=== PATIENT | female | born 1940 | race Caucasian/White ===

== ENCOUNTER 2019-09-27 22:55 | IRF | payer MEDICARE, SELFPAY ==
[2019-09-27 22:10] VITALS: BP 145/65; PULSE 89; RESP 18; TEMP 37.1; O2SAT 94; BMI 31.8
--- NOTE | 2019-09-27 22:14 | ADMGEN ---
This patient, Sammi Calzada, was admitted to [facility] Room [id number]. Patient/family oriented to hospital policies and general routines including ID bracelet, bed and alarms, visiting hours, pain management, procedures, bathroom and other care routines, personal items, smoking policy, room service/diet, and visiting hours. Valuables list has been completed. Information on how to activate the Rapid Response Team has been discussed. Patient/Family are encouraged to report perceived risks to care and to ask questions if they do not understand what they are told or what they should do.
[2019-09-28 04:29] LABS: Basophils Percent Auto 0.5 % (0.2-1.2); Eosinophils Absolute Auto 0.2 K/mm3 (0-0.3); Eosinophils Percent Auto 3.4 % (0-4.4); Hematocrit 23.5 % (37.0-47.0); Hemoglobin 7.6 g/dL (12.0-15.0); Immature Granulocyte Absolute 0.02 K/mm3 (0.00-0.031); Immature Granulocyte Percent A 0.5 % (0-0.5); Lymphocytes Absolute Auto 1.11 K/mm3 (0.9-3.2); Lymphocytes Percent Auto 25.4 % (18.3-44.2); Mean Corpuscular HGB Conc 32.3 g/dl (32-36); Mean Corpuscular Hemoglobin 31.7 pg (26-34); Mean Corpuscular Volume 97.9 fl (80-100); Mean Platelet Volume 8.7 fl (7.4-10.4); Monocytes Absolute Auto 0.3 K/mm3 (0.1-0.6); Monocytes Percent Auto 7.6 % (2.6-8.5); Neutrophils Absolute Auto 2.7 K/mm3 (1.3-6.7); Neutrophils Percent Auto 62.6 % (45.5-73.1); Platelet Count Result 216 k/mm3 (150-375); Red Cell Distribution Width 13.8 % (11.5-14.5); White Blood Count 4.4 K/mm3 (4.5-10.0)
[2019-09-28 04:45] LABS: Blood Urea Nitrogen 11 mg/dL (7-17); Carbon Dioxide 32 mmol/L (22-30); Chloride 102 mmol/L (98-107); Estimated CRCL calculation 71 ml/min; Estimated Glomerular Filt Rate > 60; Glucose 104 mg/dL (65-105); Potassium 3.4 mmol/L (3.4-5.0); Sodium 133 mmol/L (137-145)
[2019-09-28 05:40] VITALS: BP 127/61; PULSE 93; RESP 18; TEMP 37.4; O2SAT 96
[2019-09-28] MEDS: ACETAMINOPHEN 325 MG TABLET 650 MG BY MOUTH ×4 (05:42→20:42)
[2019-09-28] MEDS: CHOLECALCIFEROL 1,000 UNIT TABLET 1000 UNITS BY MOUTH (11:48)
[2019-09-28] MEDS: PAROXETINE 20 MG TABLET PO (11:49)
[2019-09-28] MEDS: PANTOPRAZOLE 40 MG TABLET PO (11:49)
[2019-09-28] MEDS: ENOXAPARIN 40 MG/0.4 ML SYRINGE SUB-Q (11:50)
[2019-09-28 14:00] VITALS: BP 123/66; PULSE 112; RESP 20; TEMP 36.9; O2SAT 98
--- NOTE | 2019-09-28 16:00 | WPDREHABHP ---
H&P: HPI History of Present Illness Chief complaint: L. Femur Fracture Narrative: Sammi Calzada is a 79 year old female HISTORY OF PRESENT ILLNESS: The patient's primary rehab impairment category is 0 5-cehxtanmtv-xbmnv extremity fracture The etiologic diagnosis is left distal femur fracture I saw this patient [id number] on September 28, 2019 at 4:00 p.m. The patient is a 79 years old right-handed white woman with a past medical history of diverticulitis, depression, gastroesophageal reflux disease, T11 compression fracture, and osteopenia presented to [facility] on September 23, 2019 after suffering a mechanical fall down 4 steps at her home. Imaging revealed a left comminuted intra-articular, impacted distal femur fracture and and acute L3 burst type compression fracture with 50% height loss and 5 millimeter retropulsion into the spinal plan causing mild spinal canal stenosis. Orthopedic surgery was consulted and the patient underwent an open reduction internal fixation of the left distal femur on September [address] Vidal seymour. She is nonweightbearing to left lower extremity with knee immobilizer. Orthopedic trauma was consulted for the L3 burst fracture and recommended conservative management with an LSO brace for comfort in activity as tolerated. Postoperatively the patient has experienced acute blood-loss anemia requiring transfusion, acute postoperative pain which is stable, and hypocalcemia. She was discharged to us with Lovenox for DVT prophylaxis The patient has not traveled outside the [place] or had contact with someone who is ill that has traveled outside the [place] in the past 21 days. The patient has not traveled to an area of the [place] that is experiencing known transmission of the Coronavirus and has not had close personal contact with anyone that has. The patient does not have a fever. The patient does not have lower respiratory illness symptoms. Therapy was initiated at the acute care facility and the patient transferred to us from [facility] on September 27, 2019 at 10:30 p.m. last night on FALLS OR SURGERIES: The patient has had major surgeries in the 100 days prior to admission. They had falls in the past year. They had falls with injury in the past year. PAST MEDICAL HISTORY: gastroesophageal reflux disease, diverticulosis, osteopenia and also history of T11 compression fracture PAST SURGICAL HISTORY: cholecystectomy total abdominal hysterectomy, T11 kyphoplasty and the core biopsy. SOCIAL HISTORY: The patient lives independently in a 1 level home with the basement. [employer] is in the basement and the family is able to do that. The patient was completely independent with ADLs transfers and used can for functional mobility. She was able to perform all ADLs LEs. She works 4 hours a day at [employer]. Her is in the skilled nursing. She has had 2 falls in the past 6 months. She had major surgery this admission. Never smoker no alcohol or drug use works part-time FAMILY HISTORY: sister with breast cancer, hypertension and a sister with Parkinson's disease who had happened to be my patient PRIOR LEVEL OF FUNCTION: Eating was INDEPENDENT Oral Care was INDEPENDENT Toileting Hygiene was INDEPENDENT Shower/Bathing was INDEPENDENT Upper Body Dressing was INDEPENDENT Lower Body Dressing was INDEPENDENT Donning/[place] Footwear was INDEPENDENT Rolling Left and Right was INDEPENDENT Sit to Lying was INDEPENDENT Lying to Sitting was INDEPENDENT Sit to Stand was INDEPENDENT Bed to Chair Transfers was INDEPENDENT Toilet Transfers was INDEPENDENT Walking was INDEPENDENT >500 feet with NO DEVICE Wheelchair Mobility was NOT APPLICABLE PRIOR TO ADMISSION Stairs were 14 stairs independent CURRENT LEVEL OF FUNCTION: Eating was SET UP ONLY Oral Care was SET UP ONLY Toileting Hygiene was Shower/Bathing was Upper Body Dressing was Lower Body Dressing was
[2019-09-28] MEDS: FOLIC ACID 1 MG TABLET PO (17:26)
[2019-09-28] MEDS: SENNA/DOCUSATE SODIUM TABLET 1 TAB PO (20:43)
[2019-09-28 21:52] VITALS: BP 104/58; PULSE 100; RESP 18; TEMP 36.1; O2SAT 93
[2019-09-29] MEDS: ACETAMINOPHEN 325 MG TABLET 650 MG BY MOUTH ×4 (00:21→17:35)
[2019-09-29 06:00] VITALS: BP 115/62; PULSE 80; RESP 18; TEMP 36.4; O2SAT 97
--- NOTE | 2019-09-29 09:15 | RPD ---
INDIVIDUALIZED PLAN OF CARE FOR Sammi Calzada Brief Synthesis of Pre-Admission Screen, Post-Admission Evaluation and Therapy Evaluations: The patient presents to rehab with a left distal femur fracture. Comorbidities include status post open reduction internal fixation, L3 burst-type compression fracture, acute blood loss anemia requiring transfusion, acute postoperative pain, gastroesophageal reflux disease, hypotension, and hypocalcemia. The patient?s needs will be best met in an intensive program vs. at a lower level of care. The patient requires physician services for medical oversight, management of postoperative complications in setting of present comorbidities, and pain management. The patient requires nursing services for DVT prophylactics, infection protection, medication management and education, pressure relief, and wound care. Deficits include:ADLs, Balance, Endurance, Family Training/Education, Mobility, Pain Management, ROM, Safety, Strength, and Transfers Computer Art Instructor/Case Management for: Discharge Planning and Patient/Family Counseling Physical Therapy: 5 days per week for 90 minutes. Treatments may include: Therapeutic Exercise, Gait Training, Neuromuscular Re-education, Transfer Training, Community Reintegration, Bed Mobility, Patient/Family Education, Wheelchair Mobility Group Therapy/Concurrent Therapy Rationales: -Improve attention span during functional activities in a distracted environment. -Enhance problem solving and/or adequate judgment skills during functional activities in a distracted environment. -Promote increased safety awareness in a distracted environment to reduce fall risk with functional tasks, transfers, and ambulation to allow a more safe, self-sufficient return to the home environment. -Improve dynamic balance skills to promote safety and independence with functional activities in a distracted environment for maximum gain. Occupational Therapy: 5 days per week for 90 minutes. Treatments may include: Therapeutic Exercise, Therapeutic Activity, Cognitive Training, Self-Care Transfer Training, Community Reintegration, Home Management, Patient/Family Education, Wheelchair Mobility Training, Energy Conservation Training Group Therapy/Concurrent Therapy Rationales: -Allow therapist to observe and teach generalization and carry-over of skills learned in individual therapy. -Enhance problem solving and sequencing skills during therapeutic activities in a distracted environment. -Promote increased safety awareness in a realistic setting to reduce fall risk with functional tasks due to visual and verbal distractions. -Increase functional level with ADLs, ADL transfers and use of adaptive equipment through therapeutic activities with others while promoting safety to allow a more safe, self-sufficient return home. Medical Prognosis: Good Anticipated Length of Stay: 10 days Rehab Goals: Eating Goal: 06-Independent Oral Hygiene Goal: 06-Independent Toileting Hygiene Goal: 06-Independent Shower/Bathe Self Goal: 06-Independent Upper Body Dressing Goal: 06-Independent Lower Body Dressing Goal: 06-Independent Putting On/Taking Off Footwear Goal: 06-Independent Rolling Left and Right Goal: 06-Independent Sit to Lying Goal: 06-Independent Lying to Sitting on Side of Bed Goal: Sit to Stand Goal: 06-Independent Chair/Wie-wl-[id number] Transfer Goal: 06-Independent Toilet Transfer Goal: 06-Independent Car Transfer Goal: 06-Independent Walk 10' Goal: 06-Independent Walk 50' with Two Turns Goal: 06-Independent Walk 150' Goal: 06-Independent Walk 10' on Uneven Surface Goal: 06-Independent 1 Step (Curb) Goal: 06-Independent 4 Steps Goal: 03-Partial/Moderate Assistance 12 Steps Goal Score: 03-Partial/Moderate Assistance Picking Up Object Goal: 06-Independent Wheel 50' with Two Turns Score: 06-Independent Wheel 150' Goal: 06-Independent Anticipated discharge destination: Home
[2019-09-29] MEDS: ENOXAPARIN 40 MG/0.4 ML SYRINGE SUB-Q (09:37)
[2019-09-29] MEDS: CHOLECALCIFEROL 1,000 UNIT TABLET 1000 UNITS BY MOUTH (09:37)
[2019-09-29] MEDS: PANTOPRAZOLE 40 MG TABLET PO (09:38)
[2019-09-29] MEDS: PAROXETINE 20 MG TABLET PO (09:38)
[2019-09-29] MEDS: polyethylene glycoL 3350 17 GM POWD.PACK PO (09:38)
[2019-09-29] MEDS: FOLIC ACID 1 MG TABLET PO (11:09)
[2019-09-29 12:53] VITALS: BMI 31.8
[2019-09-29 14:00] VITALS: BP 111/63; PULSE 104; RESP 20; TEMP 36.9; O2SAT 99
--- NOTE | 2019-09-29 15:28 | PCPTNOTE ---
Sammi Calzada was evaluated for a wheeled walker on 09/29/2019 by this physical therapist. The wheeled walker will resolve patient's mobility limitations and will be used for ADL's within the home. The patient can safely use the wheeled walker. ?The wheeled walker will resolve the patient?s mobility deficits, including safe transfers/ADL's and gait. Shara Irizarry PT
--- NOTE | 2019-09-29 15:30 | PCPTNOTE ---
Shara Irizarry, PT completed an inpatient rehab wheelchair evaluation on Sammi Calzada on 09/29/2019. The patient is unable to safely and independently ambulate household distances due to their current impairments. Their diagnosis is L. Femur Fracture and their impairments include decreased strength, decreased endurance, decreased range of motion, decreased balance, lower extremity weakness, and ataxia. Sammi's weight bearing status is non weight-bearing on the left lower leg. The patient demonstrates significant functional mobility limitations that impair their ability to participate in mobility-related activities of daily living (MRADLs), including toileting, feeding, dressing, grooming, and bathing in the customary locations in the home. These limitations cannot be sufficiently resolved by the use of an appropriately fitted cane or walker. It is recommended that the patient utilize a wheelchair for functional mobility within the home in order to facilitate optimal safety, independence and participation in all MRADL's and adequately access their home environment on a regular basis. The patient's home provides adequate access between rooms, maneuvering space, and surfaces to accommodate the recommended wheelchair. The use of a wheelchair for functional mobility is strongly recommended and the patient is receptive to using the wheelchair. The use of this wheelchair will significantly improve the patient's ability to participate in MRADLS and the patient will use it on a regular basis in the home. This will facilitate optimal safety, independence, and participation. The patient has demonstrated sufficient physical and mental capabilities needed to safely propel a manual wheelchair that is provided in the home during a typical day. Recommended Wheelchair Frame: standard Recommended Wheelchair Size: 18 x 18 Recommended Wheelchair Cushion:standard Wheelchair Leg Recommendations: detachable elevating Elevating legrests are recommended because the patient has a musculoskeletal condition or the presence of a cast or brace which prevents 90 degree flexion at the knee. Elevating legrests are recommended because the patient has significant edema of the lower extremities that requires an elevating legrest. Anti-tippers are recommended due to patient demonstrating increased risk for falls. They would benefit from anti-tippers with added safety and stabilization. __Shara Irizarry PT __6/27/20 Evaluating Therapist Date I agree with and certify that the above recommendation is medically necessary. Referring Physician Date I agree with and certify that the above recommendation is medically necessary. Referring Physician Date
[2019-09-29] MEDS: CYANOCOBALAMIN 250 MCG TABLET PO (17:34)
[2019-09-29] MEDS: SENNA/DOCUSATE SODIUM TABLET 1 TAB PO (20:18)
[2019-09-29 22:00] VITALS: BP 117/53; PULSE 101; RESP 18; TEMP 37; O2SAT 92
[2019-09-30] MEDS: ACETAMINOPHEN 325 MG TABLET 650 MG BY MOUTH ×4 (03:23→17:28)
[2019-09-30 05:59] VITALS: BP 109/71; PULSE 80; RESP 18; TEMP 36.3; O2SAT 98
[2019-09-30 08:00] VITALS: PULSE 80; RESP 18; O2SAT 98
[2019-09-30] MEDS: FOLIC ACID 1 MG TABLET PO (09:28)
[2019-09-30] MEDS: ENOXAPARIN 40 MG/0.4 ML SYRINGE SUB-Q (09:28)
[2019-09-30] MEDS: CYANOCOBALAMIN 250 MCG TABLET PO (09:28)
[2019-09-30] MEDS: PANTOPRAZOLE 40 MG TABLET PO (09:28)
[2019-09-30] MEDS: CHOLECALCIFEROL 1,000 UNIT TABLET 1000 UNITS BY MOUTH (09:28)
[2019-09-30] MEDS: PAROXETINE 20 MG TABLET PO (09:28)
[2019-09-30] MEDS: polyethylene glycoL 3350 17 GM POWD.PACK PO (09:28)
[2019-09-30 14:00] VITALS: BP 129/67; PULSE 96; RESP 18; TEMP 37; O2SAT 96
--- NOTE | 2019-09-30 16:03 | WPDNEURORHBP ---
Subjective Date/time seen: 09/30/19 16:03 Interval history: this 79-year-old is here after suffering from on left femur fracture for which she had the surgery performed and she is nonweightbearing and that extremity. She does have an appointment in 2 weeks after discharge for her fracture she denies any headache nausea vomiting chest pain shortness of breath fever chills or sore throat Review of Systems Review of Systems: All systems reviewed & are unremarkable except as noted in HPI and below Functional Status Ambulation Ability Ability to Ambulate 10 Feet: Contact Guard Ability to Ambulate 50 Feet With 2 Turns: Standby Assistance Ambulation Assistive Devices: Walker, Wheeled Transfers Ability Ability to Transfer In/Out of Chair: Standby Assistance Exam Const: General: comfortable and no acute distress HENMT: General nose exam: Normal nares present Mouth: Yes moist mucous membranes Eyes: General: appearance normal, both eyes and all related structures Neck: Neck: supple and no JVD Resp: Effort & Inspection: normal respiratory effort Auscultation: clear to auscultation bilaterally Cardio: Rate: regular rate Rhythm: regular rhythm GI: GI Palp: Yes Soft to palpation Auscultation: normal bowel sounds Skin: General skin exam: normal color and no rashes or lesions noted Neuro: Other: the patient is awake and alert oriented x3 with mild short-term memory deficit weakness in a generalized fashion and of course nonweightbearing status of the left lower extremity overall stable and making certainly progress in the rehab Extrem: Other: left lower extremity is in the immobilizer no sign of infectious process noted Psych: Mental Status: mental status grossly normal Objective Data Vital Signs Vital Signs: Vital Signs - 24 hr 09/29/19 22:00 09/30/19 05:59 09/30/19 08:00 Temperature 37.0 C 36.3 C L Pulse Rate 101 H 80 80 Respiratory Rate 18 18 18 Blood Pressure 117/53 L 109/71 Pulse Oximetry 92 98 98 09/30/19 14:00 Temperature 37.0 C Pulse Rate 96 Respiratory Rate 18 Blood Pressure 129/67 Pulse Oximetry 96 Intake/Output Intake/Output: Intake & Output 09/27/19 09/28/19 09/29/19 09/30/19 23:59 23:59 23:59 23:59 Intake Total 720 720 720 Balance 720 720 720 Meds/Results Medications: Active Medications Generic Name Dose Route Start Last Admin Trade Name Freq PRN Reason Stop Dose Admin Acetaminophen 650 mg 09/27/19 00:00 09/30/19 12:54 Tylenol Tablet BY MOUTH 650 mg Q6HR CAROL Administration Calcium Carbonate 500 mg 09/28/19 09:00 09/30/19 09:28 Os-Andrei 500 +D Tablet PO 10/28/19 09:01 500 mg BID CAROL Administration Cyanocobalamin 250 mcg 09/29/19 09:00 09/30/19 09:28 Vitamin B-12 Tab PO 10/30/19 09:01 250 mcg DAILY CAROL Administration Enoxaparin Sodium 40 mg 09/28/19 09:00 09/30/19 09:28 Lovenox SUB-Q 40 mg DAILY CAROL Administration Folic Acid 1 mg 09/28/19 09:00 09/30/19 09:28 Folic Acid PO 1 mg DAILY CAROL Administration Oxycodone HCl 5 mg 09/27/19 23:55 09/28/19 17:26 Roxicodone Ir Tablet PO 5 mg Q4H PRN Administration Pain (Scale Score 7-10) Pantoprazole Sodium 40 mg 09/28/19 09:00 09/30/19 09:28 Protonix PO 40 mg QAM CAROL Administration Paroxetine HCl 20 mg 09/28/19 09:00 09/30/19 09:28 Paxil PO 20 mg QAM CAROL Administration Polyethylene Glycol 17 gm 09/28/19 09:00 09/30/19 09:28 Miralax PO 17 gm DAILY CAROL Administration Senna/Docusate Sodium 1 tab 09/28/19 21:00 09/29/19 20:18 Senokot S Tablet PO 1 tab HS CAROL Administration Vitamin D 1,000 unit 09/28/19 09:00 09/30/19 09:28 Vitamin D BY MOUTH 10/28/19 09:01 1,000 unit DAILY CAROL Administration Progress Note: A&P Assessment and Plan (1) S/P ORIF (open reduction internal fixation) fracture: Code(s): Z98.890 - Other specified postprocedural states; Z87.81 - Personal history of (healed) trauma
[2019-09-30] MEDS: SENNA/DOCUSATE SODIUM TABLET 1 TAB PO (20:53)
[2019-09-30 22:00] VITALS: BP 130/54; PULSE 94; RESP 19; TEMP 36.9; O2SAT 98
[2019-10-01] MEDS: ACETAMINOPHEN 325 MG TABLET 650 MG BY MOUTH ×4 (00:19→16:56)
[2019-10-01 06:00] VITALS: BP 149/75; PULSE 82; RESP 18; TEMP 36.1; O2SAT 99
[2019-10-01 08:00] VITALS: PULSE 82; RESP 18; O2SAT 99
[2019-10-01] MEDS: ENOXAPARIN 40 MG/0.4 ML SYRINGE SUB-Q (08:33)
[2019-10-01] MEDS: PAROXETINE 20 MG TABLET PO (08:33)
[2019-10-01] MEDS: polyethylene glycoL 3350 17 GM POWD.PACK PO (08:34)
[2019-10-01] MEDS: FOLIC ACID 1 MG TABLET PO (08:34)
[2019-10-01] MEDS: CYANOCOBALAMIN 250 MCG TABLET PO (08:34)
[2019-10-01] MEDS: PANTOPRAZOLE 40 MG TABLET PO (08:34)
[2019-10-01] MEDS: CHOLECALCIFEROL 1,000 UNIT TABLET 1000 UNITS BY MOUTH (08:35)
[2019-10-01 14:00] VITALS: BP 113/56; PULSE 87; RESP 18; TEMP 36.9; O2SAT 96
--- NOTE | 2019-10-01 14:00 | WPDNEURORHBP ---
Subjective Date/time seen: 10/01/19 14:00 Interval history: this 79-year-old woman is here after having had surgery for left femur fracture and the left lower extremity is in immobilizer she is doing fairly well and tells me that she has had at least several is history of tremors and she had seen me in the past which I am unable to recall however I suggested that she should have follow-up with me post discharge after the rehab so I can reassess her functionality as she does have a family history of the Parkinson's disease and also the family history of the tremors The patient denies any headache nausea vomiting chest pain shortness of breath fever chills sore throat Review of Systems Review of Systems: All systems reviewed & are unremarkable except as noted in HPI and below Functional Status Ambulation Ability Ability to Ambulate 10 Feet: Contact Guard Ability to Ambulate 50 Feet With 2 Turns: Standby Assistance Ambulation Assistive Devices: Walker, Standard Transfers Ability Ability to Transfer In/Out of Chair: Standby Assistance Exam Const: General: comfortable and no acute distress HENMT: General nose exam: Normal nares present Mouth: Yes moist mucous membranes Eyes: General: appearance normal, both eyes and all related structures Neck: Neck: supple and no JVD Resp: Effort & Inspection: normal respiratory effort Auscultation: clear to auscultation bilaterally Cardio: Rate: regular rate Rhythm: regular rhythm GI: GI Palp: Yes Soft to palpation Auscultation: normal bowel sounds Skin: General skin exam: normal color and no rashes or lesions noted Neuro: Other: patient is awake alert well oriented normal speech and language function no dysarthria or dysphonia she does have rather coarse arrhythmic tremor without any evidence of rigidity or bradykinesia this tremor does not look like a parkinsonian tremor but she needs follow-up as some patients will have long-standing have tremors may have Parkinson's disease or parkinsonism later in the course of the tremor in any event I am not going to address her tremor this point and have discussed with he Extrem: General: normal to inspection Other: the left lower extremity is in the immobilizer Psych: Mental Status: mental status grossly normal Objective Data Vital Signs Vital Signs: Vital Signs - 24 hr 09/30/19 22:00 10/01/19 06:00 10/01/19 08:00 Temperature 36.9 C 36.1 C L Pulse Rate 94 82 82 Respiratory Rate 19 18 18 Blood Pressure 130/54 L 149/75 H Pulse Oximetry 98 99 99 Intake/Output Intake/Output: Intake & Output 09/28/19 09/29/19 09/30/19 10/01/19 23:59 23:59 23:59 23:59 Intake Total 389 070 8530 440 Balance 667 533 2589 440 Meds/Results Medications: Active Medications Generic Name Dose Route Start Last Admin Trade Name Freq PRN Reason Stop Dose Admin Acetaminophen 650 mg 09/27/19 00:00 10/01/19 13:15 Tylenol Tablet BY MOUTH 650 mg Q6HR CAROL Administration Calcium Carbonate 500 mg 09/28/19 09:00 10/01/19 08:34 Os-Andrei 500 +D Tablet PO 10/28/19 09:01 500 mg BID CAROL Administration Cyanocobalamin 250 mcg 09/29/19 09:00 10/01/19 08:34 Vitamin B-12 Tab PO 10/30/19 09:01 250 mcg DAILY CAROL Administration Enoxaparin Sodium 40 mg 09/28/19 09:00 10/01/19 08:33 Lovenox SUB-Q 40 mg DAILY CAROL Administration Folic Acid 1 mg 09/28/19 09:00 10/01/19 08:34 Folic Acid PO 1 mg DAILY CAROL Administration Oxycodone HCl 5 mg 09/27/19 23:55 09/28/19 17:26 Roxicodone Ir Tablet PO 5 mg Q4H PRN Administration Pain (Scale Score 7-10) Pantoprazole Sodium 40 mg 09/28/19 09:00 10/01/19 08:34 Protonix PO 40 mg QAM CAROL Administration Paroxetine HCl 20 mg 09/28/19 09:00 10/01/19 08:33 Paxil PO 20 mg QAM CAROL Administration Polyethylene Glycol 17 gm 09/28/19 09:00 10/01/19 08:34 Miralax PO 17 gm DAILY CAROL Administration Senna/Docusate Sodium 1 tab 09/28/19
[2019-10-01] MEDS: PRIMIDONE 12.5 MG TABLET PO (21:20)
[2019-10-01 22:00] VITALS: BP 103/57; PULSE 87; RESP 18; TEMP 36.9; O2SAT 95
[2019-10-02] MEDS: ACETAMINOPHEN 325 MG TABLET 650 MG BY MOUTH ×4 (01:37→17:01)
[2019-10-02 06:00] VITALS: BP 114/61; PULSE 78; RESP 17; TEMP 36.9; O2SAT 98
[2019-10-02] MEDS: CYANOCOBALAMIN 250 MCG TABLET PO (08:25)
[2019-10-02] MEDS: ENOXAPARIN 40 MG/0.4 ML SYRINGE SUB-Q (08:26)
[2019-10-02] MEDS: FOLIC ACID 1 MG TABLET PO (08:26)
[2019-10-02] MEDS: PAROXETINE 20 MG TABLET PO (08:26)
[2019-10-02] MEDS: PANTOPRAZOLE 40 MG TABLET PO (08:26)
[2019-10-02] MEDS: polyethylene glycoL 3350 17 GM POWD.PACK PO (08:26)
[2019-10-02] MEDS: CHOLECALCIFEROL 1,000 UNIT TABLET 1000 UNITS BY MOUTH (12:41)
[2019-10-02 14:00] VITALS: BP 112/49; PULSE 97; RESP 20; TEMP 36.8; O2SAT 96
--- NOTE | 2019-10-02 16:23 | PCCCNOTE ---
On 10/02/19, the student, [Anthony De La Fuente ], provided care and completed [facility] documentation on this patient. I have reviewed the student's documentation and agree with the findings.
[2019-10-02] MEDS: PRIMIDONE 12.5 MG TABLET PO (20:07)
[2019-10-02] MEDS: SENNA/DOCUSATE SODIUM TABLET 1 TAB PO (20:07)
[2019-10-02 22:00] VITALS: BP 114/55; PULSE 85; RESP 16; TEMP 37.1; O2SAT 94
[2019-10-03] MEDS: ACETAMINOPHEN 325 MG TABLET 650 MG BY MOUTH ×4 (02:00→18:00)
[2019-10-03 06:00] VITALS: BP 120/65; PULSE 75; RESP 18; TEMP 36.5; O2SAT 97
[2019-10-03 08:00] VITALS: PULSE 75; RESP 18; O2SAT 97
[2019-10-03] MEDS: CHOLECALCIFEROL 1,000 UNIT TABLET 1000 UNITS BY MOUTH (09:15)
[2019-10-03] MEDS: PAROXETINE 20 MG TABLET PO (09:15)
[2019-10-03] MEDS: PANTOPRAZOLE 40 MG TABLET PO (09:15)
[2019-10-03] MEDS: FOLIC ACID 1 MG TABLET PO (09:16)
[2019-10-03] MEDS: CYANOCOBALAMIN 250 MCG TABLET PO (09:16)
[2019-10-03] MEDS: ENOXAPARIN 40 MG/0.4 ML SYRINGE SUB-Q (09:16)
--- NOTE | 2019-10-03 11:00 | WPDNEURORHBP ---
Subjective Date/time seen: 10/02/19 11:00 Interval history: this 79-year-old is here after having had left femur fracture and the which is in immobilizer she is doing fairly well and making progress in the rehab she denies any headache nausea vomiting chest pain shortness of breath fever chills sore throat engage in therapy and doing fairly well Review of Systems Review of Systems: All systems reviewed & are unremarkable except as noted in HPI and below Functional Status Ambulation Ability Ability to Ambulate 10 Feet: Contact Guard Ability to Ambulate 50 Feet With 2 Turns: Standby Assistance Ambulation Assistive Devices: Walker, Wheeled Transfers Ability Ability to Transfer In/Out of Chair: Standby Assistance Exam Const: General: comfortable and no acute distress HENMT: General nose exam: Normal nares present Mouth: Yes moist mucous membranes Eyes: General: appearance normal, both eyes and all related structures Neck: Neck: supple and no JVD Resp: Effort & Inspection: normal respiratory effort Auscultation: clear to auscultation bilaterally Cardio: Rate: regular rate Rhythm: regular rhythm GI: GI Palp: Yes Soft to palpation Auscultation: normal bowel sounds Skin: General skin exam: normal color and no rashes or lesions noted Neuro: Other: patient is awake and alert well oriented time place and person speech language functions are normal cranial examination is normal her strength is slowly improving but still needing assistance in the activities of daily living Extrem: Other: the left lower extremity is in immobilizer Psych: Mental Status: mental status grossly normal Objective Data Vital Signs Vital Signs: Vital Signs - 24 hr 10/02/19 14:00 10/02/19 22:00 10/03/19 06:00 Temperature 36.8 C 37.1 C 36.5 C Pulse Rate 97 85 75 Respiratory Rate 20 16 18 Blood Pressure 112/49 L 114/55 L 120/65 Pulse Oximetry 96 94 97 10/03/19 08:00 Temperature Pulse Rate 75 Respiratory Rate 18 Blood Pressure Pulse Oximetry 97 Intake/Output Intake/Output: Intake & Output 09/30/19 10/01/19 10/02/19 10/03/19 23:59 23:59 23:59 23:59 Intake Total 2543 316 4224 240 Balance 3589 310 9387 240 Meds/Results Medications: Active Medications Generic Name Dose Route Start Last Admin Trade Name Freq PRN Reason Stop Dose Admin Acetaminophen 650 mg 09/27/19 00:00 10/03/19 06:37 Tylenol Tablet BY MOUTH 650 mg Q6HR CAROL Administration Calcium Carbonate 500 mg 09/28/19 09:00 10/03/19 09:16 Os-Andrei 500 +D Tablet PO 10/28/19 09:01 500 mg BID CAROL Administration Cyanocobalamin 250 mcg 09/29/19 09:00 10/03/19 09:16 Vitamin B-12 Tab PO 10/30/19 09:01 250 mcg DAILY CAROL Administration Enoxaparin Sodium 40 mg 09/28/19 09:00 10/03/19 09:16 Lovenox SUB-Q 40 mg DAILY CAROL Administration Folic Acid 1 mg 09/28/19 09:00 10/03/19 09:16 Folic Acid PO 1 mg DAILY CAROL Administration Oxycodone HCl 5 mg 09/27/19 23:55 10/02/19 03:17 Roxicodone Ir Tablet PO 5 mg Q4H PRN Administration Pain (Scale Score 7-10) Pantoprazole Sodium 40 mg 09/28/19 09:00 10/03/19 09:15 Protonix PO 40 mg QAM CAROL Administration Paroxetine HCl 20 mg 09/28/19 09:00 10/03/19 09:15 Paxil PO 20 mg QAM CAROL Administration Polyethylene Glycol 17 gm 09/28/19 09:00 10/03/19 09:17 Miralax PO Not Given DAILY CAROL Primidone 12.5 mg 10/01/19 21:00 10/02/19 20:07 Mysoline PO 12.5 mg HS CAROL Administration Senna/Docusate Sodium 1 tab 09/28/19 21:00 10/02/19 20:07 Senokot S Tablet PO 1 tab HS CAROL Administration Vitamin D 1,000 unit 09/28/19 09:00 10/03/19 09:15 Vitamin D BY MOUTH 10/28/19 09:01 1,000 unit DAILY CAROL Administration Progress Note: A&P Assessment and Plan (1) Coarse tremors: Code(s): G25.2 - Other specified forms of tremor Status: Acute (2) S/P ORIF (open reduction internal fixation) fracture:
--- NOTE | 2019-10-03 12:54 | PCDIET ---
Nutrition Follow-Up Complete: No nutrition diagnosis at this time. Nutrition Goal: Patient to consume 75% of meals or greater. Goal met. Patient consuming 75-100% of most meals on regular diet which is appropriate. Patient reports good appetite and denies c/o or concerns. Last recorded weight is 74 kg. Recommend obtaining new weight. Bowel Motility: +BM today. Labs Reviewed: No new labs available. Meds Noted: Oscal 500 + D, Vitamin B12, Folic Acid, Protonix, Miralax, Senna, Vitamin D Additional Notes: Left leg incision. No documented pressure ulcers. Will continue to monitor with same goal. Nutrition Monitoring and Evaluation: Follow up in 7 days.
[2019-10-03 14:00] VITALS: BP 111/63; PULSE 97; RESP 18; TEMP 36.8; O2SAT 95
--- NOTE | 2019-10-03 15:56 | WPDNEURORHBP ---
Subjective Date/time seen: 10/03/19 15:56 Interval history: this pleasant 79-year-old is recuperating on the acute rehab floor after having had surgery for the left femur fracture she is nonweightbearing on that extremity doing fairly well in the therapy denies any headache nausea vomiting chest pain shortness of breath fever chills sore throat Review of Systems Review of Systems: All systems reviewed & are unremarkable except as noted in HPI and below Functional Status Ambulation Ability Ability to Ambulate 10 Feet: Contact Guard Ability to Ambulate 50 Feet With 2 Turns: Contact Guard Ambulation Assistive Devices: Walker, Wheeled Transfers Ability Ability to Transfer In/Out of Chair: Standby Assistance Exam Const: General: comfortable and no acute distress HENMT: General nose exam: Normal nares present Mouth: Yes moist mucous membranes Eyes: General: appearance normal, both eyes and all related structures Neck: Neck: supple and no JVD Resp: Effort & Inspection: normal respiratory effort Auscultation: clear to auscultation bilaterally Cardio: Rate: regular rate Rhythm: regular rhythm GI: GI Palp: Yes Soft to palpation Auscultation: normal bowel sounds Skin: General skin exam: normal color and no rashes or lesions noted Neuro: Other: patient is awake and alert well oriented follows all commands quite well she is not any distress engage in therapy needing still assistance in the activities of daily living her weakness which is directly related to the fracture and post operative fatigue and tiredness but no actual neurological weakness in that sense Extrem: General: normal to inspection Other: the left lower extremity is in immobilizer Psych: Mental Status: mental status grossly normal Objective Data Vital Signs Vital Signs: Vital Signs - 24 hr 10/02/19 22:00 10/03/19 06:00 10/03/19 08:00 Temperature 37.1 C 36.5 C Pulse Rate 85 75 75 Respiratory Rate 16 18 18 Blood Pressure 114/55 L 120/65 Pulse Oximetry 94 97 97 10/03/19 14:00 Temperature 36.8 C Pulse Rate 97 Respiratory Rate 18 Blood Pressure 111/63 Pulse Oximetry 95 Intake/Output Intake/Output: Intake & Output 09/30/19 10/01/19 10/02/19 10/03/19 23:59 23:59 23:59 23:59 Intake Total 7618 501 4947 480 Balance 3605 241 0781 480 Meds/Results Medications: Active Medications Generic Name Dose Route Start Last Admin Trade Name Norrisq PRN Reason Stop Dose Admin Acetaminophen 650 mg 09/27/19 00:00 10/03/19 12:20 Tylenol Tablet BY MOUTH 650 mg Q6HR CAROL Administration Calcium Carbonate 500 mg 09/28/19 09:00 10/03/19 09:16 Os-Andrei 500 +D Tablet PO 10/28/19 09:01 500 mg BID CAROL Administration Cyanocobalamin 250 mcg 09/29/19 09:00 10/03/19 09:16 Vitamin B-12 Tab PO 10/30/19 09:01 250 mcg DAILY CAROL Administration Enoxaparin Sodium 40 mg 09/28/19 09:00 10/03/19 09:16 Lovenox SUB-Q 40 mg DAILY CAROL Administration Folic Acid 1 mg 09/28/19 09:00 10/03/19 09:16 Folic Acid PO 1 mg DAILY CAROL Administration Oxycodone HCl 5 mg 09/27/19 23:55 10/02/19 03:17 Roxicodone Ir Tablet PO 5 mg Q4H PRN Administration Pain (Scale Score 7-10) Pantoprazole Sodium 40 mg 09/28/19 09:00 10/03/19 09:15 Protonix PO 40 mg QAM CAROL Administration Paroxetine HCl 20 mg 09/28/19 09:00 10/03/19 09:15 Paxil PO 20 mg QAM CAROL Administration Polyethylene Glycol 17 gm 09/28/19 09:00 10/03/19 09:17 Miralax PO Not Given DAILY CAROL Primidone 12.5 mg 10/01/19 21:00 10/02/19 20:07 Mysoline PO 12.5 mg HS CAROL Administration Senna/Docusate Sodium 1 tab 09/28/19 21:00 10/02/19 20:07 Senokot S Tablet PO 1 tab HS CAROL Administration Vitamin D 1,000 unit 09/28/19 09:00 10/03/19 09:15 Vitamin D BY MOUTH 10/28/19 09:01 1,000 unit DAILY CAROL Administration Progress Note: A&P Assessment and Plan (1) Coarse tremors: Code(s): G2
[2019-10-03] MEDS: SENNA/DOCUSATE SODIUM TABLET 1 TAB PO (20:52)
[2019-10-03] MEDS: PRIMIDONE 12.5 MG TABLET PO (20:52)
[2019-10-03 22:00] VITALS: BP 1136/58; PULSE 81; RESP 18; TEMP 36.3; O2SAT 93
[2019-10-04 05:48] VITALS: BP 133/74; PULSE 84; RESP 18; TEMP 36.2; O2SAT 95
[2019-10-04] MEDS: ACETAMINOPHEN 325 MG TABLET 650 MG BY MOUTH ×4 (06:44→21:09)
[2019-10-04 08:00] VITALS: PULSE 84; RESP 18; O2SAT 95
[2019-10-04] MEDS: CHOLECALCIFEROL 1,000 UNIT TABLET 1000 UNITS BY MOUTH (08:40)
[2019-10-04] MEDS: FOLIC ACID 1 MG TABLET PO (08:40)
[2019-10-04] MEDS: CYANOCOBALAMIN 250 MCG TABLET PO (08:41)
[2019-10-04] MEDS: PANTOPRAZOLE 40 MG TABLET PO (08:41)
[2019-10-04] MEDS: PAROXETINE 20 MG TABLET PO (08:41)
[2019-10-04] MEDS: polyethylene glycoL 3350 17 GM POWD.PACK PO (08:41)
[2019-10-04] MEDS: ENOXAPARIN 40 MG/0.4 ML SYRINGE SUB-Q (08:41)
[2019-10-04 14:00] VITALS: BP 114/54; PULSE 80; RESP 18; TEMP 37.1; O2SAT 97
[2019-10-04] MEDS: PRIMIDONE 12.5 MG TABLET PO (21:09)
[2019-10-04] MEDS: SENNA/DOCUSATE SODIUM TABLET 1 TAB PO (21:09)
[2019-10-04 22:00] VITALS: BP 129/69; PULSE 82; RESP 18; TEMP 35.9; O2SAT 98
[2019-10-05 04:20] LABS: Basophils Percent Auto 0.3 % (0.2-1.2); Eosinophils Absolute Auto 0.1 K/mm3 (0-0.3); Eosinophils Percent Auto 2.2 % (0-4.4); Hematocrit 26.1 % (37.0-47.0); Hemoglobin 8.2 g/dL (12.0-15.0); Immature Granulocyte Absolute 0.01 K/mm3 (0.00-0.031); Immature Granulocyte Percent A 0.3 % (0-0.5); Lymphocytes Absolute Auto 0.94 K/mm3 (0.9-3.2); Lymphocytes Percent Auto 25.8 % (18.3-44.2); Mean Corpuscular HGB Conc 31.4 g/dl (32-36); Mean Corpuscular Hemoglobin 32.3 pg (26-34); Mean Corpuscular Volume 102.8 fl (80-100); Mean Platelet Volume 8.3 fl (7.4-10.4); Monocytes Absolute Auto 0.3 K/mm3 (0.1-0.6); Monocytes Percent Auto 7.1 % (2.6-8.5); Neutrophils Absolute Auto 2.4 K/mm3 (1.3-6.7); Neutrophils Percent Auto 64.3 % (45.5-73.1); Platelet Count Result 277 k/mm3 (150-375); Red Blood Count 2.54 M/mm3 (4.2-5.4); Red Cell Distribution Width 15.9 % (11.5-14.5); White Blood Count 3.7 K/mm3 (4.5-10.0)
[2019-10-05 04:35] LABS: Blood Urea Nitrogen 7 mg/dL (7-17); Calcium 8.1 mg/dL (8.4-10.2); Carbon Dioxide 34 mmol/L (22-30); Chloride 102 mmol/L (98-107); Estimated CRCL calculation 60 ml/min; Estimated Glomerular Filt Rate > 60; Glucose 96 mg/dL (65-105); Potassium 3.3 mmol/L (3.4-5.0); Sodium 138 mmol/L (137-145)
[2019-10-05 06:00] VITALS: BP 118/67; PULSE 76; RESP 18; TEMP 35.8; O2SAT 96
[2019-10-05] MEDS: ACETAMINOPHEN 325 MG TABLET 650 MG BY MOUTH ×3 (06:11→17:05)
--- NOTE | 2019-10-05 09:01 | PC.NURSE ---
pt refused aspirin at this time. updated.
[2019-10-05] MEDS: CHOLECALCIFEROL 1,000 UNIT TABLET 1000 UNITS BY MOUTH (09:26)
[2019-10-05] MEDS: PAROXETINE 20 MG TABLET PO (09:26)
[2019-10-05] MEDS: CYANOCOBALAMIN 250 MCG TABLET PO (09:26)
[2019-10-05] MEDS: PANTOPRAZOLE 40 MG TABLET PO (09:26)
[2019-10-05] MEDS: FOLIC ACID 1 MG TABLET PO (09:26)
[2019-10-05] MEDS: ENOXAPARIN 40 MG/0.4 ML SYRINGE SUB-Q (09:26)
--- NOTE | 2019-10-05 12:43 | WPDNEURORHBP ---
Subjective Date/time seen: S/Pleft femur fracture repair with multiple comorbid [id number]/05/20 12:43 Review of Systems Review of Systems: All systems reviewed & are unremarkable except as noted in HPI and below Functional Status Ambulation Ability Ability to Ambulate 10 Feet: Contact Guard Ability to Ambulate 50 Feet With 2 Turns: Contact Guard Ambulation Assistive Devices: Walker, Wheeled Transfers Ability Ability to Transfer In/Out of Chair: Standby Assistance Exam Const: General: cooperative and no acute distress HENMT: Head: normal to inspection Eyes: General: appearance normal, both eyes and all related structures Neck: Neck: normal visual inspection, full ROM and no lymphadenopathy Resp: Effort & Inspection: normal respiratory effort Auscultation: clear to auscultation bilaterally Cardio: Rate: regular rate GI: Auscultation: normal bowel sounds Skin: General skin exam: normal color and no rashes or lesions noted Neuro: General: patient oriented x3 and moves all extremities Cranial nerves: Yes CN's II-XII intact bilaterally Cognition (Neuro): normal cognition Speech: normal speech Motor exam (neuro): Abnormal motor strength present (generalized weekness) Extrem: General: normal to inspection Psych: Appearance: grossly normal Objective Data Vital Signs Vital Signs: Vital Signs - 24 hr 10/04/19 14:00 10/04/19 22:00 10/05/19 06:00 Temperature 37.1 C 35.9 C L 35.8 C L Pulse Rate 80 82 76 Respiratory Rate 18 18 18 Blood Pressure 114/54 L 129/69 118/67 Pulse Oximetry 97 98 96 Intake/Output Intake/Output: Intake & Output 10/02/19 10/03/19 10/04/19 10/05/19 23:59 23:59 23:59 23:59 Intake Total 1080 720 360 240 Balance 1080 720 360 240 Meds/Results Medications: Active Medications Generic Name Dose Route Start Last Admin Trade Name Freq PRN Reason Stop Dose Admin Acetaminophen 650 mg 09/27/19 00:00 10/05/19 12:11 Tylenol Tablet BY MOUTH 650 mg Q6HR CAROL Administration Calcium Carbonate 500 mg 09/28/19 09:00 10/05/19 09:26 Os-Andrei 500 +D Tablet PO 10/28/19 09:01 500 mg BID CAROL Administration Cyanocobalamin 250 mcg 09/29/19 09:00 10/05/19 09:26 Vitamin B-12 Tab PO 10/30/19 09:01 250 mcg DAILY CAROL Administration Enoxaparin Sodium 40 mg 09/28/19 09:00 10/05/19 09:26 Lovenox SUB-Q 40 mg DAILY CAROL Administration Folic Acid 1 mg 09/28/19 09:00 10/05/19 09:26 Folic Acid PO 1 mg DAILY CAROL Administration Oxycodone HCl 5 mg 09/27/19 23:55 10/02/19 03:17 Roxicodone Ir Tablet PO 5 mg Q4H PRN Administration Pain (Scale Score 7-10) Pantoprazole Sodium 40 mg 09/28/19 09:00 10/05/19 09:26 Protonix PO 40 mg QAM CAROL Administration Paroxetine HCl 20 mg 09/28/19 09:00 10/05/19 09:26 Paxil PO 20 mg QAM CAROL Administration Polyethylene Glycol 17 gm 09/28/19 09:00 10/05/19 09:29 Miralax PO Not Given DAILY CAROL Primidone 12.5 mg 10/01/19 21:00 10/04/19 21:09 Mysoline PO 12.5 mg HS CAROL Administration Senna/Docusate Sodium 1 tab 09/28/19 21:00 10/04/19 21:09 Senokot S Tablet PO 1 tab HS CAROL Administration Vitamin D 1,000 unit 09/28/19 09:00 10/05/19 09:26 Vitamin D BY MOUTH 10/28/19 09:01 1,000 unit DAILY CAROL Administration Labs Labs: Laboratory Results - last 24 hr 10/05/19 10/05/19 04:11 04:11 WBC 3.7 L RBC 2.54 L Hgb 8.2 L Hct 26.1 L MCV 102.8 H D MCH 32.3 MCHC 31.4 L RDW 15.9 H Plt Count 277 MPV 8.3 Immature Gran % (Auto) 0.3 Neut % (Auto) 64.3 Lymph % (Auto) 25.8 Winn % (Auto) 7.1 Eos % (Auto) 2.2 Baso % (Auto) 0.3 Lymph # (Auto) 0.94 Winn # (Auto) 0.3 Eos # (Auto) 0.1 Baso # (Auto) 0.0 Abs Immat Gran (auto) 0.01 Absolute Neuts (auto) 2.4 Absolute Nucleated RBC 0.0 Nucleated RBC % 0.0 Sodium 138 Potassium 3.3 L Chloride 102 Carbon Dioxide 34 H BUN 7 Creatinine
[2019-10-05 14:00] VITALS: BP 112/56; PULSE 88; RESP 18; TEMP 37.1; O2SAT 98
[2019-10-05] MEDS: PRIMIDONE 12.5 MG TABLET PO (21:30)
[2019-10-05] MEDS: SENNA/DOCUSATE SODIUM TABLET 1 TAB PO (21:30)
[2019-10-05 22:00] VITALS: BP 115/68; PULSE 92; RESP 18; TEMP 36.8; O2SAT 97
[2019-10-06] MEDS: ACETAMINOPHEN 325 MG TABLET 650 MG BY MOUTH ×5 (00:11→23:46)
[2019-10-06 06:00] VITALS: BP 139/69; PULSE 73; RESP 18; TEMP 36.6; O2SAT 97
[2019-10-06] MEDS: ENOXAPARIN 40 MG/0.4 ML SYRINGE SUB-Q (08:22)
[2019-10-06] MEDS: FOLIC ACID 1 MG TABLET PO (08:23)
[2019-10-06] MEDS: CHOLECALCIFEROL 1,000 UNIT TABLET 1000 UNITS BY MOUTH (08:23)
[2019-10-06] MEDS: PAROXETINE 20 MG TABLET PO (08:23)
[2019-10-06] MEDS: CYANOCOBALAMIN 250 MCG TABLET PO (08:23)
[2019-10-06] MEDS: PANTOPRAZOLE 40 MG TABLET PO (08:23)
--- NOTE | 2019-10-06 08:25 | PC.NURSE ---
pt refused miralax this morning. updated.
[2019-10-06 14:00] VITALS: BP 115/58; PULSE 90; RESP 18; TEMP 37; O2SAT 95
[2019-10-06] MEDS: PRIMIDONE 12.5 MG TABLET PO (20:15)
[2019-10-06] MEDS: SENNA/DOCUSATE SODIUM TABLET 1 TAB PO (20:15)
[2019-10-06 22:00] VITALS: BP 124/75; PULSE 78; RESP 16; TEMP 36.8; O2SAT 95
[2019-10-07] MEDS: ACETAMINOPHEN 325 MG TABLET 650 MG BY MOUTH ×2 (05:43→17:27)
[2019-10-07 06:00] VITALS: BP 128/62; PULSE 75; RESP 16; TEMP 36.8; O2SAT 97
[2019-10-07] MEDS: FOLIC ACID 1 MG TABLET PO (08:29)
[2019-10-07] MEDS: PANTOPRAZOLE 40 MG TABLET PO (08:29)
[2019-10-07] MEDS: CHOLECALCIFEROL 1,000 UNIT TABLET 1000 UNITS BY MOUTH (08:29)
[2019-10-07] MEDS: PAROXETINE 20 MG TABLET PO (08:30)
[2019-10-07] MEDS: CYANOCOBALAMIN 250 MCG TABLET PO (08:30)
[2019-10-07] MEDS: ENOXAPARIN 40 MG/0.4 ML SYRINGE SUB-Q (08:30)
--- NOTE | 2019-10-07 12:39 | WPDNEURORHBP ---
Subjective Date/time seen: 10/07/19 12:39 Interval history: this 79-year-old woman is here on the acute rehab recuperating from the distal left femur fracture which is in immobilizer the patient has an appointment with the surgeon tomorrow she is on nonweightbearing however able to walk up to 60 feet she will need the wheel walker and rather yes will walker and wheelchair at discharge discharge planning is tomorrow prior to her visit to her surgeon patient denies any headache nausea vomiting chest pain shortness of breath fever chills sore throat Review of Systems Review of Systems: All systems reviewed & are unremarkable except as noted in HPI and below Functional Status Ambulation Ability Ability to Ambulate 10 Feet: Standby Assistance Ability to Ambulate 50 Feet With 2 Turns: Contact Guard Ambulation Assistive Devices: Walker, Wheeled Transfers Ability Ability to Transfer In/Out of Chair: Standby Assistance Exam Const: General: comfortable and no acute distress HENMT: General nose exam: Normal nares present Mouth: Yes moist mucous membranes Eyes: General: appearance normal, both eyes and all related structures Neck: Neck: supple and no JVD Resp: Effort & Inspection: normal respiratory effort Auscultation: clear to auscultation bilaterally Cardio: Rate: regular rate Rhythm: regular rhythm GI: GI Palp: Yes Soft to palpation Auscultation: normal bowel sounds Skin: General skin exam: normal color and no rashes or lesions noted Neuro: Other: patient is awake alert oriented follows all commands added strength has improved she still remains nonweightbearing at the left lower extremity Extrem: General: normal to inspection Psych: Mental Status: mental status grossly normal Other: mild short-term memory deficit is stable Objective Data Vital Signs Vital Signs: Vital Signs - 24 hr 10/06/19 14:00 10/06/19 22:00 10/07/19 06:00 Temperature 37.0 C 36.8 C 36.8 C Pulse Rate 90 78 75 Respiratory Rate 18 16 16 Blood Pressure 115/58 L 124/75 128/62 Pulse Oximetry 95 95 97 Intake/Output Intake/Output: Intake & Output 10/04/19 10/05/19 10/06/19 10/07/19 23:59 23:59 23:59 23:59 Intake Total 360 720 720 240 Balance 360 720 720 240 Meds/Results Medications: Active Medications Generic Name Dose Route Start Last Admin Trade Name Freq PRN Reason Stop Dose Admin Acetaminophen 650 mg 09/27/19 00:00 10/07/19 12:11 Tylenol Tablet BY MOUTH Not Given Q6HR CAROL Calcium Carbonate 500 mg 09/28/19 09:00 10/07/19 08:29 Os-Andrie 500 +D Tablet PO 10/28/19 09:01 500 mg BID CAROL Administration Cyanocobalamin 250 mcg 09/29/19 09:00 10/07/19 08:30 Vitamin B-12 Tab PO 10/30/19 09:01 250 mcg DAILY CAROL Administration Enoxaparin Sodium 40 mg 09/28/19 09:00 10/07/19 08:30 Lovenox SUB-Q 40 mg DAILY CAROL Administration Folic Acid 1 mg 09/28/19 09:00 10/07/19 08:29 Folic Acid PO 1 mg DAILY CAROL Administration Oxycodone HCl 5 mg 09/27/19 23:55 10/06/19 20:14 Roxicodone Ir Tablet PO 5 mg Q4H PRN Administration Pain (Scale Score 7-10) Pantoprazole Sodium 40 mg 09/28/19 09:00 10/07/19 08:29 Protonix PO 40 mg QAM CAROL Administration Paroxetine HCl 20 mg 09/28/19 09:00 10/07/19 08:30 Paxil PO 20 mg QAM CAROL Administration Polyethylene Glycol 17 gm 09/28/19 09:00 10/07/19 08:30 Miralax PO Not Given DAILY CAROL Primidone 12.5 mg 10/01/19 21:00 10/06/19 20:15 Mysoline PO 12.5 mg HS CAROL Administration Senna/Docusate Sodium 1 tab 09/28/19 21:00 10/06/19 20:15 Senokot S Tablet PO 1 tab HS [facility] Administration Vitamin D 1,000 unit 09/28/19 09:00 10/07/19 08:29 Vitamin D BY MOUTH 10/28/19 09:01 1,000 unit DAILY [facility] Administration Progress Note: A&P Assessment and Plan (1) Coarse tremors: Code(s): G25.2 - Other specified forms of tremor Status: Acute (2) S/P ORIF (open reduction i
[2019-10-07 14:00] VITALS: BP 108/57; PULSE 87; RESP 18; TEMP 36.9; O2SAT 96
[2019-10-07] MEDS: SENNA/DOCUSATE SODIUM TABLET 1 TAB PO (20:03)
[2019-10-07] MEDS: PRIMIDONE 12.5 MG TABLET PO (20:03)
[2019-10-07 22:00] VITALS: BP 120/62; PULSE 74; RESP 18; TEMP 36.9; O2SAT 98
[2019-10-08 06:00] VITALS: BP 149/81; PULSE 83; RESP 18; TEMP 37.1; O2SAT 94
[2019-10-08] MEDS: ACETAMINOPHEN 325 MG TABLET 650 MG BY MOUTH (06:15)
[2019-10-08] MEDS: CYANOCOBALAMIN 250 MCG TABLET PO (07:57)
[2019-10-08] MEDS: PANTOPRAZOLE 40 MG TABLET PO (07:57)
[2019-10-08] MEDS: ENOXAPARIN 40 MG/0.4 ML SYRINGE SUB-Q (07:57)
[2019-10-08] MEDS: CHOLECALCIFEROL 1,000 UNIT TABLET 1000 UNITS BY MOUTH (07:58)
[2019-10-08] MEDS: PAROXETINE 20 MG TABLET PO (07:58)
[2019-10-08] MEDS: FOLIC ACID 1 MG TABLET PO (07:58)
--- NOTE | 2019-10-08 12:20 | WPDNEURORHBP ---
Subjective Date/time seen: 10/08/19 12:20 Interval history: this 79-year-old woman is here because of left femur fracture the more I see her she strikes me a the Parkinson's disease patient with the pill rolling tremor of the left more than the right thumb with a long history of having had the tremors for several years her sister also has tremors she is going for the appointment with surgeon I have asked her to have follow-up with me to see if I am able to put her on carbidopa levodopa right now she is on primidone and she will go for the follow-up with the surgeon and going to be discharged earlier this morning Review of Systems Review of Systems: All systems reviewed & are unremarkable except as noted in HPI and below Functional Status Ambulation Ability Ability to Ambulate 10 Feet: Standby Assistance Ability to Ambulate 50 Feet With 2 Turns: Contact Guard Ambulation Assistive Devices: Walker, Wheeled Transfers Ability Ability to Transfer In/Out of Chair: Standby Assistance Exam Const: General: comfortable and no acute distress HENMT: General nose exam: Normal nares present Mouth: Yes moist mucous membranes Eyes: General: appearance normal, both eyes and all related structures Neck: Neck: supple and no JVD Resp: Effort & Inspection: normal respiratory effort Auscultation: clear to auscultation bilaterally Cardio: Rate: regular rate Rhythm: regular rhythm GI: GI Palp: Yes Soft to palpation Auscultation: normal bowel sounds Skin: General skin exam: normal color and no rashes or lesions noted Neuro: Other: patient is awake and alert well oriented with the tremors which are more and more looking like Parkinson's disease with a pill-rolling tremor bradykinesia and rigidity she is nonweightbearing at the on left lower extremity and is going to have a follow-up with the surgeon Extrem: Other: the left lower extremity is in immobilizer Psych: Mental Status: mental status grossly normal Objective Data Vital Signs Vital Signs: Vital Signs - 24 hr 10/07/19 14:00 10/07/19 22:00 10/08/19 06:00 Temperature 36.9 C 36.9 C 37.1 C Pulse Rate 87 74 83 Respiratory Rate 18 18 18 Blood Pressure 108/57 L 120/62 149/81 H Pulse Oximetry 96 98 94 Intake/Output Intake/Output: Intake & Output 10/05/19 10/06/19 10/07/1920 23:59 23:59 23:59 23:59 Intake Total 720 720 760 240 Balance 720 720 760 240 Meds/Results Medications: Active Medications Generic Name Dose Route Start Last Admin Trade Name Candace PRN Reason Stop Dose Admin Acetaminophen 650 mg 09/27/19 00:00 10/08/19 06:15 Tylenol Tablet BY MOUTH 650 mg Q6HR CAROL Administration Calcium Carbonate 500 mg 09/28/19 09:00 10/08/19 07:57 Os-Andrei 500 +D Tablet PO 10/28/19 09:01 500 mg BID CAROL Administration Cyanocobalamin 250 mcg 09/29/19 09:00 10/08/19 07:57 Vitamin B-12 Tab PO 10/30/19 09:01 250 mcg DAILY CAROL Administration Enoxaparin Sodium 40 mg 09/28/19 09:00 10/08/19 07:57 Lovenox SUB-Q 40 mg DAILY CAROL Administration Folic Acid 1 mg 09/28/19 09:00 10/08/19 07:58 Folic Acid PO 1 mg DAILY CAROL Administration Oxycodone HCl 5 mg 09/27/19 23:55 10/07/19 20:03 Roxicodone Ir Tablet PO 5 mg Q4H PRN Administration Pain (Scale Score 7-10) Pantoprazole Sodium 40 mg 09/28/19 09:00 10/08/19 07:57 Protonix PO 40 mg QAM CAROL Administration Paroxetine HCl 20 mg 09/28/19 09:00 10/08/19 07:58 Paxil PO 20 mg QAM CAROL Administration Polyethylene Glycol 17 gm 09/28/19 09:00 10/08/19 07:57 Miralax PO Not Given DAILY CAROL Primidone 12.5 mg 10/01/19 21:00 10/07/19 20:03 Mysoline PO 12.5 mg HS [facility] Administration Senna/Docusate Sodium 1 tab 09/28/19 21:00 10/07/19 20:03 Senokot S Tablet PO 1 tab HS [facility] Administration Vitamin D 1,000 unit 09/28/19 09:00 10/08/19 07:58 Vitamin D BY MOUTH 10/28/19 09:01 1,000 unit DAILY [facility] Administra
--- NOTE | 2019-10-12 16:34 | PM.DS ---
DS: Admitting Diagnosis Admitting Diagnosis Admitting Diagnosis: Unspecified fracture of lower end of left femur, initial encounter for closed fracture DS: Discharge Diagnosis Discharge Diagnosis (1) Parkinsons disease: Code(s): G20 - Parkinson's disease Status: Acute (2) Coarse tremors: Code(s): G25.2 - Other specified forms of tremor Status: Acute (3) S/P ORIF (open reduction internal fixation) fracture: Code(s): Z98.890 - Other specified postprocedural states; Z87.81 - Personal history of (healed) traumatic fracture Status: Acute (4) Osteopenia: Code(s): M85.80 - Other specified disorders of bone density and structure, unspecified site Status: Acute (5) L3 vertebral fracture: Code(s): S32.039A - Unspecified fracture of third lumbar vertebra, initial encounter for closed fracture Status: Acute (6) Compression fracture of T11 vertebra: Code(s): S22.080A - Wedge compression fracture of T11-T12 vertebra, initial encounter for closed fracture Status: Acute (7) Closed fracture of left distal femur: Code(s): S72.402A - Unspecified fracture of lower end of left femur, initial encounter for closed fracture Status: Acute DS: Summary Hospital Course Reason for hospitalization: this 79-year-old was admitted post surgery the femur fracture along with L3 vertebral fracture and compression fracture of the T11 vertebra the patient has longstanding tremors with a family history of Parkinson's disease and during the course of hospitalization this examiner noted she clearly has parkinsonian tremor rigidity and bradykinesia and for right now I had started her on primidone to see how she responds to it as for the tremor is concerned however would like to follow her up as an outpatient to start her on carbidopa levodopa which her sister is on To the course of hospitalization the patient received the physical therapy of compression therapy and gait training along with the other medical management she did remarkably well and was able to achieve the following independent measures Hospital Course: eating was independent oral hygiene was independent toileting was supervision bathing was supervision upper body dressing was independent lower body dressing was supervision footwear is independent a rolling in bed independent sitting to lying independent lying to sitting independent [id number] supervision chair transfers supervision toilet transfers supervision car transfer supervision walking 10 feet supervision patient 50 feet walking with 2 turns supervision 150 feet was patient was unable to walking 10 feet uneven surfaces supervision carb are step supervision 4 steps patient was unable to 12 steps patient was unable to picking of object independent wheelchair 50 feet independent wheelchair 150 feet independent patient was sent home with home health There was no fall recorded Time Spent with Patient Time attestation: Total time spent providing and/or coordinating discharge services: Exam Const: General: comfortable and no acute distress HENMT: General nose exam: Normal nares present Mouth: Yes dry mucous membranes Eyes: General: appearance normal, both eyes and all related structures Neck: Neck: supple and no JVD Resp: Effort & Inspection: normal respiratory effort Auscultation: clear to auscultation bilaterally Cardio: Rate: regular rate Rhythm: regular rhythm GI: GI Palp: Yes Soft to palpation Auscultation: normal bowel sounds Skin: General skin exam: normal color and no rashes or lesions noted Neuro: Other: patient was awake alert well oriented with a parkinsonian tremor mild rigidity and bradykinesia overall stable and improved from the most recent surgery for her fractures Extrem: Other: the incision from the surgery was clean and healthy Psych: Mental Status: mental status grossly normal Discharge Plan Discharge Attending physician on discharge: Rai
== END 2019-10-08 11:30 | disposition home health service (06) | DRG 561 ==
PROVIDERS: Admitting Provider Psychiatry & Neurology Neurology; PCP Internal Medicine; Visit Provider Psychiatry & Neurology Neurology
DX: S72.402D Unspecified fracture of lower end of left femur, subsequent encounter for closed fracture with routine healing (principal); S32.030D Wedge compression fracture of third lumbar vertebra, subsequent encounter for fracture with routine healing; S22.080D Wedge compression fracture of T11-T12 vertebra, subsequent encounter for fracture with routine healing; G20 Parkinson's disease; G25.2 Other specified forms of tremor; E83.51 Hypocalcemia; M85.80 Other specified disorders of bone density and structure, unspecified site; M48.061 Spinal stenosis, lumbar region without neurogenic claudication; W10.9XXD Fall (on) (from) unspecified stairs and steps, subsequent encounter
CPT/HCPCS: 36415; 80048; 85025; 97110; 97116; 97161; 97165; 97530; 97535; 97542; A9270; J1650

== ENCOUNTER 2019-10-28 09:20 | Emergency (ER) | payer MEDICARE, SELFPAY ==
--- NOTE | ~2019-10-28 | CT_ITS ---
EXAMINATION: CT brain wo con DATE: 10/28/2019 10:53 INDICATION: Dizziness. TECHNIQUE: Computed tomography (CT) of the head was performed without intravenous contrast. The mA wa s adjusted according to patient size. Iterative reconstruction technique was employed. The dose-lengt h product was 605.33 mGy-cm. COMPARISON: None FINDINGS: There is no intracranial hemorrhage, acute infarction, or abnormal intracranial mass lesion . The ventricles are normal in size. There is mild mucosal thickening in the paranasal sinuses. The m astoid air cells are normal. There are likely changes of ocular lens replacement surgeries. IMPRESSION: 1. Normal brain. Reviewed, dictated and finalized at location A. IMPRESSION: 1. Normal brain.
--- NOTE | ~2019-10-28 | CT_ITS ---
EXAMINATION: CT abdomen pelvis w con DATE: 10/28/2019 10:53 INDICATION: Nausea and vomiting. TECHNIQUE: Computed tomography (CT) of the abdomen and pelvis was performed with 100 mL Omnipaque 350 intravenous contrast. Automated exposure control and iterative reconstruction technique were employe d. The dose-length product was 560.69 mGy-cm. COMPARISON: CT abdomen and pelvis 04/14/2015 FINDINGS: The visualized portions of the lung bases demonstrate mild atelectasis. A calcified left irma ng nodule is consistent with old granulomatous disease. There is mild bronchiectasis in the lower lob es and lingula. No pleural effusion. The heart size is normal. No pericardial effusion. There is a sm all sliding hiatal hernia. The liver is normal. Calcifications in the spleen are consistent with old granulomatous disease. There are changes of cholecystectomy. The pancreas, adrenal glands, and kidney s are normal. There is diverticulosis of the colon without evidence of diverticulitis. There are no d ilated loops of bowel. The appendix is normal. There are no pathologically enlarged lymph nodes. Ther e is no free intraperitoneal fluid. There are suture anchors in right parasymphyseal pubis. There is a chronic burst fracture of T11 with changes of vertebroplasty. There is a burst fracture of L3 with 2/5 loss of height and retropulsion of bone 4 mm into central spinal canal. There is moderate lumbar spondylosis. IMPRESSION: 1. Small sliding hiatal hernia. 2. Age-indeterminate L3 burst fracture, new from 04/14/2015. Reviewed, dictated and finalized at location A.
[2019-10-28 09:19] VITALS: BP 130/86; PULSE 80; RESP 12; TEMP 36.8; O2SAT 99
--- NOTE | 2019-10-28 10:15 | ED.NAVMDI ---
HPI - Nausea/Vomiting/Diarrhea General Chief complaint: Nausea/Vomiting/Diarrhea Stated complaint: NAUSEA,VOMITING Time Seen by Provider: 10/28/19 09:58 History of Present Illness HPI Narrative: Patient presents with her sister for episodes of vomiting this morning. She slept well, and vomited spontaneously after a small bit of water this morning. Then she vomited several more times at her sister's house. The emesis was only immediately preceded by nausea. She did not have nausea the whole time. She has no chest pain or abdominal pain. She had malaise yesterday. Today when she turned her head to the right she saw sparkly lights and felt like she might pass out. She is on Lovenox once a day since her surgery on her left leg recently. She is only on Tylenol for pain. She has a slight headache, 2 out of 10 over or above the left eye. Her in September. She does not smoke drink or do drugs. She has not had an episode like this previously. MD elicited complaint: nausea and vomiting Pertinent past history: other (none) Onset (ago): hour(s) Description of vomiting: food contents Associated nausea: Yes Associated abdominal pain: No Related Data Home Medications Medication Instructions Recorded Confirmed Vitamin D3 25 mcg BYMOUTH DAILY 09/27/19 09/27/19 enoxaparin 40 mg SUBCUT DAILY 09/27/19 09/27/19 folic acid 1 mg PO DAILY PRN 09/27/19 09/27/19 pantoprazole 40 mg PO QAM 09/27/19 09/27/19 polyethylene glycol 3350 17 g PO DAILY 09/27/19 09/27/19 Allergies Allergy/AdvReac Type Severity Reaction Status Date / Time codeine AdvReac Mild NAUSEA AND Verified 09/27/19 23:56 VOMITING Review of Systems Review of Systems: Narrative: CONSTITUTIONAL: Denies fever, chills, or sweats. EYES: She had visual changes, but not redness, or discharge. ENT: Denies rhinorrhea, congestion, sore throat, or otalgia. CARDIOVASCULAR: Denies chest pain, palpitations, or edema. RESPIRATORY: Denies cough or dyspnea. GASTROINTESTINAL: Denies abdominal pain, but she does have nausea, vomiting. GENITOURINARY: Denies dysuria or hematuria. SKIN: Denies rash or itching. MUSCULOSKELETAL: Denies back pain, joint pain, or myalgia. NEUROLOGIC: She has slight headache, but no numbness, or weakness. PSYCHIATic: Grief All systems reviewed & are unremarkable except as noted in HPI and below PMFSH Social History Social History Smoking status: Never smoker Second hand tobacco smoke exposure: No Alcohol intake: never Substance use: never Gender identity (if verbalized by the patient): Female Spiritual care concerns: No Exam Narrative: Exam Narrative: GENERAL: Well-appearing, well-nourished, and in no acute distress. Justine lady HEAD: Normocephalic, atraumatic. EYES: PERRLA and EOMI. ENT: Nares clear, no rhinorrhea or epistaxis. Mucous membranes dry. NECK: Supple. CHEST: Clear to auscultation. No respiratory distress. HEART: Regular rate and rhythm. No murmur heard. Normal peripheral pulses. ABDOMEN: Soft, nontender, nondistended, normal active bowel sounds. EXTREMITIES: Normal range of motion. No edema. SKIN: Warm, dry, no rash. NEURO: No focal deficits. Alert and oriented x3. PSYCH: Normal mood and affect. Course Reevaluation(s) Reevaluation #1: Went back to check on the patient several times during her visit here. She is finally held down some some juice and some crackers she is ready to go home. Date: 10/28/19 Time: 13:40 Vital Signs Vital signs: Vital Signs Temperature 98.3 F 10/28/19 09:19 Pulse Rate 80 10/28/19 09:19 Respiratory Rate 12 10/28/19 09:19 Blood Pressure 130/86 10/28/19 09:19 Pulse Oximetry 99 10/28/19 09:19 Temperature 98.3 F 10/28/19 09:19 Pulse Rate 82 10/28/19 12:59 Respiratory Rate 12 10/28/19 12:59 Blood Pressure 139/77 10/28/19 12:59 Pulse Oximetry 99 10/28/19 12:59 MDM - Nausea/Vomiting/Diarrhea Different
[2019-10-28] MEDS: ONDANSETRON INJ 4 MG/2 ML VIAL IV PUSH (10:19)
[2019-10-28] MEDS: SODIUM CHLORIDE 0.9% IV 1,000 ML 999 ML IV CONT (10:19)
[2019-10-28 10:26] LABS: Basophils Percent Auto 0.7 % (0.2-1.2); Eosinophils Percent Auto 0.4 % (0-4.4); Hematocrit 35.8 % (37.0-47.0); Hemoglobin 11.8 g/dL (12.0-15.0); Immature Granulocyte Absolute 0.01 K/mm3 (0.00-0.031); Immature Granulocyte Percent A 0.4 % (0-0.5); Lymphocytes Absolute Auto 0.45 K/mm3 (0.9-3.2); Mean Corpuscular Hemoglobin 32.3 pg (26-34); Mean Corpuscular Volume 98.1 fl (80-100); Mean Platelet Volume 8.7 fl (7.4-10.4); Monocytes Absolute Auto 0.2 K/mm3 (0.1-0.6); Monocytes Percent Auto 5.7 % (2.6-8.5); Neutrophils Absolute Auto 2.2 K/mm3 (1.3-6.7); Neutrophils Percent Auto 76.8 % (45.5-73.1); Platelet Count Result 182 k/mm3 (150-375); Red Blood Count 3.65 M/mm3 (4.2-5.4); Red Cell Distribution Width 13.6 % (11.5-14.5); White Blood Count 2.8 K/mm3 (4.5-10.0)
[2019-10-28 10:45] LABS: Estimated CRCL calculation 58 ml/min; Estimated Glomerular Filt Rate > 60
[2019-10-28 10:46] LABS: Alanine Aminotransferase 8 U/L (4-35); Albumin Level 3.6 g/dL (3.5-5.1); Alkaline Phosphatase 123 U/L (38-126); Anion Gap 9.1 mmol/L (7-16); Aspartate Amino Transferase 21 U/L (14-36); Bilirubin,Total 0.7 mg/dL (0.2-1.3); Blood Urea Nitrogen 11 mg/dL (7-17); Calcium 8.6 mg/dL (8.4-10.2); Carbon Dioxide 29 mmol/L (22-30); Chloride 101 mmol/L (98-107); Estimated CRCL calculation 58 ml/min; Estimated Glomerular Filt Rate > 60; Glucose 110 mg/dL (65-105); Lipase 44 U/L (23-300); Potassium 3.1 mmol/L (3.4-5.0); Sodium 136 mmol/L (137-145)
[2019-10-28 10:55] LABS: Add Urine Microscopic? YES; Appearance Urine Clear (Clear); Bacteria Urine Trace /hpf; Bilirubin Urine Negative (Negative); Blood Urine 2+ (Negative); Color Urine Straw (Yellow); Glucose Urine UA Negative (Negative); Ketones Urine Trace mg/dL (Negative); Leukocyte Esterase Ur Negative LEU/UL (Negative); Mucus Urine Rare /lpf; Nitrate Urine Negative (Negative); Protein Urine Negative (Negative); Specific Grav Ur 1.009 (1.001-1.035); Urobilinogen Urine Negative mg/dL (<2.0); WBC Urine 0-3 /hpf
[2019-10-28 11:06] VITALS: BP 141/89; BP 141/99; PULSE 66; PULSE 75
[2019-10-28 11:50] VITALS: BP 138/73; PULSE 73; RESP 15; O2SAT 94
[2019-10-28 12:59] VITALS: BP 139/77; PULSE 82; RESP 12; O2SAT 99
[2019-10-28 13:50] VITALS: BP 146/94; PULSE 69; RESP 14; O2SAT 99
== END 2019-10-28 14:00 | disposition home or self-care (01) ==
PROVIDERS: Emergency Provider Emergency Medicine; PCP Internal Medicine
DX: K29.00 Acute gastritis without bleeding (principal); Z79.02 Long term (current) use of antithrombotics/antiplatelets
CPT/HCPCS: 36415; 51701; 70450; 74177; 80053; 81001; 83690; 85025; 96361; 96374; 99284; J2405; J7030; Q9967

== ENCOUNTER 2020-07-02 04:22 | Day surgery (SDC) | payer MEDICARE, SELFPAY ==
[2020-06-28 15:55] VITALS: BMI 24.5
[2020-07-02] MEDS: LACTATED RINGERS 1,000 ML 150 ML IV CONT (10:58)
[2020-07-02 11:01] VITALS: BP 131/66; PULSE 73; RESP 18; TEMP 36.6; O2SAT 95; BMI 25.0
--- NOTE | 2020-07-02 11:11 | P.PNAN_ITS ---
Anes - Initial Pre Proc Eval Procedure: Operation Date: 07/02/20 11:30 Proposed Procedures p Esophagogastroduodenoscopy - Anurag Sharma MD Date/Time: 07/02/20 11:11 Surgeon: Anurag Sharma MD Pre Op Diagnosis: GERD Patient Data Age: 79 Gender: F Height: 5 ft 2 in Weight: 62 kg Last Vital Signs Temp 97.8 F 07/02/20 11:01 Pulse 73 07/02/20 11:01 Resp 18 07/02/20 11:01 BP 131/66 07/02/20 11:01 Pulse Ox 95 07/02/20 11:01 Allergies Allergy/AdvReac Type Severity Reaction Status Date / Time codeine AdvReac Intermediate Loss of Verified 07/02/20 11:01 Consciousness Home Medications Medication Instructions Recorded Confirmed Type folic acid 1 mg PO DAILY 09/27/19 06/28/20 History paroxetine HCl 20 mg PO QAM #30 tablet 10/07/19 06/28/20 Rx alendronate 35 mg PO WEEKLY 06/28/20 06/28/20 History aspirin [Adult Low Dose Aspirin] 81 mg PO DAILY 06/28/20 06/28/20 History carbidopa-levodopa 1 tablet PO TID 06/28/20 06/28/20 History ibuprofen 200 mg PO Q6H PRN 06/28/20 06/28/20 History meloxicam 15 mg PO DAILY 06/28/20 06/28/20 History mirtazapine 15 mg PO DAILY 06/28/20 06/28/20 History Patient hx anesthesia problems: none Family hx anesthesia problems: none [facility] Past Medical History Medical History (Updated 10/29/19 @ 00:00 by Vesna Fritz) Coarse tremors Compression fracture of T11 vertebra Osteopenia Parkinsons disease S/P ORIF (open reduction internal fixation) fracture Family History Family History Father Acute myocardial infarction Mother Uterine cancer Social History Social History Smoking status: Never smoker Second hand tobacco smoke exposure: No Alcohol intake: former Substance use: never Substance use type: does not use [facility] Additional living arrangements comments: [facility] Gender identity (if verbalized by the patient): Female Spiritual care concerns: No Anes - Eval Final PreProcedure Day of Procedure 07/02/20 11:11 Patient weight: normal Heart: regular rate and rhythm Lungs: clear to auscultation Airway: Mallampati scale class II Neurological: alert and oriented Last oral intake: >/= 8 hours ASA classification: III Emergent: no Anesthetic plan: proceed Anesthesia type and monitoring: general GIVS and standard monitoring Informed Consent: The patient's anesthetic plan and its attendant risks and benefits were discussed with the patient/family/POA. Questions were solicited and answers provided to the satisfaction of the patient/family/POA.
--- NOTE | 2020-07-02 11:40 | PM.HPGS ---
History of Present Illness History of Present Illness Consent: Risks, benefits, and alternatives have been discussed and questions answered. Patient agrees to proceed with procedure. Chief complaint: GERD Narrative: Sammi Calzada is a 79 year old female who had difficulty swallowing solid food for the past 8 weeks. She has lost a couple of lb. She has a history of having had acid reflux but has not needed medication for this for the past few years Review of Systems Review of Systems: All systems reviewed & are unremarkable except as noted in HPI and below PMFSH Past Medical History Medical History (Updated 07/02/20 @ 11:40 by Anurag Sharma MD) Coarse tremors Compression fracture of T11 vertebra Osteopenia Parkinsons disease S/P ORIF (open reduction internal fixation) fracture Family History Family History Father Acute myocardial infarction Mother Uterine cancer Social History Social History Smoking status: Never smoker Second hand tobacco smoke exposure: No Alcohol intake: former Substance use: never Substance use type: does not use Living arrangements: [facility] Additional living arrangements comments: [facility] Gender identity (if verbalized by the patient): Female Spiritual care concerns: No Meds Home Medications and Allergies Home Medications Medication Instructions Recorded Confirmed Type folic acid 1 mg PO DAILY 09/27/19 06/28/20 History paroxetine HCl 20 mg PO QAM #30 tablet 10/07/19 06/28/20 Rx alendronate 35 mg PO WEEKLY 06/28/20 06/28/20 History aspirin [Adult Low Dose Aspirin] 81 mg PO DAILY 06/28/20 06/28/20 History carbidopa-levodopa 1 tablet PO TID 06/28/20 06/28/20 History ibuprofen 200 mg PO Q6H PRN 06/28/20 06/28/20 History meloxicam 15 mg PO DAILY 06/28/20 06/28/20 History mirtazapine 15 mg PO DAILY 06/28/20 06/28/20 History Allergies Allergy/AdvReac Type Severity Reaction Status Date / Time codeine AdvReac Intermediate Loss of Verified 07/02/20 11:01 Consciousness Vital Signs Vital Signs - 24 hr 07/02/20 11:01 Temperature 36.6 C Pulse Rate 73 Respiratory Rate 18 Blood Pressure 131/66 Pulse Oximetry 95 Exam Const: General: alert Orientation/consciousness: patient oriented x3 Resp: Auscultation: clear to auscultation bilaterally Cardio: Rhythm: regular rhythm GI: GI Palp: Yes Soft to palpation and No Tenderness to palpation present (GI) Neuro: General: patient oriented x3 Assessment and Plan Assessment and plan (1) Dysphagia: Code(s): R13.10 - Dysphagia, unspecified Status: Acute Assessment and Plan: EGD with possible biopsy or dilatation or cautery.
[2020-07-02 11:52] VITALS: BP 120/68; PULSE 65; RESP 21; O2SAT 100
[2020-07-02 12:02] VITALS: BP 134/88; PULSE 81; RESP 14; O2SAT 96
[2020-07-02 12:12] VITALS: BP 158/84; PULSE 55; RESP 14; O2SAT 100
== END 2020-07-02 12:33 | disposition home or self-care (01) ==
PROVIDERS: PCP Internal Medicine; Visit Provider Internal Medicine Gastroenterology
PROC: 0DJ08ZZ Inspection of Upper Intestinal Tract, Via Natural or Artificial Opening Endoscopic (ICD-10-PCS; CPT 43235; principal; 2020-07-02 11:30)
DX: R13.19 Other dysphagia (principal); K22.2 Esophageal obstruction; K44.9 Diaphragmatic hernia without obstruction or gangrene; K29.70 Gastritis, unspecified, without bleeding; G20 Parkinson's disease; M19.90 Unspecified osteoarthritis, unspecified site; Z79.82 Long term (current) use of aspirin
CPT/HCPCS: 43249; 43239; 87081; 88305; C1726; J2001; J2704; J7120

== ENCOUNTER → 2020-08-17 03:55 | Outpatient (CLI) | payer MEDICARE, SELFPAY ==
[2020-08-17 20:06] LABS: SARS-CoV-2 RNA PCR Negative
== END ==
PROVIDERS: PCP Internal Medicine; Visit Provider Internal Medicine Gastroenterology
DX: Z01.812 Encounter for preprocedural laboratory examination (principal); Z20.822 Contact with and (suspected) exposure to COVID-19
CPT/HCPCS: C9803; U0003; U0005

== ENCOUNTER 2020-08-20 03:15 | Day surgery (SDC) | payer MEDICARE, SELFPAY ==
[2020-08-10 16:22] VITALS: BMI 25.9
--- NOTE | 2020-08-11 08:38 | PC.NURSE ---
Pt. was COVID + April 2020. Pt states symptoms included fatigue and cough. Pt. did not require hospital admission. Lenin Garcia RN 08/11/20 0813
[2020-08-20 06:15] VITALS: BP 127/60; PULSE 70; RESP 16; TEMP 36.6; O2SAT 96
[2020-08-20] MEDS: LACTATED RINGERS 1,000 ML 150 ML IV CONT (06:19)
--- NOTE | 2020-08-20 06:57 | PM.HPGS ---
History of Present Illness History of Present Illness Consent: Risks, benefits, and alternatives have been discussed and questions answered. Patient agrees to proceed with procedure. Chief complaint: esophageal stricture, gastritis Narrative: Sammi Calzada is a 80 year old female with dysphagia. She was found to have a high-grade esophageal stricture 2 months ago and returns now for treatment of that Review of Systems Review of Systems: All systems reviewed & are unremarkable except as noted in HPI and below PMFSH Past Medical History Medical History Coarse tremors Compression fracture of T11 vertebra Osteopenia Parkinsons disease S/P ORIF (open reduction internal fixation) fracture Family History Family History Father Acute myocardial infarction Mother Uterine cancer Social History Social History Smoking status: Never smoker Second hand tobacco smoke exposure: No Alcohol intake: former Substance use: never Substance use type: does not use Living arrangements: alone Additional living arrangements comments: [facility] Gender identity (if verbalized by the patient): Female Spiritual care concerns: No Meds Home Medications and Allergies Home Medications Medication Instructions Recorded Confirmed Type folic acid 1 mg PO DAILY 09/27/19 08/20/20 History paroxetine HCl 20 mg PO QAM #30 tablet 10/07/19 08/20/20 Rx alendronate 35 mg PO WEEKLY 06/28/20 08/20/20 History aspirin 81 mg PO DAILY 06/28/20 08/20/20 History carbidopa-levodopa 1 tablet PO TID 06/28/20 08/20/20 History ibuprofen 200 mg PO Q6H PRN 06/28/20 08/20/20 History meloxicam 15 mg PO DAILY 06/28/20 08/20/20 History mirtazapine 15 mg PO DAILY 06/28/20 08/20/20 History omeprazole 40 mg PO DAILY #90 cap 07/02/20 08/20/20 Rx [id number]-[id number]-FA-lutein 1 tablet PO DAILY 08/10/20 08/20/20 History [Centrum Silver Women] Allergies Allergy/AdvReac Type Severity Reaction Status Date / Time codeine AdvReac Intermediate Nausea and Verified 08/20/20 06:14 Vomiting Vital Signs Vital Signs - 24 hr 08/20/20 06:15 Temperature 36.6 C Pulse Rate 70 Respiratory Rate 16 Blood Pressure 127/60 Pulse Oximetry 96 Exam Const: General: alert Orientation/consciousness: patient oriented x3 Resp: Auscultation: clear to auscultation bilaterally Cardio: Rhythm: regular rhythm GI: GI Palp: Yes Soft to palpation and No Tenderness to palpation present (GI) Neuro: General: patient oriented x3 Assessment and Plan Assessment and plan (1) Dysphagia: Code(s): R13.10 - Dysphagia, unspecified Status: Acute Assessment and Plan: EGD with possible biopsy or dilatation or cautery.
--- NOTE | 2020-08-20 07:11 | WPDANESEPPF ---
Anes - Initial Pre Proc Eval Procedure: Operation Date: 08/20/20 07:30 Proposed Procedures p Esophagogastroduodenoscopy - Anurag Sharma MD Date/Time: 08/20/20 07:11 Surgeon: Anurag Sharma MD Pre Op Diagnosis: esophageal stricture, gastritis Patient Data Age: 80 Gender: F Height: 5 ft 3 in Weight: 67.1 kg Last Vital Signs Temp 98 F 08/20/20 06:15 Pulse 70 08/20/20 06:15 Resp 16 08/20/20 06:15 BP 127/60 08/20/20 06:15 Pulse Ox 96 08/20/20 06:15 Allergies Allergy/AdvReac Type Severity Reaction Status Date / Time codeine AdvReac Intermediate Nausea and Verified 08/20/20 06:14 Vomiting Home Medications Medication Instructions Recorded Confirmed Type folic acid 1 mg PO DAILY 09/27/19 08/20/20 History paroxetine HCl 20 mg PO QAM #30 tablet 10/07/19 08/20/20 Rx alendronate 35 mg PO WEEKLY 06/28/20 08/20/20 History aspirin 81 mg PO DAILY 06/28/20 08/20/20 History carbidopa-levodopa 1 tablet PO TID 06/28/20 08/20/20 History ibuprofen 200 mg PO Q6H PRN 06/28/20 08/20/20 History meloxicam 15 mg PO DAILY 06/28/20 08/20/20 History mirtazapine 15 mg PO DAILY 06/28/20 08/20/20 History omeprazole 40 mg PO DAILY #90 cap 07/02/20 08/20/20 Rx lpwoejip-qnl-caeh-FA-lutein 1 tablet PO DAILY 08/10/20 08/20/20 History [Centrum Silver Women] Patient hx anesthesia problems: none Family hx anesthesia problems: none PMFSH Past Medical History Medical History Coarse tremors Compression fracture of T11 vertebra Osteopenia Parkinsons disease S/P ORIF (open reduction internal fixation) fracture Family History Family History Father Acute myocardial infarction Mother Uterine cancer Social History Social History Smoking status: Never smoker Second hand tobacco smoke exposure: No Alcohol intake: former Substance use: never Substance use type: does not use Living arrangements: alone Additional living arrangements comments: [facility] Gender identity (if verbalized by the patient): Female Spiritual care concerns: No Anes - Eval Final PreProcedure Day of Procedure 08/20/20 07:11 Patient weight: normal Heart: regular rate and rhythm Lungs: clear to auscultation Airway: Mallampati scale class II Neurological: alert and oriented Last oral intake: >/= 8 hours ASA classification: III Emergent: no Anesthetic plan: proceed Anesthesia type and monitoring: general GIVS and standard monitoring Informed Consent: The patient's anesthetic plan and its attendant risks and benefits were discussed with the patient/family/POA. Questions were solicited and answers provided to the satisfaction of the patient/family/POA.
[2020-08-20 07:47] VITALS: BP 131/72; PULSE 68; RESP 18; O2SAT 97
[2020-08-20 07:57] VITALS: BP 124/65; PULSE 65; RESP 20; O2SAT 98
[2020-08-20 08:07] VITALS: BP 125/64; PULSE 67; RESP 22; O2SAT 99
== END 2020-08-20 08:28 | disposition home or self-care (01) ==
PROVIDERS: PCP Internal Medicine; Visit Provider Internal Medicine Gastroenterology
PROC: 0DJ08ZZ Inspection of Upper Intestinal Tract, Via Natural or Artificial Opening Endoscopic (ICD-10-PCS; CPT 43235; principal; 2020-08-20 07:30)
DX: K22.2 Esophageal obstruction (principal); K31.84 Gastroparesis; T18.2XXA Foreign body in stomach, initial encounter; G20 Parkinson's disease; Z79.82 Long term (current) use of aspirin
CPT/HCPCS: 43249; C1726; J2001; J2704; J7120

== ENCOUNTER 2020-12-22 13:42 | Outpatient (CLI) | payer MEDICARE, SELFPAY ==
[2020-12-22 14:24] LABS: CRP 1.6 mg/dL (<1.0)
[2020-12-22 14:28] LABS: Erythrocyte Sedimentation Rate 25 mm/hr (0-20)
== END 2020-12-22 13:43 | disposition home or self-care (01) ==
PROVIDERS: PCP Internal Medicine; Visit Provider Orthopaedic Surgery
DX: M25.562 Pain in left knee (principal)
CPT/HCPCS: 36415; 85652; 86140

== ENCOUNTER 2021-02-22 12:09 | Outpatient (CLI) | payer MEDICARE, SELFPAY ==
[2021-02-22 13:04] LABS: D Dimer 1.42 ug/mL (<0.48)
[2021-02-22 13:11] LABS: CRP < 0.5 mg/dL (<1.0)
[2021-02-22 13:32] LABS: Erythrocyte Sedimentation Rate 19 mm/hr (0-20)
== END 2021-02-22 12:10 | disposition home or self-care (01) ==
PROVIDERS: PCP Internal Medicine
DX: S72.412A Displaced unspecified condyle fracture of lower end of left femur, initial encounter for closed fracture (principal); X58.XXXA Exposure to other specified factors, initial encounter
CPT/HCPCS: 36415; 85380; 85652; 86140

== ENCOUNTER 2021-03-04 13:06 | Outpatient (CLI) | payer MEDICARE, SELFPAY ==
--- NOTE | ~2021-03-04 | US_ITS ---
EXAMINATION: US venous doppler [facility] DATE: 03/04/2021 13:50 INDICATION: Localized swelling, mass and lump at the left lower limb. TECHNIQUE: Grayscale ultrasound images without and with compression and Doppler ultrasound images of the left lower extremity veins were obtained. COMPARISON: None. FINDINGS: The visualized portions of left common femoral vein, profunda (deep) femoral vein, femoral vein, popl iteal vein, peroneal veins, posterior tibial veins, gastrocnemius vein and greater saphenous vein out flow are patent. 5.1 x 0.8 x 1.4 cm hypoechoic Fajardo's cyst at the left popliteal fossa. IMPRESSION: 1. No deep venous thrombosis in the left lower limb. 2. Small left Fajardo's cyst. Reviewed, dictated and finalized at location A. [employer]
== END 2021-03-04 13:07 | disposition home or self-care (01) ==
LOC: ANHIMG 13:10
PROVIDERS: PCP Internal Medicine; Visit Provider Internal Medicine
DX: R22.42 Localized swelling, mass and lump, left lower limb (principal); M71.22 Synovial cyst of popliteal space [Baker], left knee
CPT/HCPCS: 93971

== ENCOUNTER 2021-06-24 02:00 | Day surgery (SDC) | payer MEDICARE, SELFPAY ==
[2021-06-15 09:33] VITALS: BMI 29.2
--- NOTE | 2021-06-23 12:37 | WPDGICN ---
Assessment and Plan Assessment and plan (1) Dysphagia: Code(s): R13.10 - Dysphagia, unspecified Status: Acute Assessment and Plan: EGD with possible biopsy or dilatation or cautery. (2) Parkinsons disease: Code(s): G20 - Parkinson's disease Status: Acute Assessment and Plan: if she continues to have swallowing problems, we may need to consider modified barium swallow GI Consult Note Consult date/time: 06/23/21 12:37 HPI: Sammi Calzada is a 80 year old female who was a difficulty with swallowing. She was found to have an esophageal stricture last year which was dilated up to about 15 mm. At that time she also had some retained food in the stomach, a small bezoar. Her weight has been steady. She does also have Parkinson's disease which could be a factor with swallowing in the oropharyngeal phase. Review of Systems Review of Systems: All systems reviewed & are unremarkable except as noted in HPI and below PMFSH Past Medical History Medical History Coarse tremors Compression fracture of T11 vertebra Osteopenia Parkinsons disease Surgical History Surgical History S/P ORIF (open reduction internal fixation) fracture Family History Family History Father Acute myocardial infarction Mother Uterine cancer Social History Social History Smoking status: Never smoker Second hand tobacco smoke exposure: No Alcohol intake: former Substance use: never Substance use type: does not use Living arrangements: assisted living Additional living arrangements comments: [place] Gender identity (if verbalized by the patient): Female Spiritual care concerns: No Meds Home Medications and Allergies Home Medications Medication Instructions Recorded Confirmed Type folic acid 1 mg PO DAILY 09/27/19 06/24/21 History paroxetine HCl 20 mg PO QAM #30 tablet 10/07/19 06/24/21 Rx carbidopa-levodopa 1 tablet PO QID 06/28/20 06/15/21 History omeprazole 40 mg capsule,delayed 40 mg PO DAILY #90 cap 10/07/20 06/24/21 Rx release acetaminophen 325 mg PO DAILY PRN 06/15/21 06/24/21 History ergocalciferol (vitamin D2) 1,250 mcg PO WEEKLY 06/15/21 06/24/21 History Allergies Allergy/AdvReac Type Severity Reaction Status Date / Time codeine AdvReac Intermediate Nausea and Verified 06/24/21 09:38 Vomiting Exam Const: General: alert Orientation/consciousness: patient oriented x3 Resp: Auscultation: clear to auscultation bilaterally Cardio: Rhythm: regular rhythm GI: GI Palp: Yes Soft to palpation and No Tenderness to palpation present (GI) Neuro: General: patient oriented x3
[2021-06-24 09:40] VITALS: BP 139/86; RESP 20; TEMP 36.4; O2SAT 97; BMI 32.3
[2021-06-24] MEDS: LACTATED RINGERS 1,000 ML 150 ML IV CONT (09:42)
--- NOTE | 2021-06-24 09:53 | WPDANESEPPF ---
Anes - Initial Pre Proc Eval Procedure: Operation Date: 06/24/21 10:30 Proposed Procedures p Esophagogastroduodenoscopy - Anurag Sharma MD Date/Time: 06/24/21 09:53 Surgeon: Anurag Sharma MD Pre Op Diagnosis: dysphagia Patient Data Age: 80 Gender: F Height: 1.52 m Weight: 75 kg Last Vital Signs Temp 36.4 C L 06/24/21 09:40 Resp 20 06/24/21 09:40 BP 139/86 06/24/21 09:40 Pulse Ox 97 06/24/21 09:40 Allergies Allergy/AdvReac Type Severity Reaction Status Date / Time codeine AdvReac Intermediate Nausea and Verified 06/24/21 09:38 Vomiting Home Medications Medication Instructions Recorded Confirmed Type folic acid 1 mg PO DAILY 09/27/19 06/24/21 History paroxetine HCl 20 mg PO QAM #30 tablet 10/07/19 06/24/21 Rx carbidopa-levodopa 1 tablet PO QID 06/28/20 06/15/21 History omeprazole 40 mg capsule,delayed 40 mg PO DAILY #90 cap 10/07/20 06/24/21 Rx release acetaminophen 325 mg PO DAILY PRN 06/15/21 06/24/21 History ergocalciferol (vitamin D2) 1,250 mcg PO WEEKLY 06/15/21 06/24/21 History Patient hx anesthesia problems: none Family hx anesthesia problems: none Results Review: All pre-operative results and documents have been reviewed as part of the pre-operative evaluation. [facility] Past Medical History Medical History Coarse tremors Compression fracture of T11 vertebra Osteopenia Parkinsons disease Surgical History Surgical History S/P ORIF (open reduction internal fixation) fracture Family History Family History Father Acute myocardial infarction Mother Uterine cancer Social History Social History Smoking status: Never smoker Second hand tobacco smoke exposure: No Alcohol intake: former Substance use: never Substance use type: does not use Living arrangements: assisted living Additional living arrangements comments: [place] Gender identity (if verbalized by the patient): Female Spiritual care concerns: No Anes - Eval Final PreProcedure Day of Procedure 06/24/21 09:53 Patient weight: obese Heart: regular rate and rhythm Lungs: clear to auscultation and normal air movement Airway: Mallampati scale class II Neurological: alert and oriented Last oral intake: >/= 8 hours ASA classification: III Emergent: no Anesthetic plan: proceed Anesthesia type and monitoring: general GIVS and standard monitoring Results Review: All pre-operative results and documents have been reviewed as part of the pre-operative evaluation. Informed Consent: The patient's anesthetic plan and its attendant risks and benefits were discussed with the patient/family/POA. Questions were solicited and answers provided to the satisfaction of the patient/family/POA.
[2021-06-24 10:38] VITALS: BP 132/76; PULSE 76; RESP 20; O2SAT 96
[2021-06-24 10:48] VITALS: BP 137/75; PULSE 74; RESP 20; O2SAT 96
[2021-06-24 10:58] VITALS: BP 141/75; PULSE 78; RESP 18; O2SAT 96
[2021-06-24] MEDS: AMPICILLIN 2 GM/NS 100 ML 2 GM/100 ML BAG IVPB (13:29)
== END 2021-06-24 11:15 | disposition home or self-care (01) ==
PROVIDERS: PCP Internal Medicine; Visit Provider Internal Medicine Gastroenterology
PROC: 0DJ08ZZ Inspection of Upper Intestinal Tract, Via Natural or Artificial Opening Endoscopic (ICD-10-PCS; CPT 43235; principal; 2021-06-24 10:30)
DX: R13.19 Other dysphagia (principal); K22.10 Ulcer of esophagus without bleeding; K22.2 Esophageal obstruction; K44.9 Diaphragmatic hernia without obstruction or gangrene; M19.90 Unspecified osteoarthritis, unspecified site; G20 Parkinson's disease; E66.9 Obesity, unspecified; Z68.32 Body mass index [BMI] 32.0-32.9, adult
CPT/HCPCS: 43239; 43249; 88305; C1726; J0290; J2704; J7120

== ENCOUNTER 2022-04-28 03:20 | Day surgery (SDC) | payer MEDICARE, SELFPAY ==
[2022-03-30 11:28] VITALS: BMI 27.3
--- NOTE | 2022-04-14 13:53 | PC.NURSE ---
Spoke with patient's sister Gisella, who will be bringing her in for her procedure, confirmed new date and time. Per Gisella patient is currently out of town but will have her call us if she has any questions.
--- NOTE | 2022-04-27 14:37 | P.HP_ITS ---
History of Present Illness History of Present Illness Consent: Risks, benefits, and alternatives have been discussed and questions answered. Patient agrees to proceed with procedure. Chief complaint: history of colon polyps Narrative: Sammi Calzada is a 81 year old female referred for colon cancer screening. She has a history of polyps. Review of Systems Review of Systems: All systems reviewed & are unremarkable except as noted in HPI and below PMFSH Past Medical History Medical History Coarse tremors Compression fracture of T11 vertebra Dysphagia Osteopenia Parkinsons disease Surgical History Surgical History S/P ORIF (open reduction internal fixation) fracture Family History Family History Father Acute myocardial infarction Mother Uterine cancer Social History Social History Smoking status: Never smoker Second hand tobacco smoke exposure: No Alcohol intake: never Substance use: never Substance use type: does not use Living arrangements: [facility] Additional living arrangements comments: [facility] IN [facility] Gender identity (if verbalized by the patient): Female Spiritual care concerns: No Meds Home Medications and Allergies Home Medications Medication Instructions Recorded Confirmed Type paroxetine HCl 20 mg tablet 20 mg PO QAM #30 tabs 10/07/19 04/28/22 Rx carbidopa 10 mg-levodopa 100 mg 1 tablet PO QID 06/28/20 04/28/22 History tablet acetaminophen 325 mg tablet 325 mg PO DAILY PRN Pain 06/15/21 04/28/22 History ergocalciferol (vitamin D2) 1,250 1,250 mcg PO WEEKLY 06/15/21 04/28/22 History mcg (50,000 unit) capsule aspirin 81 mg tablet 81 mg PO DAILY 03/30/22 04/28/22 History docusate sodium 100 mg capsule 100 mg PO HS 03/30/22 04/28/22 History (Stool Softener) entacapone 200 mg tablet 200 mg PO QID 03/30/22 04/28/22 History mirtazapine 15 mg tablet 15 mg PO HS 03/30/22 04/28/22 History omeprazole 40 mg capsule,delayed 40 mg PO DAILY PRN reflux 03/30/22 04/28/22 History release Allergies Allergy/AdvReac Type Severity Reaction Status Date / Time hydrocodone Allergy Severe Hallucinati Verified 04/28/22 10:09 ng codeine AdvReac Intermediate Nausea and Verified 04/28/22 10:09 Vomiting Exam Resp: Auscultation: clear to auscultation bilaterally Cardio: Rate: regular rate Rhythm: regular rhythm GI: GI Palp: Yes Soft to palpation and No Tenderness to palpation present (GI) Assessment and Plan Assessment and plan (1) Colon cancer screening: Code(s): Z12.11 - Encounter for screening for malignant neoplasm of colon Status: Acute Assessment and Plan: Colonoscopy with possible biopsy or polypectomy or cautery or injection of substances.
--- NOTE | 2022-04-28 10:04 | P.PNAN_ITS ---
Anes - Initial Pre Proc Eval Procedure: Operation Date: 04/28/22 11:00 Proposed Procedures p Screening Colonoscopy - Anurag Sharma MD Date/Time: 04/28/22 10:04 Surgeon: Anurag Sharma MD Pre Op Diagnosis: history of colon polyps Patient Data Age: 81 Gender: F Height: 1.57 m Weight: 68 kg Allergies Allergy/AdvReac Type Severity Reaction Status Date / Time hydrocodone Allergy Severe Hallucinati Verified 04/28/22 10:09 ng codeine AdvReac Intermediate Nausea and Verified 04/28/22 10:09 Vomiting Home Medications Medication Instructions Recorded Confirmed Type paroxetine HCl 20 mg tablet 20 mg PO QAM #30 tabs 10/07/19 04/28/22 Rx carbidopa 10 mg-levodopa 100 mg 1 tablet PO QID 06/28/20 04/28/22 History tablet acetaminophen 325 mg tablet 325 mg PO DAILY PRN Pain 06/15/21 04/28/22 History ergocalciferol (vitamin D2) 1,250 1,250 mcg PO WEEKLY 06/15/21 04/28/22 History mcg (50,000 unit) capsule aspirin 81 mg tablet 81 mg PO DAILY 03/30/22 04/28/22 History docusate sodium 100 mg capsule 100 mg PO HS 03/30/22 04/28/22 History (Stool Softener) entacapone 200 mg tablet 200 mg PO QID 03/30/22 04/28/22 History mirtazapine 15 mg tablet 15 mg PO HS 03/30/22 04/28/22 History omeprazole 40 mg capsule,delayed 40 mg PO DAILY PRN reflux 03/30/22 04/28/22 History release Patient hx anesthesia problems: none Family hx anesthesia problems: none Results Review: All pre-operative results and documents have been reviewed as part of the pre- operative evaluation. [facility] Past Medical History Medical History Coarse tremors Compression fracture of T11 vertebra Dysphagia Osteopenia Parkinsons disease Surgical History Surgical History S/P ORIF (open reduction internal fixation) fracture Family History Family History Father Acute myocardial infarction Mother Uterine cancer Social History Social History Smoking status: Never smoker Second hand tobacco smoke exposure: No Alcohol intake: never Substance use: never Substance use type: does not use Living arrangements: [facility] Additional living arrangements comments: LIVES IN [facility] Gender identity (if verbalized by the patient): Female Spiritual care concerns: No Anes - Eval Final PreProcedure Day of Procedure 04/28/22 10:04 Patient weight: overweight Heart: regular rate and rhythm Lungs: clear to auscultation and normal air movement Airway: Mallampati scale class II Neurological: alert and oriented Last oral intake: >/= 8 hours ASA classification: III Emergent: no Anesthetic plan: proceed Anesthesia type and monitoring: general GIVS and standard monitoring Results Review: All pre-operative results and documents have been reviewed as part of the pre- operative evaluation. Informed Consent: The patient's anesthetic plan and its attendant risks and benefits were discussed with the patient/family/POA. Questions were solicited and answers provided to the satisfaction of the patient/family/POA.
[2022-04-28 10:15] VITALS: BP 125/74; PULSE 86; RESP 20; TEMP 36.2; O2SAT 95
[2022-04-28] MEDS: LACTATED RINGERS 1,000 ML 150 ML IV CONT (10:24)
[2022-04-28 11:13] VITALS: BP 120/72; PULSE 70; RESP 16; TEMP 36.2; O2SAT 100
[2022-04-28 11:23] VITALS: BP 114/72; PULSE 68; RESP 16; TEMP 36.2; O2SAT 100
[2022-04-28 11:33] VITALS: BP 137/75; PULSE 69; RESP 16; TEMP 36.2; O2SAT 100
== END 2022-04-28 11:48 | disposition home or self-care (01) ==
PROVIDERS: PCP Internal Medicine; Visit Provider Internal Medicine Gastroenterology
PROC: 0DJD8ZZ Inspection of Lower Intestinal Tract, Via Natural or Artificial Opening Endoscopic (ICD-10-PCS; CPT 45378; principal; 2022-04-28 11:00)
DX: Z12.11 Encounter for screening for malignant neoplasm of colon (principal); K57.30 Diverticulosis of large intestine without perforation or abscess without bleeding; Z86.010 Personal history of colon polyps; G20 Parkinson's disease; M85.80 Other specified disorders of bone density and structure, unspecified site
CPT/HCPCS: G0105; J2704; J7120

== ENCOUNTER 2022-06-26 18:22 | Outpatient (NON) | payer MEDICARE, SELFPAY ==
[2022-06-26 20:24] LABS: Nucleated Cell Synovial Fluid 229 /uL (0-200); RBC Synovial Fluid < 2000 /uL (0-0)
[2022-06-26 20:49] LABS: Appearance Synovial Fluid Hazy (Clear); Color Synovial Fluid Yellow (Colorless); Crystals Synovial Fluid None Seen (None Seen); Lymphocytes Synovial Fluid 40 %; Macrophages Synovial Fluid 20 %; Neutrophils Synovial Fluid 40 % (0-25); Source Synovial Fluid Synovial fluid
== END 2022-06-26 18:23 | disposition home or self-care (01) ==
LOC: ANHLAB 18:23
PROVIDERS: PCP Internal Medicine; Visit Provider Orthopaedic Surgery
DX: M25.462 Effusion, left knee (principal); Z96.652 Presence of left artificial knee joint
CPT/HCPCS: 87070; 87075; 87077; 87186; 87205; 89051; 89060

== ENCOUNTER 2022-06-28 12:41 | Outpatient (CLI) | payer MEDICARE, SELFPAY ==
[2022-06-28 13:07] LABS: Basophils Percent Auto 0.4 % (0.2-1.2); Eosinophils Absolute Auto 0.1 K/mm3 (0-0.3); Eosinophils Percent Auto 1.6 % (0-4.4); Hematocrit 41.8 % (37.0-47.0); Hemoglobin 13.5 g/dL (12.0-15.0); Immature Granulocyte Absolute 0.01 K/mm3 (0.00-0.031); Immature Granulocyte Percent A 0.2 % (0-0.5); Lymphocytes Absolute Auto 1.28 K/mm3 (0.9-3.2); Lymphocytes Percent Auto 28.4 % (18.3-44.2); Mean Corpuscular HGB Conc 32.3 g/dl (32-36); Mean Corpuscular Volume 99.1 fl (80-100); Mean Platelet Volume 9.1 fl (7.4-10.4); Monocytes Absolute Auto 0.3 K/mm3 (0.1-0.6); Neutrophils Absolute Auto 2.9 K/mm3 (1.3-6.7); Neutrophils Percent Auto 63.4 % (45.5-73.1); Platelet Count Result 194 k/mm3 (150-375); Red Blood Count 4.22 M/mm3 (4.2-5.4); Red Cell Distribution Width 13.4 % (11.5-14.5); White Blood Count 4.5 K/mm3 (4.5-10.0)
[2022-06-28 13:34] LABS: CRP < 0.5 mg/dL (<1.0)
[2022-06-28 14:09] LABS: Erythrocyte Sedimentation Rate 19 mm/hr (0-20)
== END 2022-06-28 12:42 | disposition home or self-care (01) ==
PROVIDERS: PCP Internal Medicine; Visit Provider Orthopaedic Surgery
DX: M25.462 Effusion, left knee (principal); Z96.652 Presence of left artificial knee joint
CPT/HCPCS: 36415; 85025; 85652; 86140

== ENCOUNTER 2022-06-29 09:12 | Outpatient (NON) | payer MEDICARE, SELFPAY ==
[2022-06-29 11:24] LABS: Crystals Synovial Fluid None Seen (None Seen)
[2022-06-29 12:11] LABS: Color Synovial Fluid Yellow (Colorless); Source Synovial Fluid Synovial fluid
[2022-06-29 12:12] LABS: Appearance Synovial Fluid Hazy (Clear); Neutrophils Synovial Fluid 55 % (0-25); Nucleated Cell Synovial Fluid 426 /uL (0-200); RBC Synovial Fluid 2000 /uL (0-0)
[2022-06-29 12:13] LABS: Lymphocytes Synovial Fluid 15 %; Monocytes Synovial Fluid 30 %
== END 2022-06-29 09:13 | disposition home or self-care (01) ==
LOC: ANHLAB 09:18
PROVIDERS: PCP Internal Medicine; Visit Provider Orthopaedic Surgery
DX: M25.562 Pain in left knee (principal); Z96.652 Presence of left artificial knee joint; M25.462 Effusion, left knee
CPT/HCPCS: 87070; 87075; 87205; 89051; 89060

== ENCOUNTER 2022-06-30 08:27 | Outpatient (CLI) | payer MEDICARE, SELFPAY ==
--- NOTE | ~2022-06-30 | NM_ITS ---
EXAMINATION: NM bone scan whole body DATE: 06/30/2022 14:15 INDICATION: Painful left knee replacement. TECHNIQUE: 25 mCi Tc-99m HDP was administered intravenously. Delayed whole-body scintigrams were obt ained. COMPARISON: CT abdomen and pelvis 10/20/2019 FINDINGS: There is a total left knee arthroplasty. There is increased activity in distal left femur a nd proximal left tibia adjacent to the arthroplasty. There is increased activity in left patella. The re is increased activity in the right knee joint without radiographic comparison, likely osteoarthrit is. There is increased activity in right first metatarsophalangeal joint without radiographic compari son, likely osteoarthritis. IMPRESSION: 1. Total left knee arthroplasty. Increased activity adjacent to the arthroplasty has poor specificity and may be a normal finding or may be seen with loosening or infection. Correlate with radiographs. Reviewed, dictated and finalized at location A. IMPRESSION: 1. Total left knee arthroplasty. Increased activity adjacent to the arthroplast y has poor specificity and may be a normal finding or may be seen with loosenin g or infection. Correlate with radiographs.
== END 2022-06-30 08:28 | disposition home or self-care (01) ==
PROVIDERS: PCP Internal Medicine; Visit Provider Orthopaedic Surgery
DX: M25.562 Pain in left knee (principal)
CPT/HCPCS: 78306; A9503

== ENCOUNTER 2022-09-12 09:35 | Outpatient (CLI) | payer MEDICARE, SELFPAY ==
--- NOTE | ~2022-09-12 | MM_ITS ---
EXAMINATION: MM screening katia BI w arnaldo HISTORY: Screening mammogram TECHNIQUE: Craniocaudal and mediolateral oblique 3-D tomosynthesis images were obtained and synthetic 2-D images were generated. CAD analysis was submitted and interpreted. COMPARISON: No prior mammogram is available for comparison at this institution. BREAST PARENCHYMAL COMPOSITION: The breasts are heterogeneously dense, which may obscure small masses . FINDINGS: There is no evidence of suspicious mass, calcification, or architectural distortion to sugg est malignancy in either breast. There has been no suspicious interval change. IMPRESSION: 1. No mammographic evidence of malignancy. 2. Recommend routine screening mammography in one year. BI-RADS Category 1: Negative Reviewed, dictated and finalized at location A.
== END 2022-09-12 09:36 | disposition home or self-care (01) ==
PROVIDERS: PCP Internal Medicine; Visit Provider Internal Medicine
DX: Z12.31 Encounter for screening mammogram for malignant neoplasm of breast (principal)
CPT/HCPCS: 77063; 77067

== ENCOUNTER 2022-09-29 04:48 | Day surgery (SDC) | payer MEDICARE, SELFPAY ==
[2022-09-21 14:15] VITALS: BMI 26.5
--- NOTE | 2022-09-29 11:04 | PM.HPGS ---
History of Present Illness History of Present Illness Consent: Risks, benefits, and alternatives have been discussed and questions answered. Patient agrees to proceed with procedure. Chief complaint: Esophageal Stricture Narrative: Sammi Calzada is a 82 year old female With a long history of esophageal stricture. Her stricture was able to be dilated up to 18 mm a few months ago. She does still have issues with swallowing. Bread and meat gets jeremy ck. She is not sure which medication she takes. Her sister or denies is them for her. The chart indicates she takes meloxicam once a day. Review of Systems Review of Systems: All systems reviewed & are unremarkable except as noted in HPI and below PMFSH Past Medical History Medical History Coarse tremors Compression fracture of T11 vertebra Dysphagia Osteopenia Parkinsons disease Surgical History Surgical History S/P ORIF (open reduction internal fixation) fracture Family History Family History Father Acute myocardial infarction Mother Uterine cancer Social History Social History Smoking status: Never smoker Second hand tobacco smoke exposure: No Alcohol intake: never Substance use: never Substance use type: does not use Living arrangements: alone Additional living arrangements comments: LIVES IN [facility]DEP[facility]IV[facility] Gender identity (if verbalized by the patient): Female Spiritual care concerns: No Meds Home Medications and Allergies Home Medications Medication Instructions Recorded Confirmed Type paroxetine HCl 20 mg tablet 20 mg PO QAM #30 tabs 10/07/19 09/29/22 Rx carbidopa 10 mg-levodopa 100 mg 1 tablet PO QID 06/28/20 09/29/22 History tablet acetaminophen 325 mg tablet 325 mg PO DAILY PRN Pain 06/15/21 09/29/22 History ergocalciferol (vitamin D2) 1,250 50 mcg PO DAILY 06/15/21 09/29/22 History mcg (50,000 unit) capsule aspirin 81 mg tablet 81 mg PO DAILY 03/30/22 09/29/22 History docusate sodium 100 mg capsule 100 mg PO HS 03/30/22 09/29/22 History (Stool Softener) entacapone 200 mg tablet 200 mg PO QID 03/30/22 09/29/22 History mirtazapine 15 mg tablet 15 mg PO HS 03/30/22 09/29/22 History diclofenac potassium 50 mg tablet 50 mg PO DAILY 09/21/22 09/29/22 History memantine 10 mg tablet 10 mg PO BID 09/21/22 09/29/22 History pantoprazole 40 mg tablet,delayed 40 mg PO BID #60 tabs 09/29/22 Rx release Allergies Allergy/AdvReac Type Severity Reaction Status Date / Time hydrocodone Allergy Severe Hallucinati Verified 09/29/22 11:13 ng codeine AdvReac Intermediate Nausea and Verified 09/29/22 11:13 Vomiting Exam Const: General: alert Orientation/consciousness: patient oriented x3 Resp: Auscultation: clear to auscultation bilaterally Cardio: Rhythm: regular rhythm GI: GI Palp: Yes Soft to palpation and No Tenderness to palpation present (GI) Neuro: General: patient oriented x3 Assessment and Plan Assessment and plan (1) Dysphagia: Code(s): R13.10 - Dysphagia, unspecified Status: Acute Assessment and Plan: EGD with possible biopsy or dilatation or cautery.
[2022-09-29 11:15] VITALS: BP 113/66; PULSE 87; RESP 18; TEMP 36.2; O2SAT 97; BMI 26.5
[2022-09-29] MEDS: LACTATED RINGERS 1,000 ML 150 ML IV CONT (11:18)
--- NOTE | 2022-09-29 11:48 | WPDANESEPPF ---
Anes - Initial Pre Proc Eval Procedure: Operation Date: 09/29/22 12:30 Proposed Procedures p Esophagogastroduodenoscopy - Anurag Sharma MD Date/Time: 09/29/22 11:48 Surgeon: Anurag Sharma MD Pre Op Diagnosis: Esophageal Stricture Patient Data Age: 82 Gender: F Height: 1.6 m Weight: 67.9 kg Last Vital Signs Temp 97.2 F L 09/29/22 11:15 Pulse 87 09/29/22 11:15 Resp 18 09/29/22 11:15 BP 113/66 09/29/22 11:15 Pulse Ox 97 09/29/22 11:15 O2 Del Method Room Air 09/29/22 11:15 Allergies Allergy/AdvReac Type Severity Reaction Status Date / Time hydrocodone Allergy Severe Hallucinati Verified 09/29/22 11:13 ng codeine AdvReac Intermediate Nausea and Verified 09/29/22 11:13 Vomiting Home Medications Medication Instructions Recorded Confirmed Type paroxetine HCl 20 mg tablet 20 mg PO QAM #30 tabs 10/07/19 09/29/22 Rx carbidopa 10 mg-levodopa 100 mg 1 tablet PO QID 06/28/20 09/29/22 History tablet acetaminophen 325 mg tablet 325 mg PO DAILY PRN Pain 06/15/21 09/29/22 History ergocalciferol (vitamin D2) 1,250 50 mcg PO DAILY 06/15/21 09/29/22 History mcg (50,000 unit) capsule aspirin 81 mg tablet 81 mg PO DAILY 03/30/22 09/29/22 History docusate sodium 100 mg capsule 100 mg PO HS 03/30/22 09/29/22 History (Stool Softener) entacapone 200 mg tablet 200 mg PO QID 03/30/22 09/29/22 History mirtazapine 15 mg tablet 15 mg PO HS 03/30/22 09/29/22 History omeprazole 40 mg capsule,delayed 40 mg PO DAILY PRN reflux 03/30/22 09/29/22 History release diclofenac potassium 50 mg tablet 50 mg PO DAILY 09/21/22 09/29/22 History memantine 10 mg tablet 10 mg PO BID 09/21/22 09/29/22 History Patient hx anesthesia problems: none Family hx anesthesia problems: none Results Review: All pre-operative results and documents have been reviewed as part of the pre-operative evaluation. [facility] Past Medical History Medical History Coarse tremors Compression fracture of T11 vertebra Dysphagia Osteopenia Parkinsons disease Surgical History Surgical History S/P ORIF (open reduction internal fixation) fracture Family History Family History Father Acute myocardial infarction Mother Uterine cancer Social History Social History Smoking status: Never smoker Second hand tobacco smoke exposure: No Alcohol intake: never Substance use: never Substance use type: does not use Living arrangements: alone Additional living arrangements comments: LIVES IN [facility]DEP[facility]IV[facility] Gender identity (if verbalized by the patient): Female Spiritual care concerns: No Anes - Eval Final PreProcedure Day of Procedure 09/29/22 11:48 Patient weight: normal Heart: regular rate and rhythm Lungs: clear to auscultation Airway: Mallampati scale class II Neurological: alert and oriented Last oral intake: >/= 8 hours ASA classification: III Emergent: no Anesthetic plan: proceed Anesthesia type and monitoring: general GIVS and standard monitoring Results Review: All pre-operative results and documents have been reviewed as part of the pre-operative evaluation. Informed Consent: The patient's anesthetic plan and its attendant risks and benefits were discussed with the patient/family/POA. Questions were solicited and answers provided to the satisfaction of the patient/family/POA.
[2022-09-29] MEDS: BENZOCAINE (*SP) 60 ML SPRAY CAN (HURRICAINE) 1 SPRAY MUCOUS MEM (12:39)
[2022-09-29 12:51] VITALS: BP 129/68; PULSE 85; RESP 17; O2SAT 95
[2022-09-29 13:01] VITALS: BP 118/67; PULSE 74; RESP 18; O2SAT 96
[2022-09-29 13:11] VITALS: BP 117/88; PULSE 76; RESP 24; O2SAT 96
== END 2022-09-29 13:30 | disposition home or self-care (01) ==
PROVIDERS: PCP Internal Medicine; Visit Provider Internal Medicine Gastroenterology
PROC: 0DJ08ZZ Inspection of Upper Intestinal Tract, Via Natural or Artificial Opening Endoscopic (ICD-10-PCS; CPT 43235; principal; 2022-09-29 12:30)
DX: R13.10 Dysphagia, unspecified (principal); K22.10 Ulcer of esophagus without bleeding; K22.2 Esophageal obstruction; K44.9 Diaphragmatic hernia without obstruction or gangrene; K29.80 Duodenitis without bleeding; G20 Parkinson's disease
CPT/HCPCS: 43239; 88305; J2704; J7120

== ENCOUNTER 2022-11-29 01:54 | Day surgery (SDC) | payer MEDICARE, SELFPAY ==
[2022-11-17 12:54] VITALS: BMI 26.6
--- NOTE | 2022-11-28 16:19 | PM.HPGS ---
History of Present Illness History of Present Illness Consent: Risks, benefits, and alternatives have been discussed and questions answered. Patient agrees to proceed with procedure. Chief complaint: Esophageal Stricture Narrative: Sammi Calzada is a 82 year old female who is known to have severe ulcerative esophagitis and a stricture. Over a year ago she was found have ulcerative esophagitis and a stricture that could be dilated up to about 18 mm. She returned a few months ago for endoscopy and now has multiple ulcerations. There was a severe stricture but because of the severe ulceration that was not felt safe to perform dilatation at that time. Review of Systems Review of Systems: All systems reviewed & are unremarkable except as noted in HPI and below PMFSH Past Medical History Medical History Coarse tremors Compression fracture of T11 vertebra Dysphagia Osteopenia Parkinsons disease Surgical History Surgical History S/P ORIF (open reduction internal fixation) fracture Family History Family History Father Acute myocardial infarction Mother Uterine cancer Social History Social History Smoking status: Never smoker Second hand tobacco smoke exposure: No Alcohol intake: never Substance use: never Substance use type: does not use Living arrangements: assisted living Additional living arrangements comments: assisted living Gender identity (if verbalized by the patient): Female Spiritual care concerns: No Meds Home Medications and Allergies Home Medications Medication Instructions Recorded Confirmed Type paroxetine HCl 20 mg tablet 20 mg PO QAM #30 tabs 10/07/19 11/17/22 Rx carbidopa 10 mg-levodopa 100 mg 1 tablet PO QID 06/28/20 11/17/22 History tablet acetaminophen 325 mg tablet 325 mg PO DAILY PRN Pain 06/15/21 11/17/22 History ergocalciferol (vitamin D2) 1,250 50 mcg PO DAILY 06/15/21 11/17/22 History mcg (50,000 unit) capsule aspirin 81 mg tablet 81 mg PO DAILY 03/30/22 11/17/22 History docusate sodium 100 mg capsule 100 mg PO HS 03/30/22 11/17/22 History (Stool Softener) entacapone 200 mg tablet 200 mg PO QID 03/30/22 11/17/22 History mirtazapine 15 mg tablet 15 mg PO HS 03/30/22 11/17/22 History diclofenac potassium 50 mg tablet 50 mg PO DAILY 09/21/22 11/17/22 History memantine 10 mg tablet 10 mg PO BID 09/21/22 11/17/22 History pantoprazole 40 mg tablet,delayed 40 mg PO BID #60 tabs 10/02/22 11/17/22 Rx release donepezil 10 mg tablet 10 mg PO DAILY 11/17/22 11/17/22 History Allergies Allergy/AdvReac Type Severity Reaction Status Date / Time hydrocodone Allergy Severe Hallucinati Verified 11/29/22 10:16 ng codeine AdvReac Intermediate Nausea and Verified 11/29/22 10:16 Vomiting Exam Const: General: alert Orientation/consciousness: patient oriented x3 Resp: Auscultation: clear to auscultation bilaterally Cardio: Rhythm: regular rhythm GI: GI Palp: Yes Soft to palpation and No Tenderness to palpation present (GI) Neuro: General: patient oriented x3 Assessment and Plan Assessment and plan (1) Dysphagia: Code(s): R13.10 - Dysphagia, unspecified Status: Acute Assessment and Plan: EGD with possible biopsy or dilatation or cautery.
[2022-11-29 10:21] VITALS: BP 121/68; PULSE 72; RESP 18; TEMP 36.1; O2SAT 98
[2022-11-29] MEDS: LACTATED RINGERS 1,000 ML 150 ML IV CONT (10:29)
--- NOTE | 2022-11-29 10:41 | WPDANESEPPF ---
Anes - Initial Pre Proc Eval Procedure: Operation Date: 11/29/22 11:30 Proposed Procedures p Esophagogastroduodenoscopy - Anurag Sharma MD Date/Time: 11/29/22 10:41 Surgeon: Anurag Sharma MD Pre Op Diagnosis: Esophageal Stricture Patient Data Age: 82 Gender: F Height: 1.6 m Weight: 70 kg Last Vital Signs Temp 97 F L 11/29/22 10:21 Pulse 72 11/29/22 10:21 Resp 18 11/29/22 10:21 BP 121/68 11/29/22 10:21 Pulse Ox 98 11/29/22 10:21 O2 Del Method Room Air 11/29/22 10:21 Allergies Allergy/AdvReac Type Severity Reaction Status Date / Time hydrocodone Allergy Severe Hallucinati Verified 11/29/22 10:16 ng codeine AdvReac Intermediate Nausea and Verified 11/29/22 10:16 Vomiting Home Medications Medication Instructions Recorded Confirmed Type paroxetine HCl 20 mg tablet 20 mg PO QAM #30 tabs 10/07/19 11/17/22 Rx carbidopa 10 mg-levodopa 100 mg 1 tablet PO QID 06/28/20 11/17/22 History tablet acetaminophen 325 mg tablet 325 mg PO DAILY PRN Pain 06/15/21 11/17/22 History ergocalciferol (vitamin D2) 1,250 50 mcg PO DAILY 06/15/21 11/17/22 History mcg (50,000 unit) capsule aspirin 81 mg tablet 81 mg PO DAILY 03/30/22 11/17/22 History docusate sodium 100 mg capsule 100 mg PO HS 03/30/22 11/17/22 History (Stool Softener) entacapone 200 mg tablet 200 mg PO QID 03/30/22 11/17/22 History mirtazapine 15 mg tablet 15 mg PO HS 03/30/22 11/17/22 History diclofenac potassium 50 mg tablet 50 mg PO DAILY 09/21/22 11/17/22 History memantine 10 mg tablet 10 mg PO BID 09/21/22 11/17/22 History pantoprazole 40 mg tablet,delayed 40 mg PO BID #60 tabs 10/02/22 11/17/22 Rx release donepezil 10 mg tablet 10 mg PO DAILY 11/17/22 11/17/22 History Patient hx anesthesia problems: none Family hx anesthesia problems: none Results Review: All pre-operative results and documents have been reviewed as part of the pre-operative evaluation. [facility] Past Medical History Medical History Coarse tremors Compression fracture of T11 vertebra Dysphagia Osteopenia Parkinsons disease Surgical History Surgical History S/P ORIF (open reduction internal fixation) fracture Family History Family History Father Acute myocardial infarction Mother Uterine cancer Social History Social History Smoking status: Never smoker Second hand tobacco smoke exposure: No Alcohol intake: never Substance use: never Substance use type: does not use Living arrangements: assisted living Additional living arrangements comments: assisted living Gender identity (if verbalized by the patient): Female Spiritual care concerns: No Anes - Eval Final PreProcedure Day of Procedure 11/29/22 10:41 Patient weight: normal Heart: regular rate and rhythm Lungs: clear to auscultation Airway: Mallampati scale class II Neurological: alert and oriented Last oral intake: >/= 8 hours ASA classification: III Emergent: no Anesthetic plan: proceed Anesthesia type and monitoring: general GIVS and standard monitoring Results Review: All pre-operative results and documents have been reviewed as part of the pre-operative evaluation. Informed Consent: The patient's anesthetic plan and its attendant risks and benefits were discussed with the patient/family/POA. Questions were solicited and answers provided to the satisfaction of the patient/family/POA.
[2022-11-29 11:11] VITALS: BP 110/63; PULSE 60; RESP 14; O2SAT 100
[2022-11-29 11:21] VITALS: BP 139/102; PULSE 69; RESP 22; O2SAT 96
[2022-11-29 11:31] VITALS: BP 110/83; PULSE 62; RESP 20; O2SAT 97
== END 2022-11-29 11:40 | disposition home or self-care (01) ==
PROVIDERS: PCP Internal Medicine; Visit Provider Internal Medicine Gastroenterology
PROC: 0DJ08ZZ Inspection of Upper Intestinal Tract, Via Natural or Artificial Opening Endoscopic (ICD-10-PCS; CPT 43235; principal; 2022-11-29 11:30)
DX: K22.2 Esophageal obstruction (principal); K21.9 Gastro-esophageal reflux disease without esophagitis; K44.9 Diaphragmatic hernia without obstruction or gangrene; Z87.19 Personal history of other diseases of the digestive system; G20 Parkinson's disease; Z79.82 Long term (current) use of aspirin
CPT/HCPCS: 43249; C1726; J2704; J7120

== ENCOUNTER 2023-03-11 01:52 | Inpatient (IN) | payer MEDICARE, SELFPAY ==
[2023-03-11] VITALS (7 sets, daily range): BP systolic 106–135; BP diastolic 45–90; PULSE 59–85; RESP 14–18; TEMP 36.2–36.8; O2SAT 90–100; BMI 28.3
--- NOTE | ~2023-03-11 | XR_ITS ---
EXAMINATION: XR ankle LT min 3V DATE: 03/11/2023 04:53 INDICATION: Left ankle pain, initial encounter TECHNIQUE: Three views of the ankle were obtained. COMPARISON: None. FINDINGS: There is an oblique fracture of the distal fibula extending to the level of the tibial plaf ond. The distal fracture fragment demonstrates 2 mm of lateral displacement. There is an oblique frac ture of the medial malleolus at the level of the tibial plafond. No additional fracture is identified . Ankle soft tissue swelling is present. IMPRESSION: 1. Bimalleolar fracture of the ankle. Reviewed, dictated and finalized at location F. NSED SOCIAL WORKER
--- NOTE | ~2023-03-11 | XR_ITS ---
EXAMINATION: XR femur LT min 2V INDICATION: Left leg pain TECHNIQUE: Two views of the left femur are obtained on four radiographs. COMPARISON: None available FINDINGS: Changes knee arthroplasty are noted. Bone alignment is normal. There is no fracture. 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 IMPRESSION: 1. No acute osseous abnormality. Reviewed, dictated and finalized at location F. O TECHNICIAN
--- NOTE | ~2023-03-11 | XR_ITS ---
EXAMINATION: [id number] INDICATION: Left knee pain TECHNIQUE: Two views of the left knee are obtained. COMPARISON: None available FINDINGS: There are changes of knee arthroplasty. Alignment is normal. There is no fracture. There is anterior soft tissue swelling overlying the knee. IMPRESSION: 1. Soft tissue swelling without acute osseous abnormality. Reviewed, dictated and finalized at location F. TAL ASSET COORDINATOR
--- NOTE | ~2023-03-11 | XR_ITS ---
EXAMINATION: XR pelvis 1-2V INDICATION: Pain after fall TECHNIQUE: AP view of the pelvis is obtained. COMPARISON: None available FINDINGS: Bone alignment is normal. There is no fracture. There is mild osteoarthritis of the hips. IMPRESSION: 1. No acute osseous abnormality. Reviewed, dictated and finalized at location F. NT BUSINESS MANAGER
--- NOTE | ~2023-03-11 | XR_ITS ---
Single AP view of the left hip CLINICAL HISTORY: Pain COMPARISON: 03/11/2023 FINDINGS: No acute fracture or dislocation seen. Osseous alignment is unchanged from prior exam. Soft tissues are unremarkable. IMPRESSION: No definite acute abnormality seen on this single view. Reviewed, dictated and finalized at [facility]. ING MACHINE OPERATOR
--- NOTE | ~2023-03-11 | XR_ITS ---
EXAMINATION: XR surgery orthopedic DATE: 03/14/2023 11:20 INDICATION: Bimalleolar left ankle fracture. TECHNIQUE: 4 intraoperative fluoroscopic views of the left ankle were obtained. I was not present. Fl uoroscopy exposure time was 57 seconds. COMPARISON: Left ankle radiographs 03/11/2023 FINDINGS: There is an oblique fracture of medial malleolus in near-anatomic alignment with internal f ixation with 2 lag screws. There is an oblique fracture of distal fibula in near-anatomic alignment s tatus post open reduction internal fixation with intramedullary blas and multiple screws. Two of the s crews extend through both fibula and tibia. There is normal alignment at the ankle mortise. IMPRESSION: 1. Bimalleolar ankle fracture status post open reduction internal fixation. Reviewed, dictated and finalized at location A. FACTURED BUILDINGS REPAIRER
[2023-03-11] MEDS: ONDANSETRON INJ 4 MG/2 ML VIAL IV PUSH (06:46)
[2023-03-11] MEDS: HYDROmorphone HCL INJ (*CRX) 1 MG/ML SYR 0.5 MG IV PUSH ×3 (06:47→21:10)
--- NOTE | 2023-03-11 06:48 | ECG_ITS ---
Measurements Intervals Hospers Rate: 71 P: 55 MN: 161 QRS: -38 QRSD: 113 T: 34 QT: 409 QTc: 445 Interpretive Statements SINUS RHYTHM LEFT AXIS DEVIATION LOW QRS VOLTAGE IN PRECORDIAL LEADS INCOMPLETE RIGHT BUNDLE BRANCH BLOCK Electronically Signed On 03-11-2023 10:33:22 [employer] by Vamsi Granados M.D.
[2023-03-11 07:11] LABS: Basophils Percent Auto 0.3 % (0.2-1.2); Eosinophils Percent Auto 0.5 % (0-4.4); Hematocrit 37.7 % (37.0-47.0); Hemoglobin 12.3 g/dL (12.0-15.0); Immature Granulocyte Absolute 0.02 K/mm3 (0.00-0.031); Immature Granulocyte Percent A 0.3 % (0-0.5); Lymphocytes Absolute Auto 0.95 K/mm3 (0.9-3.2); Lymphocytes Percent Auto 16.3 % (18.3-44.2); Mean Corpuscular HGB Conc 32.6 g/dl (32-36); Mean Corpuscular Volume 98.2 fl (80-100); Mean Platelet Volume 8.4 fl (7.4-10.4); Monocytes Absolute Auto 0.4 K/mm3 (0.1-0.6); Monocytes Percent Auto 7.2 % (2.6-8.5); Neutrophils Absolute Auto 4.4 K/mm3 (1.3-6.7); Neutrophils Percent Auto 75.4 % (45.5-73.1); Platelet Count Result 179 k/mm3 (150-375); Red Blood Count 3.84 M/mm3 (4.2-5.4); Red Cell Distribution Width 13.5 % (11.5-14.5); White Blood Count 5.8 K/mm3 (4.5-10.0)
[2023-03-11 07:19] LABS: Potassium 3.6 mmol/L (3.4-5.0)
--- NOTE | 2023-03-11 07:22 | ED.LOWEXIN ---
HPI - Extremity Injury (Lower) General Chief Complaint: Extremity Injury, Lower Stated Complaint: fall out of bed, L ankle pain Time Seen by Provider: 03/11/23 07:13 Source: patient Mode of arrival: EMS Limitations: no limitations History of Present Illness HPI Narrative: 82 years old white female got up to go to the bathroom last night, lost her balance and fell, history of parkinsonism. complaining of left ankle pain, she denies other injuries. Patient on aspirin, no anticoagulant medication. Related Data Home Medications Medication Instructions Recorded Confirmed carbidopa 10 mg-levodopa 100 mg 1 tablet PO QID 06/28/20 03/11/23 tablet acetaminophen 325 mg tablet 325 mg PO DAILY PRN Pain 06/15/21 03/11/23 ergocalciferol (vitamin D2) 1,250 50 mcg PO DAILY 06/15/21 03/11/23 mcg (50,000 unit) capsule aspirin 81 mg tablet 81 mg PO DAILY 03/30/22 03/11/23 docusate sodium 100 mg capsule 100 mg PO HS 03/30/22 03/11/23 (Stool Softener) entacapone 200 mg tablet 200 mg PO QID 03/30/22 03/11/23 mirtazapine 15 mg tablet 15 mg PO HS 03/30/22 03/11/23 diclofenac potassium 50 mg tablet 50 mg PO DAILY 09/21/22 03/11/23 memantine 10 mg tablet 10 mg PO BID 09/21/22 03/11/23 donepezil 10 mg tablet 10 mg PO HS 11/17/22 03/11/23 Allergies Allergy/AdvReac Type Severity Reaction Status Date / Time hydrocodone Allergy Severe Hallucinati Verified 03/11/23 11:07 ng codeine AdvReac Intermediate Nausea and Verified 03/11/23 11:07 Vomiting Review of Systems Review of Systems: All systems reviewed & are unremarkable except as noted in HPI and below PMFSH Past Medical History Medical History Coarse tremors Compression fracture of T11 vertebra Dysphagia Fracture of ankle, bimalleolar, left, closed Osteopenia Parkinsons disease Surgical History Surgical History S/P ORIF (open reduction internal fixation) fracture Family History Family History Father Acute myocardial infarction Mother Uterine cancer Social History Social History Smoking status: Never smoker Second hand tobacco smoke exposure: No Alcohol intake: never Substance use: never Substance use type: does not use Lack of Transportation: No Lack of Food: Never True Current Housing: I Have Housing Concerned About Future Housing: No Difficulty Paying Gas/Electric Bills: No Difficulty Paying for Meds: No Currently Unemployed: No Education: Don't Know Difficulty w/ Childcare or Family Care: No Living arrangements: assisted living Additional living arrangements comments: assisted living Gender identity (if verbalized by the patient): Female Spiritual care concerns: No Exam Narrative: GENERAL APPEARANCE: WELL-DEVELOPED, WELL-NOURISHED SKIN: NORMAL COLOR HEAD: NORMOCEPHALIC, NONTRAUMATIC EYES: CLEAR CONJUNCTIVA ENT: OROPHARYNX NORMAL, EARS NORMAL, NOSE NORMAL NECK: SUPPLE, NONTENDER CHEST AND RESPIRATORY: AIRWAY PATENT, NO RESPIRATORY DISTRESS, NO ACCESSORY MUSCLE USE HEART: REGULAR RATE/RHYTHM ABDOMEN: SOFT, NONTENDER, NO ORGANOMEGALY, QUIET BOWEL SOUNDS VASCULAR: NORMAL PERIPHERAL PULSES, NORMAL CAPILLARY REFILL. MUSCULOSKELETAL: LEFT ANKLE EXAM SHOWED DIFFUSE SWELLING, BRUISES, DEFORMITY, DIFFUSE TENDERNESS AND LIMITED RANGE OF MOTION NEUROLOGIC: ALERT AND ORIENTED ?3, FIRST OFFICER AND FLIGHT INSTRUCTOR IS NORMAL TESTED, NO GROSS MOTOR DEFICIT Course Consultations Consultation #1: [facility] TO [facility]OS[facility]ITAL Date: 03/11/23 Time: 12:05 Vital Sig
[2023-03-11 07:58] LABS: Alanine Aminotransferase 12 U/L (6-35); Albumin Level 3.8 g/dL (3.5-5.1); Alkaline Phosphatase 106 U/L (38-126); Anion Gap 2 mmol/L (8-16); Aspartate Amino Transferase 24 U/L (14-36); Bilirubin,Total 0.6 mg/dL (0.2-1.3); Blood Urea Nitrogen 12 mg/dL (7-17); Calcium 8.9 mg/dL (8.4-10.2); Carbon Dioxide 30 mmol/L (22-30); Chloride 106 mmol/L (98-107); Estimated CRCL calculation 41 ml/min; Estimated Glomerular Filt Rate 60; Glucose 100 mg/dL (65-110); Sodium 138 mmol/L (137-145)
--- NOTE | 2023-03-11 08:21 | PM.CNOR ---
Assessment and Plan Assessment and plan (1) Fracture of ankle, bimalleolar, left, closed: Qualifiers: Encounter type: initial encounter Qualified Code(s): S82.842A - Displaced bimalleolar fracture of left lower leg, initial encounter for closed fracture Code(s): S82.842A - Displaced bimalleolar fracture of left lower leg, initial encounter for closed fracture Status: Acute Assessment and Plan: New patient evaluation for chief complaint left ankle injury. History, physical exam and radiographs reviewed with the patient. Left ankle bimalleolar fracture. Discussed the condition, nature, etiology and course of natural history with the patient and her sister. Treatment options including surgical and nonoperative treatment were reviewed. Risks and benefits of each as well as alternatives reviewed. The patient's questions were answered. Conservative treatment ice, compression and elevation. Splinted in the emergency room. Patient to consider operative treatment. Plan Discussed nonoperative and operative treatment options with the patient. Risks and benefits of each as well as alternatives were reviewed. All of the patient's questions were answered. The risks of surgery reviewed including but not limited to: Neurovascular damage, wound complication, infection, blood clot, pulmonary embolus, stroke, myocardial infarction, and anesthetic risks up to and including . Continued pain and possible dysfunction were explained. Specific risks of the procedure including later recurrence of deformity. No guarantees were offered. If hardware used, discussed risk of failure/ breakage and possible need for removal. If complications occur, the patient understands the need for further treatment, possible further surgery. Patient verbalizes understanding and wishes to proceed. PLAN: Open reduction internal fixation left ankle fracture. History of Present Illness HPI Consult date: 03/12/23 Requesting physician: Aiyana eLmon MD Chief complaint: Left Bimalleolar Fracture Narrative: 82-year-old woman tried to get up early this morning out of bed, lost her balance and fell injuring her left ankle. Has left ankle pain and inability to bear weight. Was brought to the emergency room. She has a history of previous left knee revision reconstruction. Complains of left ankle pain. Denies loss of consciousness. Review of Systems Constitutional: Constitutional: Denies fever(s) Eyes: Eyes: Denies blurry vision ENT: Reports Normal hearing present Cardiovascular: Cardiovascular: Denies chest pain and Denies dyspnea Respiratory: Respiratory: Denies dyspnea and Denies wheezing Gastrointestinal: Gastrointestinal: Denies abdominal pain Genitourinary: Genitourinary: Denies urinary urgency Musculoskeletal: Musculoskeletal: Reports as per HPI and Denies numbness Integumentary/Breasts: Skin/Breast: Denies changing lesions and Denies sores Neurologic: Reports Normal hearing present, Denies behavioral changes, Denies confusion, Denies numbness and Denies convulsions Psychiatric: Psychiatric: Denies behavioral changes, Denies confusion and Denies hallucinations Endocrine: Endocrine: Denies heat intolerance Hematologic/Lymphatic: Hematologic/Lymphatic: Denies easy bleeding Allergic/Immunologic: Allergic/Immunologic: Denies wheezing [facility] Past Medical History Medical History Coarse tremors Compression fracture of T11 vertebra Dysphagia Esophageal stricture Fracture of ankle, bimalleolar, left, closed Osteopenia Parkinsons disease Surgical History Surgical History S/P ORIF (open reduction internal fixation) fracture Family History Family History Father Acute myocardial infarction Mother Uterine cancer Social History Social History (Revi
[2023-03-11] MEDS: SODIUM CHLORIDE 0.9% IV 1,000 ML 100 ML IV CONT ×2 (09:06→19:13)
--- NOTE | 2023-03-11 10:28 | ADMGEN ---
This patient, Sammi Calzada, was admitted to [facility] Surg Room 323-01 @ 1028. Patient/family oriented to hospital policies and general routines including ID bracelet, bed and alarms, visiting hours, pain management, procedures, bathroom and other care routines, personal items, smoking policy, room service/diet, and visiting hours. Information on how to activate the Rapid Response Team has been discussed. Patient/Family are encouraged to report perceived risks to care and to ask questions if they do not understand what they are told or what they should do.
--- NOTE | 2023-03-11 16:30 | PM.IMHP ---
H&P: HPI History of Present Illness Date/Time: 03/11/23 16:30 Chief Complaint: fall at home Narrative: 82F w/ PMH Parkinson's, esophageal ulcer and stricture, presents after fall at home. Admitted on 03/11 Review of Systems Review of Systems: All systems reviewed & are unremarkable except as noted in HPI and below PMFSH Past Medical History Medical History (Updated 03/11/23 @ 16:33 by Vivienne Ojeda MD) Coarse tremors Compression fracture of T11 vertebra Dysphagia Esophageal stricture Fracture of ankle, bimalleolar, left, closed Osteopenia Parkinsons disease Surgical History Surgical History S/P ORIF (open reduction internal fixation) fracture Family History Family History Father Acute myocardial infarction Mother Uterine cancer Social History Social History Smoking status: Never smoker Second hand tobacco smoke exposure: No Alcohol intake: never Substance use: never Substance use type: does not use Lack of Transportation: No Lack of Food: Never True Current Housing: I Have Housing Concerned About Future Housing: No Difficulty Paying Gas/Electric Bills: No Difficulty Paying for Meds: No Currently Unemployed: No Education: Don't Know Difficulty w/ Childcare or Family Care: No Living arrangements: assisted living Additional living arrangements comments: assisted living Gender identity (if verbalized by the patient): Female Spiritual care concerns: No Meds Home Medications and Allergies Home Medications Medication Instructions Recorded Confirmed Type paroxetine HCl 20 mg tablet 20 mg PO QAM #30 tabs 10/07/19 03/11/23 Rx carbidopa 10 mg-levodopa 100 mg 1 tablet PO QID 06/28/20 03/11/23 History tablet acetaminophen 325 mg tablet 325 mg PO DAILY PRN Pain 06/15/21 03/11/23 History ergocalciferol (vitamin D2) 1,250 50 mcg PO DAILY 06/15/21 03/11/23 History mcg (50,000 unit) capsule aspirin 81 mg tablet 81 mg PO DAILY 03/30/22 03/11/23 History docusate sodium 100 mg capsule 100 mg PO HS 03/30/22 03/11/23 History (Stool Softener) entacapone 200 mg tablet 200 mg PO QID 03/30/22 03/11/23 History mirtazapine 15 mg tablet 15 mg PO HS 03/30/22 03/11/23 History diclofenac potassium 50 mg tablet 50 mg PO DAILY 09/21/22 03/11/23 History memantine 10 mg tablet 10 mg PO BID 09/21/22 03/11/23 History pantoprazole 40 mg tablet,delayed 40 mg PO BID #60 tabs 10/02/22 03/11/23 Rx release donepezil 10 mg tablet 10 mg PO HS 11/17/22 03/11/23 History Allergies Allergy/AdvReac Type Severity Reaction Status Date / Time hydrocodone Allergy Severe Hallucinati Verified 03/11/23 11:07 ng codeine AdvReac Intermediate Nausea and Verified 03/11/23 11:07 Vomiting Vital Signs Vital Signs - 24 hr 03/11/23 01:58 03/11/23 04:00 03/11/23 05:00 Temperature 98.2 F Pulse Rate 79 59 L 62 Respiratory Rate 16 14 14 Blood Pressure 111/90 116/69 108/88 Pulse Oximetry 100 98 99 Oxygen Delivery Room Air 03/11/23 07:14 03/11/23 09:06 03/11/23 10:45 Temperature Pulse Rate 69 84 Respiratory Rate 14 18 Blood Pressure 135/78 109/73 Pulse Oximetry 98 95 Oxygen Delivery Room Air Exam Const: General: comfortable and no acute distress Eyes: Pupils: Equal, round and reactive pupils present Resp: Effort & Inspection: normal respiratory effort Auscultation: clear to auscultation bilaterally, no crackles, no rales and no rhonchi Cardio: Rate: regular rate Rhythm: regular rhythm Heart sounds: no gallops, no murmurs and no rubs GI: GI Palp: Yes Soft to palpation and No Tenderness to palpation present (GI) Extrem: General: no edema Other: L ankle in soft cast H&P: Results Labs Labs: Short CBC 03/11/23 Range/Units 07:00 WBC 5.8 (4.5-10.0) K/mm3 Hgb 12.3 (12.0-15.0)
[2023-03-11] MEDS: ENTACAPONE 200 MG TABLET PO ×2 (17:20→21:10)
[2023-03-11] MEDS: CARBIDOPA/LEVODOPA 10/100 MG TABLET 1 TABLET PO ×2 (17:20→21:10)
[2023-03-11] MEDS: IBUPROFEN 600 MG TABLET PO (17:22)
[2023-03-11] MEDS: MIRTAZAPINE 15 MG TABLET PO (21:10)
[2023-03-11] MEDS: PANTOPRAZOLE 40 MG TABLET PO (21:10)
[2023-03-11] MEDS: MEMANTINE 10 MG TABLET PO (21:11)
[2023-03-12 05:24] VITALS: BP 106/69; PULSE 69; RESP 18; TEMP 36.2; O2SAT 90
[2023-03-12] MEDS: SODIUM CHLORIDE 0.9% IV 1,000 ML 100 ML IV CONT (05:45)
[2023-03-12] MEDS: IBUPROFEN 600 MG TABLET PO ×2 (05:51→20:49)
[2023-03-12 06:52] LABS: White Blood Count 3.7 K/mm3 (4.5-10.0)
[2023-03-12 06:53] LABS: Hematocrit 31.4 % (37.0-47.0); Hemoglobin 10.1 g/dL (12.0-15.0); Mean Corpuscular HGB Conc 32.2 g/dl (32-36); Mean Corpuscular Hemoglobin 32.2 pg (26-34); Mean Platelet Volume 8.9 fl (7.4-10.4); Platelet Count Result 145 k/mm3 (150-375); Red Blood Count 3.14 M/mm3 (4.2-5.4); Red Cell Distribution Width 13.7 % (11.5-14.5)
[2023-03-12 07:05] LABS: Prothrombin Time 13.6 Seconds (11.1-14.7)
[2023-03-12 07:11] LABS: Anion Gap -3 mmol/L (8-16); Blood Urea Nitrogen 14 mg/dL (7-17); Calcium 7.8 mg/dL (8.4-10.2); Carbon Dioxide 29 mmol/L (22-30); Chloride 109 mmol/L (98-107); Estimated CRCL calculation 53 ml/min; Estimated Glomerular Filt Rate > 60; Glucose 100 mg/dL (65-110); Potassium 3.8 mmol/L (3.4-5.0); Sodium 135 mmol/L (137-145)
[2023-03-12 08:00] VITALS: PULSE 69; RESP 18; O2SAT 90
[2023-03-12] MEDS: CARBIDOPA/LEVODOPA 10/100 MG TABLET 1 TABLET PO ×4 (08:52→20:50)
[2023-03-12] MEDS: MEMANTINE 10 MG TABLET PO ×2 (08:52→20:50)
[2023-03-12] MEDS: PANTOPRAZOLE 40 MG TABLET PO ×2 (08:52→20:50)
[2023-03-12] MEDS: PARoxetine 20 MG TABLET PO (08:52)
[2023-03-12] MEDS: ENTACAPONE 200 MG TABLET PO ×4 (08:52→20:50)
--- NOTE | 2023-03-12 12:02 | PC.NURSE ---
Pt is very upset stating no doctors have come to see her since she has been on the floor. RN reviewed charts and read pt word for word the note from orthopedic Dr Mckeon. Pt states that did not happen, she hasn't seen anyone . Pt is loudly voicing her concerns that she has not ate since yesterday. RN explained the reasoning for being NPO in case they were to add her to surgery schedule today. Pt is not verbalizing understanding. RN attempted to call [facility] office, no answer. Will try again. Will continue to monitor and educate pt
[2023-03-12 14:00] VITALS: BP 114/83; PULSE 87; RESP 18; TEMP 36.7; O2SAT 94
--- NOTE | 2023-03-12 15:28 | PM.IMPN ---
Progress Note: A&P Assessment and Plan (1) Fracture of ankle, bimalleolar, left, closed: Qualifiers: Encounter type: initial encounter Qualified Code(s): S82.842A - Displaced bimalleolar fracture of left lower leg, initial encounter for closed fracture Code(s): S82.842A - Displaced bimalleolar fracture of left lower leg, initial encounter for closed fracture Status: Acute Plan 82F w/ PMH Parkinson's, esophageal stricture, hiatal hernia, esophageal stricture, presents after fall at home. Admitted on 03/11 # fall at home - PT/OT after surgery - no dizziness, LOC, head trauma, pt got out of bed and fell - lives at [facility] with 2 other sisters on the same floor. care coordination consult - pelvis, knee and femur xr w/o fracture - left ankle bimalleolar fracture. ortho consulted, ORIF scheduled for sunday. RCRI score 0 # Parkinson's - resume home meds FEN: IVF, cardiac diet GI prophylaxis: cont home protonix DVT prophylaxis: per ortho after surgery, lovenox until 12/13 am. Lines: PIV Code Status: Full Code Dispo: stable Subjective Date/time seen: 03/12/23 15:28 Interval history: naoe. pt has no complaints. report she is pain free. she is agreeable to surgery sunday Review of Systems Review of Systems: All systems reviewed & are unremarkable except as noted in HPI and below Exam Const: General: comfortable and no acute distress Eyes: Pupils: Equal, round and reactive pupils present Neck: Neck: supple Resp: Effort & Inspection: normal respiratory effort Auscultation: clear to auscultation bilaterally Cardio: Rate: regular rate Rhythm: regular rhythm Extrem: General: no edema Objective Data Vital Signs Vital Signs: Vital Signs - 24 hr 03/11/23 20:58 03/12/23 05:24 03/12/23 08:00 Temperature 97.1 F L 97.2 F L Pulse Rate 85 69 69 Respiratory Rate 18 18 18 Blood Pressure 110/45 L 106/69 Pulse Oximetry 90 90 90 Oxygen Delivery Room Air 03/12/23 14:00 Temperature 98.0 F Pulse Rate 87 Respiratory Rate 18 Blood Pressure 114/83 Pulse Oximetry 94 Oxygen Delivery Intake/Output Intake/Output: Intake & Output 12/08/23 03/10/23 03/11/23 03/12/23 23:59 23:59 23:59 23:59 Intake Total 1640 1000 Output Total 0 Balance 1640 1000 Meds/Results Medications: Active Medications Generic Name Dose Route Start Last Admin Trade Name Freq PRN Reason Stop Dose Admin Acetaminophen 650 mg 03/11/23 15:47 Acetaminophen 325 Mg Tablet PO Q4H PRN Mild Pain (1-3) or Fever Carbidopa/Levodopa 1 tablet 03/11/23 17:00 03/12/23 12:50 Carbidopa/Levodopa 10/100 Mg Tablet PO 1 tablet QID CARLO Administration Entacapone 200 mg 03/11/23 17:00 03/12/23 12:50 Entacapone 200 Mg Tablet PO 200 mg QID CAROL Administration Hydromorphone HCl 0.5 mg 03/11/23 15:47 03/11/23 21:10 Hydromorphone Hcl Inj (*Crx) 1 Mg/Ml Syr IV PUSH 0.5 mg Q3H PRN Administration Pain Rated 7-10 Sodium Chloride 1,000 mls @ 100 mls/hr 03/11/23 08:30 03/12/23 05:45 Normal Saline Iv IV CONT 100 mls/hr .Q10H CAROL Administration Ibuprofen 600 mg 03/11/23 15:47 03/12/23 05:51 Ibuprofen 600 Mg Tablet PO 600 mg Q6H PRN Administration Pain Rated 4-6 Memantine 10 mg 03/11/23 21:00 03/12/23 08:52 Memantine 10 Mg Tablet PO 10 mg Q12HR CAROL Administration Mirtazapine 15 mg 03/11/23 21:00 03/11/23 21:10 Mirtazapine 15 Mg Tablet PO 15 mg HS CAROL Administration Ondansetron HCl 4 mg 03/11/23 08:27 Ondansetron Inj 4 Mg/2 Ml Vial IV PUSH Q4H PRN Nausea Pantoprazole Sodium 40 mg 03/11/23 21:00 03/12/23 08:52 Pantoprazole 40 Mg Tablet PO 40 mg Q12HR CAROL Administration Paroxetine HCl 20 mg 03/12/23 09:00 03/12/23 08:52 Paroxetine 20 Mg Tablet PO 20 mg QAM CAROL Administration Radiology Results: ITS Impressions Ankle X-Ray 03/11/23 07:53 IMPRESSION: 1. Bi
[2023-03-12] MEDS: ENOXAPARIN 40 MG/0.4 ML SYRINGE SUB-Q (17:15)
[2023-03-12] MEDS: MIRTAZAPINE 15 MG TABLET PO (20:50)
[2023-03-12 21:55] VITALS: BP 118/63; PULSE 80; RESP 16; TEMP 36.1; O2SAT 91
[2023-03-13 06:00] VITALS: BP 144/80; PULSE 77; RESP 14; TEMP 35.9; O2SAT 97
[2023-03-13 07:37] LABS: Basophils Percent Auto 0.3 % (0.2-1.2); Eosinophils Percent Auto 0.9 % (0-4.4); Hematocrit 33.5 % (37.0-47.0); Hemoglobin 10.7 g/dL (12.0-15.0); Immature Granulocyte Absolute 0.01 K/mm3 (0.00-0.031); Immature Granulocyte Percent A 0.3 % (0-0.5); Lymphocytes Absolute Auto 0.91 K/mm3 (0.9-3.2); Lymphocytes Percent Auto 28.8 % (18.3-44.2); Mean Corpuscular HGB Conc 31.9 g/dl (32-36); Mean Corpuscular Hemoglobin 31.8 pg (26-34); Mean Corpuscular Volume 99.4 fl (80-100); Mean Platelet Volume 8.9 fl (7.4-10.4); Monocytes Absolute Auto 0.3 K/mm3 (0.1-0.6); Monocytes Percent Auto 8.5 % (2.6-8.5); Neutrophils Absolute Auto 1.9 K/mm3 (1.3-6.7); Neutrophils Percent Auto 61.2 % (45.5-73.1); Platelet Count Result 157 k/mm3 (150-375); Red Blood Count 3.37 M/mm3 (4.2-5.4); Red Cell Distribution Width 13.2 % (11.5-14.5); White Blood Count 3.2 K/mm3 (4.5-10.0)
[2023-03-13 07:49] LABS: Anion Gap 3 mmol/L (8-16); Blood Urea Nitrogen 11 mg/dL (7-17); Calcium 8.5 mg/dL (8.4-10.2); Carbon Dioxide 27 mmol/L (22-30); Chloride 108 mmol/L (98-107); Estimated CRCL calculation 61 ml/min; Estimated Glomerular Filt Rate > 60; Glucose 93 mg/dL (65-110); Magnesium 2.1 mg/dL (1.6-2.3); Potassium 3.3 mmol/L (3.4-5.0); Sodium 138 mmol/L (137-145)
--- NOTE | 2023-03-13 08:08 | PCPTNOTE ---
Pt to have Open reduction internal fixation left ankle fracture on 03/14/23. Will see pt for therapy after surgery.
--- NOTE | 2023-03-13 08:55 | PM.PNORT ---
Progress Note: A&P Assessment and Plan (1) Fracture of ankle, bimalleolar, left, closed: Qualifiers: Encounter type: initial encounter Qualified Code(s): S82.842A - Displaced bimalleolar fracture of left lower leg, initial encounter for closed fracture Code(s): S82.842A - Displaced bimalleolar fracture of left lower leg, initial encounter for closed fracture Status: Acute Assessment and Plan: Plan for open reduction internal fixation left ankle fracture. Operating room without available time until tomorrow. Hold Lovenox until after surgery for operative bleeding. Pain control. Ice, elevate ankle. Subjective Subjective Date/Time Seen: 03/13/23 08:55 Principal diagnosis: left ankle bimalleolar fracture Interval history: patient awake and alert. Pain controlled. Splint left ankle. Exam Const: General: No confusion Orientation/consciousness: No confusion Chest: Chest palpation & inspection: normal inspection of the chest Resp: Effort & Inspection: normal respiratory effort and no audible wheezes Cardio: Rate: regular rate Extrem: General: capillary refill normal Right upper extremity: normal to inspection Left upper extremity: normal to inspection Right lower extremity: normal to inspection and hip/thigh Details: normal to inspection Left lower extremity: hip/thigh Details: normal to inspection, knee ( Anterior knee incision, healed) Details: no tenderness and no swelling, ankle (no calf tenderness) Details: abnormal to inspection ( Obvious swelling at the ankle joint), tenderness ( lateral malleolus), swelling (moderate lateral ankle), abnormal ROM Details: pain with active ROM Details: with plantar flexion and with dorsiflexion and with range as follows ( limited secondary to injury), crepitus Details: at the lateral malleolus and other ( good capillary refill in toes, 2+ DP pulse) and foot Details: normal capillary refill, toes with normal ROM, vascular exam Details: dorsalis pedis pulse present and motor-sensory exam Psych: Affect: normal affect Objective Data Vital Signs Vital Signs: Vital Signs - 24 hr 03/12/23 14:00 03/12/23 21:55 03/13/23 06:00 Temperature 98.0 F 97.0 F L 96.6 F L Pulse Rate 87 80 77 Respiratory Rate 18 16 14 Blood Pressure 114/83 118/63 144/80 H Pulse Oximetry 94 91 97 Intake/Output Intake/Output: Intake & Output 03/10/23 03/11/23 03/12/23 03/13/23 23:59 23:59 23:59 23:59 Intake Total 1640 1320 200 Output Total 0 Balance 1640 1320 200 Meds/Results Medications: Active Medications Generic Name Dose Route Start Last Admin Trade Name Freq PRN Reason Stop Dose Admin Acetaminophen 650 mg 03/11/23 15:47 Acetaminophen 325 Mg Tablet PO Q4H PRN Mild Pain (1-3) or Fever Acetaminophen 1,000 mg 03/13/23 08:53 Acetaminophen 500 Mg Tablet PO 03/13/23 08:54 ONCE STA Carbidopa/Levodopa 1 tablet 03/11/23 17:00 03/12/23 20:50 Carbidopa/Levodopa 10/100 Mg Tablet PO 1 tablet QID CAROL Administration Entacapone 200 mg 03/11/23 17:00 03/12/23 20:50 Entacapone 200 Mg Tablet PO 200 mg QID CAROL Administration Hydromorphone HCl 0.5 mg 03/11/23 15:47 03/11/23 21:10 Hydromorphone Hcl Inj (*Crx) 1 Mg/Ml Syr IV PUSH 0.5 mg Q3H PRN Administration Pain Rated 7-10 Tranexamic Acid/Sodium Chloride 1,000 mg in 100 mls @ 200 mls/hr 03/13/23 08:53 Tranexamic Acid 1,000mg/[id number] IVPB 03/13/23 09:22 ONCE ONE Cefazolin Sodium 2 gm in 50 mls @ 100 mls/hr 03/13/23 08:53 Ancef 2 Gm/D5w 50 Ml IVPB 03/13/23 09:22 ONCE ONE Ibuprofen 600 mg 03/11/23 15:47 03/12/23 20:49 Ibuprofen 600 Mg Tablet PO 600 mg Q6H PRN Administration Pain Rated 4-6 Ketorolac Tromethamine 15 mg 03/13/23 08:53 Ketorolac 15 Mg/Ml Vial (*Bkc) IV PUSH 03/13/23 08:54 ONCE STA Memantine 10 mg 03/11/23 21:00 03/12/23 20:50 Memantine 10 Mg Tablet PO 10 mg Q12HR CAROL Admini
[2023-03-13] MEDS: PARoxetine 20 MG TABLET PO (09:12)
[2023-03-13] MEDS: CARBIDOPA/LEVODOPA 10/100 MG TABLET 1 TABLET PO ×4 (09:12→21:02)
[2023-03-13] MEDS: ENTACAPONE 200 MG TABLET PO ×4 (09:12→21:02)
[2023-03-13] MEDS: PANTOPRAZOLE 40 MG TABLET PO ×2 (09:12→21:02)
[2023-03-13] MEDS: MEMANTINE 10 MG TABLET PO ×2 (09:16→21:02)
--- NOTE | 2023-03-13 11:55 | PM.IMPN ---
Progress Note: A&P Assessment and Plan (1) Fracture of ankle, bimalleolar, left, closed: Qualifiers: Encounter type: initial encounter Qualified Code(s): S82.842A - Displaced bimalleolar fracture of left lower leg, initial encounter for closed fracture Code(s): S82.842A - Displaced bimalleolar fracture of left lower leg, initial encounter for closed fracture Status: Acute Plan she is neurovascularly intact. pain is well controlled. NPO at midnight. ORIF left ankle tomorrow. sandra jin'ed after this AM dose. replace potassium 40meq po. recheck in AM with magnesium. full code stable SCD's Subjective Date/time seen: 03/13/23 11:55 Interval history: naoe. patient has no complaints Review of Systems Review of Systems: All systems reviewed & are unremarkable except as noted in HPI and below (subjective) Exam Const: General: comfortable and no acute distress Eyes: Pupils: Equal, round and reactive pupils present Resp: Effort & Inspection: normal respiratory effort Auscultation: clear to auscultation bilaterally, no crackles, no rales and no rhonchi Cardio: Rate: regular rate Rhythm: regular rhythm Heart sounds: no gallops, no murmurs and no rubs GI: GI Palp: Yes Soft to palpation and No Tenderness to palpation present (GI) Neuro: Sensory Exam: normal sensation Extrem: General: no edema Objective Data Vital Signs Vital Signs: Vital Signs - 24 hr 03/12/23 14:00 03/12/23 21:55 03/13/23 06:00 Temperature 98.0 F 97.0 F L 96.6 F L Pulse Rate 87 80 77 Respiratory Rate 18 16 14 Blood Pressure 114/83 118/63 144/80 H Pulse Oximetry 94 91 97 Intake/Output Intake/Output: Intake & Output 03/10/23 03/11/23 03/12/23 03/13/23 23:59 23:59 23:59 23:59 Intake Total 1640 1320 440 Output Total 0 Balance 1640 1320 440 Meds/Results Medications: Active Medications Generic Name Dose Route Start Last Admin Trade Name Freq PRN Reason Stop Dose Admin Acetaminophen 650 mg 03/11/23 15:47 Acetaminophen 325 Mg Tablet PO Q4H PRN Mild Pain (1-3) or Fever Carbidopa/Levodopa 1 tablet 03/11/23 17:00 03/13/23 09:12 Carbidopa/Levodopa 10/100 Mg Tablet PO 1 tablet QID CAROL Administration Entacapone 200 mg 03/11/23 17:00 03/13/23 09:12 Entacapone 200 Mg Tablet PO 200 mg QID CAROL Administration Hydromorphone HCl 0.5 mg 03/11/23 15:47 03/11/23 21:10 Hydromorphone Hcl Inj (*Crx) 1 Mg/Ml Syr IV PUSH 0.5 mg Q3H PRN Administration Pain Rated 7-10 Ibuprofen 600 mg 03/11/23 15:47 03/12/23 20:49 Ibuprofen 600 Mg Tablet PO 600 mg Q6H PRN Administration Pain Rated 4-6 Memantine 10 mg 03/11/23 21:00 03/13/23 09:16 Memantine 10 Mg Tablet PO 10 mg Q12HR CAROL Administration Mirtazapine 15 mg 03/11/23 21:00 03/12/23 20:50 Mirtazapine 15 Mg Tablet PO 15 mg HS CAROL Administration Ondansetron HCl 4 mg 03/11/23 08:27 Ondansetron Inj 4 Mg/2 Ml Vial IV PUSH Q4H PRN Nausea Pantoprazole Sodium 40 mg 03/11/23 21:00 03/13/23 09:12 Pantoprazole 40 Mg Tablet PO 40 mg Q12HR CAROL Administration Paroxetine HCl 20 mg 03/12/23 09:00 03/13/23 09:12 Paroxetine 20 Mg Tablet PO 20 mg QAM CAROL Administration Potassium Chloride 40 meq 03/13/23 11:54 Potassium Chloride 20 Meq Er Tablet PO 03/13/23 11:55 ONCE ONE Radiology Results: ITS Impressions Ankle X-Ray 03/11/23 07:53 IMPRESSION: 1. Bimalleolar fracture of the ankle. Femur X-Ray 03/11/23 07:54 IMPRESSION: 1. No acute osseous abnormality. Pelvis X-Ray 03/11/23 07:57 IMPRESSION: 1. No acute osseous abnormality. Knee X-Ray 03/11/23 07:59 IMPRESSION: 1. Soft tissue swelling without acute osseous abnormality. Labs Labs: Laboratory Results - last 24 hr 03/13/23 07:09 WBC 3.2 L RBC 3.37 L Hgb 10.7 L Hct 33.5 L MCV 99.4 MCH 31.8 MCHC 31.9 L RDW 13.2 Plt Count 1
[2023-03-13] MEDS: POTASSIUM CHLORIDE 20 MEQ ER TABLET 40 MEQ PO (12:52)
[2023-03-13 14:00] VITALS: BP 118/64; PULSE 84; RESP 16; TEMP 36.8; O2SAT 94
[2023-03-13] MEDS: MIRTAZAPINE 15 MG TABLET PO (21:02)
[2023-03-13] MEDS: IBUPROFEN 600 MG TABLET PO (21:23)
[2023-03-13 22:00] VITALS: BP 107/91; PULSE 86; RESP 16; TEMP 36.5; O2SAT 95
[2023-03-14] VITALS (13 sets, daily range): BP systolic 107–143; BP diastolic 60–73; PULSE 63–82; RESP 12–18; TEMP 35.9–36.6; O2SAT 93–100
[2023-03-14 07:18] LABS: Hematocrit 32.8 % (37.0-47.0); Hemoglobin 10.7 g/dL (12.0-15.0); Mean Corpuscular HGB Conc 32.6 g/dl (32-36); Mean Corpuscular Volume 98.2 fl (80-100); Mean Platelet Volume 8.8 fl (7.4-10.4); Platelet Count Result 167 k/mm3 (150-375); Red Blood Count 3.34 M/mm3 (4.2-5.4); Red Cell Distribution Width 13.2 % (11.5-14.5); White Blood Count 3.4 K/mm3 (4.5-10.0)
[2023-03-14 07:31] LABS: Anion Gap 1 mmol/L (8-16); Blood Urea Nitrogen 15 mg/dL (7-17); Calcium 8.7 mg/dL (8.4-10.2); Carbon Dioxide 29 mmol/L (22-30); Chloride 109 mmol/L (98-107); Estimated CRCL calculation 53 ml/min; Estimated Glomerular Filt Rate > 60; Glucose 99 mg/dL (65-110); Potassium 3.9 mmol/L (3.4-5.0); Sodium 139 mmol/L (137-145)
--- NOTE | 2023-03-14 08:01 | WPDHPUPDATE1 ---
History and Physical Update Update Date/Time: 03/14/23 08:01 History and Physical has been reviewed, including an updated exam of the patient. There are NO changes in the patient's condition. Risks, benefits, and alternatives have been discussed and questions answered. Plan open reduction internal fixation left ankle fracture. On exam, able to move toes. Good sensation to touch. Splint in place. Good capillary refill. Patient agrees to proceed with procedure.
[2023-03-14] MEDS: PANTOPRAZOLE 40 MG TABLET PO ×2 (08:25→20:21)
[2023-03-14] MEDS: PARoxetine 20 MG TABLET PO (08:25)
[2023-03-14] MEDS: MEMANTINE 10 MG TABLET PO ×2 (08:25→20:20)
[2023-03-14] MEDS: ENTACAPONE 200 MG TABLET PO ×4 (08:25→20:20)
[2023-03-14] MEDS: CARBIDOPA/LEVODOPA 10/100 MG TABLET 1 TABLET PO ×4 (08:25→20:20)
[2023-03-14] MEDS: ACETAMINOPHEN 500 MG TABLET 1000 MG PO (09:30)
[2023-03-14] MEDS: KETOROLAC 15 MG/ML VIAL (*BKC) IV PUSH (09:30)
--- NOTE | 2023-03-14 09:41 | WPDANESEPPF ---
Anes - Initial Pre Proc Eval Procedure: Operation Date: 03/14/23 10:00 Proposed Procedures p Open Reduction Internal Fixation Left Ankle - Micheal Kelton Mckeon MD Date/Time: 03/14/23 09:41 Surgeon: Emil Villasenor MD Pre Op Diagnosis: Left Bimalleolar Fracture Patient Data Age: 82 Gender: F Height: 1.6 m Weight: 72.7 kg Last Vital Signs Temp 35.9 C L 03/14/23 06:00 Pulse 74 03/14/23 06:00 Resp 14 03/14/23 06:00 BP 143/71 H 03/14/23 06:00 Pulse Ox 97 03/14/23 06:00 O2 Del Method Room Air 03/12/23 08:00 Allergies Allergy/AdvReac Type Severity Reaction Status Date / Time hydrocodone Allergy Severe Hallucinati Verified 03/11/23 11:07 ng codeine AdvReac Intermediate Nausea and Verified 03/11/23 11:07 Vomiting Home Medications Medication Instructions Recorded Confirmed Type paroxetine HCl 20 mg tablet 20 mg PO QAM #30 tabs 10/07/19 03/11/23 Rx carbidopa 10 mg-levodopa 100 mg 1 tablet PO QID 06/28/20 03/11/23 History tablet acetaminophen 325 mg tablet 325 mg PO DAILY PRN Pain 06/15/21 03/11/23 History ergocalciferol (vitamin D2) 1,250 50 mcg PO DAILY 06/15/21 03/11/23 History mcg (50,000 unit) capsule aspirin 81 mg tablet 81 mg PO DAILY 03/30/22 03/11/23 History docusate sodium 100 mg capsule 100 mg PO HS 03/30/22 03/11/23 History (Stool Softener) entacapone 200 mg tablet 200 mg PO QID 03/30/22 03/11/23 History mirtazapine 15 mg tablet 15 mg PO HS 03/30/22 03/11/23 History diclofenac potassium 50 mg tablet 50 mg PO DAILY 09/21/22 03/11/23 History memantine 10 mg tablet 10 mg PO BID 09/21/22 03/11/23 History pantoprazole 40 mg tablet,delayed 40 mg PO BID #60 tabs 10/02/22 03/11/23 Rx release donepezil 10 mg tablet 10 mg PO HS 11/17/22 03/11/23 History Laboratory Tests 03/14/23 06:46 WBC 3.4 L K/mm3 (4.5-10.0) RBC 3.34 L M/mm3 (4.2-5.4) Hgb 10.7 L g/dL (12.0-15.0) Hct 32.8 L % (37.0-47.0) MCV 98.2 fl (80-100) MCH 32.0 pg (26-34) MCHC 32.6 g/dl (32-36) RDW 13.2 % (11.5-14.5) Plt Count 167 k/mm3 (150-375) MPV 8.8 fl (7.4-10.4) Sodium 139 mmol/L (137-145) Potassium 3.9 mmol/L (3.4-5.0) Chloride 109 H mmol/L (98-107) Carbon Dioxide 29 mmol/L (22-30) Anion Gap 1 L mmol/L (8-16) BUN 15 mg/dL (7-17) Creatinine 0.70 mg/dL (0.7-1.0) Estim Creat Clear Calc 53 ml/min Estimated GFR > 60 (59 - ) Glucose 99 mg/dL (65-110) Calcium 8.7 mg/dL (8.4-10.2) Magnesium 2.0 mg/dL (1.6-2.3) Patient hx anesthesia problems: none Family hx anesthesia problems: none Results Review: All pre-operative results and documents have been reviewed as part of the pre-operative evaluation. [facility] Past Medical History Medical History Coarse tremors Compression fracture of T11 vertebra Dysphagia Esophageal stricture Fracture of ankle, bimalleolar, left, closed Osteopenia Parkinsons disease Surgical History Surgical History S/P ORIF (open reduction internal fixation) fracture Family History Family History Father Acute myocardial infarction Mother Uterine cancer Social History Social History Smoking status: Never smoker Second hand tobacco smoke exposure: No Alcohol intake: never Substance use: never Substance use type: does not use Lack of Transportation: No Lack of Food: Never True Current Housing: I Have Housing Concerned About Future Housing: No Difficulty Paying Gas/Electric Bills: No Difficulty Paying for Meds: No Currently Unemployed: No Education: Don't Know Difficulty w/ Childcare or Family Care: No Living arrangements: assisted living Additional living arrangements comments: as
[2023-03-14] MEDS: TRANEXAMIC ACID 1,000MG/ISO100 1,000 MG/100 ML BAG 200 MG IVPB (10:10)
[2023-03-14] MEDS: ceFAZolin 2 GM/D5W 50 ML 2 GM/50 ML BAG IVPB (10:13)
[2023-03-14] MEDS: BUPIVACAINE/EPINEPHRINE 0.5% 50 ML VIAL INFILTRATE (11:01)
--- NOTE | 2023-03-14 11:08 | PC.NURSE ---
To OR per [ ], IV [ ]. Report given to [LANIE]. Left floor around [id number]
[2023-03-14] MEDS: LACTATED RINGERS 1,000 ML 30 ML IV CONT (11:26)
--- NOTE | 2023-03-14 11:35 | PCPTNOTE ---
Pt to having surgery today. Will attempt to see pt when appropriate.
--- NOTE | 2023-03-14 11:56 | P.OP_ITS ---
Procedure Note - Detailed Date of Procedure 03/14/23 Pre-op Diagnosis Left Bimalleolar Fracture , left distal syndesmosis disruption Post-op Diagnosis Same Procedure Performed Open reduction internal fixation left ankle bimalleolar fracture, open reduction internal fixation syndesmosis. 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 Presents now for operative fixation. Findings 5 x 3 cm fracture blister posteromedial ankle with serous. Unstable bimalleolar fracture. Widening with instability of the distal syndesmosis. Description of Procedure After informed consent, the operative extremity was marked in the preoperative holding area. Patient received intravenous antibiotics. Patient was then taken to the operating room and underwent general anesthesia by the anesthesia team. Positioned supine on the operating room table with a soft bump under the ipsilateral hip. A time-out was performed confirming the patient, site of the surgery, operative plan. Lower extremity then prepped and draped in the usual sterile surgical fashion using ChloraPrep skin solution. Fluoroscopy brought in to chrissy the bony landmarks. Longitudinal incision made over the lateral ankle distal fibula with a 15 blade knife. Hemostasis controlled with electrocautery. Full-thickness soft tissue flaps developed and the fascia was incised in line with the skin incision. Fracture reduced and held with bone-holding clamp. Image intensification confirmed reduction of the fracture and the ankle mortise. Fixation achieved with a 3.8 millimeter Fibula locked nail. Guide pin placed and verified. Reaming performed. Nail advanced. Proximal locking with the Donald deployment device. Distal locking with 3.0 mm screws x2. Image intensification used to confirm reduction of the fracture and placement of the hardware. Medial side then addressed. Longitudinal incision made over the medial ankle medial malleolus with a 15 blade knife. Hemostasis controlled with electrocautery. Fracture reduced and held with K-wire. Image intensification c onfirmed reduction of the fracture and the ankle mortise. Fixation achieved with a 4.0 mm partially threaded cannulated screw. Good alignment and stability of the fracture noted. Image intensification used to confirm reduction of the fracture and placement of the hardware. Wound thoroughly irrigated with antibiotic solution. Subcutaneous tissue repaired with 000 Monocryl interrupted suture. Syndesmosis stressed under fluoroscopy and noted to be unstable with widening laterally. Small incision made over the anterior fibula with 15 blade knife. Clamp placed in the syndesmosis to free the soft tissue debris. Syndesmosis then reduced and fixed with 3.5 mm fully-threaded solid screws placed from lateral to medial. Good fixation noted. Wound closed with 3-0 Monocryl interrupted suture. Sterile dressings applied. Patient awoken from anesthesia, extubated and taken to the recovery room in stable condition. All sponge, needle and instrument counts correct at the end of the case. Palpable dorsalis pedis pulse noted prior to dressing. Implants Arthrex 3.8 mm fibula lock by 130 mm length. 3.0 mm screws distally. 3.5 mm screws x2 syndesmosis. 4.0 mm cannulated screw x2 medial malleolus. Estimated Blood Loss 10 Tourniquet Time 0 Urine Output 0 Drains No Packing No Pathology None sent Complications None Condition Stable Disposition PACU [facility] Billing Surgery - Charge Forward: Surgery Billing ([id number], [id number])
[2023-03-14] MEDS: KCL 20 MEQ/D5/0.45% SOD CHL 1,000 ML 80 ML IV CONT (13:22)
--- NOTE | 2023-03-14 14:47 | PM.IMPN ---
Progress Note: A&P Assessment and Plan (1) S/P ORIF (open reduction internal fixation) fracture: Code(s): Z98.890 - Other specified postprocedural states; Z87.81 - Personal history of (healed) traumatic fracture Status: Acute (2) Fracture of ankle, bimalleolar, left, closed: Qualifiers: Encounter type: initial encounter Qualified Code(s): S82.842A - Displaced bimalleolar fracture of left lower leg, initial encounter for closed fracture Code(s): S82.842A - Displaced bimalleolar fracture of left lower leg, initial encounter for closed fracture Status: Acute Plan s/p left ankle ORIF. appreciate surgery recs. suspect discharge in AM pending clearance from orthopedic surgery. repeat bmp and cbc in am. full code Subjective Date/time seen: 03/14/23 14:47 Interval history: naoe. sister at bedside, the patient has no complaints Review of Systems Review of Systems: All systems reviewed & are unremarkable except as noted in HPI and below Exam Const: General: comfortable and no acute distress Eyes: Pupils: Equal, round and reactive pupils present Neck: Neck: supple Resp: Effort & Inspection: normal respiratory effort Auscultation: clear to auscultation bilaterally, no crackles, no rales and no rhonchi Cardio: Rate: regular rate Rhythm: regular rhythm Heart sounds: no gallops, no murmurs and no rubs GI: GI Palp: Yes Soft to palpation and No Tenderness to palpation present (GI) Extrem: General: no edema Other: neurovascularly intact Psych: Mental Status: mental status grossly normal Objective Data Vital Signs Vital Signs: Vital Signs - 24 hr 03/13/23 22:00 03/14/23 06:00 03/14/23 09:10 Temperature 97.7 F 96.7 F L 97.7 F Pulse Rate 86 74 70 Respiratory Rate 16 14 16 Blood Pressure 107/91 H 143/71 H 136/73 Pulse Oximetry 95 97 95 Oxygen Delivery Room Air Oxygen Flow Rate 03/14/23 11:26 03/14/23 11:40 03/14/23 11:55 Temperature 97.3 F L Pulse Rate 70 63 65 Respiratory Rate 14 12 14 Blood Pressure 140/69 119/63 121/65 Pulse Oximetry 99 99 100 Oxygen Delivery Simple Face Mask Simple Face Mask Simple Face Mask Oxygen Flow Rate 8 8 8 03/14/23 12:00 03/14/23 12:15 03/14/23 12:29 Temperature Pulse Rate 75 64 68 Respiratory Rate 18 12 12 Blood Pressure 117/67 120/61 108/64 Pulse Oximetry 96 93 94 Oxygen Delivery Room Air Room Air Room Air Oxygen Flow Rate 03/14/23 12:40 03/14/23 12:55 03/14/23 13:25 Temperature 96.7 F L 97.1 F L 96.8 F L Pulse Rate 76 66 68 Respiratory Rate 16 16 18 Blood Pressure 133/66 134/65 133/67 Pulse Oximetry 95 94 96 Oxygen Delivery Oxygen Flow Rate 03/14/23 14:25 Temperature 97.8 F Pulse Rate 81 Respiratory Rate 16 Blood Pressure 123/69 Pulse Oximetry 99 Oxygen Delivery Oxygen Flow Rate Intake/Output Intake/Output: Intake & Output 03/11/23 03/12/23 03/13/23 03/14/23 23:59 23:59 23:59 23:59 Intake Total 1640 1320 1120 50 Output Total 0 0 Balance 1640 1320 1120 50 Meds/Results Medications: Active Medications Generic Name Dose Route Start Last Admin Trade Name Freq PRN Reason Stop Dose Admin Acetaminophen 650 mg 03/11/23 15:47 Acetaminophen 325 Mg Tablet PO Q4H PRN Mild Pain (1-3) or Fever Hydrocodone Bitart/Acetaminophen 1 tab 03/14/23 12:33 Hydrocodone/Acetaminophen (*Crx) 5-325 Mg Tablet PO Q3H PRN Pain Rated 4-6 Aspirin 81 mg 03/15/23 09:00 Aspirin 81 Mg Enteric Tablet PO 04/14/23 08:59 DAILY CAROL Bisacodyl 10 mg 03/14/23 12:33 Bisacodyl 10 Mg Suppository RECTAL DAILY PRN Constipation Carbidopa/Levodopa 1 tablet 03/11/23 17:00 03/14/23 12:55 Carbidopa/Levodopa 10/100 Mg Tablet PO 1 tablet QID CAROL Administration Docusate Sodium 100 mg 03/14/23 21:00 Docusate Sodium 100 Mg Capsule PO HS CAROL Donepezil HCl 10 mg 03/14/23 21:00 Donepezil Hcl 10 Mg Tablet PO HS CAROL
[2023-03-14] MEDS: ceFAZolin 1 GM/NS 50 ML 1 GM/50 ML BAG IVPB (17:26)
[2023-03-14] MEDS: MIRTAZAPINE 15 MG TABLET PO (20:20)
[2023-03-14] MEDS: DONEPEZIL HCL 10 MG TABLET PO (20:21)
[2023-03-14] MEDS: ACETAMINOPHEN 325 MG TABLET 650 MG PO (20:21)
[2023-03-15] MEDS: ceFAZolin 1 GM/NS 50 ML 1 GM/50 ML BAG IVPB ×2 (02:38→09:56)
[2023-03-15 04:00] VITALS: BP 146/87; PULSE 80; RESP 14; TEMP 35.7; O2SAT 94
[2023-03-15 07:49] LABS: Anion Gap 1 mmol/L (8-16); Blood Urea Nitrogen 15 mg/dL (7-17); Calcium 8.6 mg/dL (8.4-10.2); Carbon Dioxide 29 mmol/L (22-30); Chloride 109 mmol/L (98-107); Estimated CRCL calculation 47 ml/min; Estimated Glomerular Filt Rate > 60; Glucose 92 mg/dL (65-110); Potassium 3.5 mmol/L (3.4-5.0); Sodium 139 mmol/L (137-145)
[2023-03-15 07:50] LABS: Basophils Percent Auto 0.5 % (0.2-1.2); Eosinophils Percent Auto 0.9 % (0-4.4); Hematocrit 32.1 % (37.0-47.0); Hemoglobin 10.5 g/dL (12.0-15.0); Immature Granulocyte Absolute 0.01 K/mm3 (0.00-0.031); Immature Granulocyte Percent A 0.2 % (0-0.5); Lymphocytes Absolute Auto 1.23 K/mm3 (0.9-3.2); Lymphocytes Percent Auto 29.1 % (18.3-44.2); Mean Corpuscular HGB Conc 32.7 g/dl (32-36); Mean Corpuscular Hemoglobin 32.2 pg (26-34); Mean Corpuscular Volume 98.5 fl (80-100); Mean Platelet Volume 8.7 fl (7.4-10.4); Monocytes Absolute Auto 0.3 K/mm3 (0.1-0.6); Monocytes Percent Auto 6.6 % (2.6-8.5); Neutrophils Absolute Auto 2.7 K/mm3 (1.3-6.7); Neutrophils Percent Auto 62.7 % (45.5-73.1); Platelet Count Result 168 k/mm3 (150-375); Red Blood Count 3.26 M/mm3 (4.2-5.4); Red Cell Distribution Width 13.3 % (11.5-14.5); White Blood Count 4.2 K/mm3 (4.5-10.0)
[2023-03-15 08:00] VITALS: O2SAT 94
--- NOTE | 2023-03-15 08:06 | P.PNAN_ITS ---
Anes - Prog Note Post-Op Date/Time: 03/15/23 08:06 Cardiovascular status: normal Respiratory status: normal Airway patency: baseline Mental status: baseline Post-Op hydration status: normal Vital Signs: Last Vital Signs Temp 35.7 C L 03/15/23 04:00 Pulse 80 03/15/23 04:00 Resp 14 03/15/23 04:00 BP 146/87 H 03/15/23 04:00 Pulse Ox 94 03/15/23 04:00 O2 Del Method Room Air 03/14/23 12:29 O2 Flow Rate 8 03/14/23 11:55 Pain Score (VAS): 0/10 I/O: Intake & Output 03/14/23 03/15/23 03/15/23 23:59 07:59 15:59 Intake Total 272 200 Balance 272 200 Laboratory Tests 03/15/23 07:09 03/15/23 07:09 WBC Pending RBC Pending Hgb Pending Hct Pending MCV Pending MCH Pending MCHC Pending RDW Pending Plt Count Pending MPV Pending Immature Gran % (Auto) Pending Neut % (Auto) Pending Lymph % (Auto) Pending [place] % (Auto) Pending Eos % (Auto) Pending Baso % (Auto) Pending Lymph # (Auto) Pending [place] # (Auto) Pending Eos # (Auto) Pending Baso # (Auto) Pending Abs Immat Gran (auto) Pending Absolute Neuts (auto) Pending Absolute Nucleated RBC Pending Nucleated RBC % Pending Sodium 139 Potassium 3.5 Chloride 109 H Carbon Dioxide 29 Anion Gap 1 L BUN 15 Creatinine 0.80 Estim Creat Clear Calc 47 Estimated GFR > 60 Glucose 92 Calcium 8.6 Post-procedural complaints: none Patient Feedback: Patient satisfied with anesthetic care.
[2023-03-15] MEDS: ASPIRIN 81 MG ENTERIC TABLET PO (08:08)
[2023-03-15] MEDS: ENTACAPONE 200 MG TABLET PO ×3 (08:09→16:33)
[2023-03-15] MEDS: CHOLECALCIFEROL 1,000 UNITS TABLET 2000 UNITS PO (08:09)
[2023-03-15] MEDS: PANTOPRAZOLE 40 MG TABLET PO (08:09)
[2023-03-15] MEDS: PARoxetine 20 MG TABLET PO (08:09)
[2023-03-15] MEDS: MEMANTINE 10 MG TABLET PO (08:09)
[2023-03-15] MEDS: CARBIDOPA/LEVODOPA 10/100 MG TABLET 1 TABLET PO ×3 (08:09→16:33)
[2023-03-15] MEDS: traMADol HCL (*CRX) 50 MG TABLET PO (09:54)
[2023-03-15 10:18] VITALS: BP 117/61; PULSE 85; RESP 20; TEMP 36.6; O2SAT 99
--- NOTE | 2023-03-15 12:33 | PM.PNORT ---
Progress Note: A&P Assessment and Plan (1) S/P ORIF (open reduction internal fixation) fracture: Code(s): Z98.890 - Other specified postprocedural states; Z87.81 - Personal history of (healed) traumatic fracture Status: Acute Assessment and Plan: POD #1 : Open reduction internal fixation left ankle bimalleolar fracture, open reduction internal fixation syndesmosis. Continue PT/OT. NWB LLE. Walker. HIGH FALL RISK. Continue pain control. Ice ankle, over splint. Protect skin. DVT prophylaxis with aspirin. SCDs. Incentive Spirometry Use reviewed. Monitor Dressing. Change prior to discharge. Bowel Regimen. Dispo: [facility] pending progress with PT/OT and medical clearance. Outpatient follow up arranged. Subjective Subjective Date/Time Seen: 03/15/23 12:33 Post Op day: 1 Interval history: POD #1: Open reduction internal fixation left ankle bimalleolar fracture, open reduction internal fixation syndesmosis. Patient doing well. Sitting up in chair. Pain well controlled. Review of Systems Review of Systems: All systems reviewed & are unremarkable except as noted in HPI and below Exam Const: General: comfortable and no acute distress Resp: Effort & Inspection: normal respiratory effort Skin: General skin exam: normal color Extrem: Other: Splint RLE c/d/i. Moves toes. Sensation intact to light touch. Knee without effusion or severe pain. Objective Data Vital Signs Vital Signs: Vital Signs - 24 hr 03/14/23 12:40 03/14/23 12:55 03/14/23 13:25 Temperature 35.9 C L 36.2 C L 36.0 C L Pulse Rate 76 66 68 Respiratory Rate 16 16 18 Blood Pressure 133/66 134/65 133/67 Pulse Oximetry 95 94 96 Oxygen Delivery 03/14/23 14:25 03/14/23 23:59 03/15/23 04:00 Temperature 36.6 C 36.0 C L 35.7 C L Pulse Rate 81 82 80 Respiratory Rate 16 14 14 Blood Pressure 123/69 107/60 146/87 H Pulse Oximetry 99 96 94 Oxygen Delivery 03/15/23 08:00 03/15/23 09:45 03/15/23 10:08 Temperature Pulse Rate Respiratory Rate Blood Pressure Pulse Oximetry 94 Oxygen Delivery Room Air Room Air Room Air 03/15/23 10:18 Temperature 36.6 C Pulse Rate 85 Respiratory Rate 20 Blood Pressure 117/61 Pulse Oximetry 99 Oxygen Delivery Intake/Output Intake/Output: Intake & Output 03/12/23 03/13/23 03/14/23 03/15/23 23:59 23:59 23:59 23:59 Intake Total 1320 5830 403 8047 Output Total 0 900 200 Balance 1320 1120 -578 974 Meds/Results Medications: Active Medications Generic Name Dose Route Start Last Admin Trade Name Freq PRN Reason Stop Dose Admin Acetaminophen 650 mg 03/11/23 15:47 03/14/23 20:21 Acetaminophen 325 Mg Tablet PO 650 mg Q4H PRN Administration Mild Pain (1-3) or Fever Aspirin 81 mg 03/15/23 09:00 03/15/23 08:08 Aspirin 81 Mg Enteric Tablet PO 04/14/23 08:59 81 mg DAILY CAROL Administration Bisacodyl 10 mg 03/14/23 12:33 Bisacodyl 10 Mg Suppository RECTAL DAILY PRN Constipation Carbidopa/Levodopa 1 tablet 03/11/23 17:00 03/15/23 08:09 Carbidopa/Levodopa 10/100 Mg Tablet PO 1 tablet QID CAROL Administration Docusate Sodium 100 mg 03/14/23 21:00 03/14/23 20:21 Docusate Sodium 100 Mg Capsule PO Not Given HS CAROL Donepezil HCl 10 mg 03/14/23 21:00 03/14/23 20:21 Donepezil Hcl 10 Mg Tablet PO 10 mg HS CAROL Administration Entacapone 200 mg 03/11/23 17:00 03/15/23 08:09 Entacapone 200 Mg Tablet PO 200 mg QID CAROL Administration Hydromorphone HCl 0.25 mg 03/14/23 23:51 Hydromorphone Hcl Inj (*Crx) 1 Mg/Ml Syr IV PUSH Q4H PRN Pain Rated 7-10 Magnesium Hydroxide 30 ml 03/14/23 12:33 Magnesium Hydroxide Susp 30 Ml Udc PO BID PRN Constipation Memantine 10 mg 03/11/23 21:00 03/15/23 08:09 Memantine 10 Mg Tablet PO 10 mg Q12HR CAROL Administration Mirtazapine 15 mg 03/11/23 21:00 03/14/23 20:20 Mirtazapine 15 Mg Tab
[2023-03-15] MEDS: HYDROmorphone HCL INJ (*CRX) 1 MG/ML SYR 0.25 MG IV PUSH (13:53)
[2023-03-15 14:01] VITALS: BP 127/64; PULSE 79; RESP 18; TEMP 36.4; O2SAT 96
--- NOTE | 2023-03-15 14:12 | PM.DS ---
DS: Admitting Diagnosis Discharge Date 03/15/23 Admitting Diagnosis fall at home DS: Discharge Diagnosis Discharge Diagnosis (1) Fracture of ankle, bimalleolar, left, closed: Qualifiers: Encounter type: initial encounter Qualified Code(s): S82.842A - Displaced bimalleolar fracture of left lower leg, initial encounter for closed fracture Code(s): S82.842A - Displaced bimalleolar fracture of left lower leg, initial encounter for closed fracture Status: Acute (2) S/P ORIF (open reduction internal fixation) fracture: Code(s): Z98.890 - Other specified postprocedural states; Z87.81 - Personal history of (healed) traumatic fracture Status: Acute (3) Esophageal stricture: Code(s): K22.2 - Esophageal obstruction Status: Acute (4) Parkinsons disease: Code(s): G20 - Parkinson's disease Status: Acute DS: Summary Hospital Course Hospital Course: 82F w/ PMH Parkinson's, esophageal stricture, hiatal hernia, esophageal stricture, presents after fall at home. On 03/14 she underwent ORIF of left ankle bimalleolar fracture with ORIF of syndesmosis. The patient is de'ed in stable condition to [facility] re[facility] at [place] with plans to return to her independent living at [place] thereafter. She was advised to continue taking aspirin for DVT prophylaxis and has follow up with orthopedic surgery in a few weeks. DEE DEMPSEY, Walker, High fall risk. The patient was in understanding and agreement with this plan. She was full code during her admission. More than 30 minutes spent on discharge planning and documentation. Time Spent with Patient Time attestation: Total time spent providing and/or coordinating discharge services: Exam Const: General: cooperative and no acute distress Resp: Effort & Inspection: normal respiratory effort Auscultation: clear to auscultation bilaterally Cardio: Rate: regular rate Rhythm: regular rhythm Heart sounds: S1 normal heart sound present and S2 normal heart sound present GI: GI Palp: No abdominal tenderness Auscultation: normal bowel sounds DS: Data Data Completed and Pending Labs on day of discharge: Labs from last 24 hours 03/15/23 07:09 WBC 4.2 L RBC 3.26 L Hgb 10.5 L Hct 32.1 L MCV 98.5 MCH 32.2 MCHC 32.7 RDW 13.3 Plt Count 168 MPV 8.7 Immature Gran % (Auto) 0.2 Neut % (Auto) 62.7 Lymph % (Auto) 29.1 [place] % (Auto) 6.6 Eos % (Auto) 0.9 Baso % (Auto) 0.5 Lymph # (Auto) 1.23 [place] # (Auto) 0.3 Eos # (Auto) 0.0 Baso # (Auto) 0.0 Abs Immat Gran (auto) 0.01 Absolute Neuts (auto) 2.7 Absolute Nucleated RBC 0.0 Nucleated RBC % 0.0 Sodium 139 Potassium 3.5 Chloride 109 H Carbon Dioxide 29 Anion Gap 1 L BUN 15 Creatinine 0.80 Estim Creat Clear Calc 47 Estimated GFR > 60 Glucose 92 Calcium 8.6 Discharge Plan Discharge Attending physician on discharge: Vivienne Oejda Consulting providers: Micheal Mckeon Discharging Clinician: Vivienne Ojeda Patient Disposition: Inpatient Rehab Facility Activity: may shower, no driving and follow weight bearing status Diet: as tolerated Wound Care Instructions: follow printed instructions Discharge Instructions: Micheal Mckeon Orthopedic Recommendations [phone] Non weight bearing left lower extremity Ice, Elevate Pain control PT/OT. FALL RISK. Follow up scheduled, appt below. Stand Alone Forms: General Discharge Information Follow-up/Referrals: Micheal Mckeon MD [Physician] - 03/21/23 10:00 am Onofre,Mahad Vasques MD [Primary Care Provider] - 2 Weeks Discharge Medications: Continued carbidopa-levodopa 10-100 mg tablet 1 tablet PO QID entacapone 200 mg tablet 200 mg PO QID docusate sodium [Stool Softener] 100 mg Capsule 100 mg PO HS aspirin 81 mg Tablet 81 mg PO DAILY mirtazapine 15 mg tablet 15 mg PO HS paroxetine HCl 20 mg Tablet 20 mg PO QAM Qty:
--- NOTE | 2023-03-15 15:36 | PC.NURSE ---
facility needs physical script for pain medication. at Dr. Mckeon's office notified and she asked if the hospitalist could do it. Dr. Ojeda notified and he states that he will take care of it.
[2023-03-15 16:15] LABS: SARS-CoV-2 RNA PCR Negative (Negative)
== END 2023-03-15 18:05 | DRG 494 ==
LOC: ANHED 08:15 → ANH3MEDSUR 09:32
PROVIDERS: Emergency Medicine; Orthopaedic Surgery; Admitting Provider General Practice; Emergency Provider Emergency Medicine; PCP Internal Medicine; Visit Provider Family Medicine
PROC: 0QSK04Z Reposition Left Fibula with Internal Fixation Device, Open Approach (ICD-10-PCS; principal; 2023-03-14 10:00)
DX: S93.432A Sprain of tibiofibular ligament of left ankle, initial encounter; S82.842A Displaced bimalleolar fracture of left lower leg, initial encounter for closed fracture; W19.XXXA Unspecified fall, initial encounter; G20.A1 Parkinson's disease without dyskinesia, without mention of fluctuations; K22.2 Esophageal obstruction; Z11.52 Encounter for screening for COVID-19; Z79.82 Long term (current) use of aspirin
CPT/HCPCS: 36415; 72170; 73501; 73552; 73560; 73610; 80048; 80053; 83735; 85025; 85027; 85610; 87635; 93005; 96374; 96375; 97161; 97165; 97530; 99199; 99285; A9270; C1713; C1769; J0690; J1100; J1170; J1650; J1885; J2405; J2704; J3010; J3480; J7030; J7120

== ENCOUNTER 2023-09-05 19:32 | Emergency (ER) | payer MEDICARE, SELFPAY ==
[2023-09-05] VITALS (17 sets, daily range): BP systolic 116–130; BP diastolic 65–73; PULSE 74–99; RESP 15–23; TEMP 36.4; O2SAT 93–98
--- NOTE | ~2023-09-05 | CT_ITS ---
CTA chest PE protocol Ordering provider: Harvey Godinez PA-C History: 83 years Female with . rule out PE, pleuritic back pain . Comparison: None. Technique: CT angiogram chest was performed following timed intravenous injection of contrast. Thin s lice axial images and reformatted coronal images were obtained. Three dimensional reformatted images of the chest were also obtained using a [employer] workstation. Radiation reduction technique utilized. Findings: PULMONARY ARTERIES: Pulmonary embolism is noted with clot seen in the right main pulmonary artery bra nches. Mild stranding in the right ventricle is noted. VISUALIZED THORACIC INLET: Normal. MEDIASTINUM: Aorta/coronary arteries: Mild atheromatous disease. Heart/other: The heart is not enlarged. Lymph nodes: No mediastinal or hilar adenopathy. Slight thickening of the wall of the esophagus. LUNGS: Hypodensities in the right lower lobe measuring 2.3 cm. A mass cannot be excluded.. No infiltrates. R ight pleural effusion. No pneumothorax. VISUALIZED UPPER ABDOMEN: Status post cholecystectomy. Slight prominence of the right renal pelvis. O therwise, the visualized upper abdomen is normal. MUSCULOSKELETAL: Soft tissues: The superficial soft tissues are normal. Bones: Age appropriate degenerative changes of the spine. Vertebral plasty of T11. IMPRESSION: 1. Pulmonary embolism. 2. Possible mass in the right lower lobe. Follow-up and further evaluation advised. Reviewed, dictated and finalized at location A. IMPRESSION: 1. Pulmonary embolism. 2. Possible mass in the right lower lobe. Follow-up and further evaluation adv ised.
--- NOTE | ~2023-09-05 | XR_ITS ---
XR chest 2V Ordering provider: Carmen Baldwin MD History: 83 years Female with . sob . Comparison: April 14, 2015 FINDINGS: MEDIASTINUM: The cardiac silhouette is not enlarged. Calcified bilateral hilar lymph nodes are noted. LUNGS: No effusion or pneumothorax. Minimal opacification in the left lower lobe laterally is noted w hich may indicate atelectasis. Minimal atelectasis in the right costophrenic angle. OTHER: Degenerative changes of the spine with severe kyphosis. Vertebroplasty is seen in the midthora cic area. No free air under the diaphragm. IMPRESSION: Minimal opacification in right and left costophrenic angles more on the left side which may indicate atelectasis versus pneumonia. Follow-up advised. Reviewed, dictated and finalized at location A. IMPRESSION: Minimal opacification in right and left costophrenic angles more on the left si de which may indicate atelectasis versus pneumonia. Follow-up advised.
--- NOTE | 2023-09-05 19:38 | ECG_ITS ---
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 Measurements Intervals [place] Rate: 79 P: 41 VT: 152 QRS: -38 QRSD: 105 T: 24 QT: 390 QTc: 449 Interpretive Statements SINUS RHYTHM MARKED LEFT AXIS DEVIATION [QRS AXIS < -30] LOW QRS VOLTAGE IN PRECORDIAL LEADS [QRS DEFLECTION < 1.0 mV IN CHEST LEADS] MINIMAL VOLTAGE CRITERIA FOR LVH, CONSIDER NORMAL VARIANT [MEETS CRITERIA IN ONE OF: R(aVL), S(V1), R(V5), R(V5/V6)+S(V1)] Poor R wave progression No previous ECG available for comparison Electronically Signed On 09-06-2023 13:36:50 CDT by Dinorah Coronado M.D.
[2023-09-05 20:02] LABS: Basophils Percent Auto 0.3 % (0.2-1.2); Eosinophils Absolute Auto 0.1 K/mm3 (0-0.3); Eosinophils Percent Auto 1.2 % (0-4.4); Hematocrit 38.3 % (37.0-47.0); Hemoglobin 12.7 g/dL (12.0-15.0); Immature Granulocyte Absolute 0.04 K/mm3 (0.00-0.031); Immature Granulocyte Percent A 0.7 % (0-0.5); Lymphocytes Absolute Auto 1.56 K/mm3 (0.9-3.2); Lymphocytes Percent Auto 27.1 % (18.3-44.2); Mean Corpuscular HGB Conc 33.2 g/dl (32-36); Mean Corpuscular Hemoglobin 32.6 pg (26-34); Mean Corpuscular Volume 98.5 fl (80-100); Mean Platelet Volume 8.8 fl (7.4-10.4); Monocytes Absolute Auto 0.5 K/mm3 (0.1-0.6); Monocytes Percent Auto 7.8 % (2.6-8.5); Neutrophils Absolute Auto 3.6 K/mm3 (1.3-6.7); Neutrophils Percent Auto 62.9 % (45.5-73.1); Platelet Count Result 188 k/mm3 (150-375); Red Blood Count 3.89 M/mm3 (4.2-5.4); Red Cell Distribution Width 13.2 % (11.5-14.5); White Blood Count 5.8 K/mm3 (4.5-10.0)
[2023-09-05 20:11] LABS: Alanine Aminotransferase 19 U/L (6-35); Albumin Level 3.9 g/dL (3.5-5.1); Alkaline Phosphatase 142 U/L (38-126); Anion Gap 4 mmol/L (4-12); Aspartate Amino Transferase 123 U/L (14-36); Bilirubin,Total 1.1 mg/dL (0.2-1.3); Blood Urea Nitrogen 10 mg/dL (7-17); Calcium 8.6 mg/dL (8.4-10.2); Carbon Dioxide 30 mmol/L (22-30); Chloride 102 mmol/L (98-107); Estimated CRCL calculation 47 ml/min; Estimated Glomerular Filt Rate > 60; Glucose 92 mg/dL (65-110); Potassium 3.2 mmol/L (3.4-5.0); Sodium 136 mmol/L (137-145)
--- NOTE | 2023-09-05 20:40 | ED.BACK ---
HPI - Back Pain/Injury General Chief Complaint: Back Pain/Injury <Harvey Godinez PA-C - Last Filed: 09/06/23 02:37> Stated Complaint: back pain <CORRIE Marquez Last Filed: 09/06/23 02:37> Time Seen by Provider: 09/05/23 20:25 <CORRIE Marquez Last Filed: 09/06/23 02:37> Source: patient <CORRIE Marquez Last Filed: 09/06/23 02:37> Mode of arrival: ambulatory <CORRIE Marquez Last Filed: 09/06/23 02:37> Limitations: no limitations <CORRIE Marquez Last Filed: 09/06/23 02:37> History of Present Illness HPI Narrative: This is a 83-year-old female With PMH of Parkinson who presents to the ED with chief complaint of right upper back pain beginning yesterday. Reports the pain is pleuritic usually only comes up with deeper breathing. States that the pain is in the right scapular area. Denies any recent illness or hospitalization. Denies cough, fevers, chills, chest pain, leg swelling, history of blood clot, abdominal pain, nausea, vomiting, syncope, numbness, weakness. <CORRIE Marquez Last Filed: 09/06/23 02:37> Related Data Home Medications: Home Medications Medication Instructions Recorded Confirmed carbidopa 10 mg-levodopa 100 mg 1 tablet PO QID 06/28/20 05/22/23 tablet acetaminophen 325 mg tablet 325 mg PO DAILY PRN Pain 06/15/21 05/22/23 ergocalciferol (vitamin D2) 1,250 50 mcg PO DAILY 06/15/21 05/22/23 mcg (50,000 unit) capsule aspirin 81 mg tablet 81 mg PO DAILY 03/30/22 05/22/23 docusate sodium 100 mg capsule 100 mg PO HS 03/30/22 05/22/23 (Stool Softener) entacapone 200 mg tablet 200 mg PO QID 03/30/22 05/22/23 mirtazapine 15 mg tablet 15 mg PO HS 03/30/22 05/22/23 diclofenac potassium 50 mg tablet 50 mg PO DAILY 09/21/22 05/22/23 memantine 10 mg tablet 10 mg PO BID 09/21/22 05/22/23 donepezil 10 mg tablet 10 mg PO HS 11/17/22 05/22/23 glycopyrrolate 1 mg tablet mg 09/05/23 <CORRIE Marquez Last Filed: 09/06/23 02:37> Allergies/Adverse Reactions: Allergies Allergy/AdvReac Type Severity Reaction Status Date / Time hydrocodone AdvReac Severe Hallucinati Verified 09/05/23 19:52 ng codeine AdvReac Intermediate Nausea and Verified 09/05/23 19:52 Vomiting <CORRIE Marquez Last Filed: 09/06/23 02:37> Review of Systems Review of Systems: All systems as dictated in HPI <CORRIE Marquez Last Filed: 09/06/23 02:37> [facility] Past Medical History Medical History: Medical History (Updated 09/07/23 @ 00:00 by Vesna Fritz) Coarse tremors Compression fracture of T11 vertebra Dysphagia Esophageal stricture Fracture of ankle, bimalleolar, left, closed Iliotibial band syndrome affecting left lower leg Osteopenia Parkinsons disease <CORRIE Marquez Last Filed: 09/06/23 02:37> Surgical History Surgical History: Surgical History S/P ORIF (open reduction internal fixation) fracture <Harvey Godinez PA-C - Last Filed: 09/06/23 02:37> Family History Family History: Family History Father Acute myocardial infarction Mother Uterine cancer <CORRIE Marquez Last Filed: 09/06/23 02:37> Social History Social History: Social History Smoking status: Never smoker Second hand tobacco smoke exposure: No Alcohol intake: never Substance use: never Substance use type: does not use Do You Feel Safe in your Home?: Yes Lack of Transportation: No Lack of Food: Never True Current Housing: I Have Housing Concerned About Future Housing: No Difficulty Paying Gas/Electric Bills: No Difficulty Paying for Meds: No Currently Unemployed: No Education: Don't Know Difficulty w/ Childcare or Family Care: No Living arrangements: assisted living Additional living arrangemen
[2023-09-05 21:16] LABS: NT Pro B Type Natriuretic Pept 66 pg/mL (19.9-100); Troponin I < 0.012 ng/mL (0.000-0.034)
[2023-09-05 21:42] LABS: Prothrombin Time 13.7 Seconds (11.1-14.7)
[2023-09-05 21:43] LABS: Partial Thromboplastin Time 38.3 Seconds (22.3-36.8)
[2023-09-05] MEDS: AZITHROMYCIN 500 MG/NS 250 ML 500 MG/250 ML BAG 250 MG IVPB (21:55)
--- NOTE | 2023-09-05 22:52 | ECG_ITS ---
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 Measurements Intervals [place] Rate: 81 P: 25 ID: [id number] QRS: -38 QRSD: 116 T: 14 QT: 404 QTc: 470 Interpretive Statements SINUS RHYTHM MARKED LEFT AXIS DEVIATION [QRS AXIS < -30] MINIMAL VOLTAGE CRITERIA FOR LVH, CONSIDER NORMAL VARIANT [MEETS CRITERIA IN ONE OF: R(aVL), S(V1), R(V5), R(V5/V6)+S(V1)] POOR R WAVE PROGRESSION Compared to ECG 09/05/2023 19:41:50 NO SIGNIFICANT CHANGES Electronically Signed On 09-06-2023 13:38:31 CDT by Dinorah Coronado M.D.
[2023-09-05 23:23] LABS: Troponin I < 0.012 ng/mL (0.000-0.034)
[2023-09-05] MEDS: HEPARIN SODIUM 5,000 UNITS/ML VIAL 4500 UNITS IV PUSH (23:29)
[2023-09-05] MEDS: HEPARIN SOD/D5W 100 UNITS/ML 25,000 UNITS/250 ML BAG 10 UNITS IV CONT (23:30)
[2023-09-06] VITALS (22 sets, daily range): BP systolic 101–131; BP diastolic 57–80; PULSE 74–94; RESP 13–30; O2SAT 93–100
--- NOTE | 2023-09-06 00:12 | PC.NURSE ---
ct contacted to request disc for imaging for transfer.
--- NOTE | 2023-09-06 00:53 | PC.NURSE ---
report given to javed @ [facility] [phone] Dr. Moorer
--- NOTE | 2023-09-06 02:52 | PC.NURSE ---
Nurse report given to [facility]. No questions or concerns to note. Pt transferred to their ems stretcher and monitors. Care of patient transitioned to [facility] at this time. No distress noted
== END 2023-09-06 02:53 | disposition short-term general hospital (02) ==
PROVIDERS: Emergency Medicine; Emergency Provider Physician Assistant; PCP Internal Medicine
DX: I26.99 Other pulmonary embolism without acute cor pulmonale (principal); G20.A1 Parkinson's disease without dyskinesia, without mention of fluctuations; Z79.82 Long term (current) use of aspirin
CPT/HCPCS: 36415; 71046; 71275; 80053; 83880; 84484; 85025; 85610; 85730; 93005; 96365; 96366; 96367; 99285; J0456; J0696; J1644; Q9967

== ENCOUNTER 2023-10-01 07:49 | Outpatient (CLI) | payer MEDICARE, SELFPAY ==
--- NOTE | 2023-10-01 13:37 | WPDSIXMINUTE ---
Six Minute Walk Procedure Procedure Performed Pulmonary Stress Test (6 min walk) Six Minute Walk Six Minute Walk: This is a 6 minute walk test. The test was performed and interpreted in accordance with the 2014 ERS/ATS task force guidelines. of note, the patient used to walking aid. Findings: The patient's resting room air oxygen saturation measured by pulse oximetry was 96% and heart rate was 65 bpm. Patient ambulated for 244 meters and oxygen saturation remained 95 to 97%. Heart rate at the end of the study was 84 bpm. The patient did not qualify for supplemental oxygen at rest or with ambulation. There are no prior studies for comparison.
== END 2023-10-01 07:50 | disposition home or self-care (01) ==
PROVIDERS: PCP Internal Medicine; Visit Provider Internal Medicine Pulmonary Disease
DX: I26.99 Other pulmonary embolism without acute cor pulmonale (principal)
CPT/HCPCS: 94618

== ENCOUNTER 2023-10-17 15:28 | Outpatient (CLI) | payer MEDICARE, SELFPAY ==
--- NOTE | ~2023-10-17 | CT_ITS ---
CT Scan of the Chest without Contrast: Clinical Indication: Lung nodule Technique: Contiguous sections were acquired throughout the chest without intravenous contrast. Dose reduction technique was used on this scan by utilizing automated exposure control and iterative recon struction technique. The dose-length product (DLP) was 68.51 mGy-cm. COMPARISON: 09/05/2023 Findings: There is no evidence of any significant mediastinal, hilar or axillary lymphadenopathy. Calcified lef t hilar lymph nodes are present. Coronary artery calcifications are present.. There is no evidence of pleural or pericardial effusion. The lungs are clear, aside from calcified right upper lobe granuloma. Images through the upper abdomen reveal no abnormalities. Stable kyphosis with T11 vertebroplasty. Impression: No significant pulmonary abnormality. Evidence of prior granulomatous disease. Reviewed, dictated and finalized at [facility]. Impression: No significant pulmonary abnormality. Evidence of prior granulomatous disease.
== END 2023-10-17 15:29 ==
LOC: MICIMG 15:30
PROVIDERS: PCP Internal Medicine; Visit Provider Internal Medicine Pulmonary Disease
DX: R91.8 Other nonspecific abnormal finding of lung field (principal)
CPT/HCPCS: 71250

== ENCOUNTER 2023-10-21 13:20 | Emergency (ER) | payer MEDICARE, SELFPAY ==
--- NOTE | ~2023-10-21 | CT_ITS ---
EXAMINATION: CT abdomen pelvis w con DATE: 10/21/2023 15:46 INDICATION: Left upper quadrant abdominal pain. TECHNIQUE: Computed tomography (CT) of the abdomen and pelvis was performed with 100 mL Omnipaque-350 intravenous contrast. Automated exposure control and iterative reconstruction technique were employe d. The dose-length product was 815.06 mGy-cm. COMPARISON: None FINDINGS: Small fat-containing right diaphragmatic hernia. Mild discoid atelectasis in bilateral lower lobes. H eart size is normal. Atherosclerotic coronary artery calcific location. No pericardial or pleural eff usion. Small sliding-type hiatal hernia. Cholecystectomy clips at the gallbladder fossa. Splenic calc ific lesions consistent with old granulomatous disease. Liver, pancreas, bilateral adrenal glands and kidneys are normal. There is prominent diverticulosis with sigmoid colon predominance. No surroundin g inflammatory stranding to suggest diverticulitis. Small bowel and appendix are normal. Bladder is n ormal. The uterus is not identified and has likely been surgically resected. No free intraperitoneal gas or fluid. No pathologically enlarged abdominal or pelvic lymphadenopathy. Chronic T11 and L3 burs t fractures with prior vertebroplasty at T11. There are couple suture anchors anterior to the right p ubic body. IMPRESSION: 1. No acute intra-abdominal/pelvic process. 2. Small sliding-type hiatal hernia. 3. Prominent sigmoid predominant diverticulosis. Reviewed, dictated and finalized at location A.
--- NOTE | ~2023-10-21 | XR_ITS ---
EXAMINATION: XR ribs LT 2V w CXR 2V DATE: 10/21/2023 14:26 INDICATION: Lateral left chest pain with cough TECHNIQUE: AP and lateral views of the chest and 3 views of the left ribs were obtained. COMPARISON: Chest radiograph dated 09/05/[address] dated 10/17/2023 FINDINGS: No rib fractures identified. Small calcified nodule with unchanged minimal associated atelectasis/sca rring near the left costophrenic angle. Additional calcified nodule in the posteromedial right upper lobe and calcified left hilar lymph nodes also consistent with old granulomatous disease. No other ai rspace opacities, pulmonary edema, pleural effusion or pneumothorax. Heart size is normal. No pulmona ry edema, pleural effusion or pneumothorax. Cholecystectomy clips in right upper quadrant. T11 verteb roplasty. IMPRESSION: 1. No rib fracture or acute cardiopulmonary disease. Reviewed, dictated and finalized at location A.
[2023-10-21 13:22] VITALS: BP 100/54; PULSE 98; RESP 18; TEMP 37.1; O2SAT 96
--- NOTE | 2023-10-21 13:25 | ECG_ITS ---
Test Date: 2023-10-21 13:30:26 Measurements Intervals [place] Rate: 98 P: 31 NM: 143 QRS: -45 QRSD: 102 T: 15 QT: 345 QTc: 442 Interpretive Statements SINUS RHYTHM LEFT AXIS DEVIATION INCOMPLETE RIGHT BUNDLE BRANCH BLOCK POOR R WAVE PROGRESSION BORDERLINE T WAVE ABNORMALITY- ANT/INF LEADS BASELINE ARTIFACT- I, II, III, AVR, AVL, AVF, V1-V6 BORDERLINE ECG Compared to ECG 09/05/2023 23:04:10 NO SIGNIFICANT CHANGE Electronically Signed On 10-21-2023 15:11:01 CDT by Júnior Arita D.O.
--- NOTE | 2023-10-21 14:12 | ECG_ITS ---
Test Date: 2023-10-21 14:12:23 Measurements Intervals [place] Rate: 85 P: 40 NM: 158 QRS: -38 QRSD: 101 T: 29 QT: 375 QTc: 447 Interpretive Statements SINUS RHYTHM LEFT AXIS DEVIATION LOW QRS VOLTAGE IN PRECORDIAL LEADS INCOMPLETE RIGHT BUNDLE BRANCH BLOCK CONSIDER ANTERIOR INFARCT, AGE INDETERMINATE ABNORMAL ECG Compared to ECG 10/21/2023 13:30:26 NO SIGNIFICANT CHANGE Electronically Signed On 10-22-2023 13:03:01 CDT by Júnior Arita D.O.
--- NOTE | 2023-10-21 14:25 | ED.CHESTPAIN ---
HPI - Chest Pain General Chief Complaint: Chest Pain Stated Complaint: left chest wall pain/COVID Time Seen by Provider: 10/21/23 13:55 History of Present Illness HPI narrative: Patient is an 83-year-old female who presents ER with left-sided chest wall pain. Ongoing over last 2 days. Worse with deep breath in all full with coughing and physical movement and physical palpation. Patient is on apixaban. Patient recently diagnosed with COVID which is been causing the frequent coughing. She reports decent oral intake of food and water. No loss consciousness. No hemoptysis. Related Data Home Medications Medication Instructions Recorded Confirmed carbidopa 10 mg-levodopa 100 mg 1 tablet PO QID 06/28/20 09/25/23 tablet docusate sodium 100 mg capsule 100 mg PO HS 03/30/22 09/25/23 (Stool Softener) entacapone 200 mg tablet 200 mg PO QID 03/30/22 09/25/23 mirtazapine 15 mg tablet 15 mg PO HS 03/30/22 09/25/23 donepezil 10 mg tablet 10 mg PO HS 11/17/22 09/25/23 apixaban 5 mg tablet (Eliquis) 5 mg PO BID 09/19/23 09/25/23 Allergies Allergy/AdvReac Type Severity Reaction Status Date / Time hydrocodone AdvReac Severe Hallucinati Verified 09/25/23 09:36 ng codeine AdvReac Intermediate Nausea and Verified 09/25/23 09:36 Vomiting Review of Systems Review of Systems: All systems reviewed & are unremarkable except as noted in HPI and below Constitutional: Constitutional: Reports no additional constitutional complaints ENT: Reports system reviewed and no additional complaints, except as documented Cardiovascular: Cardiovascular: Reports chest pain, Denies rapid heart rate and Denies radiating jaw, neck or arm pain Respiratory: Respiratory: Reports cough, Denies dyspnea and Denies wheezing Gastrointestinal: Gastrointestinal: Reports no additional gastrointestinal complaints Musculoskeletal: Musculoskeletal: Reports no additional musculoskeletal complaints [facility] Past Medical History Medical History Coarse tremors Compression fracture of T11 vertebra Deep venous thrombosis (DVT) of right peroneal vein Dysphagia Esophageal stricture Fracture of ankle, bimalleolar, left, closed Iliotibial band syndrome affecting left lower leg Osteopenia Parkinsons disease Surgical History Surgical History S/P ORIF (open reduction internal fixation) fracture Status post revision of total replacement of left knee Family History Family History Father Acute myocardial infarction Mother Uterine cancer Social History Social History Smoking status: Never smoker Second hand tobacco smoke exposure: No Alcohol intake: never Substance use: never Substance use type: does not use Do You Feel Safe in your Home?: Yes Lack of Transportation: No Lack of Food: Never True Current Housing: I Have Housing Concerned About Future Housing: No Difficulty Paying Gas/Electric Bills: No Difficulty Paying for Meds: No Currently Unemployed: No Education: Don't Know Difficulty w/ Childcare or Family Care: No Living arrangements: assisted living Additional living arrangements comments: assisted living Gender identity (if verbalized by the patient): Female Spiritual care concerns: No Exam Narrative: GENERAL: Well-appearing, well-nourished, and in no acute distress. HEAD: Normocephalic, atraumatic. ENT: Mucous membranes moist. CHEST: Clear to auscultation. No respiratory distress. TTP left chest wall. HEART: Regular rate and rhythm. Normal peripheral pulses. ABDOMEN: Soft, nontender, nondistended. EXTREMITIES: Normal range of motion. No edema. SKIN: Warm, dry, no rash. NEURO: Alert and oriented x3. PSYCH: Normal mood and affect. Course Course Emergency Course: Patient informed of lab
[2023-10-21 15:01] VITALS: O2SAT 93
[2023-10-21 15:02] VITALS: BP 111/63; PULSE 80; RESP 20; O2SAT 96
[2023-10-21 15:05] LABS: Basophils Percent Auto 0.4 % (0.2-1.2); Eosinophils Percent Auto 0.8 % (0-4.4); Hematocrit 37.8 % (37.0-47.0); Hemoglobin 12.3 g/dL (12.0-15.0); Immature Granulocyte Absolute 0.02 K/mm3 (0.00-0.031); Immature Granulocyte Percent A 0.4 % (0-0.5); Lymphocytes Absolute Auto 0.82 K/mm3 (0.9-3.2); Mean Corpuscular HGB Conc 32.5 g/dl (32-36); Mean Corpuscular Hemoglobin 32.5 pg (26-34); Monocytes Absolute Auto 0.3 K/mm3 (0.1-0.6); Monocytes Percent Auto 6.7 % (2.6-8.5); Neutrophils Absolute Auto 3.6 K/mm3 (1.3-6.7); Neutrophils Percent Auto 74.7 % (45.5-73.1); Platelet Count Result 169 k/mm3 (150-375); Red Blood Count 3.78 M/mm3 (4.2-5.4); Red Cell Distribution Width 13.2 % (11.5-14.5); White Blood Count 4.8 K/mm3 (4.5-10.0)
[2023-10-21] MEDS: HYDROcodone/acetaminophen (*CRX) 5-325 MG TABLET 1 TAB PO (15:06)
[2023-10-21 15:15] LABS: INR 1.2; Prothrombin Time 15.8 Seconds (11.1-14.7)
[2023-10-21 15:16] LABS: Partial Thromboplastin Time 37.1 Seconds (22.3-36.8)
[2023-10-21 15:17] LABS: Alanine Aminotransferase 9 U/L (6-35); Albumin Level 3.7 g/dL (3.5-5.1); Alkaline Phosphatase 110 U/L (38-126); Anion Gap 3 mmol/L (4-12); Aspartate Amino Transferase 63 U/L (14-36); Bilirubin,Total 0.7 mg/dL (0.2-1.3); Blood Urea Nitrogen 13 mg/dL (7-17); Calcium 8.6 mg/dL (8.4-10.2); Carbon Dioxide 34 mmol/L (22-30); Chloride 100 mmol/L (98-107); Estimated CRCL calculation 40 ml/min; Estimated Glomerular Filt Rate 60; Glucose 99 mg/dL (65-110); Potassium 3.6 mmol/L (3.4-5.0); Sodium 137 mmol/L (137-145)
[2023-10-21 16:44] VITALS: BP 103/62; PULSE 80; RESP 20; O2SAT 99
== END 2023-10-21 16:45 | disposition home or self-care (01) ==
PROVIDERS: Emergency Provider Emergency Medicine; PCP Internal Medicine
DX: R07.89 Other chest pain (principal)
CPT/HCPCS: 36415; 71046; 71100; 74177; 80053; 85025; 85610; 85730; 93005; 99284; A9270; Q9967

== ENCOUNTER 2024-04-05 15:39 | Emergency (ER) | payer MEDICARE, SELFPAY ==
--- NOTE | ~2024-04-05 | XR_ITS ---
XR foot LT min 3V Ordering provider: Laurie Da Silva APRN History: . pain and swelling . Comparison: None. FINDINGS: BONES: No acute fracture or dislocation. Postoperative changes in the distal tibia and fibula. Osteop enia of the bones. Calcaneal spur. JOINT SPACES: Normal. No tarsal coalition. SOFT TISSUES: Normal. IMPRESSION: No acute osseous abnormality left foot. Reviewed, dictated and finalized at location A. OGRAPHER MAMMOGRAPHER
[2024-04-05 15:53] VITALS: BP 123/78; PULSE 68; RESP 16; TEMP 36.5; O2SAT 96
--- NOTE | 2024-04-05 15:54 | ED.EXTPRO ---
HPI - Extremity Problem General Chief complaint: Extremity Problem,Nontraumatic Stated complaint: Swollen Left Foot Time Seen by Provider: 04/05/24 15:40 Source: patient Mode of arrival: ambulatory Limitations: no limitations History of Present Illness HPI Narrative: Patient is a 83-year-old female who presents with left foot swelling and pain for 3 days. Patient has history of foot surgery with hardware January of 2023. Patient also had revision of left knee in January of 2024. Patient reports top of foot is very tender to touch primarily to 1st metatarsophalangeal joint. Patient wrist reports redness throughout foot. States swelling and pain does not go away with elevation or or night. Related Data Home Medications ?Medication ?Instructions ?Recorded ?Confirmed ?Last Taken ?Type carbidopa 10 mg-levodopa 100 mg 1 tablet PO QID 06/28/20 03/20/24 03/11/23 History tablet docusate sodium 100 mg capsule 100 mg PO HS 03/30/22 03/20/24 03/10/23 History (Stool Softener) entacapone 200 mg tablet 200 mg PO QID 03/30/22 03/20/24 03/11/23 History mirtazapine 15 mg tablet 15 mg PO HS 03/30/22 03/20/24 03/10/23 History donepezil 10 mg tablet 10 mg PO HS 11/17/22 03/20/24 03/10/23 History apixaban 5 mg tablet (Eliquis) 5 mg PO BID 09/19/23 03/20/24 Unknown History cholecalciferol (vitamin D3) 125 125 mcg PO DAILY 12/26/23 03/20/24 Unknown History mcg (5,000 unit) capsule multivitamin (Daily Multi-Vitamin 1 tablet PO DAILY 12/26/23 03/20/24 Unknown History tablet) Allergies Allergy/AdvReac Type Severity Reaction Status Date / Time hydrocodone AdvReac Severe Hallucinati Verified 03/20/24 14:30 ng codeine AdvReac Intermediate Nausea and Verified 03/20/24 14:30 Vomiting Review of Systems Review of Systems: All systems reviewed & are unremarkable except as noted in HPI and below Constitutional: Constitutional: Denies body ache(s), Denies chills, Denies fatigue, Denies fever(s), Denies headache(s), Denies malaise and Denies weakness Eyes: Eyes: Denies blurry vision, Denies irritation and Denies loss of vision ENT: Denies otalgia, Denies headache(s), Denies nasal discharge, Denies sinus pain and Denies sore throat Cardiovascular: Cardiovascular: Denies chest pain, Denies irregular heart rhythm and Denies dyspnea Respiratory: Respiratory: Denies dyspnea Gastrointestinal: Gastrointestinal: Denies abdominal pain, Denies melena, Denies hematochezia, Denies diarrhea, Denies nausea and Denies vomiting Musculoskeletal: Musculoskeletal: Denies back pain, Denies myalgias, Reports arthralgias and Reports joint swelling Integumentary/Breasts: Skin/Breast: Denies pruritus and Denies rash Neurologic: Denies headache(s), Denies loss of vision and Denies weakness Psychiatric: Psychiatric: Reports no additional psychiatric complaints Endocrine: Endocrine: Denies fatigue PMFSH Past Medical History Medical History Deep venous thrombosis (DVT) of right peroneal vein Iliotibial band syndrome affecting left lower leg Esophageal stricture Fracture of ankle, bimalleolar, left, closed Dysphagia Parkinsons disease Coarse tremors Osteopenia Compression fracture of T11 vertebra Surgical History Surgical History Status post revision of total replacement of left knee S/P ORIF (open reduction internal fixation) fracture Family History Family History Father Acute myocardial infarction Mother Uterine cancer Social History Social History Smoking status: Never smoker Second hand tobacco smoke exposure: No Alcohol intake: never Substance use: never Substance use type: does not use Do You Feel Safe in your Home?: Yes Lack of Transportation: No Lack of Food: Never True Current Housing: I Have Housing Concerned About Future Housing: No Difficulty Paying Gas/Electric Bills: No Difficulty Paying for Meds: No Currently Unemployed: No Education: Don't Know Difficulty w/ Childcare or Family Care: No Living arrangements: assisted living Additional living arrangements comments: assisted living Gender identity (if verbalized by the patient): Female Spiritual care concerns: No Comments At time of signature, agree with nursing past medical, surgical, social and family history. There is no relevant family history pertinent to the presenting complaint. Exam Const: General: cooperative, healthy appearing, comfortable, no acute distress and well nourished Nutritional Appearance: well nourished Orientation/consciousness: patient oriented x3 Limitations: no limitations HENMT: Head: normal to inspection, normocephalic and atraumatic Ears: hearing grossly normal bilaterally and external ears normal Face/Nose/Sinus: Normal external nose present, normal facial exam and face symmetric Face and sinus: normal facial exam and face symmetric Mouth: Yes lip normal Eyes: General: appearance normal, both eyes and all related structures Alignment and Position: alignment normal and position normal Periorbital: periorbital findings normal Eyelids: eyelids normal Pupils: Equal, round and reactive pupils present EOM: EOMs intact bilaterally Neck: Neck: normal visual inspection, full ROM and supple Chest: Chest palpation & inspection: normal inspection of the chest Resp: Effort & Inspection: normal respiratory effort and able to speak in complete sentences Auscultation: clear to auscultation bilaterally Cardio: Rate: regular rate Rhythm: regular rhythm Heart sounds: S1 normal heart sound present and S2 normal heart sound present GI: Inspection: normal to inspection Skin: General skin exam: normal color and no rashes or lesions noted Neuro: General: patient oriented x3 and moves all extremities Cranial nerves: Yes Equal, round and reactive pupils present Speech: normal speech Gait exam (Neuro): Normal gait present Extrem: General: normal to inspection, full ROM and no edema Left lower extremity: ankle Details: normal to inspection and normal ROM; no tenderness, no swelling and achilles tendon exam normal and foot Details: abnormal to inspection Details: erythematous, tenderness Location: of the great toe Location: at the MTP joint, abnormal ROM of toe Details: pain with active ROM Location: of the great toe, vascular exam Details: dorsalis pedis pulse present and abnormal capillary refill, tendon exam and motor-sensory exam; no unusual warmth and no ecchymosis Psych: Appearance: grossly normal and well kempt Mental Status: mental status grossly normal Speech and movement: Normal speech and movement present Affect: normal affect Attitude: cooperative Thought process: Normal thought process present Course Course Emergency Course: Patient is aware of diagnosis, understands and agrees to treatment plan. Anticipatory guidance given. Patient agrees to follow-up as directed and is aware of reasons to seek care at the emergency department. Portions of this record may have been created with voice recognition software Level of Care: Express Care Visit Vital Signs Vital signs: Vital Signs Temperature 36.5 C 04/05/24 15:53 Pulse Rate 68 04/05/24 15:53 Respiratory Rate 16 04/05/24 15:53 Blood Pressure 123/78 04/05/24 15:53 Pulse Oximetry 96 04/05/24 15:53 Temperature 36.5 C 04/05/24 15:53 Pulse Rate 68 04/05/24 15:53 Respiratory Rate 16 04/05/24 15:53 Blood Pressure 123/78 04/05/24 15:53 Pulse Oximetry 96 04/05/24 15:53 Reviewed MDM - Extremity (Nontraumatic) MDM Narrative Medical decision making narrative: Patient has creat clearance of 25. Gout treatment as normal but do not repeat for 2 weeks. Giving prednisone taper to follow. Patient instructed to follow up with PCP for further work up and imaging if not improving. Jh wrap applied Pt well hydrated appearing, in no respiratory distress, hemodynamically stable. Recommend supportive care. The patient is stable at time of discharge the clinical impression was discussed and the patient was given the opportunity to ask questions, which were addressed as completely as possible given the information available at present. Anticipatory guidance and return to care precautions were discussed and the importance of primary care follow-up was stressed and encouraged. The patient voiced understanding of the plan, indications to return, and the need for follow-up. Exam findings show no acute concerns or changes Patient is appropriate for outpatient treatment and follow-up. Differential Diagnosis Differential diagnosis: Likely gout, cellulitis, superficial thrombophlebitis, lower extremity edema, deep vein thrombosis of lower extremity and other (Foot fracture, osteo necrosis, arthritis) Imaging Data Radiologist's impression: XR foot LT min 3V Ordering provider: Laurie Da Silva APRN History: . pain and swelling . Comparison: None. FINDINGS: BONES: No acute fracture or dislocation. Postoperative changes in the distal tibia and fibula. Osteopenia of the bones. Calcaneal spur. JOINT SPACES: Normal. No tarsal coalition. SOFT TISSUES: Normal. IMPRESSION: No acute osseous abnormality left foot. Discharge Plan Discharge Clinical Impression: Gout Qualifiers: Gout site: foot Gout etiology: unspecified cause Chronicity: acute Laterality: left Qualified Code(s): M10.9 - Gout, unspecified Patient Disposition: Home, Self-Care Condition: Stable Instructions: Gout (ED) Additional Instructions: Xray showed no fracture. Minimize activities that aggravate the condition The RICE protocol. Follow the RICE protocol as soon as possible after your injury: Rest your ankle by not walking on it. Ice should be immediately applied to keep the swelling down. It can be used for 20 to 30 minutes, three or four times daily. Do not apply ice directly to your skin. Compression dressings, bandages or jh-wraps will immobilize and support your injured foot. Elevate your Foot above the level of your heart as often as possible during the first 48 hours. Medication: Take 2 (1.2 mg) tablets of Colchicine today and additional one tablet (0.6 mg) an hour later. Take steroids in the morning with Food. Please schedule a follow-up visit with your personal physician for further evaluation and treatment within 1week OR If your symptoms persist, change or worsen significantly before you can contact your personal physician then please, without delay, go to the emergency department for further evaluation. Patient Language: Congolese Prescriptions: New colchicine 0.6 mg capsule 0.6 mg PO DAILY Qty: 3 0RF Rx Instructions: Take two capsules initially and then one tablet an hour later prednisone 20 mg tablet See Rx Instructions .ROUTE .COMPLEX Qty: 9 0RF Rx Instructions: 40 mg daily x3 days, 20 mg daily x3 days No Action Eliquis 5 mg tablet 5 mg PO BID cholecalciferol (vitamin D3) 125 mcg (5,000 unit) capsule 125 mcg PO DAILY multivitamin [Daily Multi-Vitamin] Tablet 1 tablet PO DAILY carbidopa-levodopa 10-100 mg tablet 1 tablet PO QID entacapone 200 mg tablet 200 mg PO QID docusate sodium [Stool Softener] 100 mg Capsule 100 mg PO HS mirtazapine 15 mg tablet 15 mg PO HS paroxetine HCl 20 mg Tablet 20 mg PO QAM Qty: 30 0RF donepezil 10 mg tablet 10 mg PO HS Follow-up/Referrals: Kingston,Mahad Vasques MD [Primary Care Provider] - 3 Days Time of Disposition: 17:03
== END 2024-04-05 17:06 | disposition home or self-care (01) ==
PROVIDERS: Emergency Provider Nurse Practitioner Family; PCP Internal Medicine
DX: M10.9 Gout, unspecified (principal); G20.A1 Parkinson's disease without dyskinesia, without mention of fluctuations; M81.0 Age-related osteoporosis without current pathological fracture; Z86.718 Personal history of other venous thrombosis and embolism; Z79.01 Long term (current) use of anticoagulants
CPT/HCPCS: 73630; 99213; G0463

== ENCOUNTER 2024-04-29 09:44 | Outpatient (CLI) | payer MEDICARE, SELFPAY ==
--- NOTE | ~2024-04-29 | XR_ITS ---
EXAMINATION: XR barium swallow DATE: 04/29/2024 10:30 INDICATION: Difficulty swallowing TECHNIQUE: The patient drank thick barium, gas-producing crystals, and thin barium. Fluoroscopy of th e hypopharynx and esophagus was performed. Fluoroscopy exposure time was 2.2 minutes. The total numbe r of images was 100 and. The dose-area product was 18.4 Gy-cm^2. COMPARISON: None. FINDINGS: Esophageal dysmotility is identified with innumerable tertiary contractions. Esophageal dilatation is also noted, with significant esophageal reflux. A filling defect is identified within the distal third of the esophagus to the right of midline for w hich direct visualization is recommended. A small hiatal hernia is also noted. IMPRESSION: Esophageal dysmotility with dilatation and reflux. Filling defect within the distal third of the esophagus to the right of midline for which direct visu alization is recommended. Reviewed, dictated and finalized at location A. ER DRIVER IMPRESSION: Esophageal dysmotility with dilatation and reflux. Filling defect within the distal third of the esophagus to the right of midline for which direct visualization is recommended.
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
--- OUTSIDE RECORDS SUMMARY | 2024-04-29 10:25 | XMS_ITS | Patient Health Summary ---
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 CARDIAC RHYTHM STRIP ORDER (01/23/2024 9:19 PM CDT) Only the most recent of3 resultswithin the time period is included. Narrative 01/23/2024 9:19 PM CDT Ordered by an unspecified provider. Scanned Document CARDIAC SERVICES ORD ERABLES * (ABNORMAL) HGB HCT PANEL (01/19/2024 3:25 AM CDT) Only the most recent of2 resultswithin the time period is included. Hemoglobin 10.2(L) 11.9 - 15.8 g/dL 01/19/2024 4:47 AM CDT [facility] Hematocrit 32.5(L) 34.8 - 46.1 % 01/19/2024 4:47 AM CDT [facility] Blood BLOOD SPECIMEN / Unknown Lab Venipuncture / Unknown 01/19/2024 3:25 AM CDT 01/19/2024 4:39 AM CDT John Sarah MD LAB - HEMATOLOGY OR DERABLES Performing Organization Address City/State/[facility] Co de Phone Number [facility] [address] [place] [address] * RESPIRATORY PANEL WITH SARS-COV-2 BY PCR ([facility]) (01/19/2024 2:35 AM CDT) [facility] Adenovirus PCR Not detected Not detected 01/19/2024 6:05 AM CDT [facility] Coronavirus 229E PCR Not detected Not detected 01/19/2024 6:05 AM CDT [facility] Coronavirus HKU1 PCR Not detected Not detected 01/19/2024 6:05 AM CDT [facility] Coronavirus NL63 PCR Not detected Not detected 01/19/2024 6:05 AM CDT [facility] Coronavirus OC43 PCR Not detected Not detected 01/19/2024 6:05 AM CDT [facility] COVID-19 PCR Not detected Not detected 01/19/2024 6:05 AM CDT [facility] Human Metapneumovirus PCR Not detected Not detected 01/19/2024 6:05 AM CDT [facility] Human Rhinovirus/Enterov irus PCR Not detected Not detected 01/19/2024 6:05 AM CDT [facility] Influenza A PCR Not detected Not detected 01/19/2024 6:05 AM CDT [facility] Influenza B PCR Not detected Not detected 01/19/2024 6:05 AM CDT [facility] Parainfluenza Virus 1 PCR Not detected Not detected 01/19/2024 6:05 AM CDT [facility] Parainfluenza Virus 2 PCR Not detected Not detected 01/19/2024 6:05 AM CDT [facility] Parainfluenza Virus 3 PCR Not detected Not detected 01/19/2024 6:05 AM CDT [facility] Parainfluenza Virus 4 PCR Not detected Not detected 01/19/2024 6:05 AM CDT [facility] Respiratory Syncytial Virus PCR Not detected Not detected 01/19/2024 6:05 AM CDT [facility] Bordetella parapertussis PCR Not detected Not detected 01/19/2024 6:05 AM CDT [facility] Bordetella pertussis PCR Not detected Not detected 01/19/2024 6:05 AM CDT [facility] Chlamydia pneumoniae PCR Not detected Not detected 01/19/2024 6:05 AM CDT [facility] Mycoplasma pneumoniae PCR Not detected Not detected 01/19/2024 6:05 AM CDT [facility] Microbiology SPECIMEN FROM NASOPHARYNGEAL STRUCTURE / Unknown Collection / Unknown 01/19/2024 2:35 AM CDT 01/19/2024 2:49 AM CDT Narrative [facility] - 01/19/2024 6:05 AM CDT This nucleic amplification assay has received FDA authorization via the [employer]. Cleo Brink APRN-INVESTIGATION DIVISION SERGEANT LAB - MICROB IOLOGY ORDERABLES [facility] [address] [place], [address] [phone] * (ABNORMAL) DIFFERENTIAL MANUAL (01/18/2024 3:43 PM CDT) Neutrophil % 96(H) 41 - 74 % 01/18/2024 4:16 PM CDT [facility] Lymphocyte % 4(L) 17 - 47 % 01/18/2024 4:16 PM CDT [facility] Neutrophil Absolute 5.09 1.60 - 7.50 x10E9/L 01/18/2024 4:16 PM CDT [facility] Lymphocyte Absolute 0.21(L) 1.00 - 4.40 x10E9/L 01/18/2024 4:16 PM CDT [facility] RBC Morphology NORMAL 01/18/2024 4:16 PM CDT [facility] Platelet Morphology NORMAL 01/18/2024 4:16 PM CDT [facility] Blood BLOOD SPECIMEN / Unknown Lab Venipuncture / Unknown 01/18/2024 3:43 PM CDT 01/18/2024 3:43 PM CDT Cleo HAASINVESTIGATION DIVISION SERGEANT LAB - HEMATO LOGY ORDERABLES Performing Organization Address [facility] Co de Phone Number [facility] [address] [place] [phone] * (ABNORMAL) D-DIMER (01/18/2024 3:38 PM CDT) [facility] D-Dimer 2.16(H) 0.27 - 0.50 ug/mL FEU 01/18/2024 3:54 PM CDT [facility] Blood BLOOD SPECIMEN / Unknown Lab Venipuncture / Unknown 01/18/2024 3:38 PM CDT 01/18/2024 3:45 PM CDT Narrative [facility] - 01/18/2024 3:54 PM CDT In the absence of clinical symptoms, a value less than or equal to 0.5 mcg/mL FEU significantly decreases the probability of PE/DVT (negative predictive value >95%). 1 mcg/ml FEU = 1 Fibrinogen Equivalent Unit (approximates 0.5 mcg/mL of D- dimer). Cleo PETER LAB - COAGUL ATION ORDERABLES Performing Organization Address [facility] Co de Phone Number [facility] [address] [place] [phone] * B-TYPE NATRIURETIC PEPTIDE (01/18/2024 3:38 PM CDT) Only the most recent of2 resultswithin the time period is included. Pathologist [facility] BNP 36 <=100 pg/mL 01/18/2024 4:10 PM CDT [facility] Blood BLOOD SPECIMEN / Unknown Lab Venipuncture / Unknown 01/18/2024 3:38 PM CDT 01/18/2024 3:43 PM CDT [facility] - 01/18/2024 4:10 PM CDT A cutoff of 100 pg/mL has been demonstrated to provide the maximal combination of sensitivity, specificity, and negative predictive value for contributing to the diagnosis of congestive heart failure (CHF) only. ??A B-Type Natriuretic Peptide (BNP) value greater than or equal to 100 pg/mL is consistent with a diagnosis of CHF in the appropriate clinical setting. ??False positive results are more common in females greater than 75 years of age. ??Blood concentrations of natriuretic peptides may also be elevated in patients with myocardial infarction and in patients who are candidates for or are undergoing renal dialysis. Cleo Brink APRN-INVESTIGATION DIVISION SERGEANT LAB - CHEMIS TRY ORDERABLES [facility] [address] [place] [address] * (ABNORMAL) COMPREHENSIVE METABOLIC PANEL (01/18/2024 3:38 PM CDT) Only the most recent of6 resultswithin the time period is included. Glucose 142(H) 70 - 99 mg/dL 01/18/2024 4:16 PM CDT [facility] Sodium 141 136 - 145 mmol/L 01/18/2024 4:16 PM CDT [facility] Potassium 4.1 3.5 - 5.1 mmol/L 01/18/2024 4:16 PM CDT [facility] Chloride 108(H) 98 - 107 mmol/L 01/18/2024 4:16 PM CDT [facility] CO2 23 22 - 29 mmol/L 01/18/2024 4:16 PM CDT [facility] Calcium 8.7 8.4 - 10.4 mg/dL 01/18/2024 4:16 PM CDT [facility] Anion Gap 10 6 - 16 mmol/L 01/18/2024 4:16 PM CDT [facility] BUN 12 7 - 26 mg/dL 01/18/2024 4:16 PM CDT [facility] Creatinine 0.93 0.57 - 1.11 mg/dL 01/18/2024 4:16 PM CDT [facility] Alkaline Phosphatase 94 40 - 150 U/L 01/18/2024 4:16 PM CDT [facility] ALT 10 0 - 55 U/L 01/18/2024 4:16 PM CDT [facility] AST 25 5 - 34 U/L 01/18/2024 4:16 PM CDT [facility] Protein Total 5.9(L) 6.4 - 8.3 gm/dL 01/18/2024 4:16 PM CDT [facility] Albumin 3.5 3.4 - 5.0 gm/dL 01/18/2024 4:16 PM CDT [facility] Bilirubin Total 0.5 0.2 - 1.2 mg/dL 01/18/2024 4:16 PM CDT [facility] eGFR by CKD-EPI 62(L) >=90 mL/min/1.7 3 m2 01/18/2024 4:16 PM CDT [facility] Blood BLOOD SPECIMEN / Unknown Lab Venipuncture / Unknown 01/18/2024 3:38 PM CDT 01/18/2024 4:04 PM CDT Cleo Brink SENIOR APPLICATIONS ENGINEER-INVESTIGATION DIVISION SERGEANT LAB - CHEMIS TRY ORDERABLES [facility] [address] [place] [address] * XR Chest 1Vw Portable (01/18/2024 3:17 PM CDT) Only the most recent of3 resultswithin the time period is included. Anatomical Region Laterality Modality Chest Radiographic Jordan ging 01/18/2024 3:30 PM CDT Impressions 01/18/2024 3:31 PM CDT IMPRESSION: Mild bibasilar atelectasis/airspace disease. > Interpreting Provider: Sary James MD on 01/18/2024 3:31 PM Narrative 01/18/2024 3:31 PM CDT PROCEDURE: ??XR CHEST 1VW PORTABLE DATE/TIME OF EXAM: ??01/18/2024 3:27 PM CLINICAL INFORMATION: None relevant/not provided if blank. Indication: R06.02: Shortness of breath Additional History: COMPARISON: 09/03/2016 FINDINGS: Mild bibasilar atelectasis/airspace disease. No effusion or pneumothorax. The cardiomediastinal silhouette is stable. Procedure Note Sary James MD - 01/18/2024 PROCEDURE: XR CHEST 1VW PORTABLE DATE/TIME OF EXAM: 01/18/2024 3:27 PM CLINICAL INFORMATION: None relevant/not provided if blank. Indication: R06.02: Shortness of breath Additional History: COMPARISON: 09/03/2016 FINDINGS: Mild bibasilar atelectasis/airspace disease. No effusion orpneumothorax. The cardiomediastinal silhouette is stable. IMPRESSION: Mild bibasilar atelectasis/airspace disease. > Interpreting Provider: Sary James MD on 01/18/2024 3:31 PM Cleo Brink SENIOR APPLICATIONS ENGINEER-INVESTIGATION DIVISION SERGEANT DIAGNOSTIC I MAGING ORDERABLES * [place] [facility] Surgery (01/18/2024 10:00 AM CDT) Only the most recent of3 resultswithin the time period is included. Narrative [facility] - 01/18/2024 11:55 AM CDT For details of this study, please see the providers note. John Sarah MD FLUOROSCOPY ORDERAB LES [facility] [address] [place] [address] * CULTURE FLUID+GRAM STAIN (01/18/2024 9:18 AM CDT) Culture No growth FERNANDO 01/21/2024 3:42 PM CDT [facility] Gram Stain No polymorphonuclear cells 01/21/2024 3:42 PM CDT [facility] Gram Stain No organisms seen 024 3:42 PM CDT [facility] Microbiology SYNOVIAL FLUID / Unknown Collection / Unknown 01/18/2024 9:18 AM CDT 01/18/2024 11:28 AM CDT Comment:Pre-op diagnosis: Diagnosis unknown [R69] Narrative [facility] - 01/21/2024 3:42 PM CDT Surgical Description: Left Knee John Sarah MD LAB - MICROBIOLOGY ORDERABLES Performing Organization Address [facility] de Phone Number [facility] [address] [place] [address], [facility] [phone] * CULTURE ANAEROBE (01/18/2024 9:18 AM CDT) Culture No anaerobic organisms isolated FERNANDO 01/23/2024 12:28 PM CDT [facility] Microbiology SYNOVIAL FLUID / Unknown Collection / Unknown 01/18/2024 9:18 AM CDT 01/18/2024 11:28 AM CDT Comment:Pre-op diagnosis: Diagnosis unknown [R69] Narrative [facility] - 01/23/2024 12:28 PM CDT Surgical Description: Left Knee John Sarah MD LAB - MICROBIOLOGY ORDERABLES Performing Organization Address [facility] Phone Number [facility] [address] [place] [address], [facility] [phone] * ETT LINE PERFORMABLE (01/18/2024 8:24 AM CDT) Narrative Dinorah Huerta APRN-CRNA - 01/18/2024 8:24 AM CDT Dinorah Huerta APRN-CRNA ? 01/18/2024 ??8:25 AM Endotracheal Tube Placement: ? Patient Location: OR. Intubation Event Date/Time: ??01/18/2024 7:53 AM Procedure: intubation (64623) Procedure Section: ?? Sedation: under general anesthesia. Indications for Airway Management: ??anesthesia Induction: standard IV Patient Position: ??sniffing Mask Ventilation: easy. Blade Type: Bravo Blade Size: 2 Laryngoscopy View: grade 1 (full cords) Intubation Adjuncts: stylet Tube: endotracheal tube Placement: oral Tube type: cuff - inflated Tube Size (MM): 7 Depth of Insertion (CM): 20 Measured From: lips Cuff volume (mL): ??5 Cuff Inflated With: air Number of Attempts: 1. Placement Verified By: direct visualization, bilateral breath sounds, chest auscultation and CO2 monitor Tube secured with: ??adhesive tape. Dentition unchanged? ??Yes Difficult Airway? ??No. Procedure Start Time: 01/18/2024 7:53 AM. Staff Section ? Anesthesia Provider: Dinorah Huerta APRN-DIRECTOR VOLUNTEER SERVICES, Performed the procedure Armand Heart MD GENERAL ANESTHESIA O RDERABLES * Peripheral Nerve Block (01/18/2024 7:00 AM CDT) Narrative Armand Heart MD - 01/18/2024 7:00 AM CDT Armand Heart MD ? 01/18/2024 ??7:09 AM Peripheral ??Nerve Block ?? Procedure: Peripheral Nerve Block Patient Location: ??Pre-op Preprocedure Section: ?? Indications: at surgeon's request, at patient's request and postop pain management. Pre-anesthetic Checklist: Patient identified, IV Checked, Site examined and clear, Risks and benefits discussed, Surgical consent verified, Monitors and equipment, Time-out performed, Informed consent obtained, Pre-op evaluation done, Questions answered/anesthesia questions answered, Allergies reviewed and Removal hand/wrist jewelry Monitors: Pulse Ox. Patient Condition: ??awake Patient Position: supine Patient Sedated? ??No Procedure Section ?? Laterality: left Block Performed: ??Adductor Canal Prep: ??Chloraprep Strerile Field: gloves, mask and hat/cap Skin localized with: lidocaine (XYLOCAINE MPF) 1 % injection - Infiltration 3 mL - 01/18/2024 7:01:00 AM Needle Type: ??Echogenic insulated (PAJUNK) Needle Gauge: ??21 Needle Length: ??80 mm Needle Depth: ??5 cm Catheter?No Ultrasound Guided? ?? Yes ? Technique: ??in plane ? Visualization: ??Preliminary scan performed, Important anatomical structures identified, Needle tip visualized throughout the procedure, Target identified, No intraneural or intravascular puncture occurred, Ultrasound image in chart, Local visualized surrounding nerve on ultrasound and Hydrodissection utilized Injection was made incrementally with constant monitoring and aspirations every 5 mL's Injection Assessment: ?? Slow fractionated injection Block Agents or Additives used? Yes Block agents used: bupivacaine PF (MARCAINE PF) 0.5 % injection - Infiltration 25 mL - 01/18/2024 7:05:00 AM Procedure Tolerance: tolerated well Assessment: completed Procedure Start Time: 01/18/2024 7:00 AM. Procedure End Time: 01/18/2024 7:05 AM. Procedure Total Time: 5 ??minutes. Staff Section ? Anesthesia Provider: Armand Heart MD, Performed the procedure Additional Comments: Routine block. Armand Heart MD GENERAL ANESTHESIA O RDERABLES * TYPE + SCREEN PANEL (01/18/2024 6:10 AM CDT) Only the most recent of4 resultswithin the time period is included. ABO Rh O POS 01/18/2024 6:50 AM CDT [facility] Comment:History checked. Antibody Screen NEG 6:50 AM CDT [facility] Blood Bank BLOOD SPECIMEN / Unknown Venipuncture / Unknown 01/18/2024 6:10 AM CDT 01/18/2024 6:11 AM CDT John Sarah MD LAB - BLOOD BANK OR DERABLES [facility] [address] [phone] * URINE MICROSCOPIC ONLY REFLEX TO CULTURE (12/31/2023 9:53 AM CDT) Reflex Status Culture not indicated 12/31/2023 10:24 AM CDT [facility] RBC UA None Seen 0 - 5 # /hpf 12/31/2023 10:24 AM CDT [facility] WBC UA 0-5 0 - 5 # /hpf 12/31/2023 10:24 AM CDT [facility] Bacteria UA None Seen None Seen 12/31/2023 10:24 AM CDT [facility] Squamous Epithelial Cells None Seen 0 - 5 /hpf 12/31/2023 10:24 AM CDT [facility] Mucus UA 1+ /LPF 12/31/2023 10:24 AM CDT [facility] Urine URINE SPECIMEN OBTAINED BY CLEAN CATCH PROCEDURE / Unknown Collection / Unknown 12/31/2023 9:53 AM CDT 12/31/2023 10:18 AM CDT Narrative [facility] - 12/31/2023 10:24 AM CDT John Sarah MD LAB - URINALYSIS OR DERABLES Performing Organization Address City/[facility]/ZIP Co de Phone Number [facility] [address] [place] [address] * CULTURE MSSA/MRSA (12/31/2023 9:53 AM CDT) Culture Negative for Staphylococcus aureus (MRSA/MSSA) 01/01/2024 3:35 PM CDT [facility] Microbiology SPECIMEN FROM NASAL FOSSAE / Unknown Collection / Unknown 12/31/2023 9:53 AM CDT 12/31/2023 10:17 AM CDT John Sarah MD LAB - MICROBIOLOGY ORDERABLES Performing Organization Address City/[facility] Co de Phone Number [facility] [address] [phone] * (ABNORMAL) URINALYSIS REFLEX MICROSCOPIC REFLEX CULTURE (12/31/2023 9:53 AM CDT) Only the most recent of2 resultswithin the time period is included. Color UA Floresita(A) Straw, Yellow 12/31/2023 10:24 AM CDT [facility] Clarity UA Clear Clear 12/31/2023 10:24 AM CDT [facility] Glucose UA Negative Negative 12/31/2023 10:24 AM CDT [facility] Bilirubin UA Negative Negative 12/31/2023 10:24 AM CDT [facility] Ketone UA Trace(A) Negative 12/31/2023 10:24 AM CDT [facility] Specific Driggs UA 1.010 1.005 - 1.030 12/31/2023 10:24 AM CDT [facility] Blood UA 1+(A) Negative 12/31/2023 10:24 AM CDT [facility] pH UA 6.0 5.0 - 8.0 pH 12/31/2023 10:24 AM CDT [facility] Protein UA Negative Negative 12/31/2023 10:24 AM CDT [facility] Urobilinogen UA Negative Negative mg/dL 12/31/2023 10:24 AM CDT [facility] Nitrite UA Negative Negative 12/31/2023 10:24 AM CDT [facility] Leukocyte UA Negative Negative 12/31/2023 10:24 AM CDT [facility] Urine Microscopy Urine microscopy to follow 12/31/2023 10:24 AM CDT [facility] Reflex Status Culture not indicated 12/31/2023 10:24 AM CDT [facility] Urine URINE SPECIMEN OBTAINED BY CLEAN CATCH PROCEDURE / Unknown Collection / Unknown 12/31/2023 9:53 AM CDT 12/31/2023 10:18 AM CDT Narrative [facility] - 12/31/2023 10:24 AM CDT John Sarah MD LAB - URINALYSIS OR DERABLES Performing Organization Address City/[facility] Co de Phone Number [facility] [address] [place] [phone] * C-REACTIVE PROTEIN (12/31/2023 9:52 AM CDT) C-Reactive Protein 0.17 <=0.50 mg/dL 12/31/2023 10:36 AM CDT [facility] Blood BLOOD SPECIMEN / Unknown Venipuncture / Unknown 12/31/2023 9:52 AM CDT 12/31/2023 10:18 AM CDT John Sarah MD LAB - CHEMISTRY ORD ERABLES [facility] [address] [place] [phone] * TRANSFERRIN (12/31/2023 9:52 AM CDT) Transferrin 271 174 - 382 mg/dL 12/31/2023 10:36 AM CDT [facility] Blood BLOOD SPECIMEN / Unknown Venipuncture / Unknown 12/31/2023 9:52 AM CDT 12/31/2023 10:18 AM CDT John Sarah MD LAB - CHEMISTRY ORD ERABLES Performing Organization Address [facility] Co de Phone Number [facility] [address] [place] [address] * HEMOGLOBIN A1C (12/31/2023 9:52 AM CDT) Hemoglobin A1c 4.8 <5.7 % 12/31/2023 11:03 AM CDT [facility] Estimated Average Glucose 91 mg/dL 12/31/2023 11:03 AM CDT [facility] Blood BLOOD SPECIMEN / Unknown Venipuncture / Unknown 12/31/2023 9:52 AM CDT 12/31/2023 10:18 AM CDT Narrative [facility] - 12/31/2023 11:03 AM CDT HbA1c Interpretation: Normal: < 5.7% Pre-diabetes: 5.7-6.4% Diabetes: Equal to or greater than 6.5% Test results diagnostic of diabetes should be repeated for confirmation. Treatment target values recommended by ADA and other clinical organizations should be used to evaluate metabolic control in patients. This test should not replace glucose testing for patients with Type 1 diabetes, pediatric patients, or women. ??Falsely low HbA1c results may be observed in patients with clinical conditions that shorten erythrocyte life span or decrease mean erythrocyte age such as the presence of unstable hemoglobin variants, elevated hemoglobin F level or other causes of hemolytic anemia. ??HbA1c may not accurately reflect glycemic control when clinical conditions that affect erythrocyte survival are present. ??Severe Iron deficiency anemia may yield falsely high results. ??Hemoglobin A1c assay should not be used to diagnose or monitor diabetes in patients with malignancy, recent blood transfusion, chronic kidney or liver disease. ?? This method may yield falsely low results when hemoglobin (HbF) exceeds 5% in the specimen. The Shepard Alinity assay for the measurement of HbA1c is a National Glycohemoglobin Standardization Program (NGSP) certified method. John Sarah MD LAB - CHEMISTRY ORD ERABLES Performing Organization Address [facility] Co de Phone Number [facility] [address] [place] [address] * FRUCTOSAMINE (12/31/2023 9:52 AM CDT) Fructosamine 247 205 - 285 umol/L 01/02/2024 12:10 AM CDT [facility] ([facility]) Comment: INTERPRETIVE INFORMATION: ??Fructosamine Variations in levels of serum proteins (albumin and immunoglobulins) may affect fructosamine results. Performed By: [facility] [employer] [address] [place] [address] Surgical Appliance Fitter: Munir Faustin MD, PhD CLIA Number: [id number] Blood BLOOD SPECIMEN / Unknown Venipuncture / Unknown 12/31/2023 9:52 AM CDT 12/31/2023 10:18 AM CDT John Sarah MD LAB - CHEMISTRY ORD ERABLES Performing Organization Address City/[facility]/ZIP Co de Phone Number [facility] ([facility]) [address] [place] [address], [facility] * ERYTHROCYTE SEDIMENTATION RATE (12/31/2023 9:52 AM CDT) Pathologist [facility] Erythrocyte Sedimentation Rate Automated 15 0 - 30 MM/HR 12/31/2023 10:50 AM CDT [facility] Blood BLOOD SPECIMEN / Unknown Venipuncture / Unknown 12/31/2023 9:52 AM CDT 12/31/2023 10:18 AM CDT John Sarah MD LAB - HEMATOLOGY OR DERABLES [facility] [address] [place] [address] * XR FEMUR LEFT 2VW (10/03/2023 12:30 PM CDT) Only the most recent of11 resultswithin the time period is included. Anatomical Region Laterality Modality Lower Extremity Radiographic Jordan ging 10/03/2023 12:3 2 PM CDT Narrative 10/03/2023 12:34 PM CDT Procedure: XR FEMUR LEFT 2VW ??Exam Date: ??10/03/2023 12:30 PM ?? Location: ??[facility] Indication: M25.562: Pain in left knee Findings/impression: No old studies are available for comparison purposes. There are mild degenerative changes of the hip joint with some mild joint space narrowing. 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 This appears in good position. There are some small bone fragments along the margin of the interface between the prosthesis and the lateral margin of the femur. There is no acute fracture or bony destruction. The tibial component of the prosthesis is unremarkable. > Interpreting Provider: Elfego Griggs MD on 10/03/2023 12:34 PM Procedure Note Elfego Griggs MD - 10/03/2023 Procedure: XR FEMUR LEFT 2VW Exam Date: 10/03/2023 12:30 PM Location:[facility] Indication: M25.562: Pain in left knee Findings/impression: No old studies are available for comparison purposes. There are mild degenerative changes of the hip joint with some mild joint spacenarrowing. Patient is status post resection of the distal aspect of the femur withthe total knee replacement with a long intramedullary component within the femur. This appears in good position. There are some small bonefragments along the margin of the interface between the prosthesis and the lateral margin of the femur. There is no acute fracture or bony destruction. The tibial component of the prosthesis is unremarkable. > Interpreting Provider: Elfego Griggs MD on 10/03/2023 12:34 PM John Sarah MD DIAGNOSTIC IMAGING ORDERABLES * ECHO COMPLETE W CONTRAST (09/07/2023 3:34 PM CDT) BSA 1.4976641 [id number] m2 SSM CV FUJI PACS LVOT stroke vol 66.17 mL SSM CV FUJI PACS LVOT stroke vol index 37.63 mL/m2 SSM CV FUJI PACS LVIDd 2.85 3.8 - 5.2 cm SSM CV FUJI PACS IVSd 2D 1.295 0.6 - 0.9 cm SSM CV FUJI PACS LVPWd 1.16 0.6 - 0.9 cm SSM CV FUJI PACS LV EDV 2D 30.848 46 - 106 mL SSM CV FUJI PACS LV EDV index 2D 17.54 29 - 61 mL/m2 SSM CV FUJI PACS LVOT diam 2.0 cm SSM CV FUJ I PACS LVOT area 3.11 cm2 SSM CV FUJ I PACS LV RWT 0.815 SSM CV FUJ I PACS IVS/LVPW 1.115 SSM CV FUJ I PACS LV mass 2D 105.612 66 - 150 g SSM CV FUJI PACS LV mass index 2D 60.06 44 - 88 g/m2 SSM CV FUJI PACS MV E pk anastacio 50.381 cm/s SSM CV F UJI PACS MV avg E/e' ratio 8.38 SS M CV FUJI PACS MV A pk anastacio 82.144 cm/s SSM CV F UJI PACS MV E A ratio 0.61 SSM CV FUJI PACS MV E' lateral anastacio 7.671 cm/s SS M CV FUJI PACS MV DT 357 ms SSM CV FUJ I PACS MV E' septal anastacio 4.94 cm/s SSM CV FUJI PACS MV E/e' septal 10.198 SSM C V FUJI PACS MV E/e' lateral 6.567 SSM CV FUJI PACS TR pk anastacio 286.2 cm/s SSM CV [facility] I PACS LVOT pk anastacio 1.01 m/s SSM CV F UJI PACS LVOT mn anastacio 0.75 m/s SSM CV F UJI PACS LVOT mn grad 2.4 mmHg SSM CV FUJI PACS LVOT Cardiac Output 4.652 l/min SSM CV FUJI PACS LVOT Cardiac Index 2.65 l/min/m2 SSM CV FUJI PACS LA size 3.917 2.7 - 3.8 cm SSM CV FUJI PACS LA vol BP A-L 32.43 mL SSM CV FUJI PACS TV S' anastacio 15.294 cm/s SSM CV FUJ I PACS AV mn grad 5 mmHg SSM CV FU JI PACS AV pk grad 9 mmHg SSM CV FU JI PACS AV mn anastacio 1.07 m/s SSM CV FUJ I PACS AV pk anastacio 1.46 m/s SSM CV FUJ I PACS AV VTI 27.814 cm SSM CV FUJ I PACS LVOT pk grad 4.09 mmHg SSM CV FUJI PACS LVOT VTI 21.299 cm SSM CV FUJ I PACS AV area cont VTI 2.4 cm2 SSM CV FUJI PACS AV area pk anastacio 2.2 cm2 SSM C V FUJI PACS AV Doppler anastacio index pk anastacio 0.692 SSM CV FUJI PACS Dimensionless Index 0.766 SSM CV FUJI PACS MV PHT 103 ms SSM CV FUJ I PACS MV area PHT 2.13 cm2 SSM CV F UJI PACS MV decel slope 141.182 cm/s2 SSM C V FUJI PACS TR pk grad 33 mmHg SSM CV FU JI PACS PV pk anastacio 93.5 cm/s SSM CV FUJ I PACS PV pk grad 3 mmHg SSM CV FU JI PACS LA ESV A4C MOD Index 19 ml/m2 SSM CV FUJI PACS LA ESV A2C MOD Index 15 ml/m2 SSM CV FUJI PACS LV LVIDd index 1.62 2.3 - 3.1 cm/m2 SSM CV FUJI PACS Anatomical Region Laterality Modality Ultrasound Narrative 09/07/2023 3:55 PM CDT ?Left??Ventricle: Left ventricle size is normal. Mildly increased wall thickness. Normal systolic function with a visually estimated EF of 55 - 60%. Normal wall motion. Grade I diastolic dysfunction with normal left atrial pressure. Left Ventricle Left ventricle size is normal. Mildly increased wall thickness. Normal systolic function with a visually estimated EF of 55 - 60%. Normal wall motion. Grade I diastolic dysfunction with normal left atrial pressure. Right Ventricle Right ventricle size is normal. Normal systolic function. Left Atrium Left atrium size is normal. Right Atrium Right atrium size is normal. IVC/SVC IVC diameter is less than or equal to 21 mm and decreases greater than 50% during inspiration; therefore the estimated right atrial pressure is normal (~3 mmHg). Mitral Valve Valve structure is normal. No restricted motion. Trace regurgitation. No stenosis. Tricuspid Valve Valve structure is normal. No restricted motion. Caeij-mp-hsqg regurgitation. No stenosis. Aortic Valve Valve structure is trileaflet. No restricted motion. No regurgitation. No stenosis. Pulmonic Valve Valve structure is normal. No restricted motion. Trace regurgitation. No stenosis. Ascending Aorta Normal sized sinus of Valsalva (aortic root) and ascending aorta. Pericardium No pericardial effusion. Study Details A complete 2D, color Doppler, spectral Doppler and M-mode echocardiogram was performed. The apical, parasternal, subcostal and suprasternal views were obtained. Definity ultrasound enhancing agent used. Procedure Note Silva Booth MD - 09/07/2023 ? ? Left??Ventricle: Left ventricle size is normal. Mildly increased wallthickness. Normal systolic function with a visually estimated EF of 55 -60%. Normal wall motion. Grade I diastolic dysfunction with normal leftatrial pressure. Ubaldo Winters MD ECHO CUPID * (ABNORMAL) PTT (09/07/2023 3:52 AM CDT) Only the most recent of4 resultswithin the time period is included. PTT 89.0(H) 23.0 - 38.4 sec 09/07/2023 4:38 AM CDT [facility] Blood BLOOD SPECIMEN / Unknown Venipuncture / Unknown 09/07/2023 3:52 AM CDT 09/07/2023 4:16 AM CDT Narrative [facility] - 09/07/2023 4:38 AM CDT Heparin Therapeutic Range for PTT: ??69.0 - 110.0 seconds. Munir Martin MD LAB - COAGULAT ION ORDERABLES [facility] [address] [place] [address] * PT-INR (09/07/2023 3:52 AM CDT) Only the most recent of2 resultswithin the time period is included. PT 13.3 12.1 - 14.8 sec 09/07/2023 4:38 AM CDT [facility] INR 1.0 0.9 - 1.1 09/07/2023 4:38 AM CDT [facility] Blood BLOOD SPECIMEN / Unknown Venipuncture / Unknown 09/07/2023 3:52 AM CDT 09/07/2023 4:16 AM CDT Narrative [facility] - 09/07/2023 4:38 AM CDT Conventional Warfarin Anticoagulant Therapy: INR Reference Range: ??2.0-3.0 Intensive Warfarin Anticoagulant Therapy: INR Reference Range: ? 2.5-3.5 Munir Martin MD LAB - COAGULAT ION ORDERABLES [facility] [address] [place] [address] * VAS BILATERAL VENOUS DUPLEX LE (09/06/2023 3:18 PM CDT) Anatomical Region Laterality Modality Lower Extremity Ultrasound 09/06/2023 3:51 PM CDT Narrative Procedure Note Sary Sánchez MD - 09/06/2023 [facility] [id number] [place] [id number] Lower Extremity Venous Ultrasound Report Pat.Name: SAMMI CALZADA Sarai.ID: [id number] .Date: 09/06/2023 Exam Time: 3:51:00 PM Study Type:LE Venous Age: 5 1940,83Y Sex: FEMALE Sonogrphr: José Alvarado RVT Pat. Stat.:Inpatient Room: 402 Bed 01 ICD - 9: I26.99 Reason for Study: Acute pulmonary embolism, unspecified pulmonary embolism type, unspecified whether acute cor pulmonale present History / Clinical: Diverticulitis, Acid reflux, Parkinson disease Procedures: Lower Extremity Venous - Bilateral Race: 2 Visit ID: [id number] ++++++++++++++++++++++++++++++++++++ SUMMARY: ++++++++++++++++++++++++++++++++++++ Acute DVT in the right leg involving the peroneal vein. No evidence of DVT in the left leg ++++++++++++++++++++++++++++++++++++ FINDINGS: ++++++++++++++++++++++++++++++++++++ Procedure: Venous duplex imaging of both lower extremities was performed using color flow and spectral Doppler analysis. Study Quality: Technically difficult exam due to body habitus. Rt Leg: There is acute, occlusive thrombus in the one of two peroneal veins. All other vessels seen appear patent and compressible. There was spontaneous and phasic flow seen in all other major veins of the right lower extremity. Appropriate augmentation with distal compression. Lt Leg: All vessels seen appear patent and compressible. There was spontaneous and phasic flow seen in all major veins of the left lower extremity. Appropriate augmentation with distal compression. Comments: Technologist findings were given to HEBER Malik at 15:20 pm. Signed 09/06/2023 03:51 PM Sary Sánchez MD Ubaldo Winters MD VASCULAR LAB ORDERABLES * (ABNORMAL) CBC W/O DIFFERENTIAL (09/06/2023 4:25 AM CDT) Only the most recent of7 resultswithin the time period is included. [facility] WBC 5.4 4.0 - 10.7 x10E9/L 09/06/2023 5:05 AM CDT [facility] RBC Count 3.71(L) 3.90 - 5.20 x10E12/L 09/06/2023 5:05 AM CDT [facility] Hemoglobin 12.1 11.9 - 15.8 g/dL 09/06/2023 5:05 AM CDT [facility] Hematocrit 36.2 34.8 - 46.1 % 09/06/2023 5:05 AM CDT [facility] MCV 97.6 80.0 - 98.0 fL 09/06/2023 5:05 AM CDT [facility] MCH 32.6 26.7 - 33.6 pg 09/06/2023 5:05 AM CDT [facility] MCHC 33.4 31.7 - 36.3 g/dL 09/06/2023 5:05 AM CDT [facility] RDW-CV 13.0 11.3 - 14.8 % 09/06/2023 5:05 AM CDT [facility] Platelet Count 190 150 - 420 x10E9/L 09/06/2023 5:05 AM CDT [facility] MPV 9.0 7.8 - 11.4 fL 09/06/2023 5:05 AM CDT [facility] Blood BLOOD SPECIMEN / Unknown Venipuncture / Unknown 09/06/2023 4:25 AM CDT 09/06/2023 4:43 AM CDT Munir Martin MD LAB - HEMATOLO GY ORDERABLES [facility] [address] [place] [address] * CT FEMUR LEFT WO CONTRAST (11/03/2020 1:35 PM CDT) Only the most recent of2 resultswithin the time period is included. Anatomical Region Laterality Modality Lower Extremity Computed Tomogra phy 11/03/2020 4:49 PM CDT Impressions 11/04/2020 1:24 PM CDT Impression: Redemonstrated changes of open reduction and internal fixation for a distal left femur fracture, unchanged in alignment. 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 Dictated by Belkis Saleem MD (hvac technician residential). I, Dr. SARY MEJÍA have personally reviewed and interpreted this examination/study. This report was electronically signed by SARY MEJÍA ??on 11/04/2020 1:24 PM . Narrative 11/04/2020 1:24 PM CDT Procedure Information DATE: 11/03/2020 1:36 PM EXAMINATION: Computed tomography (CT) of the left femur without contrast TECHNIQUE: CT of the left femur was performed without contrast according to standard protocol. Multiplanar reconstructions and postprocessed 3-D images were produced. Clinical Information HISTORY: S72.463S: Supracondylar fracture of distal end of femur with intracondylar extension, sequela COMPARISON: CT left femur from 03/24/2020, left femur radiographs from 08/18/2020 Findings Bones: There is internal fixation of the left distal femur with a lateral plate and screws for a supracondylar fracture. The fracture lines remain well seen. Alignment is grossly unchanged since the prior exams. There is interval cortication of the fracture limits since the prior CT, suggestive of nonunion. A 2.9 cm high attenuation fragment in the suprapatellar region is unchanged, and may represent fracture fragment or cement/bone graft material. A screw tip is again seen protruding medially into the soft tissues up to 9 mm (series 4 image 217). No new fractures are identified. Vessels: Vascular calcifications and colonic diverticulosis are again seen. Soft tissues: There is mild chondrocalcinosis at the left hip. Procedure Note Sary Mejía MD - 11/04/2020 Procedure Information DATE: 11/03/2020 1:36 PM EXAMINATION: Computed tomography (CT) of the left femur without contrast TECHNIQUE: CT of the left femur was performed without contrast according tostandard protocol. Multiplanar reconstructions and postprocessed 3-D images were produced. Clinical Information HISTORY: S72.463S: Supracondylar fracture of distal end of femur with intracondylar extension, sequela COMPARISON: CT left femur from 03/24/2020, left femur radiographs from 08/18/2020 Findings Bones: There is internal fixation of the left distal femur with a lateral plate and screws for a supracondylar fracture. The fracture lines remain well seen. Alignment is grossly unchanged since the prior exams. There is interval cortication of the fracture limits since the prior CT,suggestive of nonunion. A 2.9 cm high attenuation fragment in the suprapatellar region is unchanged, and may represent fracture fragment or cement/bone graft material. A screw tip is again seen protruding medially into the soft tissues up to 9 mm (series 4 image 217). No new fractures are identified. Vessels: Vascular calcifications and colonic diverticulosis are again seen. Soft tissues: There is mild chondrocalcinosis at the left hip. Impression: Redemonstrated changes of open reduction and internal fixation for a distal left femur fracture, unchanged in alignment. 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 Dictated by Belkis Saleem MD (hvac technician residential). I, Dr. SARY MEJÍA have personally reviewed and interpreted this examination/study. This report was electronically signed by SARY MEJÍA on 11:24 PM . Latesha RAMIREZ-Ai CT ORDERABLE S * VT DRAIN/INJECT LARGE JOINT/BURSA (07/14/2020 10:00 AM CDT) Narrative Vidal Lazo MD - 07/14/2020 10:00 AM CDT Pb Breaux MD ? 07/14/2020 10:01 AM Brief Procedure Note After obtaining verbal informed consent from the patient they were positioned supine with the left knee in extension. ??The lateral suprapatellar portal was identified and marked. ??The site was prepped with alcohol and betadine swabs. ??A 22 gauge needle was used to inject a mixture of 2 cc of 0.25% markaine and 1 cc of 80mg/ml of kenalog into the knee joint. ??A sterile dressing was applied. ??The patient tolerated the procedure well. Vidal Lazo MD PROCEDURE/MINOR SURG ICAL ORDERABLES * LARYNGEAL MASK AIRWAY (05/07/2020 10:44 AM [employer]) Narrative Belkis Walker Anes Asst - 05/07/2020 10:44 AM [employer] Blekis Walker Anes Asst ? 05/07/2020 10:44 AM LMA Placement Procedure/LDA Note: Patient Location: OR. LMA Insertion Date/Time: ??05/07/2020 10:31 AM Procedure: LMA. Pretreatment: 100% O2 Induction: standard IV Patient position: sniffing. Mask Ventilation: not attempted Type: ??LMA Size: ??4 Number of Attempts: 1. Placement verified by: direct visualization, bilateral breath sounds, chest auscultation and CO2 monitor Dentition unchanged? ??Yes Procedure Start Time: 05/07/2020 10:31 AM. Staff Section ?? Anesthesia Provider: Belkis Walker Anes Asst, Performed the procedure Nano Burton MD GENERAL ANESTHESIA O RDERABLES * (ABNORMAL) SARS-COV-2 (COVID-19) PRE-SURGICAL/PROCEDURE (04/15/2020 12:50 PM [employer]) COVID-19 PCR Detected( AA) Not detected 04/15/2020 10:09 PM [employer] [facility] Microbiology SPECIMEN FROM NASOPHARYNGEAL STRUCTURE / Unknown Collection / Unknown 04/15/2020 12:50 PM [employer] 04/15/2020 3:19 PM [employer]OR [employer] Narrative [facility] - 04/15/2020 10:09 PM [employer] This nucleic acid amplification assay performance was validated by [facility]. This test has been authorized by the Food and Drug administration (FDA)under an Emergency??Use Authorization (EUA). This test has been validated in accordance with the FDA's guidance document Policy for Diagnostic Testing in Laboratories Certified to perform High Complexity Testing under CLIA prior to Emergency Use Authorization for Coronavirus Disease-2019 during the Public Health Emergency issued on May 31, 2019. FDA independent review of this validation is pending. This test is only authorized for the duration of time the declaration that circumstances exist justifying the authorization of emergency use of in vitro diagnostic tests for detection of SARS-CoV-2 virus and/or diagnosis of COVID-19 infection under section 564(b)(1) of the Act, 21 U.S.C 360bbb-3 (b)(1), unless the authorization is terminated or revoked sooner. Fact Sheets for this EUA assay are available upon request. Vidal Lazo MD LAB - MICROBIOLOGY O RDERABLES [facility] [address] [place] [address], [facility] [phone] * CARDIAC EKG ORDER (09/29/2019 9:26 AM CDT) Only the most recent of2 resultswithin the time period is included. Narrative 09/29/2019 9:26 AM CDT Ordered by an unspecified provider. Scanned Document CARDIAC SERVICES ORD ERABLES * PHOSPHORUS BLOOD (09/25/2019 6:29 AM CDT) Only the most recent of3 resultswithin the time period is included. Phosphorus 2.6 2.3 - 4.7 mg/dL 09/25/2019 7:40 AM CDT [facility] Blood BLOOD SPECIMEN / Unknown Lab Venipuncture / Unknown 09/25/2019 6:29 AM CDT 09/25/2019 7:14 AM CDT Jonathan Silveira MD LAB - CHEMISTRY PAPA GILBERT Performing Organization Address [facility] Co de Phone Number [address], [facility] [phone] * MAGNESIUM BLOOD (09/25/2019 6:29 AM CDT) Only the most recent of4 resultswithin the time period is included. Magnesium 1.7 1.6 - 2.6 mg/dL 09/25/2019 7:40 AM CDT [facility] Blood BLOOD SPECIMEN / Unknown Lab Venipuncture / Unknown 09/25/2019 6:29 AM CDT 09/25/2019 7:14 AM CDT Jonathan Silveira MD LAB - CHEMISTRY PAPA GILBERT Performing Organization Address [facility] de Phone Number [address] [phone], [facility] [phone] * CT CHEST ABDOMEN PELVIS W CONT (09/24/2019 2:40 PM CDT) Only the most recent of2 resultswithin the time period is included. Anatomical Region Laterality Modality Chest, Abdomen, Pelvis Computed Tomography 09/24/2019 2:41 PM CDT Impressions 09/24/2019 3:10 PM CDT IMPRESSION: 1. No acute visceral or vascular identified in the chest, abdomen, or pelvis. 2. Acute L3 burst fracture with approximately 50% height loss and 5 mm retropulsion. Please see the lumbar spine CT report for further detail. Dictated by Jesika Wolf MD (resident care aide). IDr. Lenin M.D. have personally reviewed and interpreted this examination/study. This report was electronically signed by Lenin MUSA M.D. ??on 09/24/2019 3:10 PM . Narrative 09/24/2019 3:10 PM CDT EXAMINATION: Computed tomography (CT) of the chest, abdomen, and pelvis with contrast HISTORY: W19.XXXA: Fall, initial encounter TECHNIQUE: CT of the chest, abdomen, and pelvis was performed after the uneventful administration of 100 mL of Isovue 370 intravenous contrast according to standard protocol. FINDINGS: No prior study is available for comparison at the time of this dictation. Chest: The main pulmonary artery is normal in caliber. The aorta is atherosclerotic but normal in caliber. The heart size is normal. Trace pericardial effusion is present. No mediastinal, hilar, supraclavicular, or axillary lymphadenopathy is seen. The thyroid enhances homogenously. There is atelectasis in the dependent portions of the lungs. Otherwise no focal consolidation is seen. No pleural effusion or focal pleural thickening is identified. There is no evidence of pneumothorax. No suspicious pulmonary nodule is identified. The trachea is patent and free of intraluminal debris. Abdomen/pelvis: Motion degraded scan. The liver enhances homogenously. The gallbladder is surgically absent. The intrahepatic and extrahepatic bile ducts are nondilated. The spleen enhances homogenously without focal lesion. There is a splenic cleft. The pancreas and adrenal glands are normal. The kidneys enhance symmetrically. There is no evidence of renal calculus or hydronephrosis. The esophagus and stomach appear normal. The small bowel and colon are normal in caliber without evidence of wall thickening or obstruction. There is chronic diverticulosis without diverticulitis. The appendix appears normal without appendicolith or surrounding inflammatory changes. No free air or free fluid is identified within the abdomen. There is no abdominal lymphadenopathy. The urinary bladder is distended with fluid and appears normal. The uterus is absent. No free fluid is seen within the pelvis. There is no pelvic lymphadenopathy. Bone windows demonstrate no suspicious lytic or blastic lesions. There is an old T11 vertebral body fracture with kyphoplasty material. There is acute L3 burst fracture with approximately 50% height loss and 5 mm retropulsion. Procedure Note Teri Musa MD - 09/24/2019 EXAMINATION: Computed tomography (CT) of the chest, abdomen, and pelvis with contrast HISTORY: W19.XXXA: Fall, initial encounter TECHNIQUE: CT of the chest, abdomen, and pelvis was performed after the uneventful administration of 100 mL of Isovue 370 intravenous contrast according to standard protocol. FINDINGS: No prior study is available for comparison at the time of this dictation. Chest: The main pulmonary artery is normal in caliber. The aorta is atherosclerotic but normal in caliber. The heart size is normal. Trace pericardial effusion is present. No mediastinal, hilar, supraclavicular, or axillary lymphadenopathy isseen. The thyroid enhances homogenously. There is atelectasis in the dependent portions of the lungs. Otherwiseno focal consolidation is seen. No pleural effusion or focal pleural thickening is identified. There is no evidence of pneumothorax. No suspicious pulmonary nodule is identified. The trachea is patent andfree of intraluminal debris. Abdomen/pelvis: Motion degraded scan. The liver enhances homogenously. The gallbladder is surgically absent.The intrahepatic and extrahepatic bile ducts are nondilated. The spleen enhances homogenously without focal lesion. There is a splenic cleft.The pancreas and adrenal glands are normal. The kidneys enhancesymmetrically. There is no evidence of renal calculus or hydronephrosis. The esophagus and stomach appear normal. The small bowel and colon are normal in caliber without evidence of wall thickening or obstruction. There is chronic diverticulosis without diverticulitis. The appendix appears normal without appendicolith or surrounding inflammatorychanges. No free air or free fluid is identified within the abdomen. There is no abdominal lymphadenopathy. The urinary bladder is distended with fluid and appears normal. Theuterus is absent. No free fluid is seen within the pelvis. There is no pelvic lymphadenopathy. Bone windows demonstrate no suspicious lytic or blastic lesions. Thereis an old T11 vertebral body fracture with kyphoplasty material. There is acute L3 burst fracture with approximately 50% height loss and 5 mm retropulsion. IMPRESSION: 1. No acute visceral or vascular identified in the chest, abdomen, or pelvis. 2. Acute L3 burst fracture with approximately 50% height loss and 5 mm retropulsion. Please see the lumbar spine CT report for further detail. Dictated by Jesika Wolf MD (resident care aide). IDr. Lenin M.D. have personally reviewed and interpretedthis examination/study. This report was electronically signed by Lenin MUSA M.D. on 09/24/2019 3:10 PM . Daniela Godinez MD CT ORDERABLES * ETT LINE PERFORMABLE (09/23/2019 11:39 AM CDT) Narrative Candelario Han APRN-CRNA - 09/23/2019 11:39 AM CDT Candelario Han APRN-CRNA ? 09/23/2019 11:39 AM Endotracheal Tube Placement: ? Patient Location: OR. Intubation Event Date/Time: ??09/23/2019 10:56 AM Procedure: intubation ([id number]). Procedure Section: ?? Sedation: under general anesthesia. Indications for Airway Management: ??anesthesia Procedure pretreatments used? ??No Induction: standard IV Patient Position: ??sniffing and supine Mask Ventilation: easy. Blade Type: Andrew Blade Size: 3 Laryngoscopy View: grade 1 (full cords) Tube: endotracheal tube Placement: oral Tube Size (MM): 7 Depth of Insertion (CM): 21 Measured From: teeth Cuff Inflated With: air Number of Attempts: 1. Placement Verified By: direct visualization, bilateral breath sounds and CO2 monitor Tube secured with: ??adhesive tape. Difficult Airway? ??No. Procedure Start Time: 09/23/2019 10:56 AM. Staff Section ?? Anesthesia Provider: Candelario Han, DO, Performed the procedure Lynda Ha MD GENERAL ANESTHESIA O RDERABLES * PREPARE (CROSSMATCH) RBC UNIT(S), 1 Units (09/23/2019 6:12 AM CDT) Only the most recent of2 resultswithin the time period is included. Unit Description N/A [facility] Blood Bank BLOOD SPECIMEN / Unknown 09/23/2019 6:12 AM CDT 09/23/2019 6:32 AM CDT Jonathan Silveira MD LAB - BLOOD BANK ORD ERABLES [facility] [address] [place] [address], [facility] * (ABNORMAL) VITAMIN B12 (09/23/2019 6:12 AM CDT) Vitamin B12 168(L) 213 - 816 pg/mL 09/23/2019 10:43 AM CDT [facility] Blood BLOOD SPECIMEN / Unknown Venipuncture / Unknown 09/23/2019 6:12 AM CDT 09/23/2019 6:18 AM CDT Nia Charles DO LAB - CHEMISTRY [facility] [place] [address] [address], [facility] [phone] * PT-INR [facility] (09/23/2019 4:30 AM CDT) PT 12.7 12.1 - 14.8 Seconds 09/23/2019 4:46 AM CDT [facility] INR 1.0 See Comment 09/23/2019 4:46 AM CDT [facility] Comment:The suggested therap eutic range for standard coumadin (warfarin) therapy is an INR of 2.0-3.0. For high-risk patients (Mechanical Mitral Valve Prosthesis, etc.), the suggested prophylactic therapeutic range is an INR of 2.5-3.5. Blood BLOOD SPECIMEN / Unknown Venipuncture / Unknown 09/23/2019 4:30 AM CDT 09/23/2019 4:34 AM CDT Munir Victoria MD LAB - COAGULAT ION ORDERABLES Performing Organization Address [facility]/ZIP Co de Phone Number [address] [id number] [phone] * CT KNEE LEFT WO CONTRAST (09/23/2019 3:58 AM CDT) Anatomical Region Laterality Modality Lower Extremity Computed Tomogra phy 09/23/2019 4:00 AM CDT Impressions 09/23/2019 7:23 AM CDT IMPRESSION: 1. Comminuted, moderately displaced, impacted intra-articular fracture of the distal femur. Dictated by Radha Katz MD (resident care aide). I, Dr. CHRISTIANO ROSENTHAL MD have personally reviewed and interpreted this examination/study. This report was electronically signed by CHRISTIANO ROSENTHAL MD ??on 09/23/2019 7:23 AM . Narrative 09/23/2019 7:23 AM CDT EXAMINATION: Computed tomography (CT) of the left knee without contrast HISTORY: S72.302A: Closed fracture of shaft of left femur, unspecified fracture morphology, initial encounter COMPARISON: Left knee x-ray from earlier today TECHNIQUE: CT of the left knee was performed without contrast according to standard protocol. FINDINGS: A splint is present. There is a comminuted, moderately displaced, impacted intra-articular fracture of the distal femur. Fracture line extends to the articular surface at the medial facet of the trochlea and anterior aspect of the medial femoral condyle where there is step-off of 5 mm (series 6 image 46). A nondisplaced fracture line extends proximally toward the diaphysis (series 5 image 53). A displaced 2 cm fragment is present in the soft tissues of the suprapatellar region anterolaterally (series 4 image 22). No other fracture is seen. There is no dislocation. 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 There is an effusion with lipohemarthrosis. Edema and hemorrhage are seen at around the fracture site. A varicose vein is seen in the lateral subcutaneous tissues. Procedure Note Christiano Rosenthal MD - 09/23/2019 EXAMINATION: Computed tomography (CT) of the left knee without contrast HISTORY: S72.302A: Closed fracture of shaft of left femur, unspecified fracture morphology, initial encounter COMPARISON: Left knee x-ray from earlier today TECHNIQUE: CT of the left knee was performed without contrast accordingto standard protocol. FINDINGS: A splint is present. There is a comminuted, moderately displaced,impacted intra-articular fracture of the distal femur. Fracture line extends tothe articular surface at the medial facet of the trochlea and anterioraspect of the medial femoral condyle where there is step-off of 5 mm (series 6 image 46). A nondisplaced fracture line extends proximally toward the diaphysis (series 5 image 53). A displaced 2 cm fragment is present inthe soft tissues of the suprapatellar region anterolaterally (series 4 image 22). No other fracture is seen. There is no dislocation. 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 There is an effusion with lipohemarthrosis. Edema and hemorrhage are seen at around the fracture site. A varicose vein is seen in the lateral subcutaneous tissues. IMPRESSION: 1. Comminuted, moderately displaced, impacted intra-articular fractureof the distal femur. Dictated by Radha Katz MD (resident care aide). Dr. CHRISTIANO Hooker MD have personally reviewed and interpreted this examination/study. This report was electronically signed by CHRISTIANO ROSENTHAL MD on09/23/2019 7:23 AM . Munir Victoria MD CT ORDERABLES * CT LUMBAR SPINE WO CONTRAST (09/23/2019 3:58 AM CDT) Anatomical Region Laterality Modality Spine Computed Tomogra phy 09/23/2019 7:38 AM CDT Impressions 09/23/2019 11:11 AM CDT IMPRESSION: 1.No acute intracranial hemorrhage, mass effect, or midline shift. 2.No evidence of acute fracture in the cervical or thoracic spine. 3.Acute, burst-type compression fracture of the L3 vertebral body extending into the posterior elements with approximately 50 percent height loss. There is 5 mm retropulsion into the spinal canal causing mild spinal canal stenosis. Dictated by Mariely Negro MD (resident care aide). This report was approved ??by Mariely Negro ?? on 09/23/2019 11:[address] CONI Hooker have personally reviewed and interpreted this examination/study. This report was electronically signed by CONI BRONSON ??on 09/23/2019 11:11 AM . Narrative 09/23/2019 11:[address] CERVICAL SPINE WO CONTRAST, CT THORACIC SPINE WO CONTRAST, CT LUMBAR SPINE WO CONTRAST, CT HEAD WO CONTRAST DATE: 09/23/2019 12:03 AM The nasal septum is deviated to the right. EXAMINATION: 1. Computed tomography (CT) of the head without contrast 2. CT of the cervical spine without contrast 3. CT of the thoracic spine without contrast 4. CT of the lumbar spine without contrast HISTORY: Head, neck, and back pain after fall TECHNIQUE: CT of the head and cervical spine were performed without contrast according to standard protocol. Reformatted axial, sagittal, and coronal images of the thoracic and lumbar spine were obtained by the technologist from a concurrently performed body CT and sent to the workstation for review. COMPARISON: No prior study is available for comparison at the time of this dictation. FINDINGS: Head: No acute intra- or extra-axial hemorrhage or fluid collections are identified. There is mild cerebral volume loss with associated ex vacuo ventricular dilatation. The basilar cisterns are patent. No mass effect or midline shift is seen. The blackwell-white matter differentiation is normal. Periventricular white matter hypoattenuation is indicative of chronic small vessel ischemic disease. There is vascular calcification of the carotid siphons. Other than bilateral cataract extractions and small retention cysts in the left maxillary sinus, the visualized portions of the orbits, paranasal sinuses, and mastoids appear normal. No acute fracture is identified. There are degenerative changes of the temporomandibular joints bilaterally. Cervical spine: There is diffuse osseous demineralization of the spine. There is mild levoscoliosis of the cervical spine. Vertebral bodies are normal in height without evidence of acute fracture. Other than middle atlantoaxial joint osteoarthritis, the craniocervical junction appears normal. There is moderate degenerative disc disease at C6-C7. No central canal stenosis is seen. There are varying degrees of mild facet osteoarthritis. There are varying degrees of mild uncovertebral joint osteoarthritis No significant neural foraminal stenosis is seen. There is atherosclerotic calcification of the carotid bifurcations. Thoracic spine: Bones are osteopenic. There is exaggeration of thoracic kyphosis. There is mild dextroscoliosis of the thoracic spine. There is postprocedure changes of a left transpedicular T11 kyphoplasty with approximately 50 percent vertebral body height loss. There is chronic central height loss of the T4 vertebral body, likely secondary to Schmorl nodes. There is mild degenerative disc disease. No central canal stenosis is seen. There is mild facet osteoarthritis at multiple levels. No significant neural foraminal stenosis is seen. There are bibasilar dependent atelectasis. Biapical scarring is noted. There are calcified mediastinal nodes. Lumbar spine: Bones are osteopenic. The alignment is maintained. There is acute, burst-type compression fracture of the L3 vertebral body with 50 percent central height loss. The fractures line extending into the posterior elements and involving bilateral pedicles. There is involvement of the posterior wall of the vertebral body with decreased posterior vertebral wall height. There is 5 mm retropulsion of the posterior cortex into the spinal canal causing mild spinal canal stenosis. There is mild degenerative disc disease. Mild multilevel central canal stenosis is seen, related to disc bulges, facet hypertrophy, and ligamentum flavum thickening. There is mild facet osteoarthritis at multiple levels. There are varying degrees of neural foraminal stenosis at multiple levels. No soft tissue abnormality is identified. Procedure Note Coni Bronson MD - 09/23/2019 CT CERVICAL SPINE WO CONTRAST, CT THORACIC SPINE WO CONTRAST, CT LUMBAR SPINE WO CONTRAST, CT HEAD WO CONTRAST DATE: 09/23/2019 12:03 AM The nasal septum is deviated to the right. EXAMINATION: 1. Computed tomography (CT) of the head without contrast 2. CT of the cervical spine without contrast 3. CT of the thoracic spine without contrast 4. CT of the lumbar spine without contrast HISTORY: Head, neck, and back pain after fall TECHNIQUE: CT of the head and cervical spine were performed without contrast according to standard protocol. Reformatted axial, sagittal,and coronal images of the thoracic and lumbar spine were obtained by the technologist from a concurrently performed body CT and sent to the workstation for review. COMPARISON: No prior study is available for comparison at the time ofthis dictation. FINDINGS: Head: No acute intra- or extra-axial hemorrhage or fluid collections are identified. There is mild cerebral volume loss with associated ex vacuo ventricular dilatation. The basilar cisterns are patent. No mass effector midline shift is seen. The blackwell-white matter differentiation is normal. Periventricular white matter hypoattenuation is indicative of chronic small vessel ischemic disease. There is vascular calcification of the carotid siphons. Other than bilateral cataract extractions and small retention cysts in the left maxillary sinus, the visualized portions of the orbits, paranasal sinuses, and mastoids appear normal. No acute fracture is identified. There are degenerative changes of the temporomandibular joints bilaterally. Cervical spine: There is diffuse osseous demineralization of the spine. There is mild levoscoliosis of the cervical spine. Vertebral bodies are normal inheight without evidence of acute fracture. Other than middle atlantoaxial joint osteoarthritis, the craniocervical junction appears normal. There is moderate degenerative disc disease at C6-C7. No central canal stenosisis seen. There are varying degrees of mild facet osteoarthritis. There are varying degrees of mild uncovertebral joint osteoarthritis Nosignificant neural foraminal stenosis is seen. There is atheroscleroticcalcification of the carotid bifurcations. Thoracic spine: Bones are osteopenic. There is exaggeration of thoracic kyphosis. Thereis mild dextroscoliosis of the thoracic spine. There is postprocedurechanges of a left transpedicular T11 kyphoplasty with approximately 50 percent vertebral body height loss. There is chronic central height loss of theT4 vertebral body, likely secondary to Schmorl nodes. There is mild degenerative disc disease. No central canal stenosis is seen. There is mild facet osteoarthritis at multiple levels. No significant neural foraminal stenosis is seen. There are bibasilar dependent atelectasis. Biapical scarring is noted. There are calcified mediastinal nodes. Lumbar spine: Bones are osteopenic. The alignment is maintained. There is acute, burst-type compression fracture of the L3 vertebral body with 50 percent central height loss. The fractures line extending into the posterior elements and involving bilateral pedicles. There is involvement of the posterior wall of the vertebral body with decreased posterior vertebral wall height. There is 5 mm retropulsion of the posterior cortex into the spinal canal causing mild spinal canal stenosis. There is mild degenerative disc disease. Mild multilevel central canal stenosis isseen, related to disc bulges, facet hypertrophy, and ligamentum flavum thickening. There is mild facet osteoarthritis at multiple levels. There are varying degrees of neural foraminal stenosis at multiple levels. No soft tissue abnormality is identified. IMPRESSION: 1.No acute intracranial hemorrhage, mass effect, or midline shift. 2.No evidence of acute fracture in the cervical or thoracic spine. 3.Acute, burst-type compression fracture of the L3 vertebral body extending into the posterior elements with approximately 50 percentheight loss. There is 5 mm retropulsion into the spinal canal causing mildspinal canal stenosis. Dictated by Mariely Negro MD (resident care aide). This report was approved by Mariely Negro on 09/23/2019 11:[address] CONI Hooker have personally reviewed and interpreted this examination/study. This report was electronically signed by CONI BRONSON on09/23/2019 11:11 AM . Jaron Sotelo III, MD CT ORDERABLES * CT THORACIC SPINE WO CONTRAST (09/23/2019 3:58 AM CDT) Anatomical Region Laterality Modality Spine Computed Tomogra phy 09/23/2019 7:38 AM CDT Impressions 09/23/2019 11:11 AM CDT IMPRESSION: 1.No acute intracranial hemorrhage, mass effect, or midline shift. 2.No evidence of acute fracture in the cervical or thoracic spine. 3.Acute, burst-type compression fracture of the L3 vertebral body extending into the posterior elements with approximately 50 percent height loss. There is 5 mm retropulsion into the spinal canal causing mild spinal canal stenosis. Dictated by Mariely Negro MD (resident care aide). This report was approved ??by Mariely Negro ?? on 09/23/2019 11:[address] CONI Hooker have personally reviewed and interpreted this examination/study. This report was electronically signed by CONI BRONSON ??on 09/23/2019 11:11 AM . Narrative 09/23/2019 11:[address] CERVICAL SPINE WO CONTRAST, CT THORACIC SPINE WO CONTRAST, CT LUMBAR SPINE WO CONTRAST, CT HEAD WO CONTRAST DATE: 09/23/2019 12:03 AM The nasal septum is deviated to the right. EXAMINATION: 1. Computed tomography (CT) of the head without contrast 2. CT of the cervical spine without contrast 3. CT of the thoracic spine without contrast 4. CT of the lumbar spine without contrast HISTORY: Head, neck, and back pain after fall TECHNIQUE: CT of the head and cervical spine were performed without contrast according to standard protocol. Reformatted axial, sagittal, and coronal images of the thoracic and lumbar spine were obtained by the technologist from a concurrently performed body CT and sent to the workstation for review. COMPARISON: No prior study is available for comparison at the time of this dictation. FINDINGS: Head: No acute intra- or extra-axial hemorrhage or fluid collections are identified. There is mild cerebral volume loss with associated ex vacuo ventricular dilatation. The basilar cisterns are patent. No mass effect or midline shift is seen. The blackwell-white matter differentiation is normal. Periventricular white matter hypoattenuation is indicative of chronic small vessel ischemic disease. There is vascular calcification of the carotid siphons. Other than bilateral cataract extractions and small retention cysts in the left maxillary sinus, the visualized portions of the orbits, paranasal sinuses, and mastoids appear normal. No acute fracture is identified. There are degenerative changes of the temporomandibular joints bilaterally. Cervical spine: There is diffuse osseous demineralization of the spine. There is mild levoscoliosis of the cervical spine. Vertebral bodies are normal in height without evidence of acute fracture. Other than middle atlantoaxial joint osteoarthritis, the craniocervical junction appears normal. There is moderate degenerative disc disease at C6-C7. No central canal stenosis is seen. There are varying degrees of mild facet osteoarthritis. There are varying degrees of mild uncovertebral joint osteoarthritis No significant neural foraminal stenosis is seen. There is atherosclerotic calcification of the carotid bifurcations. Thoracic spine: Bones are osteopenic. There is exaggeration of thoracic kyphosis. There is mild dextroscoliosis of the thoracic spine. There is postprocedure changes of a left transpedicular T11 kyphoplasty with approximately 50 percent vertebral body height loss. There is chronic central height loss of the T4 vertebral body, likely secondary to Schmorl nodes. There is mild degenerative disc disease. No central canal stenosis is seen. There is mild facet osteoarthritis at multiple levels. No significant neural foraminal stenosis is seen. There are bibasilar dependent atelectasis. Biapical scarring is noted. There are calcified mediastinal nodes. Lumbar spine: Bones are osteopenic. The alignment is maintained. There is acute, burst-type compression fracture of the L3 vertebral body with 50 percent central height loss. The fractures line extending into the posterior elements and involving bilateral pedicles. There is involvement of the posterior wall of the vertebral body with decreased posterior vertebral wall height. There is 5 mm retropulsion of the posterior cortex into the spinal canal causing mild spinal canal stenosis. There is mild degenerative disc disease. Mild multilevel central canal stenosis is seen, related to disc bulges, facet hypertrophy, and ligamentum flavum thickening. There is mild facet osteoarthritis at multiple levels. There are varying degrees of neural foraminal stenosis at multiple levels. No soft tissue abnormality is identified. Procedure Note Coni Bronson MD - 09/23/2019 CT CERVICAL SPINE WO CONTRAST, CT THORACIC SPINE WO CONTRAST, CT LUMBAR SPINE WO CONTRAST, CT HEAD WO CONTRAST DATE: 09/23/2019 12:03 AM The nasal septum is deviated to the right. EXAMINATION: 1. Computed tomography (CT) of the head without contrast 2. CT of the cervical spine without contrast 3. CT of the thoracic spine without contrast 4. CT of the lumbar spine without contrast HISTORY: Head, neck, and back pain after fall TECHNIQUE: CT of the head and cervical spine were performed without contrast according to standard protocol. Reformatted axial, sagittal,and coronal images of the thoracic and lumbar spine were obtained by the technologist from a concurrently performed body CT and sent to the workstation for review. COMPARISON: No prior study is available for comparison at the time ofthis dictation. FINDINGS: Head: No acute intra- or extra-axial hemorrhage or fluid collections are identified. There is mild cerebral volume loss with associated ex vacuo ventricular dilatation. The basilar cisterns are patent. No mass effector midline shift is seen. The blackwell-white matter differentiation is normal. Periventricular white matter hypoattenuation is indicative of chronic small vessel ischemic disease. There is vascular calcification of the carotid siphons. Other than bilateral cataract extractions and small retention cysts in the left maxillary sinus, the visualized portions of the orbits, paranasal sinuses, and mastoids appear normal. No acute fracture is identified. There are degenerative changes of the temporomandibular joints bilaterally. Cervical spine: There is diffuse osseous demineralization of the spine. There is mild levoscoliosis of the cervical spine. Vertebral bodies are normal inheight without evidence of acute fracture. Other than middle atlantoaxial joint osteoarthritis, the craniocervical junction appears normal. There is moderate degenerative disc disease at C6-C7. No central canal stenosisis seen. There are varying degrees of mild facet osteoarthritis. There are varying degrees of mild uncovertebral joint osteoarthritis Nosignificant neural foraminal stenosis is seen. There is atheroscleroticcalcification of the carotid bifurcations. Thoracic spine: Bones are osteopenic. There is exaggeration of thoracic kyphosis. Thereis mild dextroscoliosis of the thoracic spine. There is postprocedurechanges of a left transpedicular T11 kyphoplasty with approximately 50 percent vertebral body height loss. There is chronic central height loss of theT4 vertebral body, likely secondary to Schmorl nodes. There is mild degenerative disc disease. No central canal stenosis is seen. There is mild facet osteoarthritis at multiple levels. No significant neural foraminal stenosis is seen. There are bibasilar dependent atelectasis. Biapical scarring is noted. There are calcified mediastinal nodes. Lumbar spine: Bones are osteopenic. The alignment is maintained. There is acute, burst-type compression fracture of the L3 vertebral body with 50 percent central height loss. The fractures line extending into the posterior elements and involving bilateral pedicles. There is involvement of the posterior wall of the vertebral body with decreased posterior vertebral wall height. There is 5 mm retropulsion of the posterior cortex into the spinal canal causing mild spinal canal stenosis. There is mild degenerative disc disease. Mild multilevel central canal stenosis isseen, related to disc bulges, facet hypertrophy, and ligamentum flavum thickening. There is mild facet osteoarthritis at multiple levels. There are varying degrees of neural foraminal stenosis at multiple levels. No soft tissue abnormality is identified. IMPRESSION: 1.No acute intracranial hemorrhage, mass effect, or midline shift. 2.No evidence of acute fracture in the cervical or thoracic spine. 3.Acute, burst-type compression fracture of the L3 vertebral body extending into the posterior elements with approximately 50 percentheight loss. There is 5 mm retropulsion into the spinal canal causing mildspinal canal stenosis. Dictated by Mariely Negro MD (resident care aide). This report was approved by Mariely Negro on 09/23/2019 11:11 AM . I, Dr. CONI BRONSON have personally reviewed and interpreted this examination/study. This report was electronically signed by CONI BRONSON on09/23/2019 11:11 AM . Jaron Sotelo III, MD CT ORDERABLES * CT CERVICAL SPINE WO CONTRAST (09/23/2019 12:02 AM CDT) Only the most recent of2 resultswithin the time period is included. Anatomical Region Laterality Modality Spine Computed Tomogra phy 09/23/2019 7:38 AM CDT Impressions 09/23/2019 11:11 AM CDT IMPRESSION: 1.No acute intracranial hemorrhage, mass effect, or midline shift. 2.No evidence of acute fracture in the cervical or thoracic spine. 3.Acute, burst-type compression fracture of the L3 vertebral body extending into the posterior elements with approximately 50 percent height loss. There is 5 mm retropulsion into the spinal canal causing mild spinal canal stenosis. Dictated by Mariely Negro MD (resident care aide). This report was approved ??by Mariely Negro ?? on 09/23/2019 11:11 AM . I, Dr. COIN BRONSON have personally reviewed and interpreted this examination/study. This report was electronically signed by CONI BRONSON ??on 09/23/2019 11:11 AM . Narrative 09/23/2019 11:[address] CERVICAL SPINE WO CONTRAST, CT THORACIC SPINE WO CONTRAST, CT LUMBAR SPINE WO CONTRAST, CT HEAD WO CONTRAST DATE: 09/23/2019 12:03 AM The nasal septum is deviated to the right. EXAMINATION: 1. Computed tomography (CT) of the head without contrast 2. CT of the cervical spine without contrast 3. CT of the thoracic spine without contrast 4. CT of the lumbar spine without contrast HISTORY: Head, neck, and back pain after fall TECHNIQUE: CT of the head and cervical spine were performed without contrast according to standard protocol. Reformatted axial, sagittal, and coronal images of the thoracic and lumbar spine were obtained by the technologist from a concurrently performed body CT and sent to the workstation for review. COMPARISON: No prior study is available for comparison at the time of this dictation. FINDINGS: Head: No acute intra- or extra-axial hemorrhage or fluid collections are identified. There is mild cerebral volume loss with associated ex vacuo ventricular dilatation. The basilar cisterns are patent. No mass effect or midline shift is seen. The blackwell-white matter differentiation is normal. Periventricular white matter hypoattenuation is indicative of chronic small vessel ischemic disease. There is vascular calcification of the carotid siphons. Other than bilateral cataract extractions and small retention cysts in the left maxillary sinus, the visualized portions of the orbits, paranasal sinuses, and mastoids appear normal. No acute fracture is identified. There are degenerative changes of the temporomandibular joints bilaterally. Cervical spine: There is diffuse osseous demineralization of the spine. There is mild levoscoliosis of the cervical spine. Vertebral bodies are normal in height without evidence of acute fracture. Other than middle atlantoaxial joint osteoarthritis, the craniocervical junction appears normal. There is moderate degenerative disc disease at C6-C7. No central canal stenosis is seen. There are varying degrees of mild facet osteoarthritis. There are varying degrees of mild uncovertebral joint osteoarthritis No significant neural foraminal stenosis is seen. There is atherosclerotic calcification of the carotid bifurcations. Thoracic spine: Bones are osteopenic. There is exaggeration of thoracic kyphosis. There is mild dextroscoliosis of the thoracic spine. There is postprocedure changes of a left transpedicular T11 kyphoplasty with approximately 50 percent vertebral body height loss. There is chronic central height loss of the T4 vertebral body, likely secondary to Schmorl nodes. There is mild degenerative disc disease. No central canal stenosis is seen. There is mild facet osteoarthritis at multiple levels. No significant neural foraminal stenosis is seen. There are bibasilar dependent atelectasis. Biapical scarring is noted. There are calcified mediastinal nodes. Lumbar spine: Bones are osteopenic. The alignment is maintained. There is acute, burst-type compression fracture of the L3 vertebral body with 50 percent central height loss. The fractures line extending into the posterior elements and involving bilateral pedicles. There is involvement of the posterior wall of the vertebral body with decreased posterior vertebral wall height. There is 5 mm retropulsion of the posterior cortex into the spinal canal causing mild spinal canal stenosis. There is mild degenerative disc disease. Mild multilevel central canal stenosis is seen, related to disc bulges, facet hypertrophy, and ligamentum flavum thickening. There is mild facet osteoarthritis at multiple levels. There are varying degrees of neural foraminal stenosis at multiple levels. No soft tissue abnormality is identified. Procedure Note Coni Bronson MD - 09/23/2019 CT CERVICAL SPINE WO CONTRAST, CT THORACIC SPINE WO CONTRAST, CT LUMBAR SPINE WO CONTRAST, CT HEAD WO CONTRAST DATE: 09/23/2019 12:03 AM The nasal septum is deviated to the right. EXAMINATION: 1. Computed tomography (CT) of the head without contrast 2. CT of the cervical spine without contrast 3. CT of the thoracic spine without contrast 4. CT of the lumbar spine without contrast HISTORY: Head, neck, and back pain after fall TECHNIQUE: CT of the head and cervical spine were performed without contrast according to standard protocol. Reformatted axial, sagittal,and coronal images of the thoracic and lumbar spine were obtained by the technologist from a concurrently performed body CT and sent to the workstation for review. COMPARISON: No prior study is available for comparison at the time ofthis dictation. FINDINGS: Head: No acute intra- or extra-axial hemorrhage or fluid collections are identified. There is mild cerebral volume loss with associated ex vacuo ventricular dilatation. The basilar cisterns are patent. No mass effector midline shift is seen. The blackwell-white matter differentiation is normal. Periventricular white matter hypoattenuation is indicative of chronic small vessel ischemic disease. There is vascular calcification of the carotid siphons. Other than bilateral cataract extractions and small retention cysts in the left maxillary sinus, the visualized portions of the orbits, paranasal sinuses, and mastoids appear normal. No acute fracture is identified. There are degenerative changes of the temporomandibular joints bilaterally. Cervical spine: There is diffuse osseous demineralization of the spine. There is mild levoscoliosis of the cervical spine. Vertebral bodies are normal inheight without evidence of acute fracture. Other than middle atlantoaxial joint osteoarthritis, the craniocervical junction appears normal. There is moderate degenerative disc disease at C6-C7. No central canal stenosisis seen. There are varying degrees of mild facet osteoarthritis. There are varying degrees of mild uncovertebral joint osteoarthritis Nosignificant neural foraminal stenosis is seen. There is atheroscleroticcalcification of the carotid bifurcations. Thoracic spine: Bones are osteopenic. There is exaggeration of thoracic kyphosis. Thereis mild dextroscoliosis of the thoracic spine. There is postprocedurechanges of a left transpedicular T11 kyphoplasty with approximately 50 percent vertebral body height loss. There is chronic central height loss of theT4 vertebral body, likely secondary to Schmorl nodes. There is mild degenerative disc disease. No central canal stenosis is seen. There is mild facet osteoarthritis at multiple levels. No significant neural foraminal stenosis is seen. There are bibasilar dependent atelectasis. Biapical scarring is noted. There are calcified mediastinal nodes. Lumbar spine: Bones are osteopenic. The alignment is maintained. There is acute, burst-type compression fracture of the L3 vertebral body with 50 percent central height loss. The fractures line extending into the posterior elements and involving bilateral pedicles. There is involvement of the posterior wall of the vertebral body with decreased posterior vertebral wall height. There is 5 mm retropulsion of the posterior cortex into the spinal canal causing mild spinal canal stenosis. There is mild degenerative disc disease. Mild multilevel central canal stenosis isseen, related to disc bulges, facet hypertrophy, and ligamentum flavum thickening. There is mild facet osteoarthritis at multiple levels. There are varying degrees of neural foraminal stenosis at multiple levels. No soft tissue abnormality is identified. IMPRESSION: 1.No acute intracranial hemorrhage, mass effect, or midline shift. 2.No evidence of acute fracture in the cervical or thoracic spine. 3.Acute, burst-type compression fracture of the L3 vertebral body extending into the posterior elements with approximately 50 percentheight loss. There is 5 mm retropulsion into the spinal canal causing mildspinal canal stenosis. Dictated by Mariely Negro MD (resident care aide). This report was approved by Mariely Negro on 09/23/2019 11:[address] CONI Hooker have personally reviewed and interpreted this examination/study. This report was electronically signed by CONI BRONSON on09/23/2019 11:11 AM . Jaron Sotelo III, MD CT ORDERABLES * CT HEAD WO CONTRAST (09/23/2019 12:02 AM CDT) Only the most recent of2 resultswithin the time period is included. Anatomical Region Laterality Modality Head Computed Tomogra phy 09/23/2019 7:38 AM CDT Impressions 09/23/2019 11:11 AM CDT IMPRESSION: 1.No acute intracranial hemorrhage, mass effect, or midline shift. 2.No evidence of acute fracture in the cervical or thoracic spine. 3.Acute, burst-type compression fracture of the L3 vertebral body extending into the posterior elements with approximately 50 percent height loss. There is 5 mm retropulsion into the spinal canal causing mild spinal canal stenosis. Dictated by Mariely Negro MD (resident care aide). This report was approved ??by Mariely Negro ?? on 09/23/2019 11:[address] CONI Hooker have personally reviewed and interpreted this examination/study. This report was electronically signed by CONI BRONSON ??on 09/23/2019 11:11 AM . Narrative 09/23/2019 11:[address] CERVICAL SPINE WO CONTRAST, CT THORACIC SPINE WO CONTRAST, CT LUMBAR SPINE WO CONTRAST, CT HEAD WO CONTRAST DATE: 09/23/2019 12:03 AM The nasal septum is deviated to the right. EXAMINATION: 1. Computed tomography (CT) of the head without contrast 2. CT of the cervical spine without contrast 3. CT of the thoracic spine without contrast 4. CT of the lumbar spine without contrast HISTORY: Head, neck, and back pain after fall TECHNIQUE: CT of the head and cervical spine were performed without contrast according to standard protocol. Reformatted axial, sagittal, and coronal images of the thoracic and lumbar spine were obtained by the technologist from a concurrently performed body CT and sent to the workstation for review. COMPARISON: No prior study is available for comparison at the time of this dictation. FINDINGS: Head: No acute intra- or extra-axial hemorrhage or fluid collections are identified. There is mild cerebral volume loss with associated ex vacuo ventricular dilatation. The basilar cisterns are patent. No mass effect or midline shift is seen. The blackwell-white matter differentiation is normal. Periventricular white matter hypoattenuation is indicative of chronic small vessel ischemic disease. There is vascular calcification of the carotid siphons. Other than bilateral cataract extractions and small retention cysts in the left maxillary sinus, the visualized portions of the orbits, paranasal sinuses, and mastoids appear normal. No acute fracture is identified. There are degenerative changes of the temporomandibular joints bilaterally. Cervical spine: There is diffuse osseous demineralization of the spine. There is mild levoscoliosis of the cervical spine. Vertebral bodies are normal in height without evidence of acute fracture. Other than middle atlantoaxial joint osteoarthritis, the craniocervical junction appears normal. There is moderate degenerative disc disease at C6-C7. No central canal stenosis is seen. There are varying degrees of mild facet osteoarthritis. There are varying degrees of mild uncovertebral joint osteoarthritis No significant neural foraminal stenosis is seen. There is atherosclerotic calcification of the carotid bifurcations. Thoracic spine: Bones are osteopenic. There is exaggeration of thoracic kyphosis. There is mild dextroscoliosis of the thoracic spine. There is postprocedure changes of a left transpedicular T11 kyphoplasty with approximately 50 percent vertebral body height loss. There is chronic central height loss of the T4 vertebral body, likely secondary to Schmorl nodes. There is mild degenerative disc disease. No central canal stenosis is seen. There is mild facet osteoarthritis at multiple levels. No significant neural foraminal stenosis is seen. There are bibasilar dependent atelectasis. Biapical scarring is noted. There are calcified mediastinal nodes. Lumbar spine: Bones are osteopenic. The alignment is maintained. There is acute, burst-type compression fracture of the L3 vertebral body with 50 percent central height loss. The fractures line extending into the posterior elements and involving bilateral pedicles. There is involvement of the posterior wall of the vertebral body with decreased posterior vertebral wall height. There is 5 mm retropulsion of the posterior cortex into the spinal canal causing mild spinal canal stenosis. There is mild degenerative disc disease. Mild multilevel central canal stenosis is seen, related to disc bulges, facet hypertrophy, and ligamentum flavum thickening. There is mild facet osteoarthritis at multiple levels. There are varying degrees of neural foraminal stenosis at multiple levels. No soft tissue abnormality is identified. Procedure Note Coni Bronson MD - 09/23/2019 CT CERVICAL SPINE WO CONTRAST, CT THORACIC SPINE WO CONTRAST, CT LUMBAR SPINE WO CONTRAST, CT HEAD WO CONTRAST DATE: 09/23/2019 12:03 AM The nasal septum is deviated to the right. EXAMINATION: 1. Computed tomography (CT) of the head without contrast 2. CT of the cervical spine without contrast 3. CT of the thoracic spine without contrast 4. CT of the lumbar spine without contrast HISTORY: Head, neck, and back pain after fall TECHNIQUE: CT of the head and cervical spine were performed without contrast according to standard protocol. Reformatted axial, sagittal,and coronal images of the thoracic and lumbar spine were obtained by the technologist from a concurrently performed body CT and sent to the workstation for review. COMPARISON: No prior study is available for comparison at the time ofthis dictation. FINDINGS: Head: No acute intra- or extra-axial hemorrhage or fluid collections are identified. There is mild cerebral volume loss with associated ex vacuo ventricular dilatation. The basilar cisterns are patent. No mass effector midline shift is seen. The blackwell-white matter differentiation is normal. Periventricular white matter hypoattenuation is indicative of chronic small vessel ischemic disease. There is vascular calcification of the carotid siphons. Other than bilateral cataract extractions and small retention cysts in the left maxillary sinus, the visualized portions of the orbits, paranasal sinuses, and mastoids appear normal. No acute fracture is identified. There are degenerative changes of the temporomandibular joints bilaterally. Cervical spine: There is diffuse osseous demineralization of the spine. There is mild levoscoliosis of the cervical spine. Vertebral bodies are normal inheight without evidence of acute fracture. Other than middle atlantoaxial joint osteoarthritis, the craniocervical junction appears normal. There is moderate degenerative disc disease at C6-C7. No central canal stenosisis seen. There are varying degrees of mild facet osteoarthritis. There are varying degrees of mild uncovertebral joint osteoarthritis Nosignificant neural foraminal stenosis is seen. There is atheroscleroticcalcification of the carotid bifurcations. Thoracic spine: Bones are osteopenic. There is exaggeration of thoracic kyphosis. Thereis mild dextroscoliosis of the thoracic spine. There is postprocedurechanges of a left transpedicular T11 kyphoplasty with approximately 50 percent vertebral body height loss. There is chronic central height loss of theT4 vertebral body, likely secondary to Schmorl nodes. There is mild degenerative disc disease. No central canal stenosis is seen. There is mild facet osteoarthritis at multiple levels. No significant neural foraminal stenosis is seen. There are bibasilar dependent atelectasis. Biapical scarring is noted. There are calcified mediastinal nodes. Lumbar spine: Bones are osteopenic. The alignment is maintained. There is acute, burst-type compression fracture of the L3 vertebral body with 50 percent central height loss. The fractures line extending into the posterior elements and involving bilateral pedicles. There is involvement of the posterior wall of the vertebral body with decreased posterior vertebral wall height. There is 5 mm retropulsion of the posterior cortex into the spinal canal causing mild spinal canal stenosis. There is mild degenerative disc disease. Mild multilevel central canal stenosis isseen, related to disc bulges, facet hypertrophy, and ligamentum flavum thickening. There is mild facet osteoarthritis at multiple levels. There are varying degrees of neural foraminal stenosis at multiple levels. No soft tissue abnormality is identified. IMPRESSION: 1.No acute intracranial hemorrhage, mass effect, or midline shift. 2.No evidence of acute fracture in the cervical or thoracic spine. 3.Acute, burst-type compression fracture of the L3 vertebral body extending into the posterior elements with approximately 50 percentheight loss. There is 5 mm retropulsion into the spinal canal causing mildspinal canal stenosis. Dictated by Mariely Negro MD (resident care aide). This report was approved by Mariely Negro on 09/23/2019 11:11 AM . I, Dr. CONI BRONSON have personally reviewed and interpreted this examination/study. This report was electronically signed by CONI BRONSON on09/23/2019 11:11 AM . Jaron Sotelo III, MD CT ORDERABLES * (ABNORMAL) URINALYSIS W/MICROSCOPIC NO CULTURE (09/22/2019 11:42 PM CDT) Color UA Yellow Straw, Yellow, Colorless 09/22/2019 11:55 PM [facility] Clarity UA Slt Cloudy Clear, Slt Cloudy 09/22/2019 11:55 PM [facility] Specific [place] UA 1.016 1.005 - 1.030 09/22/2019 11:55 PM [facility] pH UA 6.0 5.0 - 8.0 pH 09/22/2019 11:55 PM [facility] Protein UA Negative Negative mg/dL 09/22/2019 11:55 PM [facility] Glucose UA Negative Negative mg/dL 09/22/2019 11:55 PM [facility] Ketone UA Trace(A) Negative mg/dL 09/22/2019 11:55 PM [facility] Bilirubin UA Negative Negative mg/dL 09/22/2019 11:55 PM [facility] Blood UA Negative Negative 09/22/2019 11:55 PM [facility] Nitrite UA Negative Negative 09/22/2019 11:55 PM [facility] Leukocyte Esterase 1+(A) Negative 09/22/2019 11:55 PM [facility] Urobilinogen UA 2.0(A) Negative mg/dL 09/22/2019 11:55 PM [facility] RBC UA 0-2 None Seen, 0-2, 3-5 /HPF 09/22/2019 11:55 PM CDT [facility] WBC UA 11-20(A) None Seen, 0-5 /HPF 09/22/2019 11:55 PM CDT [facility] Bacteria UA 1+(A) None, Trace /HPF 09/22/2019 11:55 PM CDT [facility] Squamous Epithelial Cells UA 0-2 None Seen, 0-2 /HPF 09/22/2019 11:55 PM CDT [facility] Mucus UA 1+ None, 1+ /LPF 09/22/2019 11:55 PM CDT [facility] Amorphous Crystals Few Rare, Occasional, Few, Moderate, None /HPF 09/22/2019 11:55 PM CDT [facility] Urine URINE SPECIMEN OBTAINED BY CLEAN CATCH PROCEDURE / Unknown Collection / Unknown 09/22/2019 11:42 PM CDT 09/22/2019 11:44 PM CDT Narrative [facility] - 09/22/2019 11:55 PM CDT Jaron Sotelo III, MD LAB - URINALYS IS ORDERABLES [address] [id number] [phone] * XR KNEE LEFT 2VW OR LESS (09/22/2019 11:30 PM CDT) Anatomical Region Laterality Modality Lower Extremity Radiographic Jordan ging 09/22/2019 11:2 8 PM CDT Impressions 09/23/2019 9:11 AM CDT IMPRESSION: Comminuted intra-articular distal femoral fracture. Dictated by Radha Katz MD (resident care aide). I, Dr. TANJA CASTILLO M.D. have personally reviewed and interpreted this examination/study. This report was electronically signed by TANJA CASTILLO M.D. ??on 09/23/2019 9:11 AM . Narrative 09/23/2019 9:11 AM CDT EXAMINATION: XR KNEE LEFT 2VW OR LESS HISTORY: W19.XXXA: Fall, initial encounter COMPARISON: None FINDINGS: There is a comminuted, impacted intra-articular, distal femoral fracture. There is a large joint effusion. The knee joint space is overall preserved. Bone density is normal. There is soft tissue swelling in the region of the fracture. Procedure Note Tanja Castillo MD - 09/23/2019 EXAMINATION: XR KNEE LEFT 2VW OR LESS HISTORY: W19.XXXA: Fall, initial encounter COMPARISON: None FINDINGS: There is a comminuted, impacted intra-articular, distal femoralfracture. There is a large joint effusion. The knee joint space is overall preserved. Bone density is normal. There is soft tissue swelling in the region of the fracture. IMPRESSION: Comminuted intra-articular distal femoral fracture. Dictated by Radha Katz MD (resident care aide). I, Dr. TANJA CASTILLO M.D. have personally reviewed and interpreted this examination/study. This report was electronically signed by TANJA CASTILLO M.D. on 09/23/2019 9:11 AM . Jaron Sotelo III, MD DIAGNOSTIC JORDAN GING ORDERABLES * EKG 12-LEAD (09/22/2019 11:29 PM CDT) Only the most recent of2 resultswithin the time period is included. Ventricular Rate 63 BPM [facility] Atrial Rate 63 BPM H MUSE P-R Interval 164 ms [facility] M[facility] QRS Duration ms 96 ms [facility] Q-T Interval ms 428 ms H MUSE QTC Calculation (Bezet) 437 ms [facility] MUSE Calculated P Sunflower 61 degrees [facility] MUSE Calculated R Sunflower -21 degrees [facility] MUSE Calculated T Sunflower 47 degrees [facility] MUSE Interpretation EKG NORMAL SINUS RHYTHM NONSPECIFIC T WAVE ABNORMALITY ABNORMAL ECG NO PREVIOUS ECGS AVAILABLE Confirmed by fellow Wanda Osborne ([id number]) on 10/03/2019 8:31:49 AM Confirmed by Sylvain Chaudhry ([id number]) on 11/22/2019 3:06:21 PM SL MUSE 09/22/2019 11:2 9 PM CDT 11/22/2019 3:06 PM CDT Jaron Sotelo III, MD ECG ORDERABLES [facility] MUSE * XR HIP LEFT 2VW OR MORE (09/22/2019 11:28 PM CDT) Anatomical Region Laterality Modality Pelvis, Lower Extremity Radiogra phic Imaging 09/22/2019 11:2 7 PM CDT Impressions 09/23/2019 9:08 AM CDT IMPRESSION: No acute fracture or dislocation identified. Dictated by Radha Katz MD (resident care aide). IDr. TANJA M.D. have personally reviewed and interpreted this examination/study. This report was electronically signed by TANJA CASTILLO M.D. ??on 09/23/2019 9:08 AM . Narrative 09/23/2019 9:08 AM CDT EXAMINATION: XR HIP LEFT 2VW OR MORE HISTORY: W19.XXXA: Fall, initial encounter COMPARISON: None FINDINGS: The osseous structures are intact and well aligned without acute fracture or dislocation. The hip joint space is preserved. Procedure Note Tanja Castillo MD - 09/23/2019 EXAMINATION: XR HIP LEFT 2VW OR MORE HISTORY: W19.XXXA: Fall, initial encounter COMPARISON: None FINDINGS: The osseous structures are intact and well aligned without acutefracture or dislocation. The hip joint space is preserved. IMPRESSION: No acute fracture or dislocation identified. Dictated by Radha Katz MD (resident care aide). IDr. TANJA M.D. have personally reviewed and interpreted this examination/study. This report was electronically signed by TANJA CASTILLO M.D. on 09/23/2019 9:08 AM . Jaron Sotelo III, MD DIAGNOSTIC JORDAN GING ORDERABLES * (ABNORMAL) VITAMIN D 25-HYDROXY (09/22/2019 11:27 PM CDT) Vitamin D, 25 Hydroxy 20.3(L) See comment: ng/mL 09/23/2019 6:27 AM CDT [facility] Comment: The recommendations for 25-Hydroxy Vitamin D clinical decision points are as follows: ? Deficient: ? <20.0 ng/mL ? Insufficient: ??20.0 - 29.9 ng/mL ? Sufficient: ? > or =30.0 ng/mL If the 25-Hydroxy Vitamin D results are inconsitent with clinical evidence, it is recommended that follow-up testing using a method such as LC/MS/MS be performed to confirm the result. Reference: ?The Endocrine Society Clinical Practice Guidelines. 2011 ? Blood BLOOD SPECIMEN / Unknown Venipuncture / Unknown 09/22/2019 11:27 PM CDT 09/22/2019 11:35 PM CDT Nia Charles DO LAB - CHEMISTRY PAPA GIL[place] [facility] Organization Address City/State/[facility] Co de Phone Number [address] [address], [facility] [phone] * MRI SPINE THORACIC NON CONTRAST (03/27/2017 1:56 PM [employer]) Only the most recent of2 resultswithin the time period is included. Anatomical Region Laterality Modality Chest Magnetic Resonan ce Angiography 03/27/2017 3:08 PM [employer] Narrative 03/27/2017 3:39 PM [employer] Examination: MRI thoracic spine. Indication for examination: Back pain. Thoracic compression fracture. Noncontrast T1 and T2-weighted sagittal and axial with T1-weighted coronal images of the thoracic spine are obtained. Comparison is made with a prior examination of September 02, 2016. Findings: Examination the bony structures reveals no acute fracture or acute bone marrow edema. Cement is identified within the T11 vertebral body from prior augmentation. No evidence of acute osteomyelitis or acute discitis. No suspicious bone marrow replacement process. There is no focal thoracic disc protrusion, cord or thecal sac compression. There is no nerve root compression or significant foraminal encroachment. No soft tissue mass. Thoracic spinal cord is normal in contour and volume. No focal abnormal signal intensity identified within the thoracic spinal cord. CONCLUSION: Chronic changes as described. No acute abnormality identified. Procedure Note Jac Chaudhry MD - 03/27/2017 Examination: MRI thoracic spine. Indication for examination: Back pain. Thoracic compression fracture. Noncontrast T1 and T2-weighted sagittal and axial with T1-weighted coronal images of the thoracic spine are obtained. Comparison is made with a prior examination of September 02, 2016. Findings: Examination the bony structures reveals no acute fracture or acute bone marrow edema. Cement is identified within the T11 vertebral body from prior augmentation. No evidence of acute osteomyelitis or acute discitis. No suspicious bone marrow replacement process. There is no focal thoracic disc protrusion, cord or thecal sac compression. There is no nerve root compression or significant foraminal encroachment. No soft tissue mass. Thoracic spinal cord is normal in contour and volume. No focal abnormal signal intensity identified within the thoracic spinal cord. CONCLUSION: Chronic changes as described. No acute abnormality identified. Edy Kelly II, MD MR ORDERABL ES * CARDIAC PROCEDURE ORDER (10/09/2016 11:17 AM CDT) Narrative 10/09/2016 11:17 AM CDT Ordered by an unspecified provider. Scanned Document CARDIAC SERVICES ORD ERABLES * XR LUMBAR SPINE 2 OR 3 VW (09/20/2016 11:00 AM CDT) Anatomical Region Laterality Modality Spine Radiographic Jordan ging 09/20/2016 12:4 6 PM CDT Narrative 09/20/2016 1:25 PM CDT THREE VIEWS LUMBAR SPINE INDICATION: Low back pain. FINDINGS: There has been prior vertebral augmentation at T11. The lumbar spine is in anatomic alignment. There is mild right-sided facet hypertrophy at L4-L5. There is bony demineralization. There are no acute findings. Edited by Karena King on 09/20/2016 12:48 PM Procedure Note Shaun Puente MD - 09/20/2016 THREE VIEWS LUMBAR SPINE INDICATION: Low back pain. FINDINGS: There has been prior vertebral augmentation at T11. The lumbar spine is in anatomic alignment. There is mild right-sided facet hypertrophy at L4-L5. There is bony demineralization. There are no acute findings. Edited by Karena King on 09/20/2016 12:48 PM Edy Kelly II, MD DIAGNOSTIC IMAGING ORDERABLES * XR THORACIC SPINE 2 VW (09/20/2016 11:00 AM CDT) Anatomical Region Laterality Modality Spine Radiographic Jordan ging 09/20/2016 11:4 9 AM CDT Narrative 09/20/2016 12:45 PM CDT AP AND LATERAL THORACIC SPINE INDICATION: Back pain FINDINGS: Previously described T11 vertebral compression fracture is redemonstrated. The patient has undergone kyphoplasty at this level. There is diffuse osseous demineralization present throughout the thoracic spine. There is no new compression or subluxation. There is no osseous destruction. There is decreased intervertebral disc space height and degenerative endplate change, as well as hypertrophic spurring throughout the thoracic spine. Edited by Ebony Rogers on 09/20/2016 11:59 AM Procedure Note Duane May MD - 09/20/2016 AP AND LATERAL THORACIC SPINE INDICATION: Back pain FINDINGS: Previously described T11 vertebral compression fracture is redemonstrated. The patient has undergone kyphoplasty at this level. There is diffuse osseous demineralization present throughout the thoracic spine. There is no new compression or subluxation. There is no osseous destruction. There is decreased intervertebral disc space height and degenerative endplate change, as well as hypertrophic spurring throughout the thoracic spine. Edited by Ebony Rogers on 09/20/2016 11:59 AM Edy Kelly II, MD DIAGNOSTIC IMAGING ORDERABLES * VAS CAROTID DUPLEX BILATERAL (09/04/2016 4:06 PM CDT) Anatomical Region Laterality Modality Ultrasound 09/04/2016 3:38 PM CDT Narrative Procedure Note Duane Russo MD - 09/05/[address] [address] Carotid Duplex Report Pat.Name: SAMMI CALZADA.ID: [id number] .Date: 09/04/2016 Exam Time: 3:38:00 PM Study Type:Carotid Age: 5 1940,76Y Sex: FEMALE Sonogrphr: José AlvaradoJR. Stat.:Inpatient Room: 704 Bed 01 Reason for Study:Syncope History / Clinical:Diverticulitis, Acid reflux Procedures:Carotid Duplex - Bilateral Race: 2 Visit ID: [id number] SUMMARY: There are no hemodynamically significant stenoses in either the right or left extracranial carotid arterial system. There is normal anterograde flow in both vertebral arteries. FINDINGS: Procedure: The extracranial carotid systems were examined bilaterally with duplex and color flow imaging as well as spectral Doppler analysis. Study Quality: This study is of adequate technical quality. Rt CCA: No obvious plaquing seen. Rt Bulb: No obvious plaquing seen. Rt ICA: No obvious plaquing seen. Rt Vert: Antegrade flow within the right vertebral Artery. Lt CCA: Intimal thickening is present Lt Bulb: There is irregular, heterogenous plaque in the bulb, extending into the ICA and ECA.. Lt Vert: Antegrade flow within the left vertebral Artery. MEASUREMENTS: DOPPLER Left CCA Dist CCA Dist PSV 99.2 cm/s CCA Dist EDV 22.6 cm/s Left CCA Mid CCA Mid PSV 109 cm/s CCA Mid EDV 26.5 cm/s Left CCA Prox CCA Prox PSV 129 cm/s CCA Prox EDV 21.6 cm/s Left ECA ECA PSV 115 cm/s Left ICA Dist ICA Dist PSV 127 cm/s ICA Dist EDV 37.3 cm/s Left ICA Prox ICA Prox PSV 104 cm/s ICA Prox EDV 20.6 cm/s Left ICA/CCA ICA/CCA PSV 0.95 Left Vertebral Vertebral PSV 66.8 cm/s Vertebral EDV 17.3 cm/s Right CCA Dist CCA Dist PSV 86.2 cm/s CCA Dist EDV 19.9 cm/s Right CCA Mid CCA Mid PSV 75 cm/s CCA Mid EDV 15.2 cm/s Right CCA Prox CCA Prox PSV 89.1 cm/s CCA Prox EDV 15.8 cm/s Right ECA ECA PSV 105 cm/s Right ICA Dist ICA Dist PSV 98.2 cm/s ICA Dist EDV 29.9 cm/s Right ICA Prox ICA Prox PSV 123 cm/s ICA Prox EDV 22 cm/s Right ICA/CCA ICA/CCA PSV 1.64 Right Vertebral Vertebral PSV 55.8 cm/s Vertebral EDV 18.1 cm/s Signed 09/05/2016 03:49 PM Duaen Russo MD Eugenio Hendrickson MD VASCULAR LAB ORDERAB LES * ECHOCARDIOGRAM 2D WITH DOPPLER (09/04/2016 11:00 AM CDT) 09/04/2016 11:0 0 AM CDT Narrative [facility] - 09/04/2016 2:[address] [address] Transthoracic Echocardiogram 2D, M-mode, Doppler, and Color Doppler Patient: SAMMI CALZADA MR number: [id number] Height: 64 in Weight: 155 lb BSA: 1.76 m?? Study date: 04-Sep-2016 : 1940 Age: 76 years Gender: Female Race: Allergies: CODEINE Diagnoses: R55. - Syncope and collapse Reading Physician: ??Judah German MD Referring Physician: ??Galina Hall M.D. INSPECTOR CRYSTAL: ??Esperanza Jauregui [facility] Group: ??[facility] Summary: - ??Procedure information: - ??Room 704 @ 11:00. - ??Left ventricle: - ??Systolic function was normal. Ejection fraction was estimated in the range of 55 % to 65 %. - ??There were no regional wall motion abnormalities. - ??Wall thickness was normal. - ??Right ventricle: - ??Estimated peak pressure was 35 mmHg. - ??Tricuspid valve: - ??There was mild regurgitation. Indications: Evaluate syncope. History: Prior history: Patient has no history of cardiovascular disease. Procedure: [facility] This was a routine study. Room 704 @ 11:00. The transthoracic approach was used. The study included complete 2D imaging, M-mode, complete spectral Doppler, and color Doppler. Systolic blood pressure was 134 mmHg. Diastolic blood pressure was 71 mmHg. Left ventricle: Size was normal. Systolic function was normal. Ejection fraction was estimated in the range of 55 % to 65 %. There were no regional wall motion abnormalities. Wall thickness was normal. Aortic valve: The valve was trileaflet. Leaflets exhibited normal thickness and normal cuspal separation. Doppler: There was no stenosis. There was no regurgitation. Aorta: The root exhibited normal size. Mitral valve: Valve structure was normal. There was normal leaflet separation. Doppler: The transmitral velocity was within the normal range. There was no evidence for stenosis. There was no regurgitation. Left atrium: Size was normal. Right ventricle: The size was normal. Systolic function was normal. Wall thickness was normal. Doppler: Estimated peak pressure was 35 mmHg. Pulmonic valve: Leaflets exhibited normal thickness, no calcification, and normal cuspal separation. Doppler: There was no regurgitation. Pulmonary artery: The size was normal. Doppler: Systolic pressure was within the normal range. Tricuspid valve: The valve structure was normal. There was normal leaflet separation. Doppler: The transtricuspid velocity was within the normal range. There was no evidence for tricuspid stenosis. There was mild regurgitation. Right atrium: Size was normal. Pericardium: The pericardium was normal in appearance. System measurement tables 2D IVSd: 1 cm LVEDV MOD A4C: 59.9 ml LVESV MOD A4C: 16.5 ml LVIDd: 5.1 cm LVIDs: 3.3 cm LVPWd: 0.9 cm CW PV Vmax: 1 m/s AV Vmax: 1.2 m/s AV maxP.9 mmHg PV maxP.8 mmHg TR Vmax: 2.4 m/s TR maxP.7 mmHg MM LA Diam: 3.9 cm AV Cusp: 2.1 cm Ao Diam: 3.5 cm PW LVOT Vmax: 0.9 m/s Lateral E/e': 7.6 Septal E/e': 8.5 Lateral e': 0.1 m/s MV A Anastacio: 0.7 m/s MV Dec Lincoln: 2.5 m/s2 MV E Anastacio: 0.5 m/s MV E/A Ratio: 0.7 RVSP: 27.7 mmHg Septal e': 0.1 m/s Prepared and signed by Judah German MD Signed 04-Sep-2016 14:19:48 Procedure Note Unknown, Provider - 09/04/[address] [address] Transthoracic Echocardiogram 2D, M-mode, Doppler, and Color Doppler Patient: SAMMI CALZADA MR number: [id number] Height: 64 in Weight: 155 lb BSA: 1.76 m?? Study date: 04-Sep-2016 : 1940 Age: 76 years Gender: Female Race: Allergies: CODEINE Diagnoses: R55. - Syncope and collapse Reading Physician: Judah German MD Referring Physician: Galina Hall M.D. INSPECTOR CRYSTAL: Esperanza Jauregui [facility]: [facility] Summary: - Procedure information: - Room 704 @ 11:00. - Left ventricle: - Systolic function was normal. Ejection fraction was estimated in the range of 55 % to 65 %. - There were no regional wall motion abnormalities. - Wall thickness was normal. - Right ventricle: - Estimated peak pressure was 35 mmHg. - Tricuspid valve: - There was mild regurgitation. Indications: Evaluate syncope. History: Prior history: Patient has no history of cardiovascular disease. Procedure: The study was performed in the [facility]. This was a routine study. Room 704 @ 11:00. The transthoracic approach was used. The study included complete 2D imaging, M-mode, complete spectral Doppler, and color Doppler. Systolic blood pressure was 134 mmHg. Diastolic blood pressure was 71 mmHg. Left ventricle: Size was normal. Systolic function was normal. Ejection fraction was estimated in the range of 55 % to 65 %. There were no regional wall motion abnormalities. Wall thickness was normal. Aortic valve: The valve was trileaflet. Leaflets exhibited normal thickness and normal cuspal separation. Doppler: There was no stenosis. There was no regurgitation. Aorta: The root exhibited normal size. Mitral valve: Valve structure was normal. There was normal leaflet separation. Doppler: The transmitral velocity was within the normal range. There was no evidence for stenosis. There was no regurgitation. Left atrium: Size was normal. Right ventricle: The size was normal. Systolic function was normal. Wall thickness was normal. Doppler: Estimated peak pressure was 35 mmHg. Pulmonic valve: Leaflets exhibited normal thickness, no calcification, and normal cuspal separation. Doppler: There was no regurgitation. Pulmonary artery: The size was normal. Doppler: Systolic pressure was within the normal range. Tricuspid valve: The valve structure was normal. There was normal leaflet separation. Doppler: The transtricuspid velocity was within the normal range. There was no evidence for tricuspid stenosis. There was mild regurgitation. Right atrium: Size was normal. Pericardium: The pericardium was normal in appearance. System measurement tables 2D IVSd: 1 cm LVEDV MOD A4C: 59.9 ml LVESV MOD A4C: 16.5 ml LVIDd: 5.1 cm LVIDs: 3.3 cm LVPWd: 0.9 cm CW PV Vmax: 1 m/s AV Vmax: 1.2 m/s AV maxP.9 mmHg PV maxP.8 mmHg TR Vmax: 2.4 m/s TR maxP.7 mmHg MM LA Diam: 3.9 cm AV Cusp: 2.1 cm Ao Diam: 3.5 cm PW LVOT Vmax: 0.9 m/s Lateral E/e': 7.6 Septal E/e': 8.5 Lateral e': 0.1 m/s MV A Anastacio: 0.7 m/s MV Dec Lincoln: 2.5 m/s2 MV E Anastacio: 0.5 m/s MV E/A Ratio: 0.7 RVSP: 27.7 mmHg Septal e': 0.1 m/s Prepared and signed by Judah German MD Signed 04-Sep-2016 14:19:48 Mariaelena Schmidt SENIOR APPLICATIONS ENGINEER-INVESTIGATION DIVISION SERGEANT ECHO ORDERABLE S [facility] * FL ESHA SURGERY 2 HRS PLUS (09/04/2016 8:02 AM CDT) Anatomical Region Laterality Modality Radiographic Jordan ging 09/04/2016 8:31 AM CDT Narrative 09/04/2016 8:31 AM CDT Fluoroscopy was provided. No radiologist was present. Fluoroscopy time was 3 minutes 54 seconds. 2 images were acquired. Procedure Note Nidia Mariee MD - 09/04/2016 Fluoroscopy was provided. No radiologist was present. Fluoroscopy time was 3 minutes 54 seconds. 2 images were acquired. Edy Kelly II, MD FLUOROSCOPY ORDERABLES * GROSS + MICRO EXAM (STL) (09/04/2016 7:39 AM CDT) Case Report Surgical Pathology Report ? Case: [id number] ? Authorizing Provider: ??Edy Kelly II, Collected: ? 09/04/2016 07:39 AM ? Ordering Location: ? [facility] ? Received: ?09/04/2016 08:47 AM ? Pathologist: ? Yaniv Marrero MD ? Specimen: ?Bone Biopsy, T11 ? 09/05/2016 10:40 AM [facility] Final Diagnosis 1. T11 bone biopsy: -- Negative for malignancy AB/na 09/05/2016 10:40 AM [facility] Gross Description Received in formalin in a container labeled Sammi Calzada, T11 bone biopsy. The container holds a sheet of Telfa with attached burgundy-brown tissue measuring 1 x 0.5 x 0.1 cm. Specimen is entirely submitted in cassette labeled A1. DYT/kf 09/05/2016 10:40 AM [facility] Microscopic Description The T11 bone biopsy shows mostly blood with a small amount of fatty marrow. No bone tissue is present. No malignancy is seen. AB/na 09/05/2016 10:40 AM [facility] Disclaimer All histochemical and/or immunohistochemical results are interpreted with controls that demonstrate appropriate staining reactions before reporting results. Note on use of immunocytochemistry reagents: This test was developed and its performance characteristic determined by [facility], Department of Laboratory Medicine. It has not been cleared or approved by the U.S. Food and Drug Administration (FDA). The FDA has determined that such clearance or approval is not necessary. The test is used for clinical purpose. It should not be regarded as investigational or for research. This laboratory is certified to perform high complexity testing. 09/05/2016 10:40 AM [facility] Embedded Images 09/05/2016 10:40 AM CDT [facility] Pathology/Cytolo gy BONE BIOPSY SPECIMEN / Unknown 09/04/2016 7:39 AM CDT 09/04/2016 8:47 AM CDT Edy Kelly II, MD LAB - PATHO LOGY/CYTOLOGY ORDERABLES Performing Organization Address [facility] Co de Phone Number [facility] [address] [place] [address] * PT PTT PANEL (09/03/2016 5:53 AM CDT) PT 9.7 9.5 - 11.6 sec 09/03/2016 6:20 AM CDT [facility] INR 1.0 0.9 - 1.1 09/03/2016 6:20 AM CDT [facility] PTT 25.5 21.0 - 32.0 sec 09/03/2016 6:20 AM CDT [facility] Blood BLOOD SPECIMEN / Unknown 09/03/2016 5:53 AM CDT 09/03/2016 6:01 AM CDT Narrative [facility] - 09/03/2016 6:20 AM CDT Conventional Warfarin Anticoagulant Therapy: INR Reference Range: ??2.0-3.0 Intensive Warfarin Anticoagulant Therapy: INR Reference Range: ? 2.5-3.5 Heparin Therapeutic Range for PTT: 47.7 - 68.6 seconds. Haris Patterson MD LAB - COAGULATION OR DERABLES Performing Organization Address City/[facility] Co de Phone Number [facility] [address] [place] [address] * LIPASE BLOOD (09/03/2016 5:53 AM CDT) Lipase 126 73 - 393 U/L 09/03/2016 6:22 AM CDT [facility] Blood BLOOD SPECIMEN / Unknown 09/03/2016 5:53 AM CDT 09/03/2016 6:01 AM CDT Haris Patterson MD LAB - CHEMISTRY PAPA GILBERT Performing Organization Address [facility]/ZIP Co de Phone Number [facility] [address] [place] [address] * AMYLASE BLOOD (09/03/2016 5:53 AM CDT) Pathologist [facility] Amylase 56 15 - 115 U/L 09/03/2016 6:22 AM CDT [facility] Blood BLOOD SPECIMEN / Unknown 09/03/2016 5:53 AM CDT 09/03/2016 6:01 AM CDT Haris Patterson MD LAB - CHEMISTRY ORDPaula ARAMISASIYA Performing Organization Address [facility] Co de Phone Number [facility] [address] [place] [address] * TROPONIN I (09/02/2016 4:02 AM CDT) Only the most recent of3 resultswithin the time period is included. Pathologist [facility] Troponin I <0.015 0.000 - 0.049 ng/mL 09/02/2016 4:35 AM CDT [facility] Blood BLOOD SPECIMEN / Unknown 09/02/2016 4:02 AM CDT 09/02/2016 4:09 AM CDT Narrative [facility] - 09/02/2016 4:35 AM CDT Note: Diagnosis of myocardial infarction requires symptoms of ischemia or EKG changes of ischemia and Troponin I >99th of normal (0.05 ng/mL). Troponin should be drawn on initial assessment and 3-6 hours later as clinically indicated. Any condition resulting in myocardial cell damage can increase cardiac troponin levels. In addition to myocardial infarction, these include but are not limited to congestive heart failure (CHF), arrhythmia, myocarditis, and non-cardiac related causes such as pulmonary embolism, renal failure and sepsis. Rafael Mojica MD LAB - CHEMISTRY PAPA GILBERT Performing Organization Address [facility] Co de Phone Number [facility] [address] [place] [address] * XR CHEST INSPIRATION AND EXPIRATION (09/01/2016 12:37 PM CDT) Anatomical Region Laterality Modality Chest Radiographic Jordan ging 09/01/2016 12:4 2 PM CDT Impressions 09/01/2016 12:44 PM CDT Inspiratory and expiratory views of the chest demonstrate no acute appearing cardiac or pulmonary abnormality. This examination was transcribed using the scanR voice recognition system without human ux developer. ??In an effort to expedite patient care, this report has not been adjusted for typographical, grammatical, and syntax by a trained medical sociologist. Narrative 09/01/2016 12:44 PM CDT Chest x-ray inspiration expiration INDICATION: Chest pain FINDINGS: Inspiratory and expiratory views of the chest are obtained with patient in supine position. No pneumothorax is seen on this supine examination. Supine examination is less sensitive in the detection of pneumothorax then upright or decubitus film however. Lungs are free of infiltrate. Cardiac size is at upper limits of normal. 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 Procedure Note Noni Coombs MD - 09/01/2016 Chest x-ray inspiration expiration INDICATION: Chest pain FINDINGS: Inspiratory and expiratory views of the chest are obtained with patient in supine position. No pneumothorax is seen on this supine examination. Supine examination is less sensitive in the detection of pneumothorax then upright or decubitus film however. Lungs are free of infiltrate. Cardiac size is at upper limits of normal. 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 IMPRESSION Inspiratory and expiratory views of the chest demonstrate no acute appearing cardiac or pulmonary abnormality. This examination was transcribed using the scanR voice recognition system without human ux developer. In an effort to expedite patient care, this report has not been adjusted for typographical, grammatical, and syntax by a trained medical sociologist. Haris Patterson MD DIAGNOSTIC IMAGING O RDERABLES * NT-PRO BNP (09/01/2016 9:42 AM CDT) NT-proBNP 54.0 <300.0 pg/mL 09/01/2016 10:06 AM CDT [facility] Blood BLOOD SPECIMEN / Unknown 09/01/2016 9:42 AM CDT 09/01/2016 9:46 AM CDT Narrative [facility] - 09/01/2016 10:06 AM CDT NT-proBNP Patient Age ? Acute HF Unlikely ? Acute HF Likely <50 years ? <300 pg/mL ? >450 pg/mL 50-75 years ?<300 pg/mL ? >900 pg/mL >75 years ? <300 pg/mL ? >1800 pg/mL Reference: ESSIE Avalos et al. ICON Study. Heart Journal (2006) 27, 330- 337 Both BNP and NT-proBNP derive from the precursor molecule called proBNP which is secreted from the ventricles in response to ventricle volume expansion and/or pressure overload. The secreted proBNP is subsequently cleaved by enzymes to form BNP, the active hormone and NT-proBNP an inactive metabolite. NT-proBNP has a longer half-life of 1.5-2.0 hours verses BNP with a half-life of 20 min for BNP. Both are useful biomarkers of ventricular distension due to increased intracardiac pressure. Both BNP and NT-proBNP increase with age and renal insufficiency. Increased concentrations of NT-proBNP have also been observed in the setting of acute myocardial infarction, right ventricular failure, valvular heart disease, and atrial fibrillation. Rafael Mojica MD LAB - CHEMISTRY [place] Organization Address City/State/[facility] Co de Phone Number [facility] [address] [place] [address] Care Teams Camera Repair Technician Relationship Specialty Start Date End Date Mahad Onofre MD [facility] [address] [address] [place] [address] PCP - General Internal Medicine 03/21/17
--- OUTSIDE RECORDS SUMMARY | 2024-04-29 10:25 | XMS_ITS | CONTINUITY OF CARE DOCUMENT ---
Author Name jasmin castellanos Address Unknown Organization [facility] Address [address] [place] [address] Phone [phone] Care Team Providers Care Business Law Professor Name Role Phone Varghese BUSTILLOS, Ana Rosa Unavailable [phone] PATTY BUSTILLOS, ROSA Unavailable [phone] ROSA BRAMBILA MD Unavailable [phone] INSURANCE PROVIDERS Payer name Policy type / Coverage type Maynard red republican ID [employer] insurance [employer] [id number] [place] Medicare [id number]
--- OUTSIDE RECORDS SUMMARY | 2024-04-29 10:25 | XMS_ITS | Referral Summary ---
Author Organization [facility] Address [facility] [place] [address] Care Team Providers Care Shipping Clerk Name Role Phone Mahad Onofre MD Primary Care Provider Chriss Hay MD Unavailable [phone] Encounters Date Type Department Care Team Description 04/14/2024 2:00 PM YARDAGE ESTIMATOR Office Visit [facility] Neurology [facility] [facility] [address] [place] [address] Dieter Skelton MD Parkinson's disease, unspecified whether dyskinesia present, unspecified whether manifestations fluctuate (HCC) (Primary Dx); Dementia without behavioral disturbance (HCC) from Last 3 Months Allergies Active Allergy Reactions Criticality Noted Date Comments Codeine Nausea And Vomiting, Shortness of breath High 09/01/2016 Hydrocodone Hallucinations Medium 03/09/2021 Medications omeprazole (PriLOSEC) 40 mg capsule Take 1 capsule (40 mg total) by mouth daily Active folic acid (FOLVITE) 1 mg tabletIndications :Parkinson's disease (HCC) Take 1 tablet (1,000 mcg total) by mouth daily 90 tablet 1 021 Active Additional Information Patient not taking.Reported on 08/15/2021 PARoxetine (PAXIL) 20 mg tablet Take 1 tablet (20 mg total) by mouth every morning Active docusate sodium (COLACE) 100 mg capsuleIndication s:constipation Take 1 capsule (100 mg total) by mouth 2 (two) times a day 60 capsule 12/18/2 021 Active Additional Information Patient not taking.Reported on 04/14/2024 aspirin 81 mg chewable tabletIndications :Deep Vein Thrombosis Prevention Take 1 tablet (81 mg total) by mouth 2 (two) times a day 60 tablet Active calcium carbonate (OS-ALO) 1,250 mg (500 mg elemental) tablet Take 1 tablet (1,250 mg total) by mouth daily Active ergocalciferol (VITAMIN D) 50,000 unit capsule Take 1 capsule (50,000 Units total) by mouth once a week Active multivitamin with minerals (Multiple Vitamin-Minerals) tablet Take 1 tablet by mouth daily Active dexlansoprazole (Dexilant) 60 mg capsule Active mirtazapine (REMERON) 15 mg tablet Take 1 tablet (15 mg total) by mouth every evening Active acetaminophen (TYLENOL) 500 mg tablet Take 1 tablet (500 mg total) by mouth every 6 (six) hours as needed for pain Active naproxen sodium 220 mg capsule Take 220 mg by mouth daily as needed Active cyclobenzaprine (FLEXERIL) 7.5 mg tabletIndications :Muscle Spasm Take 1 tablet (7.5 mg total) by mouth 3 (three) times a day as needed for muscle spasms 30 tablet 3 Active Additional Information Patient not taking.Reported on 04/14/2024 amoxicillin-clavu lanate (AUGMENTIN) 875-125 mg per tablet Take 1 tablet by mouth every 12 (twelve) hours Active Eliquis 5 mg tablet TAKE 1 (ONE) TABLET BY MOUTH 2 TIMES DAILY Active glycopyrrolate (ROBINUL) 1 mg tablet Active glycopyrrolate (ROBINUL) 1 mg tablet Take 1 tablet (1 mg total) by mouth nightly as needed Active carbidopa-levodop a (SINEMET) 10-100 mg per tabletIndications :Parkinson's disease (HCC) Take 1 tablet by mouth 4 (four) times a day 360 tablet 3 024 Active donepeziL (ARICEPT) 10 mg tabletIndications :Dementia without behavioral disturbance (HCC) TAKE 1 TABLET BY MOUTH EVERY DAY AT NIGHT 90 tablet 1 024 Active memantine (NAMENDA) 10 mg tabletIndications :Parkinson's disease, unspecified whether dyskinesia present, unspecified whether manifestations fluctuate (HCC) TAKE 1 TABLET BY MOUTH TWICE A DAY 180 tablet 1 Active entacapone (COMTAN) 200 mg tabletIndications :Parkinson's disease, unspecified whether dyskinesia present, unspecified whether manifestations fluctuate (HCC) TAKE 1 TABLET BY MOUTH 4 TIMES A DAY 360 tablet 2 Active Additional Information Patient not taking.Reported on 04/14/2024 entacapone (COMTAN) 200 mg tabletIndications :Parkinson's disease, unspecified whether dyskinesia present, unspecified whether manifestations fluctuate (HCC) Take 1 tablet (200 mg total) by mouth 4 (four) times a day 360 tablet 1 024 2023 Discontinued Active Problems Problem Noted Date Diagnosed Date Esophagitis 10/11/2023 Acute pulmonary embolism 09/06/2023 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 Fracture of ankle 04/05/2023 Acute bronchitis 11/22/2022 Class 1 obesity 10/06/2022 Arthralgia of left knee 06/26/2022 Vitamin D deficiency 01/31/2022 Dementia without behavioral disturbance 08/16/19 22 Pain of left sacroiliac joint 08/03/2021 History of arthroplasty of left knee 04/07/2021 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 03/21/2021 Unspecified visual loss 03/21/2021 Unspecified osteoarthritis, unspecified site Major depressive disorder, single episode, unspe cified 03/21/2021 Arthritis of left knee 03/18/2021 Closed fracture of condyle of left femur Overview (02/17/2021): Added automatically from request for surgery [id number] 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 regiment but has been noticing increasing resting tremor in generalized bradykinesia. To further suppress progressive symptoms, I will increase her Sinemet to 10/100 q.i.d.. She will follow-up in neurology clinic in 6 months for reassessment on increased dosing. Assessment & Plan (06/24/2020 10:08 AM CDT): Patient's history of Parkinson's disease and physical examination consistent with diagnosis. She was diagnosed about a year ago and continues on Sinemet at this time. She has noticed some occasional increase in tremor but based on her current physical examination I would not recommend an increase in medication at this time. She is in need of refill of medication and this has been provided. I will see her back in the office in 6 months time for reassessment. Sesamoiditis 11/24/2019 Metatarsalgia 11/24/2019 Anxiety 10/15/2019 Fall 09/23/2019 Depressive disorder 06/29/2017 Pure hypercholesterolemia 04/17/2017 Backache 01/08/2017 Thoracic compression fracture 10/18/2016 Syncope 10/09/2016 Parkinson disease Post-traumatic osteoarthritis Overview (03/09/2021): left knee Diverticulosis HLD (hyperlipidemia) Depression Immunizations Name Administration Dates Next Due Influenza, Trivalent, High D ose, Split, Preservative Free, Intramuscular 02/22/2021,01/17/2020,02/21/2019,01/08,01/12/2015,04/02/2014 Moderna SARS-CoV-2 Monovalen t Vaccination (12+ YRS) 01/12/2021,07/25/2020,06/24/2020 Pneumococcal Conjugate PCV 13 11/14/2019 Pneumococcal Polysaccharide PPV23 03/12/2020 Social History Tobacco Use Types Packs/Day Years Used Date Smoking Tobacco: Never Smokeless Tobacco: Never Tobacco Cessation:Counseling Given: Not Answered AUDIT-C Answer Date Recorded Q1: How often do you have a drink containing alc ohol? Never 11/07/2022 Average Number of Drinks Not on file 023 Frequency of Binge Drinking Not on file 10/2022 Comments No Sex and Gender Information Value Date Recorded Sex Assigned at Not on file Legal Sex Female 3:49 AM YARDAGE ESTIMATOR Gender Identity Not on file Sexual Orientation Not on file Last Filed Vital Signs Vital Sign Reading Time Taken Comments Blood Pressure 90/59 04/14/2024 1:36 PM YARDAGE ESTIMATOR Pulse 78 04/14/2024 1:36 PM YARDAGE ESTIMATOR Temperature 37.1 ??C (98.7 ??F) 10/19/2023 7:23 PM CD T Respiratory Rate 18 04/14/2024 1:36 PM YARDAGE ESTIMATOR Oxygen Saturation 95% 04/14/2024 1:36 PM YARDAGE ESTIMATOR Inhaled Oxygen Concentration - - Weight 72.1 kg (159 lb) 04/14/2024 1:36 PM YARDAGE ESTIMATOR Height 157.5 cm (5' 2 ) 04/14/2024 1:36 PM YARDAGE ESTIMATOR Body Mass Index 29.08 04/14/2024 1:36 PM YARDAGE ESTIMATOR Plan of Treatment Not on file Goals Goal Patient Goal Type Associated Problems Recent Progress Patient-Stated? Author CCM Chronic Pain Care Plan Chronic Care Management No Minna Dangelo RN Note: Problem: Chronic Pain Goals: 1. Minimize further functional decline 2. Maximize quality of life 3. Control pain Strategies: - Activity/exercise program recommendation - Conservative stepwise pain medicine strategy with multi-disciplinary approach - Recommend healthy lifestyle strategies and compensatory methods as needed Reduce the likelihood of falling Lifestyle No Minna Dangelo RN Note: Below are four things you can do to prevent falls: Begin an exercise program to improve your leg strength & balance Ask your doctor or pharmacist to review your medicines Get annual eye check-ups & update your eyeglasses Make your home safer by: Removing clutter & tripping hazards Putting railings on all stairs & adding grab bars in the bathroom Having good lighting, especially on stairs Contact your local community or senior center for information on exercise, fall prevention programs, or options for improving home safety. Medical Devices Implanted Type Area Candy Forming Machine Operator Device Identifier Shelf Expiration Date Model / Serial / Lot [employer] 5560-S-112 Triathlon 12mm 50mm Cement End Cap Knee Stem Femoral Cocr - [id number] Implanted:Qty: 1 on 03/17/2021 by Chriss Hay MD at [facility] [employer] [id number] 12/26/2025 5560-S-112 / / [id number] [employer] 6481-2-150 Gmrs Pack Crosslink Knee Component Femoral Polyethylene - [id number] Implanted:Qty: 1 on 03/17/2021 by Chriss Hay MD at [facility] Left: Knee [employer] [id number] 09/02/2025 6481-2-150 / / [id number] [employer] 6481-2-100 Monogram Modular Rotate Hinge Knee Xs-Xl Component Tibial - [id number] Implanted:Qty: 1 on 03/17/2021 by Chriss Hay MD at [facility] Left: Knee [employer] [id number] 09/06/2025 6481-2-100 / / [id number] [employer] [id number] [employer] Bearing Modular Rotate Hinge Distal [id number] M2 2 Insert - [id number] Implanted:Qty: 1 on 03/17/2021 by Chriss Hay MD at [facility] Left: Knee [employer] [id number] 12/08/2024 [id number] / / [id number] [employer] 6481-3-112 Modular Rotating Hinge 2 Medium Baseplate Tibial - [id number] Implanted:Qty: 1 on 03/17/2021 by Chriss Hay MD at [facility] Left: Knee [employer] [id number] 04/13/2025 6481-3-112 / / [id number] [employer] 6485-3-115 Gmrs 15mm 127mm Cemented Knee Straight Stem Femoral Sterile - [id number] Implanted:Qty: 1 on 03/17/2021 by Chriss Hay MD at [facility] Left: Knee [employer] [id number] 06/08/2023 6485-3-115 / / [id number] [employer] [id number] Gmrs 65mm Knee Left Small Component Femoral Cocr - [id number] Implanted:Qty: 1 on 03/17/2021 by Chriss Hay MD at [facility] Left: Knee [employer] [id number] 05/21/2025 [id number] / / [id number] [employer] 6191-1-010 Simplex P Radiopaque Full Dose Cement Bone Sterile - [id number] Implanted:Qty: 1 on 03/17/2021 by Chriss Hay MD at [facility] Left: Knee [employer] 05/02/2023 6191-1-010 / / [id number] [employer] 6191-1-010 Simplex P Radiopaque Full Dose Cement Bone Sterile - [id number] Implanted:Qty: 3 on 03/17/2021 by Chriss Hay MD at [facility] Left: Knee [employer] 05/31/2023 6191-1-010 / / [id number] [employer] [id number] Gmrs Knee Small Bushing Femoral - [id number] Implanted:Qty: 1 on 03/17/2021 by Chriss Hay MD at [facility] Left: Knee [employer] [id number] 04/06/2025 [id number] / / [id number] [employer] [id number] Gmrs Knee Small Bushing Femoral - [id number] Implanted:Qty: 1 on 03/17/2021 by Chriss Hay MD at [facility] Left: Knee [employer] [id number] 04/07/2025 [id number] / / [id number] [employer] [id number] Gmrs Knee Small Axle Femoral - [id number] Implanted:Qty: 1 on 03/17/2021 by Chriss Hay MD at [facility] Left: Knee [employer] [id number] 06/13/2023 [id number] / / [id number] Insurance MEDICARE [facility] MEDICARE [facility] MEDICARE [facility] Advance Directives For more information, please contact: [phone] * Full Code (Latest Code Status on File) Date Activated Date Inactivated Comments 03/17/2021 9:05 PM 03/21/2021 9:00 PM Care Teams Shipping Clerk Relationship Specialty Start Date End Date Mahad Onofre MD [address] [facility] [address] [place] [address] PCP - General Internal Medicine 05/05/20 Chriss Hay MD [address] [facility] [address] [place] [address] Consulting Physician Orthopedic Surgery 03/19/21
--- OUTSIDE RECORDS SUMMARY | 2024-04-29 10:25 | XMS_ITS | Data Portability ---
Author Organization [place] - [facility], Main Office Address [address] [place] [address] Care Team Providers Care Business Support Specialist Name Role Phone GCP [facility] FA[facility] OTHER ROSA ONOFRE Primary Care Provider EMILIO SARAH Orthopedic Surgeon Assessment Encounter Date Assessment Date Assessment LastModified by Organization Details LastModified Time 02/03/2024 02/03/2024 f/u labs 02/06 [email or web address] Not available 02/03/2024 22:54:53 02/05/2024 02/05/2024 D/C home to [facility] apartment at [place] today with OP therapy and oversight from sisters. Not available 02/05/2024 16:01:22 Plan of Treatment Reminders Order Date Submit Date Provider Last Modified By Organization Details Last Modified Time Details Appointments None recorded. Lab None recorded. Referral None recorded. Procedures None recorded. Surgeries None recorded. Imaging None recorded. Medication Orders hydrocodone 5 mg-acetamin ophen 325 mg tablet 2023 [facility] [place] [address] [address] [place], [address], 10:51:39 pregabalin 50 mg capsule 2023 [facility] [address] [place], [address], 10:51:39 Patient TargetsNo targets recorded. Patient Instructions Encounter Date Encounter Id Patient Instructions Last Modified By Organization Details Last Modified Time 01/31/[id number] I spent {{ 55#}} minutes providing care to the patient today. More than 50% of that time was spent in discussing the expected course of the disease, discussing prognosis, coordinating care and counseling of the patient/family. I spent {{16 17* 18 19 20 21 22 23 24 25}} minutes counseling and discussing advance directives and/or end of life care planning and decisions with the {{patient* surrog ate patient and surrogate}} today. I reviewed the current relevant diagnoses, treatment options, natural history, and prognosis and clarified the patient's goals of care. Not available 01/31/2024 14:59:30 02/03/[id number] I spent {{ 50#}} minutes providing care to the patient today. More than 50% of that time was spent in discussing the expected course of the disease, discussing prognosis, coordinating care and counseling of the patient/family. [email or web address] Not available 02/07/2024 04:04:43 02/05/[id number] I spent {{ 45#}} minutes providing care to the patient today. More than 50% of that time was spent in discussing the expected course of the disease, discussing prognosis, coordinating care and counseling of the patient/family. Not available 02/05/2024 16:02:40 Reason for Referral None Reported. Procedures Surgical History Date Name Laterality Status Provider Name and Address Organization Details Recorded Time 01/21/20 24 revision of prosthetic replacement [place] [address] [place], [address], [facility] 01/31/2024 14:26:26 04/02/19 21 arthro[place] [address] [address] [facility], [place], [address], [facility] 01/31/2024 14:27:50 04/02/19 20 open reduction of fracture [place] [address] [place], [address], [facility] 01/31/2024 14:28:07 Imaging Results None recorded. Procedure Notes None recorded. Medical Equipment None Reported. Allergies Allergen ID Allergen Name Allergen Category Reaction Reaction Severity Criticality Documentation Date Start Date Code Code System Note Provider Name and Address Organization Details Recorded Time [id number] codeine medicatio n Not available Not available Not available 01/30/2024 2670 RxNorm Not Available Not Available Not Available Medications Name Sig Start Date Stop Date Status Note LastModified by Organization Details LastModified Time Miralax 17 gram oral powder packet Take 1 packet every day by oral route. active Not Available Not Available No t Available glycopyrrola te 1 mg tablet Take 1 tablet every day by oral route. active Not Available Not Available No t Available acetaminophe n 325 mg tablet Take 2 tablets every 6 hours by oral route as needed. active Not Available Not Available N ot Available doxycycline hyclate 100 mg capsule Take 1 capsule twice a day by oral route for 7 days. active Stop Date: 02/10 Not Available Not Available Not Available lidocaine 4 % topical patch Apply 1 patch every day by topical route. active Not Available Not Available No t Available hydrocodone 5 mg-acetamino phen 325 mg tablet Take 1 tablet every 8 hours by oral route as needed. 2023 active Not Available Not Available Not Avai lable donepezil 10 mg tablet Take 1 tablet every day by oral route. active Not Available Not Available No t Available omeprazole 40 mg capsule,shawn yed release Take 1 capsule every day by oral route. active Not Available Not Available No t Available entacapone 200 mg tablet Take 1 tablet 4 times a day by oral route. active Not Available Not Available No t Available paroxetine 20 mg tablet Take 1 tablet every day by oral route. active Not Available Not Available No t Available cyanocobalam in (vit B-12) 1,000 mcg/mL injection solution Inject 1 mL every month by subcutaneou s route. active Not Available Not Available No t Available carbidopa 10 mg-levodopa 100 mg tablet Take 1 tablet 4 times a day by oral route. active Not Available Not Available No t Available docusate sodium 100 mg capsule Take 1 capsule twice a day by oral route. active Not Available Not Available No t Available mirtazapine 15 mg tablet Take 1 tablet every day by oral route at bedtime. active Not Available Not Available No t Available memantine 10 mg tablet Take 1 tablet twice a day by oral route. active Not Available Not Available No t Available pregabalin 50 mg capsule Take 1 capsule twice a day by oral route. 2023 active Not Available Not Available Not Avai lable Oyster Shell Calcium 500 mg (as calcium carbonate 1,250 mg) tablet Take 1 tablet twice a day by oral route. active Not Available Not Available No t Available cholecalcife rol (vitamin D3) 125 mcg (5,000 unit) tablet Take 1 tablet every day by oral route. active Not Available Not Available No t Available apixaban 5 mg tablet Take 2 tablets every day by oral route. active Not Available Not Available No t Available Vitals Date Recorded Body weight Heart rate Oxygen saturation Oxygen saturation in Arterial blood by Pulse oximetry Respiratory rate Body temperature Body mass index (BMI) Body height Systolic blood pressure Diastolic blood pressure Provider Name and Address Organization Details Last Updated DateTime 4 76642.3 3 g 70 /min 94 % 94 % 20 /min 97.8 [degF] 30.4 kg/m2 157.48 cm 116 mm[Hg] 61 mm[Hg] [place] [address] [place], [address] [place] [address] [facility] 4 14:04:48 Date Recorded Body height Body mass index (BMI) Body weight Heart rate Oxygen saturation Oxygen saturation in Arterial blood by Pulse oximetry Respiratory rate Body temperature Systolic blood pressure Diastolic blood pressure Provider Name and Address Organization Details Last Updated DateTime 4 157.48 cm 30.4 kg/m2 23636.7 7 g 81 /min 95 % 95 % 18 /min 97.3 [degF] 115 mm[Hg] 86 mm[Hg] [place] [address] [place], [address] [place] [address] [facility] 4 22:54:05 Date Recorded Body height Heart rate Body temperature Respiratory rate Oxygen saturation Oxygen saturation in Arterial blood by Pulse oximetry Body mass index (BMI) Body weight Systolic blood pressure Diastolic blood pressure Provider Name and Address Organization Details Last Updated DateTime 4 157.48 cm 67 /min 98 [degF] 18 /min 95 % 95 % 30.4 kg/m2 59635.3 3 g 103 mm[Hg] 56 mm[Hg] [place] [address] [place], [address], [place] [facility] 13:51:21 Social History Question Answer Notes LastModified by Organizat ion Details LastModified Time Tobacco Smoking Status Never Smoker [place], [place] - [facility] 01/30/2024 23:53:12 What Is Your Level Of Alcohol Consumption? None Information not available 01/30/2024 What Is Your Code Status? Full Code Information not available 01/30/2024 What Was The Date Of Your Most Recent Tobacco Screening? 01/31/2024 Information not available 01/31/2024 What Is Your Relationship Status? Information not available 01/31/2024 Do You Use Any Illicit Or Recreational Drugs? No Information not available 01/30/2024 Sex: Unknown Functional Status None recorded. Mental Status None recorded. Family History Relationship Description Onset Age of this Age Resolved Age Notes LastModified by Organization Details LastModified Time Father No current problems or disability [email or web address] Not available 02/06 04:01:49 Mother No current problems or disability [email or web address] Not available 02/06 04:01:49 Medical History Condition Response Vitamin D Deficiency Y Parkinson's Disease Y Psychiatric -- Depression Y Vitamin B12 Deficiency Y Deep Vein Thrombosis (DVT) Y Dementia Y GERD / Reflux Y Neuropathy Y Pulmonary Embolism Y Gynecological HistoryNo gynecological history recorded. Obstetrics History GPAL:G 0 P 0 0 0 0 Past Encounters Encounter ID Performer Location Encounter Start Date Encounter Closed Date Diagnosis/Indication Diagnosis SNOMED-CT Code Diagnosis ICD10 Code Diagnosis Note [id number] Clary Comer NP [place] [address] [place] [address] 01/31/2024 09:21:51 02/11/2024 15:42:55 History of total knee arthroplasty 0778106495 105 Z96.659 Underwent an elective left knee arthroplas ty due to loose hardware on 01/[address] Emilio Sarah at [facility].W BAT to LLE.Contin ue incision site care -- kannan in place.Cont inues on Doxycyclin e through 02/07 for surgical prophylaxi s.Continue s on Eliquis for DVT prophylaxi s -- takes long-term as OP.Continu e Lyrica, Lidocaine patch, & PRN APAP & [place] for pain.Rufino nue PT/OT.F/U with ortho on 02/11 as scheduled. Neuropathy 812653924 G62 .9 SEE ABOVE... 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 Anemia fol lowing acute postoperative blood loss 6560944567 0108483 D62 Hgb dropped to 9.6 post-opera tively. Treating supportive ly at present.Tr end Hgbs. Parkinson's disease 4904 9000 G20.A1 Stable. Continue Sinemet, Glycopyrro late, & Entacapone .F/U with neurology as OP. Dementia 94899504 F03.90 ST to follow.Con tinue Donepezil, Memantine, Paroxetine , and Mirtazapin e. Mood is stable at present. Major depr essive disorder 597070830 F32.9 SEE ABOVE... Lung mass 262202140 R91. [address] scan at outside hospital in September 2023 as mass in right lower lobe.F/U for this is unclear -- hospital had recommende d f/u by PCP as OP. History of deep vein thrombosis 188745550 Z86.718 RLE. Presumed stable. Continue Eliquis long-term. History of pulmonary embolus 178643741 Z86.711 In September 2023. Presumed stable. Continue Eliquis long-term. Osteopenia 253667195 M85 .80 Presumed stable. Continue Ca + D and Vit D3. 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 Continue monthly injection. Vitamin D deficiency 347 [address]86 E55.9 Presumed stable. Continue supplement . Gastroesop hageal reflux disease without esophagitis 188989056 K21.9 Stable. Continue Omeprazole . Could consider changing to H2 lul or changing to PRN in pt with osteopenia . Advance care planning 71 3184354 Z71.89 Pt tells me she is a DNR, however she has signed her POLST form as a Full Code. Nursing to review further with patient and mPOA. Constipation 81701204 K5 9.00 Stable. Continue Colace & Miralax. [id number] Shara Oneal DO [place] [address] [place] [address] 02/03/2024 17:06:06 02/11/2024 15:44:07 History of total knee arthroplasty 6853903457 105 Z96.659 Underwent an elective left knee arthroplas ty due to loose hardware on 01/[address] Emilio Sarah at [facility].W BAT to LLE.Contin ue incision site care -- kannan in place.Cont inues on Doxycyclin e through 02/07 for surgical prophylaxi s.Continue s on Eliquis for DVT prophylaxi s -- takes long-term as OP.Continu e Lyrica, Lidocaine patch, & PRN APAP & [place] for pain.Rufino nue PT/OT.F/U with ortho on 02/11 as scheduled. Prosthetic joint loosening 350260833 T84.033S SEE ABOVE... Anemia fol lowing acute postoperative blood loss 3072533037 8631275 D62 Hgb dropped to 9.6 post-opera tively. Treating supportive ly at present.Tr end Hgbs. Parkinson's disease 4904 9000 G20.A1 Stable. Continue Sinemet, Glycopyrro late, & Entacapone .F/U with neurology as OP. Neuropathy 526247854 G62 .9 SEE ABOVE... Dementia 57628050 F03.90 ST to follow.Con tinue Donepezil, Memantine, Paroxetine , and Mirtazapin e. Mood is stable at present. Major depr essive disorder 181729413 F32.9 SEE ABOVE... Osteopenia 407824837 M85 .80 Presumed stable. Continue Ca + D and Vit D3. Gastroesop hageal reflux disease without esophagitis 225014779 K21.9 Stable. Continue Omeprazole . Could consider changing to H2 lul or changing to PRN in pt with osteopenia . Vitamin D deficiency 347 99688 E55.9 Presumed stable. Continue supplement . Disorder o f vitamin B12 504393603 E53.8 Presumed stable. Continue monthly injection. Lung mass 715383340 R91. [address] scan at outside hospital in September 2023 as mass in right lower lobe.F/U for this is unclear -- hospital had recommende d f/u by PCP as OP. History of deep vein thrombosis 173874251 Z86.718 RLE. Presumed stable. Continue Eliquis long-term. History of pulmonary embolus 014356940 Z86.711 In September 2023. Presumed stable. Continue Eliquis long-term. Constipation 31886233 K5 9.00 Stable. Continue Colace & Miralax. Physical deconditioning 0774132940 9102 R68.89 related to advanced age, recent knee replacemen t, comorbidit iestherapi es in place, she will return to her [facility] apartment at upon d/c from SNFcontinu e eliquis for DVT prophylaxi ken[place] meds as abovecatha rtics in place [id number] Clary Comer, KIM [address] [address] 02/05/2024 09:05:38 02/07/2024 15:49:20 History of total knee arthroplasty 7536122680 105 Z96.659 Underwent an elective left knee arthroplas ty due to loose hardware on 01/[address] Emilio Sarah at [facility].W BAT to LLE.Contin ue incision site care -- kannan in place.Cont inues on Doxycyclin e through 02/10 for surgical prophylaxi s.Continue s on Eliquis for DVT prophylaxi s -- takes long-term as OP.Continu e Lyrica, Lidocaine patch, & PRN APAP & [place] for pain.Rufino nue PT/OT.F/U with ortho on 02/11 as scheduled. Prosthetic joint loosening 656845539 T84.033S SEE ABOVE... Anemia fol lowing acute postoperative blood loss 1480872170 3957190 D62 Hgb dropped to 9.6 post-opera tively. Treating supportive ly at present.Tr end Hgbs. Parkinson's disease 4904 9000 G20.A1 Stable. Continue Sinemet, Glycopyrro late, & Entacapone .F/U with neurology as OP. Neuropathy 607657884 G62 .9 SEE ABOVE... Dementia 61791714 F03.90 ST has followed.C ontinue Donepezil, Memantine, Paroxetine , and Mirtazapin e. Mood is stable at present. Major depr essive disorder 972194334 F32.9 SEE ABOVE... Osteopenia 606472897 M85 .80 Presumed stable. Continue Ca + D and Vit D3. Gastroesop hageal reflux disease without esophagitis 389943992 K21.9 Stable. Continue Omeprazole . PCP could consider changing to H2 lul or changing to PRN in pt with osteopenia . Vitamin D deficiency 347 83793 E55.9 Presumed stable. Continue supplement . Disorder o f vitamin B12 240374755 E53.8 Presumed stable. Continue monthly injection. Lung mass 449467459 R91. [address] scan at outside hospital in September 2023 as mass in right lower lobe.F/U for this is unclear -- hospital had recommende d f/u by PCP as OP. History of deep vein thrombosis 744563579 Z86.718 RLE. Presumed stable. Continue Eliquis long-term. History of pulmonary embolus 461884740 Z86.711 In September 2023. Presumed stable. Continue Eliquis long-term. Constipation 16652625 K5 9.00 Stable. Continue Colace & Miralax. Health Concerns Section Related Observation LastModified by Organization Detai ls LastModified Time None Recorded Concern Status LastModified by Organization Details LastModified Time None Recorded Advance Directives Directive None Recorded Payers Encounter Date Sequence Insurance Name Policy Number Policy Benitez Covered Member ID Benitez Member ID Guarantor Name 01/31/2024 1 [place] Sammi A Rohlfing [id number] Sammi A Rohlfing 01/31/2024 2 [facility] - OPTIONS Sammi A Rohlfing [id number] Sammi A Rohlfing 02/03/2024 1 [place] Sammi A Rohlfing [id number] Sammi A Rohlfing 02/03/2024 2 [facility] - OPTIONS Sammi A Rohlfing [id number] Sammi A Rohlfing 02/05/2024 1 [place] Sammi A Rohlfing [id number] Sammi A Rohlfing 02/05/2024 2 [facility] - OPTIONS Sammi A Rohlfing [id number] Sammi A Rohlfing Notes Date Note Type Note Provider Name and Address Organization Details Recorded Time 01/31/2024 text/html 83-year-old female with PMH of Parkinson's, Dementia, MDD, Neuropathy, Hx of PE & RLE DVT (September 2023), Hx of RLL mass, GERD, Vit B12 & D deficiencies, and Osteopenia, presenting for rehabilitation following elective left total knee arthroplasty due to loose hardware, post-operative anemia, generalized deconditioning, and chronic medical conditions. Underwent an elective left knee arthroplasty due to loose hardware on 01/[address] Emilio Sarah at [facility] [It should be noted there are frequent places in hospital records where this is incorrectly listed as right ]. Post-operative period was reportedly unremarkable beyond some post-operative anemia (Hgb 10.7, 9.6). She was discharged from the hospital on 01/20 to [facility] in [place]. While there, she was noted She has been discharged to this facility as of 01/30/24 for further rehabilitation with goal to return to her ILF apartment at [place]. She is WBAT to LLE and continues on Doxycycline through 02/07 for surgical prophylaxis. Bette is seated in her w/c in her room, comfortable, without concerns or reports of pain today. Dressing to her left knee is dry and intact without concerns for edema, erythema, warmth, etc. Pt's sister Aida is at her bedside and notes she has a f/u appt with ortho on 02/11 to have her kannan removed. VSS. Staff is without concerns at present. Pt tells me she is a DNR, however she has signed her POLST form as a Full Code. Nursing to review further with patient and mPOA.mPOA is niheidi Cheney (although this should be confirmed as pt and sister aren't positive).Bette lives in an ILF apartment at [place]. Her two sisters live only a few doors away and check in on her.Pharmacy is [facility] in [place].PCP is Dr. Rosa Onofre. Clary Comer, KIM [address] [facility], [place], [address], [place] [facility] 01/31/2024 15:00:30 02/03/2024 text/html 83-year-old female with PMH of Parkinson's, Dementia, MDD, Neuropathy, Hx of PE & RLE DVT (September 2023), Hx of RLL mass, GERD, Vit B12 & D deficiencies, and Osteopenia, presenting for rehabilitation following elective left total knee arthroplasty due to loose hardware, post-operative anemia, generalized deconditioning, and chronic medical conditions. Underwent an elective left knee arthroplasty due to loose hardware on 01/[address] Emilio Sarah at [facility] [It should be noted there are frequent places in hospital records where this is incorrectly listed as right ]. Post-operative period was reportedly unremarkable beyond some post-operative anemia (Hgb 10.7, 9.6). She was discharged from the hospital on 01/20 to [facility] in [place] with an uncomplicated IRF stay. She has now been discharged to this facility as of 01/30/24 for further rehabilitation with goal to return to her ILF apartment at [place]. She is WBAT to LLE and continues on Doxycycline through 02/07 for infection prophylaxis. Bette is seated in her w/c in her room this evening. She is pleasant and without complaints or concerns. She feels she is doing great with therapy and tells me she is planning to return to her ILF apartment in the next couple of days. However, staff does not confirm a definitive discharge date. f/u appt is scheduled with ortho 02/11 at which time she will have her kannan removed. VSS. No nursing concerns. Code status is fullmPOA is mally Jerry lives in an ILF apartment at [place]. Her two sisters live only a few doors away and check in on her.Pharmacy is [facility] in [place] [address] [facility], [place], [address], [place] [facility] 02/07/2024 04:05:04 02/05/2024 text/html 83-year-old female with PMH of Parkinson's, Dementia, MDD, Neuropathy, Hx of PE & RLE DVT (September 2023), Hx of RLL mass, GERD, Vit B12 & D deficiencies, and Osteopenia, presenting for rehabilitation following elective left total knee arthroplasty due to loose hardware, post-operative anemia, generalized deconditioning, and chronic medical conditions. Underwent an elective left knee arthroplasty due to loose hardware on 01/[address] Emilio Sarah at [facility] [It should be noted there are frequent places in hospital records where this is incorrectly listed as right ]. Post-operative period was reportedly unremarkable beyond some post-operative anemia (Hgb 10.7, 9.6). She was discharged from the hospital on 01/20 to [facility] in [place]. While there, she was noted She has been discharged to this facility as of 01/30/24 for further rehabilitation with goal to return to her ILF apartment at [place]. She is WBAT to LLE and continues on Doxycycline through 02/10 for surgical prophylaxis. mPOA is mally Cheney (although this should be confirmed as pt and sister aren't positive).Bette lives in an ILF apartment at [place]. Her two sisters live only a few doors away and check in on her.PCP is Dr. Rosa Onofre. ---01/31/24Bette is seated in her w/c in her room, comfortable, without concerns or reports of pain today. Dressing to her left knee is dry and intact without concerns for edema, erythema, warmth, etc. Pt's sister Aida is at her bedside and notes she has a f/u appt with ortho on 02/11 to have her kannan removed. VSS. Staff is without concerns at present.---02/05/24Maryann perkins is seated in her recliner in her room, resting comfortably. She denies any concerns and reports her pain has been well-managed thus far. She is looking forward to discharging back to her ILF apartment today with OP therapy and does not offer any concerns with this plan. VSS. Staff is without concerns at present. Clary Comer, KIM [address] [facility], [place], [address], [facility] 02/05/2024 16:03:19 OBGyn Episode No OBEpisode recorded.
--- OUTSIDE RECORDS SUMMARY | 2024-04-29 10:25 | XMS_ITS | Clinical Summary ---
Author Organization [facility] Address [address] [place] [address] Care Team Providers Care Change Management Director Name Role Phone Mahad Onofre MD Primary Care Provider Chriss Hay MD Unavailable [phone] Allergies Active Allergy Reactions Criticality Noted Date Comments Codeine Nausea And Vomiting, Shortness of breath High 09/01/2016 Hydrocodone Hallucinations Medium 03/09/2021 Medications omeprazole (PriLOSEC) 40 mg capsule Take 1 capsule (40 mg total) by mouth daily Active folic acid (FOLVITE) 1 mg tabletIndications :Parkinson's disease (HCC) Take 1 tablet (1,000 mcg total) by mouth daily 90 tablet 1 Active Additional Information Patient not taking.Reported on 08/15/2021 PARoxetine (PAXIL) 20 mg tablet Take 1 tablet (20 mg total) by mouth every morning Active docusate sodium (COLACE) 100 mg capsuleIndication s:constipation Take 1 capsule (100 mg total) by mouth 2 (two) times a day 60 capsule Active Additional Information Patient not taking.Reported on [...] (15 mg total) by mouth every evening 023 Active acetaminophen (TYLENOL) 500 mg tablet Take [...] needed for muscle spasms 30 tablet 3 023 Active Additional Information Patient not taking.Reported on 04/14/2024 amoxicillin-clavu lanate (AUGMENTIN) 875-125 mg per tablet Take 1 tablet by mouth every 12 (twelve) hours Active Eliquis 5 mg tablet TAKE 1 (ONE) TABLET BY MOUTH 2 TIMES DAILY 024 Active glycopyrrolate (ROBINUL) 1 mg tablet 024 Active glycopyrrolate (ROBINUL) 1 mg tablet Take 1 tablet (1 mg total) by mouth nightly as needed 024 Active carbidopa-levodop a (SINEMET) 10-100 mg per [...] MOUTH TWICE A DAY 180 tablet 1 024 Active entacapone (COMTAN) 200 mg tabletIndications :Parkinson's disease, unspecified whether dyskinesia present, unspecified whether manifestations fluctuate (HCC) TAKE 1 TABLET BY MOUTH 4 TIMES A DAY 360 tablet 2 024 Active Additional Information Patient not taking.Reported on [...] (02/17/2021): Added automatically from request for surgery [id number] 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, subsequent encounter 02/17/2021 Overview (02/18/2021): Added automatically from request for surgery [id number] Osteoarthritis 01/03/2021 Diverticulitis 01/03/2021 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 [...] (03/09/2021): left knee Diverticulosis HLD (hyperlipidemia) Depression Encounters Date Type Department Care Team Description 04/14/2024 2:00 PM TARPER Office Visit [facility] Neurology [address] [place] [phone] Dieter Skelton MD Parkinson's disease, unspecified whether dyskinesia present, unspecified whether manifestations fluctuate (HCC) (Primary Dx); Dementia without behavioral disturbance (HCC) from Last 3 Months Immunizations Name Administration Dates Next Due Influenza, Trivalent, High D ose, Split, Preservative Free, Intramuscular 02/22/2021,01/17/2020,02/21/2019,01/08,01/12/2015,04/02/2014 Moderna SARS-CoV-2 Monovalen t Vaccination (12+ YRS) 01/12/2021,07/25/2020,06/24/2020 Pneumococcal Conjugate PCV 13 11/14/2019 Pneumococcal Polysaccharide PPV23 03/12/2020 Surgical History Surgery Date Site/Laterality Comments TOTAL ABDOMINAL HYSTERECTOMY Hysterectomy, total GALLBLADDER SURGERY LEG SURGERY ORAL SURGERY CATARACT EXTRACTION BACK SURGERY unsure of procedure but denies hardware ORIF FEMUR FRACTURE Medical History Medical History Date Comments Hx Other Medical bunion july 20 Hx Other Medical heel spur-right foot july 2004 Hx Other Medical Bladder tie up apr 1998 Hx Other Medical rhueamtoid arth ritis Hx Other Medical gastric reflux Hx Other Medical Hiatal hernia Parkinson disease (HCC) HLD (hyperlipidemia) Anxiety Depression Diverticulosis Post-traumatic osteoarthritis le ft knee Chronic pain disorder Family History Medical History Relation Name Comments Heart attack Brother Heart attack Father Cancer Mother Stroke Mother Cancer Other Family history of Cancer, unknown; Breast cancer Sister 1 Autoimmune disease Sister 2 No Known Problems Sister 3 Parkinsonism Sister 4 Relation Name Status Comments Brother Father Mother Other Sister 1 Alive Sister 2 Sister 3 Alive Sister 4 Alive Social History Tobacco Use Types Packs/Day Years [...] on file Legal Sex Female 3:49 AM TARPER Gender Identity Not on file Sexual Orientation Not on file Obstetrics History Last Filed Vital Signs Vital Sign Reading Time Taken Comments Blood Pressure 90/59 04/14/2024 1:36 PM TARPER Pulse 78 04/14/2024 1:36 PM TARPER Temperature 37.1 ??C (98.7 ??F) 10/19/2023 7:23 PM CD T Respiratory Rate 18 04/14/2024 1:36 PM TARPER Oxygen Saturation 95% 04/14/2024 1:36 PM TARPER Inhaled Oxygen Concentration - - Weight 72.1 kg (159 lb) 04/14/2024 1:36 PM TARPER Height 157.5 cm (5' 2 ) 04/14/2024 1:36 PM TARPER Body Mass Index 29.08 04/14/2024 1:36 PM TARPER Plan of Treatment Health Maintenance Due Date Last Done Comments Depression Screening 1942 DTaP/Tdap/Td Vaccine (1 - Tdap) 1953 Hepatitis B Screening 1960 Zoster Vaccine (1 of 2) 1992 Well Visit 65+ 08/14/2007 Osteoporosis Screening-Bone Density Scan 10/27/2022 10/27/2020 Covid-19 Vaccine (8 - 4-2 5 season) 2023 08/17/2021, 01/12/2021, 01/12/2021, Additional history exists Influenza Vaccine (#1) 2023 , 02/22/2021, 01/17/2020, Additional history exists Fall Risk Assessment 01/25/2024 01/24/2023, 01/04/2023, 09/05/2022 Pneumococcal vaccine 65+ Completed 03/12/2020, 10/31 Goals Goal Patient Goal Type Associated Problems [...] home safety. Medical Devices Implanted Type Area Box Press Operator Device Identifier Shelf Expiration Date Model / Serial / Lot [employer] 5560-S-112 Triathlon 12mm 50mm Cement End Cap Knee Stem Femoral Cocr - [id number] Implanted:Qty: 1 on 03/17/2021 by Chriss Hay MD at [facility] [employer] [id number] 12/26/2025 5560-S-112 / / [id number] [employer] 6481-2-150 Gmrs Pack Crosslink Knee Component Femoral Polyethylene - [id number] Implanted:Qty: 1 on 03/17/2021 by Chriss Hay MD at [facility] Left: Knee [employer] [id number] 09/02/2025 6481-2-150 / / [id number] [employer] 6481-2-100 Monogram Modular Rotate Hinge Knee Xs-Xl Component Tibial - [id number] Implanted:Qty: 1 on 03/17/2021 by Chriss Hay MD at [facility] Left: Knee [employer] [id number] 09/06/2025 6481-2-100 / / [id number] [employer] [id number] Gmrs Bearing Modular Rotate Hinge Distal [id number] M2 2 Insert - [id number] Implanted:Qty: 1 on 03/17/2021 by Chriss Hay MD at [facility] Left: Knee [employer] [id number] 12/08/2024 [id number] / / [id number] [employer] 6481-3-112 Modular Rotating Hinge 2 Medium Baseplate Tibial - [id number] Implanted:Qty: 1 on 03/17/2021 by Chriss Hay MD at [facility] Left: Knee [employer] [id number] 04/13/2025 6481-3-112 / / [id number] [employer] 6485-3-115 Gmrs 15mm 127mm Cemented Knee Straight Stem Femoral Sterile - [id number] Implanted:Qty: 1 on 03/17/2021 by Chriss Hay MD at [facility] Left: Knee [employer] [id number] 06/08/2023 6485-3-115 / / [id number] [employer] [id number] Gmrs 65mm Knee Left Small Component Femoral Cocr - [id number] Implanted:Qty: 1 on 03/17/2021 by Chriss Hay MD at [facility] Left: Knee [employer] [id number] 05/21/2025 [id number] / / [id number] [employer] 6191--010 Simplex P Radiopaque Full Dose Cement Bone Sterile - [id number] Implanted:Qty: 1 on 03/17/2021 by Chriss Hay MD at [facility] Left: Knee [employer] 05/02/2023 6191-1-010 / / [id number] [employer] 6191-010 Simplex P Radiopaque Full Dose Cement Bone Sterile - [id number] Implanted:Qty: 3 on 03/17/2021 by Chriss Hay MD at [facility] Left: Knee [employer] 05/31/2023 6191-1-010 / / [id number] [employer] [id number] Gmrs Knee Small Bushing Femoral - [id number] Implanted:Qty: 1 on 03/17/2021 by Chriss Hay MD at [facility] Left: Knee [employer] [id number] 04/06/2025 [id number] / / [id number] [employer] 96027051 Gmrs Knee Small Bushing Femoral - [id number] Implanted:Qty: 1 on 03/17/2021 by Chriss Hay MD at [facility] Left: Knee [employer] [id number] 04/07/2025 [id number] / / [id number] [employer] 55689954 Gmrs Knee Small Axle Femoral - [id number] Implanted:Qty: 1 on 03/17/2021 by Chriss Hay MD at [facility] Left: Knee [employer] [id number] 06/13/2023 [id number] / / [id number] Insurance MEDICARE [facility] Member Subscriber Plan / Payer ( fective 2020-Present) Name:Sammi Calzada Relation to Subscriber:Self Name:Sammi Calzada Payer ID:[id number] Group ID:Not on file Type:[employer] Address: [facility] [address] [place] [id number] MEDICARE [facility] MEDICARE [facility] Advance Directives For more information, please contact: [phone] * Full Code (Latest Code Status on File) Date Activated Date Inactivated Comments 03/17/2021 9:05 PM 03/21/2021 9:00 PM Care Teams Change Management Director Relationship Specialty Start Date End Date Mahad Onofre MD [address] [facility] [address] [place] [address] PCP - General Internal Medicine 05/05/20 Chriss Hay MD [address] [place] [address] Consulting Physician Orthopedic Surgery 03/19/21
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
--- OUTSIDE RECORDS SUMMARY | 2024-04-29 10:25 | XMS_ITS | Continuity of Care Document ---
Author Organization [facility] Address [address] [place] [address] Phone Care Team Providers Care Em Physician Name Role Phone Chriss Hay Unavailable Unavailable Allergies, Adverse Reactions, Alerts Substance Reaction Status [...] Date Provider Providers Copied on Encounter [facility], [address] [address], [place], [place], [id number], [place] tel:[phone] [facility] No Information 4 Satnam [place]. [address] [place] [address], [address] [address], [place], [place], [id number] , [place]. tel:[phone] Office/outpa tient visit,est, [facility], [address] [address], [place], [place], [id number], [place] tel:[phone] [facility] [employer] [facility] left knee (chief complaint) Pain in left knee 2 Satnam [place]. [address] [place] [address], [id number] , [place]. tel:[phone] Referring Provider: Chriss Nguyen, [facility] [address], [place], [address]. tel:[phone] Office/outpa tient visit,est, [facility], [address] [address], [place], [place], [id number], [place] tel:[phone] [facility] [employer] [facility] left knee (chief complaint) Pain in left kneeDisplaced condyle fracture of lower end of left femur, sequelaPresence of left artificial knee joint 2 Cole Corbin. [address] [facility], [address] [address], [place], [place], [id number] , [place]. tel:[phone] Referring Provider: Shaquille Ewing, [address] [address], [place], [address]. tel:[phone] [facility], [address] [place] [address], [id number], [place] tel:[phone] [facility] No Information 2 Satnam Carbajal er. [address] [facility], [address], [place], [place], [id number] , [place]. tel: [phone] Office/outpa tient visit,est, mod [facility], [address] [address], [place], [place], [id number], [place] tel:[phone] [facility] left knee (chief complaint) Displaced condyle fracture of lower end of left femur, sequelaPain in left kneePresence of left artificial knee joint 2 Cole Corbin. [address] [facility] [address], [place], [place], [id number] , [place]. tel: [phone] Referring Provider: Shaquille Ewing, [address] [place] [address] [address] [facility], [place], [address]. tel:[phone] [facility], [address], [id number], [place] tel:[phone] [facility] Left hip (chief complaint) Pain in left kneeDisplaced condyle fracture of lower end of left femur, sequelaPresence of left artificial knee joint 2 Cole Corbin. [address] [facility], [address] [address], [place], [place], [id number] , [place]. tel: [phone] Referring Provider: Shaquille Ewing, [address] [facility] [address] [facility], [place], [address]. tel:[phone] [facility], [address] [address], [place], [place], [id number], [place] tel:[phone] [facility] left femur (chief complaint) Displaced condyle fracture of lower end of left femur, sequelaPain in left kneePresence of left artificial knee joint 2 Cole Corbin. [address] [facility], [address] [address], [place], [place], [id number] , [place]. tel: [phone] Referring Provider: Shaquille Ewing, [address] [facility] [address] [facility], [place], [address]. tel:[phone] Office/outpa tient visit,new, high [facility], [address], [place], [place], [id number], [place] tel:[phone] [facility] left femur (chief complaint) Displaced condyle fracture of lower end of left femur, initial encounter for closed fracture Satnam hurley. [address] [facility], [address], [place], [place], [id number] , [place]. tel: [phone] Referring Provider: Chriss Nguyen, [address] [facility] [address], [place], [address]. tel:[phone] Family History Family Member Type Diagnosis Age At Onset Sister Problem (finding) Cancer, unknown Sister Problem (finding) Hypertension Sister Problem (finding) Osteoarthritis Mother Problem (finding) Cancer, unknown Payers Payer name Insurance type Covered republican ID Authoriza tion(s) [place] Part [place] MB [id number] AARP CI [id number] Social History Type Description Quantity Date Captured [...] She underwent open reduction internal fixation at [facility] with Dr. aLzo. 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 Patient is referred to me for further evaluation of reconstructive options in the setting of a nonunited geriatric distal femoral fracture.She is 5 foot 1, 162 pounds. Date of injury was 09/29/2019. She fell from a height at her home in [place]. Currently she lives in assisted living. Her pain as an 8 out of 10 it is constant. She is experiencing decreased motion limping and difficulty ambulating. Her pain is worse with standing walking climbing stairs and descending stairs pain is better with [id number] medication and prescription medication. She has used anti-inflammatories braces pain medication and plain x-ray she is a non-smoker. She does have a diagnosis of Parkinson's disease it is mild and uses carbidopa levodopa. Pain is managed with aspirin and Aleve. Functional Status Date Functional Assessmen t No Information Instructions Date Instruction Additional Infor carriegadiel Verbal consent was o btained. Patient was seated with the leg in full extension. Deana were removed without difficulty or complication. The procedure was well tolerated by the patient who was discharged in stable condition. Dictation completed with [employer] software, grammatical variances in spelling errors may inadvertently occur. Related to Presence of left artificial knee joint Assessments Type Assessment Date No Information Patient Care Teams Name Effective Dates (start - stop) Status Members No Information
--- OUTSIDE RECORDS SUMMARY | 2024-04-29 10:25 | XMS_ITS | Encounter Summary ---
Author Organization [facility] Address [address] [place] [address] Care Team Providers Care Tow Picker Name Role Phone Mahad Onofre MD Primary Care Provider Chriss Hay MD Unavailable [phone] Encounter Details Date Type Department Care Team (Late st Contact Info) Description 11/03/2022 Telephone [facility] [address] [address], [address] [place] [address] Ethel Amaya RN Social History Tobacco Use Types Packs/Day Years Used Date Smoking Tobacco: Never Smokeless Tobacco: Never AUDIT-C Answer Date Recorded Q1: How often do you have a drink containing alc ohol? 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 Author CCM Chronic Pain Care Plan Chronic Care Management No Minna Dangelo, RN Note: Problem: Chronic Pain Goals: 1. Minimize further functional decline 2. Maximize quality of life 3. Control pain Strategies: - Activity/exercise program recommendation - Conservative stepwise pain medicine strategy with multi-disciplinary approach - Recommend healthy lifestyle strategies and compensatory methods as needed Reduce the likelihood of falling Lifestyle Minna Block, RN Note: Below are four things you [...] on stairs Contact your local community or [facility] for information on exercise, fall prevention programs, or options for improving home safety. documented as of this encounter Visit Diagnoses Not on filedocumented in this encounter Additional Health Concerns Infection Onset Date Last Indicated Resolved Time COVID: Suspected 10/19/2023 10/19/2023 10/19/2023 7:36 PM CDT COVID19 10/19/2023 10/19/2023 10/29/2023 3:05 AM CDT COVID: Recovered Comment:Added based on recent COVID infection. 10/29/2023 11/27/2023 01/27/2024 3:05 AM C DT documented as of this encounter Care Teams Tow Picker Relationship Specialty Start Date End Date Mahad Onofre MD 4 [facility] [address] [place] [address] PCP - General Internal Medicine 05/05/20 Chriss Hay MD [address] [facility] [address] [place] [address] Consulting Physician Orthopedic Surgery 03/19/21 documented as of this encounter
--- OUTSIDE RECORDS SUMMARY | 2024-04-29 10:25 | XMS_ITS | Clinical Summary ---
Author Organization [facility] Address [address] [place] [address] Care Team Providers Care Reimbursement Director Name Role Phone Mahad Onofre MD Primary Care Provider [phone] Allergies Active Allergy Reactions Criticality Noted Date Comments Codeine Nausea And Vomiting, Shortness Of Breath High 09/01/2016 Medications cyanocobalamin 1000 MCG/ML injection 1 mL (1,000 mcg total) every 30 (thirty) days. Active Oyster Shell Calcium (OSCAL) 500 MG tablet tablet 1 tablet (500 mg total) in the morning and 1 tablet (500 mg total) before bedtime. Active omeprazole (PriLOSEC) 40 MG capsule 1 capsule (40 mg total) in the morning. Active cholecalciferol (VITAMIN D3) 125 MCG (5000 UT) chewable tablet 1 tablet (5,000 Units total). Active acetaminophen (TYLENOL) 325 MG tablet Take 2 tablets (650 mg total) by mouth every 6 (six) hours. 01/30/2024 Active apixaban (Eliquis) 5 MG tabletIndicatio ns:Deep Vein Thrombosis,Pulm onary Embolism Take 1 tablet (5 mg total) by mouth in the morning and 1 tablet (5 mg total) before bedtime. Indications: Blockage of Blood Vessel to Lung by a Particle, Blood Clot in a Deep Vein. 01/29/2024 Active carbidopa-levod opa (SINEMET) 10-100 MG per tablet Take 1 tablet by mouth in the morning and 1 tablet at noon and 1 tablet in the evening and 1 tablet before bedtime. 01/29/2024 Active donepezil (ARICEPT) 10 MG tablet Take 1 tablet (10 mg total) by mouth nightly. 01/29/2024 Active entacapone (COMTAN) 200 MG tablet Take 1 tablet (200 mg total) by mouth in the morning and 1 tablet (200 mg total) at noon and 1 tablet (200 mg total) in the evening and 1 tablet (200 mg total) before bedtime. 01/29/2024 Active glycopyrrolate (ROBINUL) 1 MG tablet Take 1 tablet (1 mg total) by mouth in the morning. 01/30/2024 Active lidocaine (LIDOCARE) 4 % patch patch Place 1 patch on the skin in the morning. 30 patch 01/30/2024 Active memantine (NAMENDA) 10 MG tablet Take 1 tablet (10 mg total) by mouth in the morning and 1 tablet (10 mg total) before bedtime. 01/29/2024 Active mirtazapine (REMERON) 15 MG tablet Take 1 tablet (15 mg total) by mouth nightly. 01/29/2024 Active PARoxetine (PAXIL) 20 MG tablet Take 1 tablet (20 mg total) by mouth in the morning. 01/30/2024 Active polyethylene glycol (MIRALAX) 17 g packet Take 17 g by mouth in the morning. 01/30/2024 Active pregabalin (LYRICA) 50 MG capsule Take 1 capsule (50 mg total) by mouth in the morning and 1 capsule (50 mg total) before bedtime. 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 01/21/2024 Obesity, class 1 10/06/2022 Unspecified dementia, unspecified severity 08/15 Parkinson's disease 06/24/2020 Depressive disorder 06/29/2017 Encounters Date Type Department Care Team Description 01/21/2024 4:55 PM CDT - 01/30/2024 2:04 PM CDT Hospital Encounter [facility] Rehabilitation [address] [address] Chriss Andres MD Supracondylar fracture femur <Left side; Nondisplaced; Sequela> (Primary Dx) Discharge Disposition: Home under care of Home Health Org from Last 3 Months Social History Tobacco Use Types Packs/Day Years Used Date Smoking Tobacco: Never Smokeless Tobacco: Never Tobacco Cessation:Counseling Given: Not Answered Alcohol Use Standard Drinks/Week Comments Never 0 (1 standard drink = 0.6 oz pur e alcohol) [facility] Utilities Answer Date Recorded In the past 12 months has th e electric, gas, oil, or water company threatened to shut off services in your home? No 01/22/2024 Social Connection and Isolation Panel [NHANES] A nswer Date Recorded In a typical week, how many times do you talk on the phone with family, friends, or neighbors? Three times a week 01/22/2024 How often do you get togethe r with friends or relatives? Three times a week 01/22/2024 How often do you attend chur ch or sabianist services? Never 01/22/2024 Do you belong to any clubs o r organizations such as mandaeism groups, unions, fraternal or athletic groups, or school groups? No 01/22/2024 How often do you attend meet ings of the clubs or organizations you belong to? Never 01/22/2024 Are you , , di vorced, , never , or living with a partner? 01/22/2024 AUDIT-C Answer Date Recorded Q1: How often do you have a drink containing alcohol? Never 01/21/2024 Q2: How many drinks containi ng alcohol do you have on a typical day when you are drinking? Patient does not drink Q3: How often do you have si x or more drinks on one occasion? Never 01/21/2024 Overall Financial Resource Strain (CARDIA) Answe r Date Recorded How hard is it for you to pa y for the very basics like food, housing, medical care, and heating? Not hard at all 01/22/2024 [facility] [place] [facility] - Occupational Stress Questionnaire Answer Date Recorded Do you feel stress - tense, restless, nervous, or anxious, or unable to sleep at night because your mind is troubled all the time - these days? Only a little 01/30/2024 Hunger Vital Sign Answer Date Recorded Within the past 12 months, y ou worried that your food would run out before you got the money to buy more. Never true 10/22/20 24 Within the past 12 months, t he food you bought just didn't last and you didn't have money to get more. Never true 01/22/2024 Housing Stability Vital Sign Answer Apolinar e Recorded In the last 12 months, was t here a time when you were not able to pay the mortgage or rent on time? No 01/22/2024 In the past 12 months, how m any times have you moved where you were living? 1 01/22/2024 At any time in the past 12 m [facility], were you homeless or living in a half-way (including now)? No 01/22/2024 Domestic Abuse Assessment Answer Date R ecorded Do you feel safe in your relationships at home? Yes 01/21/2024 Physical Abuse Denies 01/21/2024 HRSN Domestic Abuse - Type of Abuse Not on file 01/21/2024 HRSN Domestic Abuse - Time Frame Not on file 01/21/2024 HRSN Domestic Abuse - Signs and Symptoms Not on file 01/21/2024 Verbal Abuse Denies 01/21/2024 HRSN Domestic Abuse - Reported To Not on file 01/21/2024 SDOH Transportation Source Answer Da te Recorded Has lack of transportation k ept you from medical appointments or from getting medications? No 01/29/2024 Has lack of transportation k ept you from meetings, work, or from getting things needed for daily living? No 01/29/2024 HRSN Depression PHQ-2 Answer Date Recor ded Feeling down, depressed, or hopeless 0 01/30/2024 Little interest or pleasure in doing things 0 01/30/2024 Comments Unknown Sex and Gender Information Value Date Recorded Sex Assigned at Not on file Legal Sex Female 4:04 PM EDT Gender Identity Not on file Sexual Orientation Not on file Last Filed Vital Signs Vital Sign Reading Time Taken Comments Blood Pressure 110/71 01/30/2024 7:45 AM CDT Pulse 69 01/30/2024 7:45 AM CDT Temperature 36.7 ??C (98 ??F) 01/30/2024 7:45 AM CDT Respiratory Rate 18 01/30/2024 7:45 AM CDT Oxygen Saturation 94% 01/30/2024 7:45 AM CDT Inhaled Oxygen Concentration - - Weight 76.7 kg (169 lb) 01/21/2024 4:56 PM CDT 1 69lb Height 157.5 cm (5' 2 ) 01/21/2024 4:56 PM CDT Body Mass Index 30.91 01/21/2024 4:56 PM CDT Plan of Treatment Not on file Procedures Procedure Name Priority Date/Time Associated Diagnosis Comments BASIC METABOLIC PANEL Routine 01/29/2024 3:00 AM CDT CBC WITH AUTO DIFFERENTIAL Routine 01/29/2024 3:00 AM CDT from Last 3 Months Results * (ABNORMAL) CBC WITH AUTO DIFFERENTIAL (01/29/2024 3:00 AM CDT) WBC 3.3(L) 4.0 - 10.7 x10E9/L [facility] RBC 2.99(L) 3.90 - 5.20 x10E12/L [facility] HGB gm/dL Blood 9.6(L) 11.9 - 15.8 g/dL [facility] Hematocrit 29.5(L) 34.8 - 46.1 % [facility] MCV 98.7(H) 80.0 - 98.0 fL [facility] MCH 32.1 26.7 - 33.6 pg [facility] MCHC 32.5 31.7 - 36.3 g/dL [facility] RDW-CV 13.8 11.3 - 14.8 % [facility] Platelet count 203 150 - 420 x10E9/L [facility] MPV 8.9 7.8 - 11.4 fL [facility] Neutrophil % 42.5 41.0 - 74.0 % [facility] Lymphocyte % 43.1 17.0 - 47.0 % [facility] Monocytes, % 8.7 3.0 - 11.0 % [facility] Eosinophils % 4.5 0.0 - 7.0 % [facility] Basophil Percent Automated 0.9 0.0 - 1.6 % [facility] Immature Granulocytes 0.3 0.0 - 1.0 % [facility] Neutrophils Absolute 1.41(L) 1.60 - 7.50 x10E9/L [facility] Lymphocyte Absolute 1.43 1.00 - 4.40 x10E9/L [facility] Monocytes 0.29 0.15 - 1.00 x10E9/L [facility] Eosinophil Absolute 0.15 0.00 - 0.60 x10E9/L [facility] Basophils 0.03 0.00 - 0.13 x10E9/L [facility] Blood (Blood, Venous) 01/29/2024 3:00 AM CDT 01/29/2024 5:12 AM CDT Sumeet Hooker MD LAB BLOOD ORDERABLES Final Re sult Performing Organization Address [facility] Co de Phone Number [facility] [address] [place] [address] * (ABNORMAL) BASIC METABOLIC PANEL (01/29/2024 3:00 AM CDT) Glucose mg/dL Blood 82 70 - 99 mg/dL [facility] Sodium mmol/L Blood 140 136 - 145 mmol/L [facility] Potassium mmol/L Blood 4.1 3.5 - 5.1 mmol/L [facility] Chloride 108(H) 98 - 107 mmol/L [facility] CO2 29 22 - 29 mmol/L [facility] Calcium mg/dL Blood 8.5 8.4 - 10.4 mg/dL [facility] Anion Gap Blood 3(L) 6 - 16 mmol/L [facility] Bun mg/dL Blood 17 7 - 26 mg/dL [facility] Creatinine 0.75 0.57 - 1.11 mg/dL [facility] EGFRCR CKD-EPI 80(L) >=90 mL/min/1.7 3 m2 [facility] Blood (Blood, Venous) 01/29/2024 3:00 AM CDT 01/29/2024 5:11 AM CDT Sumeet Hooker MD LAB BLOOD ORDERABLES Final Re sult Performing Organization Address [facility] Co de Phone Number [facility] [address] [place] [address] from Last 3 Months Advance Directives * Full Resuscitation (Latest Code Status on File) Date Activated Date Inactivated Comments 01/21/2024 6:05 PM 01/30/2024 5:15 PM Question Answer Comments I have discussed this order with the patient or his/her surrogate and have received informed consent. Yes Care Teams Reimbursement Director Relationship Specialty Start Date End Date Mahad Onofre MD [address] [address] PCP - General 01/22/24
== END 2024-04-29 09:45 | disposition home or self-care (01) ==
PROVIDERS: PCP Internal Medicine; Visit Provider Nurse Practitioner Family
DX: K22.4 Dyskinesia of esophagus (principal)
CPT/HCPCS: 74220

== ENCOUNTER 2024-05-24 16:41 | Emergency (ER) | payer MEDICARE, SELFPAY ==
--- NOTE | 2024-05-24 17:04 | ED_ITS ---
HPI - URI/Sore Throat General Chief Complaint: Upper Respiratory Infection Stated Complaint: COUGH Source: patient, RN notes reviewed and old records reviewed Mode of arrival: ambulatory (with walker) Limitations: no limitations History of Present Illness HPI Narrative: 83 year old female presents to [facility] care using walker accompanied by sister with complaints of cough for the past 4-5 days and her sister had the flu and she is concerned she has contracted it. Patient reports rolando she has felt tired and achy and did have a couple days of low grade temperatures. Patient denies any chest pain or any shortness of breath, reports some nasal drainage at times that is clear. Sister reports that patient did take some Tylenol and she has also taken some Mucinex. MD elicited complaint: cough, rhinorrhea, nasal congestion and other (achy fatigue) Onset (ago): day(s) (4-5 days) Severity: mild Able to tolerate fluids by mouth: Yes Treatments prior to arrival: acetaminophen and other (Mucinex) Related Data Home Medications ?Medication ?Instructions ?Recorded ?Confirmed ?Last Taken ?Type carbidopa 10 mg-levodopa 100 mg 1 tablet PO QID 06/28/20 05/24/24 03/11/23 History tablet entacapone 200 mg tablet 200 mg PO QID 03/30/22 05/24/24 03/11/23 History mirtazapine 15 mg tablet 15 mg PO HS 03/30/22 05/24/24 03/10/23 History donepezil 10 mg tablet 10 mg PO HS 11/17/22 05/24/24 03/10/23 History apixaban 5 mg tablet (Eliquis) 5 mg PO BID 09/19/23 05/24/24 Unknown History cholecalciferol (vitamin D3) 125 125 mcg PO DAILY 12/26/23 05/24/24 Unknown History mcg (5,000 unit) capsule multivitamin (Daily Multi-Vitamin 1 tablet PO DAILY 12/26/23 05/23/24 Unknown History tablet) glycopyrrolate 1 mg tablet 1 mg PO HS 05/23/24 05/24/24 Unknown History celecoxib 100 mg capsule mg 05/24/24 Unknown History celecoxib 200 mg capsule mg 05/24/24 Unknown History docusate sodium 100 mg capsule mg PO 05/24/24 Unknown History memantine 10 mg tablet mg 05/24/24 Unknown History Allergies Allergy/AdvReac Type Severity Reaction Status Date / Time hydrocodone AdvReac Severe Hallucinati Verified 05/24/24 16:50 ng codeine AdvReac Intermediate Nausea and Verified 05/24/24 16:50 Vomiting Review of Systems Review of Systems: CONSTITUTIONAL: reports malaise,no chills, sweats, no fevers for 2 days, only low grade temps EYES: Denies visual changes, redness, or discharge. ENT: Reports rhinorrhea, congestion, no sinus pain,no otalgia and no sore throat. CARDIOVASCULAR: Denies chest pain, palpitations, or edema. RESPIRATORY: Reports cough.? Denies dyspnea. GASTROINTESTINAL: Denies abdominal pain, nausea, vomiting, diarrhea SKIN: Denies rash or itching. MUSCULOSKELETAL: some myalgia. NEUROLOGIC: Denies headache. All systems reviewed & are unremarkable except as noted in HPI and below PMFSH Past Medical History Medical History Deep venous thrombosis (DVT) of right peroneal vein Iliotibial band syndrome affecting left lower leg Esophageal stricture Fracture of ankle, bimalleolar, left, closed Dysphagia Parkinsons disease Coarse tremors Osteopenia Compression fracture of T11 vertebra Surgical History Surgical History (Updated 05/27/24 @ 10:24 by Noni Chang NP) History of cholecystectomy H/O: hysterectomy Status post revision of total replacement of left knee S/P ORIF (open reduction internal fixation) fracture left femur Family History Family History Father Acute myocardial infarction Mother Uterine cancer Social History Social History Smoking status: Never smoker Second hand tobacco smoke exposure: No Alcohol intake: never Substance use: never Substance use type: does not use Do You Feel Safe in your Home?: Yes Lack of Transportation: No Lack of Food: Never True Current Housing: I Have Housing Concerned About Future Housing: No Difficulty Paying Gas/Electric Bills: No Difficulty Paying for Meds: No Currently Unemployed: No Education: Don't Know Difficulty w/ Childcare or Family Care: No Living arrangements: assisted living Additional living arrangements comments: assisted living Gender identity (if verbalized by the patient): Female Spiritual care concerns: No Comments At time of signature, agree with nursing past medical, surgical, social and family history. There is no relevant family history pertinent to the presenting complaint Exam Narrative: GENERAL: chronic ill-appearing, well-nourished, and in no acute distress. HEAD: Normocephalic EYES: PERRLA, conjunctivae clear ENT: Nares clear, turbinates edematous and erythematous, clear discharge. Mucous membranes moist. TM pearly blackwell with dull light reflex bilaterally; no tragal tenderness. Oropharynx erythematous without lesions. Tonsils not enlarged and without exudate, no drooling, no hoarseness, no trismus, uvula midline.post nasal drainage NECK: Supple. No lymphadenopathy CHEST: Clear to auscultation, breath sounds equal. No wheezing, rhonchi, rales, or stridor. No respiratory distress, speaks in full sentences. occasional cough, SAO2 97% on room air HEART: Regular rate and rhythm. No murmur heard. SKIN: Warm, dry, no rash. NEURO: Alert and oriented x3. is forgetful PSYCH: Normal mood and affect Course Course Emergency Course: Patient is aware of diagnosis, understands and agrees to treatment plan.? Anticipatory guidance given.? Patient agrees to follow-up as directed and is aware of reasons to seek care at the emergency department. Portions of this record may have been created with voice recognition software Level of Care: Express Care Visit Vital Signs Vital signs: Vital Signs Temperature 36.1 C L 05/24/24 17:25 Pulse Rate 73 05/24/24 17:25 Respiratory Rate 16 05/24/24 17:25 Blood Pressure 107/64 05/24/24 17:25 Pulse Oximetry 97 05/24/24 17:25 Temperature 36.1 C L 05/24/24 17:25 Pulse Rate 73 05/24/24 17:25 Respiratory Rate 16 05/24/24 17:25 Blood Pressure 107/64 05/24/24 17:25 Pulse Oximetry 97 05/24/24 17:25 Reviewed MDM - URI/Sore Throat MDM Narrative Medical decision making narrative: Differential diagnosis considered: Reyes virus, strep pharyngitis, allergic rhinitis, upper respiratory tract infection, sinusitis, rhinosinusitis, nasopharyngitis. viral pharyngitis, otitis media, otitis externa, pneumonia, bronchitis, viral cough syndrome, viral syndrome, and influenza.? Exam findings show no acute concerns or changes; patient is non-toxic appearing and is in no distress.? Patient is appropriate for outpatient treatment and follow-up. Differential Diagnosis Differential diagnosis: Likely upper respiratory infection, viral infection, influenza and other (cough) Lab Data Attestation: I reviewed the patient's lab results. Lab results narrative: Influenza A positive, Influenza B negative Labs: Lab Results 05/24/24 Range/Units 17:29 POC Influenza A Ag Positive (Negative) POC Influenza B Ag Negative (Negative) POC SARS CoV-2 Ag Negative (Negative) reviewed Critical Care Time Critical Care Time Critical Care Time: No Discharge Plan Discharge Clinical Impression: Influenza A Patient Disposition: Home, Self-Care Condition: Stable Instructions: Antibiotic Form, Influenza (ED) Additional Instructions: Increase fluids especially juices and water [id number] cough and cold medicine of your choice for your symptoms Tylenol for any fever or pain Mucinex daily for cough and congestion, drink plenty of fluids while taking this medication. Zyrtec or Claritin daily prednisone daily for cough heat to the face 20-30 minutes 4-6 times a day for pain Salt water gargles, throat lozenges or throat sprays as desired If your symptoms persist, change or worsen significantly before you can contact your personal physician then please, without delay, go to the emergency department for further evaluation. Follow-up with PCP in 7-10 days or sooner if needed Patient Language: Nepali Prescriptions: New guaifenesin [Mucinex] 600 mg tablet extended release 12hr 600 mg PO Q12H Qty: 20 0RF prednisone 20 mg tablet 40 mg PO DAILY Qty: 10 0RF No Action celecoxib 100 mg capsule celecoxib 200 mg capsule docusate sodium 100 mg capsule PO memantine 10 mg tablet Eliquis 5 mg tablet 5 mg PO BID cholecalciferol (vitamin D3) 125 mcg (5,000 unit) capsule 125 mcg PO DAILY multivitamin [Daily Multi-Vitamin] Tablet 1 tablet PO DAILY carbidopa-levodopa 10-100 mg tablet 1 tablet PO QID entacapone 200 mg tablet 200 mg PO QID mirtazapine 15 mg tablet 15 mg PO HS glycopyrrolate 1 mg tablet 1 mg PO HS paroxetine HCl 20 mg Tablet 20 mg PO QAM Qty: 30 0RF donepezil 10 mg tablet 10 mg PO HS Follow-up/Referrals: Kingston,Mahad Vasques MD [Primary Care Provider] - Time of Disposition: 17:26 Quality Joshua Coma Scale Eyes: Open Verbal: Oriented and Alert Motor: Follows Commands Forest Coma Total Score: 15
[2024-05-24 17:25] VITALS: BP 107/64; PULSE 73; RESP 16; TEMP 36.1; O2SAT 97
[2024-05-24 17:31] LABS: EDCOVIDSCREEN Negative (Negative); EDINFLUASCREEN Positive (Negative); EDINFLUBSCREEN Negative (Negative)
== END 2024-05-24 17:33 | disposition home or self-care (01) ==
PROVIDERS: Emergency Provider Registered Nurse; PCP Internal Medicine
DX: J10.1 Influenza due to other identified influenza virus with other respiratory manifestations (principal); Z20.822 Contact with and (suspected) exposure to COVID-19; G20.A1 Parkinson's disease without dyskinesia, without mention of fluctuations; M85.80 Other specified disorders of bone density and structure, unspecified site; Z86.718 Personal history of other venous thrombosis and embolism; Z79.01 Long term (current) use of anticoagulants
CPT/HCPCS: 87426; 87804; 99213; G0463

== ENCOUNTER 2024-06-05 00:45 | Day surgery (SDC) | payer MEDICARE, SELFPAY ==
[2024-05-23 09:55] VITALS: BMI 27.4
--- NOTE | 2024-05-27 13:37 | PC.NURSE ---
Spoke with _sister Aida regarding medication Eliquis, pt will restart Eliquis now and last dose for new date will be 06/01/2024. Aida verbalizes understanding and the Endoscopist will instruct them when to restart after the procedure.
--- NOTE | 2024-06-03 15:40 | PC.NURSE ---
Pt was ill with influenza a and had to reschedule procedure on 05/30/24. Sister was callled today and states she is feeling well and wants to do procedure on 06/05/24. She denies fever on congestion in lungs. States she coughs occ. but is much improved from 05/25/24. She will call if there is any change prior to . She stopped her Eliquis with the last dose on 06/01/2024.
--- OUTSIDE RECORDS SUMMARY | 2024-06-05 00:48 | XMS_ITS | Encounter Summary ---
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
--- OUTSIDE RECORDS SUMMARY | 2024-06-05 00:48 | XMS_ITS | Encounter Summary ---
Author Organization [facility] Address [address] [place] [address] Care Team Providers Care Supervisor Type Photography Name Role Phone Mahad Onofre MD Primary Care Provider [phone] Encounter Details Date Type Department Care Team (Late st Contact Info) Description 05/29/2024 Orders Only [facility] - Orthopedic Surgery [address] [place] [phone] Iain Braun, RACKET STRINGER-PATTERN ATTENDANT [address] [facility] [address] [place], [place] [id number] History of total left knee replacement Social History Tobacco Use Types Packs/Day Years Used Date Smoking Tobacco: Never Smokeless Tobacco: Never Alcohol Use Standard Drinks/Week Comments No 0 (1 standard drink = 0.6 oz pur e alcohol) PHQ-2 Answer Date Recorded Patient Health Questionnaire-2 Score 0 05/29/2024 Sex and Gender Information Value Date Recorded Sex Assigned at Not on file Gender Identity Not on file Sexual Orientation Not on file documented as of this encounter Functional Status Functional Status Response Date of [...] person have difficulty concentrating/remembering/making decisions? No 09/23/2019 documented as of this encounter Plan of Treatment Upcoming Encounters Date Type Department Care Team (Late st Contact Info) Description 01/28/2025 1:15 PM CDT Office Visit [facility] - Orthopedic Surgery [address] [place] [address] John Sarah MD [address] [place] [address] documented as of this encounter Goals Goal Patient Goal Type Associated Problems Recent Progress Patient-Stated? Author PAIN General No change( 021 1:54 PM CDT) No Tony Cherry RN Note: Expected end date: ongoing Patient's pain/discomfort is manageable. Interventions: documented as of this encounter Results * XR Knee Left 4Vw or More (05/29/2024 11:22 AM POLICY SERVICE COORDINATOR) Anatomical Region Laterality Modality Lower Extremity Radiographic Ivett ging 05/29/2024 11:5 0 AM POLICY SERVICE COORDINATOR Impressions 05/29/2024 11:59 AM POLICY SERVICE COORDINATOR IMPRESSION: Stable postsurgical changes from cemented longstem total knee arthroplasty. Report dictated by Kayleen Palomares Dr, MD (residential program coordinator). I, Jack Galeana MD have personally reviewed and interpreted this examination/study. > Interpreting Provider: Jack Galeana MD on 05/29/2024 11:59 AM Narrative 05/29/2024 11:59 AM POLICY SERVICE COORDINATOR PROCEDURE: XR KNEE LEFT 4VW OR MORE, DATE/TIME OF EXAM: 05/29/2024 11:23 AM, LOCATION [facility] INDICATION: Z96.652: Presence of left artificial knee [...] MORE, DATE/TIME OF EXAM: 1:23 AM, LOCATION [facility] INDICATION: Z96.652: Presence of left artificial knee [...] Report dictated by Kayleen Palomares Dr, MD (residential program coordinator). I, Jack Galeana MD have personally reviewed and interpreted this examination/study. > Interpreting Provider: Jack Galeana MD on 05/29/2024 11:59 AM Iain Braun RACKET STRINGER-PATTERN ATTENDANT DIAGNOSTIC IMAGI NG ORDERABLES documented in this encounter Visit Diagnoses Diagnosis History of total left knee replacement History of total left knee replacement- Primary documented in this encounter Care Teams Supervisor Type Photography Relationship Specialty Start Date End Date Mahad Onofre MD [facility] [address] [address] [place] [address] PCP - General Internal Medicine 03/21/17 documented as of this encounter
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
--- OUTSIDE RECORDS SUMMARY | 2024-06-05 00:48 | XMS_ITS | Continuity of Care Document ---
Author Organization [facility] Address [address] [place] [address] Phone Care Team Providers Care Hacksaw Inspector Name Role Phone Chriss Hay Unavailable Unavailable [...] Provider Providers Copied on Encounter [facility], [address] [address], [place], [place], [id number], [place] tel:[phone] [facility] No Information [address] [place] [place] [address], [address] [address], [place], [place], [id number] , [place]. tel:[phone] Office/outpa tient visit,est, [facility], [address] [address], [place], [place], [id number], [place] tel:[phone] [facility] left knee (chief complaint) Pain in left knee 2 [address] [place]. [address] [place] [address], [id number] , [place]. tel:[phone] Referring Provider: Chriss Nguyen, [facility] [address], [place], [address]. tel:[phone] Office/outpa tient visit,est, [facility] [place] [facility], [address] [address], [place], [place], [id number], [place] tel:[phone] [facility] left knee (chief complaint) Pain in left kneeDisplaced condyle fracture of lower end of left femur, sequelaPresence of left artificial knee joint 2 Cole Corbin. [address] [facility], [address] [address], [place], [place], [id number] , [place]. tel:[phone] Referring Provider: Shaquille Ewing, [address] [address], [place], [address]. tel:[phone] [facility], [address] [place] [address], [id number], [place] tel:[phone] [facility] No Information 2 Satnam Carbajal er. [address] [facility], [address], [place], [place], [id number] , [place]. tel: [phone] Office/outpa tient visit,est, mod [facility], [address] [address], [place], [place], [id number], [place] tel:[phone] [facility] left knee (chief complaint) Displaced condyle fracture of lower end of left femur, sequelaPain in left kneePresence of left artificial knee joint 2 Cole Corbin. [address] [facility], [facility] [address], [place], [place], [id number] , [place]. tel: [phone] Referring Provider: Shaquille Ewing, [address] [place] [address] [address] [facility], [place], [address]. tel:[phone] [facility], [address], [id number], [place] tel:[phone] [facility] Left hip (chief complaint) Pain in left kneeDisplaced condyle fracture of lower end of left femur, sequelaPresence of left artificial knee joint 2 Cole Corbin. [address] [facility], [address] [address], [place], [place], [id number] , [place]. tel: [phone] Referring Provider: Shaquille Ewing, [address] [facility] [address] [facility], [place], [address]. tel:[phone] [facility], [address] [address], [place], [place], [id number], [place] tel:[phone] [facility] left femur (chief complaint) Displaced condyle fracture of lower end of left femur, sequelaPain in left kneePresence of left artificial knee joint 2 Cole Corbin. [address] [facility], [address] [address], [place], [place], [id number] , [place]. tel: [phone] Referring Provider: Shaquille Ewing, [address] [facility] [address] [facility], [place], [address]. tel:[phone] Office/outpa tient visit,new, [facility], [address], [place], [place], [id number], [place] tel:[phone] [facility] left femur (chief complaint) Displaced condyle fracture of lower end of left femur, initial encounter for closed fracture Satnam hurley. [address] [facility], [address], [place], [place], [id number] , [place]. tel: [phone] Referring Provider: Chriss Nguyen, [address] [facility] [address], [place], [address]. tel:[phone] Family History Family Member Type Diagnosis Age At Onset Sister Problem (finding) Cancer, unknown Sister Problem (finding) Hypertension Sister Problem (finding) Osteoarthritis Mother Problem (finding) Cancer, unknown Payers Payer name Insurance type Covered republican ID Authoriza tion(s) Medicare [place] Part [place] [id number] AARP CI [id number] Social History Type Description Quantity Date Captured [...] She underwent open reduction internal fixation at [facility] with Dr. Lazo. 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 Patient is referred to me for further evaluation of reconstructive options in the setting of a nonunited geriatric distal femoral fracture.She is 5 foot 1, 162 pounds. Date of injury was 09/29/2019. She fell from a height at her home in [place]. Currently she lives in assisted living. Her pain as an 8 out of 10 it is constant. She is experiencing decreased motion limping and difficulty ambulating. Her pain is worse with standing walking climbing stairs and descending stairs pain is better with uods-[id number] medication and prescription medication. She has used [...] discharged in stable condition. Dictation completed with EduKart software, grammatical variances in spelling errors may inadvertently occur. Related to Presence of left artificial knee joint Assessments Type Assessment Date No Information Patient Care Teams Name Effective Dates (start - stop) Status Members No Information
--- OUTSIDE RECORDS SUMMARY | 2024-06-05 00:48 | XMS_ITS | Continuity of Care Document ---
Author Name Auto Generated, Auto Generated Organization [facility] Support Name Relationship Address Phone Sarai Woody Emergency Contact 1 [place] [address] [place] [address] Aida Mccarty Sister [address] [place] [address] Unavailable Aida Mccarty Emergency Contact [address] [place] [address] Unavailable Summary Purpose Consult/Referral Allergies, Adverse Reactions, Alerts Type Description/Agent Code Date Allergy Active Date Allergy Inactivated Date of Last Reaction Adverse Reactions Severity Status Comments Source of Information FDB Medic ation Ingre dient codeine Active Patient History Medications No Known Medications Conditions/Problems Problem/Diagnosis Awareness of Diagnosis Code (ICD-10) Onset Date (Start Date) Resolution Date (End Date) Status Source Comments OTHER FATIGUE R53.83 Active MD Mahad Onofre WEAKNESS R53.1 MD Mahad Roldan UNSTEADINESS ON FEET R26.81 Active MD Mahad Onofre [facility] (CURRENT) USE OF OPIATE ANALGESIC Z79.891 Active MD Mahad Onofre DEFICIENCY OF OTHER SPECIFIED B GROUP VITAMINS E53.8 MD Mahad Roldan VITAMIN D DEFICIENCY, UNSPECIFIED E55.9 MD Mahad Roldan POLYNEUROPATHY, UNSPECIFIED G62.9 MD Mahad Roldan MECHANICAL LOOSENING OF INTERNAL RIGHT KNEE PROSTHETIC JOINT, SUBSEQUENT ENCOUNTER T84.032D 02/01/2024 Resolved MD Mahad Onofre MECHANICAL LOOSENING OF INTERNAL LEFT KNEE PROSTHETIC JOINT, SUBSEQUENT ENCOUNTER T84.033D Active MD Mahad Onofre ACUTE POSTHEMORRHAGIC ANEMIA D62 MD Mahad Roldan OTHER NONSPECIFIC ABNORMAL FINDING OF LUNG FIELD R91.8 MD Mahad Roldan PERSONAL HISTORY OF OTHER VENOUS THROMBOSIS AND EMBOLISM Z86.718 024 MD Mahda Roldan Date NOS PERSONAL HISTORY OF PULMONARY EMBOLISM Z86.711 024 MD Mahad Roldan Date NOS PARKINSONISM, 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/2024 Resolved MD Mahad Onofre UNSPECIFIED VOICE AND RESONANCE DISORDER R49.9 024 MD Mahad Roldan DYSPHAGIA, UNSPECIFIED R13.10 MD Mahad Roldan DEMENTIA IN OTHER DISEASES CLASSIFIED ELSEWHERE, UNSPECIFIED SEVERITY, WITH MOOD DISTURBANCE F02.83 MD Mahad Roldan DEPRESSION, UNSPECIFIED F32.A 02/01/2024 Resolved MD Mahad Onofre ESOPHAGEAL OBSTRUCTION K22.2 023 MD Mahad Roldan OTHER SPECIFIED DISORDERS OF BONE DENSITY AND STRUCTURE, UNSPECIFIED SITE M85.80 MD Mahad Roldan PRESENCE OF OTHER BONE AND TENDON IMPLANTS Z96.7 023 MD Mahad Roldan UNSPECIFIED FALL, SUBSEQUENT ENCOUNTER W19.XXXD 023 MD Mahad Roldan DISPLACED BIMALLEOLAR FRACTURE OF LEFT LOWER LEG, SUBSEQUENT ENCOUNTER FOR CLOSED FRACTURE WITH ROUTINE HEALING S82.842D 023 02/01/2024 Resolved MD Mahad Onofre OTHER SYMBOLIC DYSFUNCTIONS R48.8 022 02/01/2024 Resolved MD Mahad Onofre OTHER VOICE AND RESONANCE DISORDERS R49.8 MD Mahad Roldan MUSCLE WEAKNESS (GENERALIZED) M62.81 02/01/2024 Resolved MD Mahad Onofre UNSPECIFIED FRACTURE OF LOWER END OF LEFT FEMUR, SUBSEQUENT ENCOUNTER FOR CLOSED FRACTURE WITH NONUNION S72.402K MD Mahad Roldan PRESENCE OF LEFT ARTIFICIAL KNEE JOINT Z96.652 MD Mahad Roldan UNSPECIFIED OSTEOARTHRITIS, UNSPECIFIED SITE M19.90 MD Mahad Roldan [facility] (CURRENT) USE OF ASPIRIN Z79.82 MD Mahad Roldan MATHEMATICS ACADEMIC CHAIR (CURRENT) USE OF ANTICOAGULANTS Z79.01 Active MD Mahad Onofre MAJOR DEPRESSIVE DISORDER, SINGLE EPISODE, UNSPECIFIED F32.9 MD Mhaad Roldan GENERALIZED ANXIETY DISORDER F41.1 MD Mahad Roldan 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/30/2022 Resolved MD Mahad Onofre HYPERLIPIDEMIA, UNSPECIFIED E78.5 Active MD Mahad Onofre GASTRO-ESOPHAGEAL REFLUX DISEASE WITHOUT ESOPHAGITIS K21.9 Active MD Mahad Onofre DIVERTICULOSIS OF INTESTINE, PART UNSPECIFIED, WITHOUT PERFORATION OR ABSCESS WITHOUT BLEEDING K57.90 MD Mahad Roldan 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
--- OUTSIDE RECORDS SUMMARY | 2024-06-05 00:49 | XMS_ITS | Data Portability ---
Author Organization [place] - [facility], Main Office Address [address] [place] [id number] Care Team Providers Care Info Analyst Name Role Phone GCP [facility] FAX OTHER ROSA ONOFRE Primary Care Provider [phone] EMILIO SARAH Orthopedic Surgeon [phone] Assessment Encounter Date Assessment Date Assessment LastModified by Organization Details LastModified Time 02/03/2024 02/03/2024 f/u labs 02/06 [email or web address] Not available 02/03/2024 22:54:53 02/05/2024 02/05/2024 D/C home to [facility] apartment at [place] today with OP therapy and oversight from sisters. Not available 02/05/2024 16:01:22 Plan of Treatment Reminders Order Date Submit Date Provider Last Modified By Organization Details Last Modified Time Details Appointments None recorded. Lab None recorded. Referral None recorded. Procedures None recorded. Surgeries None recorded. Imaging None recorded. Medication Orders hydrocodone 5 mg-acetamin ophen 325 mg tablet 2023 [facility] [address] [place], [address], 10:51:39 pregabalin 50 mg capsule 2023 [facility] [address] [place], [address], 10:51:39 Patient TargetsNo targets recorded. Patient Instructions Encounter Date Encounter Id Patient Instructions Last Modified By Organization Details Last Modified Time 01/31/[id number] I spent {{ 55#}} minutes providing care [...] goals of care. Not available 01/31/2024 14:59:30 02/03/[id number] I spent {{ 50#}} minutes providing care to the patient today. More than 50% of that time was spent in discussing the expected course of the disease, discussing prognosis, coordinating care and counseling of the patient/family. [email or web address] Not available 02/07/2024 04:04:43 02/05/[id number] I spent {{ 45#}} minutes providing care [...] [place] [address] [place], [address], [facility] 01/31/2024 14:26:26 04/02/19 21 arthro[place] [address] [address] [facility], [place], [address], [facility] 01/31/2024 14:27:50 04/02/19 20 open reduction of fracture [place] [address] [place], [address], [facility] 01/31/2024 14:28:07 Imaging Results None recorded. Procedure Notes None recorded. Medical Equipment None Reported. Allergies Allergen ID Allergen Name Allergen Category Reaction Reaction Severity Criticality Documentation Date Start Date Code Code System Note Provider Name and Address Organization Details Recorded Time 19097 codeine medicatio n Not available Not available [...] Address Organization Details Last Updated DateTime 4 16068.3 3 g 70 /min 94 % 94 % 20 /min 97.8 [degF] 30.4 kg/m2 157.48 cm 116 mm[Hg] 61 mm[Hg] [place] [address] [place], [address] , - [facility] 4 14:04:48 Date Recorded Body height Body mass index (BMI) Body weight Heart rate Oxygen saturation Oxygen saturation in Arterial blood by Pulse oximetry Respiratory rate Body temperature Systolic blood pressure Diastolic blood pressure Provider Name and Address Organization Details Last Updated DateTime 4 157.48 cm 30.4 kg/m2 09511.7 7 g 81 /min 95 % 95 % 18 /min 97.3 [degF] 115 mm[Hg] 86 mm[Hg] [place] [address] [place], [address] , [facility] 4 22:54:05 Date Recorded Body height Heart rate Body temperature Respiratory rate Oxygen saturation Oxygen saturation in Arterial blood by Pulse oximetry Body mass index (BMI) Body weight Systolic blood pressure Diastolic blood pressure Provider Name and Address Organization Details Last Updated DateTime 4 157.48 cm 67 /min 98 [degF] 18 /min 95 % 95 % 30.4 kg/m2 72443.3 3 g 103 mm[Hg] 56 mm[Hg] [place] [address] [place], [address] , [facility] 4 13:51:21 Social History Question Answer Notes LastModified by Organizat ion Details LastModified Time Tobacco Smoking Status Never Smoker [place] [facility] null, [place] [facility] 01/30/2024 23:53:12 [...] SNOMED-CT Code Diagnosis ICD10 Code Diagnosis Note [id number] Clary Comer NP [address] [address] [place] [address] 01/31/2024 09:21:51 02/11/2024 15:42:55 History of total knee arthroplasty 7318651583 105 Z96.659 Underwent an elective left knee arthroplas ty due to loose hardware on 01/[address] Emilio Sarah at [facility].W BAT to LLE.Contin ue incision site care -- kannan in place.Cont inues on Doxycyclin e through 02/07 for surgical prophylaxi s.Continue s on Eliquis for DVT prophylaxi s -- takes long-term as OP.Continu e Lyrica, Lidocaine patch, & PRN APAP & [place] for pain.Rufino nue PT/OT.F/U with ortho on 02/11 as scheduled. Neuropathy 194957888 G62 .9 SEE ABOVE... 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 Anemia fol lowing acute postoperative blood loss 6708453194 4369544 D62 Hgb dropped to 9.6 post-opera tively. Treating supportive ly at present.Tr end Hgbs. Parkinson's disease 4904 9000 G20.A1 Stable. Continue Sinemet, Glycopyrro late, & Entacapone .F/U with neurology as OP. Dementia 79297608 F03.90 ST to follow.Con tinue Donepezil, Memantine, Paroxetine , and Mirtazapin e. Mood is stable at present. Major depr essive disorder 769917645 F32.9 SEE ABOVE... Lung mass 096001861 R91. [address] scan at outside hospital in September 2023 as mass in right lower lobe.F/U for this is unclear -- hospital had recommende d f/u by PCP as OP. History of deep vein thrombosis 823263252 Z86.718 RLE. Presumed stable. Continue Eliquis long-term. History of pulmonary embolus 951945835 Z86.711 In September 2023. Presumed stable. Continue Eliquis long-term. Osteopenia 609923890 M85 .80 Presumed stable. Continue Ca + D and Vit D3. 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 Continue monthly injection. Vitamin D deficiency 347 80867 E55.9 Presumed stable. Continue supplement . Gastroesop hageal reflux disease without esophagitis 166772084 K21.9 Stable. Continue Omeprazole . Could consider changing to H2 lul or changing to PRN in pt with osteopenia . Advance care planning 71 8644255 Z71.89 Pt tells me she is a DNR, however she has signed her POLST form as a Full Code. Nursing to review further with patient and mPOA. Constipation 70504935 K5 9.00 Stable. Continue Colace & Miralax. [id number] Shara Oneal, DO [address] [place] [address] 02/03/2024 17:06:06 02/11/2024 15:44:07 History of total knee arthroplasty 7917641495 105 Z96.659 Underwent an elective left knee arthroplas ty due to loose hardware on 01/[address] Emilio Sarah at [facility].W BAT to LLE.Contin ue incision site care -- kannan in place.Cont inues on Doxycyclin e through 02/07 for surgical prophylaxi s.Continue s on Eliquis for DVT prophylaxi s -- takes long-term as OP.Continu e Lyrica, Lidocaine patch, & PRN APAP & [place] for pain.Rufino nue PT/OT.F/U with ortho on 02/11 as scheduled. Prosthetic joint loosening 900783757 T84.033S SEE ABOVE... Anemia fol lowing acute postoperative blood loss 9111121659 0143269 D62 Hgb dropped to 9.6 post-opera tively. Treating supportive ly at present.Tr end Hgbs. Parkinson's disease 4904 9000 G20.A1 Stable. Continue Sinemet, Glycopyrro late, & Entacapone .F/U with neurology as OP. Neuropathy 557029196 G62 .9 SEE ABOVE... Dementia 73757323 F03.90 ST to follow.Con tinue Donepezil, Memantine, Paroxetine , and Mirtazapin e. Mood is stable at present. Major depr essive disorder 171368806 F32.9 SEE ABOVE... Osteopenia 380467996 M85 .80 Presumed stable. Continue Ca + D and Vit D3. Gastroesop hageal reflux disease without esophagitis 101075396 K21.9 Stable. Continue Omeprazole . Could consider changing to H2 lul or changing to PRN in pt with osteopenia . Vitamin D deficiency 347 81690 E55.9 Presumed stable. Continue supplement . Disorder o f vitamin B12 232564623 E53.8 Presumed stable. Continue monthly injection. Lung mass 948731868 R91. [address] scan at outside hospital in September 2023 as mass in right lower lobe.F/U for this is unclear -- hospital had recommende d f/u by PCP as OP. History of deep vein thrombosis 846419152 Z86.718 RLE. Presumed stable. Continue Eliquis long-term. History of pulmonary embolus 840812448 Z86.711 In September 2023. Presumed stable. Continue Eliquis long-term. Constipation 12880298 K5 9.00 Stable. Continue Colace & Miralax. Physical deconditioning 9354051926 9102 R68.89 related to advanced age, recent knee replacemen t, comorbidit iestherapi es in place, she will return to her MDF apartment at upon d/c from SNFcontinu e eliquis for DVT prophylaxi kenya meds as abovecatha rtics in place [id number] Clary Comer NP [address] [address] 02/05/2024 09:05:38 02/07/2024 15:49:20 History of total knee arthroplasty 5669247336 105 Z96.659 Underwent an elective left knee arthroplas ty due to loose hardware on 01/[address] Emilio Sarah at [facility].W BAT to LLE.Contin ue incision site care -- kannan in place.Cont inues on Doxycyclin e through 02/10 for surgical prophylaxi s.Continue s on Eliquis for DVT prophylaxi s -- takes long-term as OP.Continu e Lyrica, Lidocaine patch, & PRN APAP & [place] for pain.Rufino nue PT/OT.F/U with ortho on 02/11 as scheduled. Prosthetic joint loosening 028300561 T84.033S SEE ABOVE... Anemia fol lowing acute postoperative blood loss 7570080723 3098698 D62 Hgb dropped to 9.6 post-opera tively. Treating supportive ly at present.Tr end Hgbs. Parkinson's disease 4904 9000 G20.A1 Stable. Continue Sinemet, Glycopyrro late, & Entacapone .F/U with neurology as OP. Neuropathy 996895161 G62 .9 SEE ABOVE... Dementia 62386534 F03.90 ST has followed.C ontinue Donepezil, Memantine, Paroxetine , and Mirtazapin e. Mood is stable at present. Major depr essive disorder 783227040 F32.9 SEE ABOVE... Osteopenia 473806807 M85 .80 Presumed stable. Continue Ca + D and Vit D3. Gastroesop hageal reflux disease without esophagitis 097915060 K21.9 Stable. Continue Omeprazole . PCP could consider changing to H2 lul or changing to PRN in pt with osteopenia . Vitamin D deficiency 347 97892 E55.9 Presumed stable. Continue supplement . Disorder o f vitamin B12 688140313 E53.8 Presumed stable. Continue monthly injection. Lung mass 847958227 R91. [address] scan at outside hospital in September 2023 as mass in right lower lobe.F/U for this is unclear -- hospital had recommende d f/u by PCP as OP. History of deep vein thrombosis 069769680 Z86.718 RLE. Presumed stable. Continue Eliquis long-term. History of pulmonary embolus 737462396 Z86.711 In September 2023. Presumed stable. Continue Eliquis long-term. Constipation 73615928 K5 9.00 Stable. Continue Colace & Miralax. Health Concerns Section Related Observation LastModified by Organization Detai ls LastModified Time None Recorded Concern Status LastModified by Organization Details LastModified Time None Recorded Advance Directives Directive None Recorded Payers Encounter Date Sequence Insurance Name Policy Number Policy Benitez Covered Member ID Benitez Member ID Guarantor Name 01/31/2024 2 [facility] - OPTIONS Sammi A Rohlfing [id number] Sammi A Rohlfing 01/31/2024 1 [place] Sammi A Rohlfing [id number] Sammi A Rohlfing 02/03/2024 2 [facility] - OPTIONS Sammi A Rohlfing [id number] Sammi A Rohlfing 02/03/2024 1 [place] Sammi A Rohlfing [id number] Sammi A Rohlfing 02/05/2024 2 [facility] - OPTIONS Sammi A Rohlfing [id number] Sammi A Rohlfing 02/05/2024 1 [place] Sammi A Rohlfing [id number] Sammi A Rohlfing Notes Date Note Type [...] on 01/[address] Emilio Sarah at [facility] [It should be noted there are frequent places in hospital records where this is incorrectly listed as right ]. Post-operative period was reportedly unremarkable beyond some post-operative anemia (Hgb 10.7, 9.6). She was discharged from the hospital on 01/20 to [facility] in [place]. While there, she was noted She has been discharged to this facility as of 01/30/24 for further rehabilitation with goal to return to her ILF apartment at [place]. She is WBAT to LLE and continues [...] review further with patient and mPOA.mPOA is niece Noni (although this should be confirmed as pt and sister aren't positive).Bette lives in an ILF apartment at [place]. Her two sisters live only a few doors away and check in on her.Pharmacy is [facility] in [place].PCP is Dr. Rosa Onofre. Clary Comer, KIM [address] [facility], [place], [address], [place] [facility] 01/31/2024 15:00:30 [...] on 01/[address] Emilio Sarah at [facility] [It should be noted there are frequent places in hospital records where this is incorrectly listed as right ]. Post-operative period was reportedly unremarkable beyond some post-operative anemia (Hgb 10.7, 9.6). She was discharged from the hospital on 01/20 to [facility] in [place] with an uncomplicated IRF stay. She has now been discharged to this facility as of 01/30/24 for further rehabilitation with goal to return to her ILF apartment at [place]. She is WBAT to LLE and continues [...] Jerry lives in an ILF apartment at [place]. Her two sisters live only a few doors away and check in on her.Pharmacy is [facility] in [place] [address] [place], [address], [place] [facility] 02/07/2024 04:05:04 [...] on 01/[address] Emilio Sarah at [facility] [It should be noted there are frequent places in hospital records where this is incorrectly listed as right ]. Post-operative period was reportedly unremarkable beyond some post-operative anemia (Hgb 10.7, 9.6). She was discharged from the hospital on 01/20 to [facility] in [place]. While there, she was noted She has been discharged to this facility as of 01/30/24 for further rehabilitation with goal to return to her ILF apartment at [place]. She is WBAT to LLE and continues on Doxycycline through 02/10 for surgical prophylaxis. mPOA is mally Cheney (although this should be confirmed as pt and sister aren't positive).Bette lives in an ILF apartment at [place]. Her two sisters live only a few [...] removed. VSS. Staff is without concerns at present.---02/05/24Li gregorio is seated in her recliner in her room, resting comfortably. She denies any concerns and reports her pain has been well-managed thus far. She is looking forward to discharging back to her ILF apartment today with OP therapy and does not offer any concerns with this plan. VSS. Staff is without concerns at present. Clary Comer, K[address] [address] [facility], [place], [address], [place] [facility] 02/05/2024 16:03:19 OBGyn Episode No OBEpisode recorded.
--- OUTSIDE RECORDS SUMMARY | 2024-06-05 00:49 | XMS_ITS | CONTINUITY OF CARE DOCUMENT ---
Author Name jasmin castellanos Address Unknown Organization [facility] Address [address] [place] [address] Phone [phone] Care Team Providers Care Display Designer Outside Name Role Phone Varghese BUSTILLOS, Ana Rosa Unavailable [phone] PATTY BUSTILLOS, ROSA Unavailable ROSA BRAMBILA MD Unavailable [phone] INSURANCE PROVIDERS Payer name Policy type / Coverage type [place] red libertarian ID A[employer] insurance [employer] [id number] [place] Medicare [id number]
--- OUTSIDE RECORDS SUMMARY | 2024-06-05 00:49 | XMS_ITS | Patient Health Summary ---
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 CULTURE MSSA/MRSA (12/31/2023 9:53 AM CDT) Pathologist [facility] Culture Negative for Staphylococcus aureus (MRSA/MSSA) 01/01/2024 3:35 PM CDT [facility] Microbiology SPECIMEN FROM NASAL FOSSAE / Unknown Collection / Unknown 12/31/2023 9:53 AM CDT 12/31/2023 10:17 AM CDT John Sarah MD LAB - MICROBIOLOGY ORDERABLES [facility] [address] [place] [phone] * (ABNORMAL) URINALYSIS REFLEX MICROSCOPIC REFLEX CULTURE (12/31/2023 9:53 AM CDT) Only the most recent of2 resultswithin the time period is included. Color UA Floresita(A) Straw, Yellow 12/31/2023 10:24 AM CDT [facility] Clarity UA Clear Clear 12/31/2023 10:24 AM CDT [facility] Glucose UA Negative Negative 12/31/2023 10:24 AM CDT [facility] Bilirubin UA Negative Negative 12/31/2023 10:24 AM CDT [facility] Ketone UA Trace(A) Negative 12/31/2023 10:24 AM CDT [facility] Specific [place] UA 1.010 1.005 - 1.030 12/31/2023 10:24 AM CDT [facility] Blood UA 1+(A) Negative 12/31/2023 10:24 AM CDT [facility] pH UA 6.0 5.0 - 8.0 pH 12/31/2023 10:24 AM CDT [facility] Protein UA Negative Negative 12/31/2023 10:24 AM CDT [facility] Urobilinogen UA Negative Negative mg/dL 12/31/2023 10:24 AM CDT [facility] Nitrite UA Negative Negative 12/31/2023 10:24 AM CDT [facility] Leukocyte UA Negative Negative 12/31/2023 10:24 AM [facility] Urine Microscopy Urine microscopy to follow 12/31/2023 10:24 AM [facility] Reflex Status Culture not indicated 12/31/2023 10:24 AM [facility] Urine URINE SPECIMEN OBTAINED BY CLEAN CATCH PROCEDURE / Unknown Collection / Unknown 12/31/2023 9:53 AM CDT 12/31/2023 10:18 AM CDT Narrative [facility] - 12/31/2023 10:24 AM CDT John Sarah MD LAB - URINALYSIS OR DERABLES [facility] [address] [place] [address] * C-REACTIVE PROTEIN (12/31/2023 9:52 AM CDT) C-Reactive Protein 0.17 <=0.50 mg/dL 12/31/2023 10:36 AM T [facility] Blood BLOOD SPECIMEN / Unknown Venipuncture / Unknown 12/31/2023 9:52 AM CDT 12/31/2023 10:18 AM CDT John Sarah MD LAB - CHEMISTRY ORD ERABLES [facility] [address] [place] [address] * TRANSFERRIN (12/31/2023 9:52 AM CDT) Transferrin 271 174 - 382 mg/dL 12/31/2023 10:36 AM CDT [facility] Blood BLOOD SPECIMEN / Unknown Venipuncture / Unknown 12/31/2023 9:52 AM CDT 12/31/2023 10:18 AM CDT John Sarah MD LAB - CHEMISTRY ORD ERABLES Performing Organization Address [facility] Co de Phone Number [facility] [address] [place] [phone] * HEMOGLOBIN A1C (12/31/2023 9:52 AM CDT) Hemoglobin A1c 4.8 <5.7 % 12/31/2023 11:03 AM CDT [facility] Estimated Average Glucose 91 mg/dL 12/31/2023 11:03 AM CDT [facility] Blood BLOOD SPECIMEN / Unknown Venipuncture / Unknown 12/31/2023 9:52 AM CDT 12/31/2023 10:18 AM CDT Narrative [facility] - 12/31/2023 11:03 AM CDT HbA1c [...] Type 1 diabetes, pediatric patients, or women. Falsely low HbA1c results may be observed in patients with clinical conditions that shorten erythrocyte life span or decrease mean erythrocyte age such as the presence of unstable hemoglobin variants, elevated hemoglobin F level or other causes of hemolytic anemia. HbA1c may not accurately reflect glycemic control when clinical conditions that affect erythrocyte survival are present. Severe Iron deficiency anemia may yield falsely high results. Hemoglobin A1c assay should not be used to diagnose or monitor diabetes in patients with malignancy, recent blood transfusion, chronic kidney or liver disease. This method may yield falsely low results when hemoglobin (HbF) exceeds 5% in the specimen. The Shepard Alinity assay for the measurement of HbA1c is a National Glycohemoglobin Standardization Program (NGSP) certified method. John Sarah MD LAB - CHEMISTRY ORD ERABLES Performing Organization Address [facility] de Phone Number [facility] [address] [place] [phone] * FRUCTOSAMINE (12/31/2023 9:52 AM CDT) Pathologist [facility] Fructosamine 247 205 - 285 umol/L 01/02/2024 12:10 AM CDT [facility] ([facility]) Comment: INTERPRETIVE INFORMATION: Fructosamine Variations in levels of serum proteins (albumin and immunoglobulins) may affect fructosamine results. Performed By: [employer] [address] [place] [address] Manager Of Merchandising: Munir Faustin MD, PhD CLIA Number: [id number] Blood BLOOD SPECIMEN / Unknown Venipuncture / Unknown 12/31/2023 9:52 AM CDT 12/31/2023 10:18 AM CDT John Sarah MD LAB - CHEMISTRY ORD ERABLES Performing Organization Address [facility] de Phone Number [facility]) [address] [place] [address] * ERYTHROCYTE SEDIMENTATION RATE (12/31/2023 9:52 AM CDT) Pathologist [facility] Erythrocyte Sedimentation Rate Automated 15 0 - 30 MM/HR 12/31/2023 10:50 AM CDT [facility] Blood BLOOD SPECIMEN / Unknown Venipuncture / Unknown 12/31/2023 9:52 AM CDT 12/31/2023 10:18 AM CDT John Sarah MD LAB - HEMATOLOGY OR DERABLES Performing Organization Address [facility]/ZIP Co de Phone Number [facility] [address] [place] [address] * XR FEMUR LEFT 2VW (10/03/2023 12:30 PM CDT) Only the most recent of11 resultswithin the time period is included. Anatomical Region Laterality Modality Lower Extremity Radiographic Jordan ging 10/03/2023 12:3 2 PM CDT Narrative 10/03/2023 12:34 PM CDT Procedure: XR FEMUR LEFT 2VW Exam Date: 10/03/2023 12:30 PM Location: [facility] Indication: M25.562: Pain in left knee Findings/impression: [...] LEFT 2VW Exam Date: 10/03/2023 12:30 PM Location:[facility] Indication: M25.562: Pain in left knee Findings/impression: [...] W CONTRAST (09/07/2023 3:34 PM CDT) BSA [id number] m2 [facility] CV FUJI PACS LVOT stroke [...] TR pk anastacio 286.2 cm/s [facility] CV FUJ I PACS LVOT pk anastacio 1.01 m/s [...] Modality Ultrasound Narrative 09/07/2023 3:55 PM CDT Left Ventricle: Left ventricle size is normal. Mildly increased [...] Valve structure is normal. No restricted motion. Wvclc-gi-payu regurgitation. No stenosis. Aortic Valve Valve structure [...] Procedure Note Silva Booth MD - 09/07/2023 Left Ventricle: Left ventricle size is normal. Mildly increased wallthickness. Normal systolic function with a visually estimated EF of 55 -60%. Normal wall motion. Grade I diastolic dysfunction with normal leftatrial pressure. Ubaldo Winters MD ECHO CUPID * (ABNORMAL) PTT (09/07/2023 3:52 AM CDT) Only the most recent of4 resultswithin the time period is included. PTT 89.0(H) 23.0 - 38.4 sec 09/07/2023 4:38 AM CDT [facility] Blood BLOOD SPECIMEN / Unknown Venipuncture / Unknown 09/07/2023 3:52 AM CDT 09/07/2023 4:16 AM CDT Narrative [facility] - 09/07/2023 4:38 AM CDT Heparin Therapeutic Range for PTT: 69.0 - 110.0 seconds. Munir Martin MD LAB - COAGULAT ION ORDERABLES Performing Organization Address [facility] de Phone Number [facility] [address] [place] [address] * PT-INR (09/07/2023 3:52 AM CDT) Only the most recent of2 resultswithin the time period is included. PT 13.3 12.1 - 14.8 sec 09/07/2023 4:38 AM CDT [facility] INR 1.0 0.9 - 1.1 09/07/2023 4:38 AM CDT [facility] Blood BLOOD SPECIMEN / Unknown Venipuncture / Unknown 09/07/2023 3:52 AM CDT 09/07/2023 4:16 AM CDT Narrative [facility] - 09/07/2023 4:38 AM CDT Conventional Warfarin Anticoagulant Therapy: INR Reference Range: 2.0-3.0 Intensive Warfarin Anticoagulant Therapy: INR Reference Range: 2.5-3.5 Munir Martin MD LAB - COAGULAT ION ORDERABLES Performing Organization Address [facility] de Phone Number [facility] [address] [place] [address] * VAS BILATERAL VENOUS DUPLEX LE (09/06/2023 3:18 PM CDT) Anatomical Region Laterality Modality Lower Extremity Ultrasound 09/06/2023 3:51 PM CDT Narrative Procedure Note Sary Sánchez MD - 09/06/2023 [facility] [address] [place] [address] Lower Extremity Venous Ultrasound Report Pat.Name: SAMMI CALZADA Sarai.ID: [id number] .Date: 09/06/2023 Exam Time: 3:51:00 PM Study Type:LE Venous Age: 5 1940,83Y Sex: FEMALE Sonogrphr: José Alvarado RVT Pat. 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 [facility] WBC 5.4 4.0 - 10.7 x10E9/L 09/06/2023 5:05 AM CDT [facility] RBC Count 3.71(L) 3.90 - 5.20 x10E12/L 09/06/2023 5:05 AM CDT [facility] Hemoglobin 12.1 11.9 - 15.8 g/dL 09/06/2023 5:05 AM CDT [facility] Hematocrit 36.2 34.8 - 46.1 % 09/06/2023 5:05 AM CDT [facility] MCV 97.6 80.0 - 98.0 fL 09/06/2023 5:05 AM CDT [facility] MCH 32.6 26.7 - 33.6 pg 09/06/2023 5:05 AM CDT [facility] MCHC 33.4 31.7 - 36.3 g/dL 09/06/2023 5:05 AM CDT [facility] RDW-CV 13.0 11.3 - 14.8 % 09/06/2023 5:05 AM CDT [facility] Platelet Count 190 150 - 420 x10E9/L 09/06/2023 5:05 AM CDT [facility] MPV 9.0 7.8 - 11.4 fL 09/06/2023 5:05 AM CDT [facility] Blood BLOOD SPECIMEN / Unknown Venipuncture / Unknown 09/06/2023 4:25 AM CDT 09/06/2023 4:43 AM CDT Munir Martin MD LAB - HEMATOLO GY ORDERABLES [facility] [address] [place] [address] * CT FEMUR LEFT WO [...] of nonunion. Dictated by Belkis Saleem MD (residential appraiser). I, Dr. SARY MEJÍA have personally reviewed and interpreted this examination/study. This report was electronically signed by SARY MEJÍA on 11/04/2020 1:24 PM . Narrative 11/04/2020 1:24 [...] of nonunion. Dictated by Belkis Saleem MD (residential appraiser). I, Dr. SARY MEJÍA have personally reviewed and interpreted this examination/study. This report was electronically signed by SARY MEJÍA on 11:24 PM . Latesha Han PA-C CT ORDERABLE S * [place] DRAIN/INJECT LARGE JOINT/BURSA (07/14/2020 10:00 AM CDT) Vidal Porter MD - 07/14/2020 10:00 AM CDT Pb Breaux MD 07/14/2020 10:01 AM Brief Procedure Note After obtaining verbal informed consent from the patient they were positioned supine with the left knee in extension. The lateral suprapatellar portal was identified and marked. The site was prepped with alcohol and betadine swabs. A 22 gauge needle was used to inject a mixture of 2 cc of 0.25% markaine and 1 cc of 80mg/ml of kenalog into the knee joint. A sterile dressing was applied. The patient tolerated the procedure well. Vidal Lazo MD PROCEDURE/MINOR SURG ICAL ORDERABLES * LARYNGEAL MASK AIRWAY (05/07/2020 10:44 AM FLAME HARDENER) Belkis Cottrell Anes Asst - 05/07/2020 10:44 AM FLAME HARDENER Belkis Walker Anes Asst 05/07/2020 10:44 AM LMA Placement Procedure/LDA Note: Patient Location: OR. LMA Insertion Date/Time: 05/07/2020 10:31 AM Procedure: LMA. Pretreatment: 100% O2 Induction: standard IV Patient position: sniffing. Mask Ventilation: not attempted Type: LMA Size: 4 Number of Attempts: 1. Placement verified by: direct visualization, bilateral breath sounds, chest auscultation and CO2 monitor Dentition unchanged? Yes Procedure Start Time: 05/07/2020 10:31 AM. Staff Section Anesthesia Provider: Belkis Walker Anes Asst, Performed the procedure Nano Burton MD GENERAL ANESTHESIA O RDSONY * (ABNORMAL) SARS-COV-2 (COVID-19) PRE-SURGICAL/PROCEDURE (04/15/2020 12:50 PM FLAME HARDENER) COVID-19 PCR Detected( AA) Not detected 04/15/2020 10:09 PM FLAME HARDENER [facility] MICROBI[facility]Y Microbiology SPECIMEN FROM NASOPHARYNGEAL STRUCTURE / Unknown Collection / Unknown 04/15/2020 12:50 PM FLAME HARDENER 04/15/2020 3:19 PM FLAME HARDENER Narrative [facility] - 04/15/2020 10:09 PM FLAME HARDENER This nucleic acid amplification assay performance was validated by [facility]. This test has been authorized by the Food and Drug administration (FDA)under an Emergency Use Authorization (EUA). This test has been validated [...] Vidal Lazo MD LAB - MICROBIOLOGY O RDSONY [facility] [address] [place] [address], [facility] [phone] * CARDIAC EKG ORDER (09/29/2019 9:26 AM CDT) Only the most recent of2 resultswithin the time period is included. Narrative 09/29/2019 9:26 AM CDT Ordered by an unspecified provider. Scanned Document CARDIAC SERVICES ORD ERABLES * PHOSPHORUS BLOOD (09/25/2019 6:29 AM CDT) Only the most recent of3 resultswithin the time period is included. Phosphorus 2.6 2.3 - 4.7 mg/dL 09/25/2019 7:40 AM CDT [facility] Blood BLOOD SPECIMEN / Unknown Lab Venipuncture / Unknown 09/25/2019 6:29 AM CDT 09/25/2019 7:14 AM CDT Jonathan Silveira MD LAB - CHEMISTRY PAPA GILBERT Performing Organization Address [facility]/ZIP Co de Phone Number [address] [phone], [facility] [phone] * MAGNESIUM BLOOD (09/25/2019 6:29 AM CDT) Only the most recent of4 resultswithin the time period is included. Magnesium 1.7 1.6 - 2.6 mg/dL 09/25/2019 7:40 AM CDT [facility] Blood BLOOD SPECIMEN / Unknown Lab Venipuncture / Unknown 09/25/2019 6:29 AM CDT 09/25/2019 7:14 AM CDT Jonathan Silveira MD LAB - CHEMISTRY PAPA GILBERT Performing Organization Address City/[facility]/ZIP Co de Phone Number [address] [phone], [facility] [phone] * CT CHEST ABDOMEN PELVIS W CONT [...] further detail. Dictated by Jesika Wolf MD (academic affairs vice president). I, Dr. Lenin MUSA M.D. have personally reviewed and interpreted this examination/study. This report was electronically signed by Lenin MUSA M.D. on 09/24/2019 3:10 PM . Narrative 09/24/2019 3:10 [...] further detail. Dictated by Jesika Wolf MD (academic affairs vice president). IDr. Lenin M.D. have personally reviewed and interpretedthis examination/study. This report was electronically signed by Lenin MUSA M.D. on 09/24/2019 3:10 PM . Daniela Godinez MD CT ORDERABLES * ETT LINE PERFORMABLE (09/23/2019 11:39 AM CDT) Narrative Candelario Han APRN-CRNA - 09/23/2019 11:39 AM CDT Candelario Han APRN-CRNA 09/23/2019 11:39 AM Endotracheal Tube Placement: Patient Location: OR. Intubation Event Date/Time: 09/23/2019 10:56 AM Procedure: intubation (36750). Procedure Section: Sedation: under general anesthesia. Indications for Airway Management: anesthesia Procedure pretreatments used? No Induction: standard IV Patient Position: sniffing and supine Mask Ventilation: easy. Blade Type: Andrew Blade Size: 3 Laryngoscopy View: grade 1 (full cords) Tube: endotracheal tube Placement: oral Tube Size (MM): 7 Depth of Insertion (CM): 21 Measured From: teeth Cuff Inflated With: air Number of Attempts: 1. Placement Verified By: direct visualization, bilateral breath sounds and CO2 monitor Tube secured with: adhesive tape. Difficult Airway? No. Procedure Start Time: 09/23/2019 10:56 AM. Staff Section Anesthesia Provider: Candelario Han APRN-CRNA, Performed the procedure Lynda Ha MD GENERAL ANESTHESIA O RDERABLES * PREPARE (CROSSMATCH) RBC UNIT(S), 1 Units (09/23/2019 6:12 AM CDT) Only the most recent of2 resultswithin the time period is included. Unit Description N/A [facility] Blood Bank BLOOD SPECIMEN / Unknown 09/23/2019 6:12 AM CDT 09/23/2019 6:32 AM CDT Jonathan Silveira MD LAB - BLOOD BANK ORD ERABLES Performing Organization Address City/[facility]/ZIP Co de Phone Number [facility] [address] [place], [place] [phone] * (ABNORMAL) VITAMIN B12 (09/23/2019 6:12 AM CDT) Vitamin B12 168(L) 213 - 816 pg/mL 09/23/2019 10:43 AM CDT [facility] Blood BLOOD SPECIMEN / Unknown Venipuncture / Unknown 09/23/2019 6:12 AM CDT 09/23/2019 6:18 AM CDT Nia Charles DO LAB - CHEMISTRY ORDPaula GILBERT Performing Organization Address [facility]/ZIP Co de Phone Number [place] [address], [facility] [phone] * PT-INR [facility] (09/23/2019 4:30 AM CDT) PT 12.7 12.1 - 14.8 Seconds 09/23/2019 4:46 AM CDT [facility] INR 1.0 See Comment 09/23/2019 4:46 AM CDT [facility] Comment:The suggested therap eutic range for standard coumadin (warfarin) therapy is an INR of 2.0-3.0. For high-risk patients (Mechanical Mitral Valve Prosthesis, etc.), the suggested prophylactic therapeutic range is an INR of 2.5-3.5. Blood BLOOD SPECIMEN / Unknown Venipuncture / Unknown 09/23/2019 4:30 AM CDT 09/23/2019 4:34 AM CDT Munir Victoria MD LAB - COAGULAT ION ORDERABLES Performing Organization Address [facility]/ZIP Co de Phone Number [place] [phone], [facility] [phone] * CT KNEE LEFT WO CONTRAST (09/23/2019 3:58 AM CDT) Anatomical Region Laterality Modality Lower Extremity Computed Tomogra phy 09/23/2019 4:00 AM CDT Impressions 09/23/2019 7:23 AM CDT IMPRESSION: 1. Comminuted, moderately displaced, impacted intra-articular fracture of the distal femur. Dictated by Radha Katz MD (academic affairs vice president). I, Dr. CHRISTIANO ROSENTHAL MD have personally reviewed and interpreted this examination/study. This report was electronically signed by CHRISTIANO ROSENTHAL MD on 09/23/2019 7:23 AM . Narrative 09/23/2019 7:23 [...] distal femur. Dictated by Radha Katz MD (academic affairs vice president). Dr. CHRISTIANO Hooker MD have personally reviewed [...] canal stenosis. Dictated by Mariely Negro MD (academic affairs vice president). This report was approved by Mariely Negro on 09/23/2019 11:[address] CONI Hooker have personally reviewed and interpreted this examination/study. This report was electronically signed by CONI BRONSON on 09/23/2019 11:11 AM . Narrative 09/23/2019 11:11 [...] canal stenosis. Dictated by Mariely Negro MD (academic affairs vice president). This report was approved by Mariely Negro [...] canal stenosis. Dictated by Mariely Negro MD (academic affairs vice president). This report was approved by Mariely Negro on 09/23/2019 11:[address] CONI Hooker have personally reviewed and interpreted this examination/study. This report was electronically signed by CONI BRONSON on 09/23/2019 11:11 AM . Narrative 09/23/2019 11:11 [...] canal stenosis. Dictated by Mariely Negro MD (academic affairs vice president). This report was approved by Mariely Negro on 09/23/2019 11:11 AM . IDr. CONI have personally reviewed and interpreted this examination/study. [...] canal stenosis. Dictated by Mariely Negro MD (academic affairs vice president). This report was approved by Mariely Negro on 09/23/2019 11:11 AM . I, Dr. CONI BRONSON have personally reviewed and interpreted this examination/study. This report was electronically signed by CONI BRONSON on 09/23/2019 11:11 AM . Narrative 09/23/2019 11:11 [...] canal stenosis. Dictated by Mariely Negro MD (academic affairs vice president). This report was approved by Mariely Negro [...] canal stenosis. Dictated by Mariely Negro MD (academic affairs vice president). This report was approved by Mariely Negro on 09/23/2019 11:11 AM . I, Dr. CONI BRONSON have personally reviewed and interpreted this examination/study. This report was electronically signed by CONI BRONSON on 09/23/2019 11:11 AM . Narrative 09/23/2019 11:11 [...] canal stenosis. Dictated by Mariely Negro MD (academic affairs vice president). This report was approved by Mariely Negro on 09/23/2019 11:11 AM . I, Dr. CONI BRONSON have personally reviewed and interpreted this examination/study. This report was electronically signed by CONI BRONSON on09/23/2019 11:11 AM . Jaron Sotelo III, MD CT ORDERABLES * (ABNORMAL) URINALYSIS W/MICROSCOPIC NO CULTURE (09/22/2019 11:42 PM CDT) Color UA Yellow Straw, Yellow, Colorless 09/22/2019 11:55 PM [facility] Clarity UA Slt Cloudy Clear, Slt Cloudy 09/22/2019 11:55 PM [facility] Specific [place] UA 1.016 1.005 - 1.030 09/22/2019 11:55 PM [facility] pH UA 6.0 5.0 - 8.0 pH 09/22/2019 11:55 PM [facility] Protein UA Negative Negative mg/dL 09/22/2019 11:55 PM [facility] Glucose UA Negative Negative mg/dL 09/22/2019 11:55 PM [facility] Ketone UA Trace(A) Negative mg/dL 09/22/2019 11:55 PM [facility] Bilirubin UA Negative Negative mg/dL 09/22/2019 11:55 PM [facility] Blood UA Negative Negative 09/22/2019 11:55 PM [facility] Nitrite UA Negative Negative 09/22/2019 11:55 PM [facility] Leukocyte Esterase 1+(A) Negative 09/22/2019 11:55 PM [facility] Urobilinogen UA 2.0(A) Negative mg/dL 09/22/2019 11:55 PM CDT [facility] RBC UA 0-2 None Seen, 0-2, 3-5 /HPF 09/22/2019 11:55 PM CDT [facility] WBC UA 11-20(A) None Seen, 0-5 /HPF 09/22/2019 11:55 PM CDT [facility] Bacteria UA 1+(A) None, Trace /HPF 09/22/2019 11:55 PM CDT [facility] Squamous Epithelial Cells UA 0-2 None Seen, 0-2 /HPF 09/22/2019 11:55 PM CDT [facility] Mucus UA 1+ None, 1+ /LPF 09/22/2019 11:55 PM T [facility] Amorphous Crystals Few Rare, Occasional, Few, Moderate, None /HPF 09/22/2019 11:55 PM CDT [facility] Urine URINE SPECIMEN OBTAINED BY CLEAN CATCH PROCEDURE / Unknown Collection / Unknown 09/22/2019 11:42 PM CDT 09/22/2019 11:44 PM CDT Narrative [facility] - 09/22/2019 11:55 PM CDT Jaron Sotelo III, MD LAB - URINALYS IS ORDERABLES [address] [address] [phone] * XR KNEE LEFT 2VW OR LESS (09/22/2019 11:30 PM CDT) Anatomical Region Laterality Modality Lower Extremity Radiographic Jordan ging 09/22/2019 11:2 8 PM CDT Impressions 09/23/2019 9:11 AM CDT IMPRESSION: Comminuted intra-articular distal femoral fracture. Dictated by Radha Katz MD (academic affairs vice president). I, Dr. TANJA CASTILLO M.D. have personally reviewed and interpreted this examination/study. This report was electronically signed by TANJA CASTILLO M.D. on 09/23/2019 9:11 AM . Narrative 09/23/2019 9:11 [...] femoral fracture. Dictated by Radha Katz MD (academic affairs vice president). I, Dr. TANJA CASTILLO M.D. have personally reviewed and interpreted this examination/study. This report was electronically signed by TANJA CASTILLO M.D. on 09/23/2019 9:11 AM . Jaron Sotelo III, MD DIAGNOSTIC JORDAN GING ORDERABLES * EKG 12-LEAD (09/22/2019 11:29 PM CDT) Only the most recent of2 resultswithin the time period is included. Ventricular Rate 63 BPM [facility] Atrial Rate 63 BPM [facility] P-R Interval 164 ms [facility] M[facility] QRS Duration ms 96 ms [facility] Q-T Interval ms 428 ms [facility] MUSE QTC Calculation (Bezet) 437 ms [facility] Calculated P Flushing 61 degrees [facility] Calculated R [place]ushing -21 degrees [facility] Calculated T Flushing 47 degrees [facility] Interpretation EKG NORMAL SINUS RHYTHM NONSPECIFIC T WAVE ABNORMALITY ABNORMAL ECG NO PREVIOUS ECGS AVAILABLE Confirmed by fellow Wanda Osborne ([id number]) on 10/03/2019 8:31:49 AM Confirmed by Sylvain Chaudhry ([id number]) on 11/22/2019 3:06:21 PM [facility] MUSE 09/22/2019 11:2 9 PM CDT 11/22/2019 3:06 PM CDT Jaron Sotelo III, MD ECG ORDERABLES [facility] MUSE * XR HIP LEFT 2VW OR MORE (09/22/2019 11:28 PM CDT) Anatomical Region Laterality Modality Pelvis, Lower Extremity [facility] 09/22/2019 11:2 7 PM CDT Impressions 09/23/2019 9:08 AM CDT IMPRESSION: No acute fracture or dislocation identified. Dictated by Radha Katz MD (academic affairs vice president). Dr. TANJA Hooker M.D. have personally reviewed and interpreted this examination/study. This report was electronically signed by TANJA CASTILLO M.D. on 09/23/2019 9:08 AM . Narrative 09/23/2019 9:08 [...] dislocation identified. Dictated by Radha Katz MD (academic affairs vice president). Dr. TANJA Hooker M.D. have personally reviewed and interpreted this examination/study. This report was electronically signed by TANJA CASTILLO M.D. on 09/23/2019 9:08 AM . Jaron Sotelo III, MD DIAGNOSTIC JORDAN GING ORDERABLES * (ABNORMAL) VITAMIN D 25-HYDROXY (09/22/2019 11:27 PM CDT) Vitamin D, 25 Hydroxy 20.3(L) See comment: ng/mL 09/23/2019 6:27 AM CDT [facility] Comment: The recommendations for 25-Hydroxy Vitamin D clinical decision points are as follows: Deficient: <20.0 ng/mL Insufficient: 20.0 - 29.9 ng/mL Sufficient: > or =30.0 ng/mL If the 25-Hydroxy Vitamin D results are inconsitent with clinical evidence, it is recommended that follow-up testing using a method such as LC/MS/MS be performed to confirm the result. Reference: The Endocrine Society Clinical Practice Guidelines. 2010 Blood BLOOD SPECIMEN / Unknown Venipuncture / Unknown 09/22/2019 11:27 PM CDT 09/22/2019 11:35 PM CDT Nia Catarino Charles DO LAB - CHEMISTRY KORINAE VLADIMIR [address] [address] [phone] * MRI SPINE THORACIC NON CONTRAST (03/27/2017 1:56 PM FLAME HARDENER) Only the most recent of2 resultswithin the time period is included. Anatomical Region Laterality Modality Chest Magnetic Resonan ce Angiography 03/27/2017 3:08 PM FLAME HARDENER Narrative 03/27/2017 3:39 PM FLAME HARDENER Examination: MRI thoracic spine. Indication for examination: [...] Procedure Note Duane Russo MD - 09/05/[address] [address] Carotid Duplex Report Pat.Name: SAMMI CALZADA Sarai.ID: [id number] .Date: 09/04/2016 Exam Time: 3:38:00 PM Study Type:Carotid Age: 5 1940,76Y Sex: FEMALE Sonogrphr: José Alvarado RVT Pat. Stat.:Inpatient Room: 704 Bed 01 Reason for Study:Syncope History / Clinical:Diverticulitis, Acid reflux Procedures:Carotid Duplex - Bilateral Race: 2 Visit ID: [id number] SUMMARY: There are no hemodynamically significant stenoses [...] EDV 18.1 cm/s Signed 09/05/2016 03:49 PM Duane Russo MD Eugenio Hendrickson MD VASCULAR LAB ORDERAB LES * ECHOCARDIOGRAM 2D WITH DOPPLER (09/04/2016 11:00 AM CDT) 09/04/2016 11:0 0 AM CDT [facility] CARDI[facility] - 09/04/2016 2:[address] [address] Transthoracic Echocardiogram 2D, M-mode, Doppler, and Color Doppler Patient: SAMMI CALZADA MR number: [id number] Height: 64 in Weight: 155 lb BSA: 1.76 m Study date: 04-Sep-2016 : 1940 Age: 76 years Gender: Female Race: Allergies: CODEINE Diagnoses: R55. - Syncope and collapse Reading Physician: Judah German MD Referring Physician: Galina Hall M.D. DRIER HELPER: Esperanza Jauregui [facility] Cardiology Group: [facility] Summary: - Procedure information: - Room [...] Procedure: The study was performed in the [facility]. This was a routine study. Room 704 [...] MV A Anastacio: 0.7 m/s MV Dec [place]: 2.5 m/s2 MV E Anastacio: 0.5 m/s MV E/A Ratio: 0.7 RVSP: 27.7 mmHg Septal e': 0.1 m/s Prepared and signed by Judah German MD Signed 04-Sep-2016 14:19:48 Procedure Note Unknown, Provider - 09/04/[address] [address] Transthoracic Echocardiogram 2D, M-mode, Doppler, and Color Doppler Patient: SAMMI CALZADA MR number: [id number] Height: 64 in Weight: 155 lb BSA: 1.76 m Study date: 04-Sep-2016 : 1940 Age: 76 years Gender: Female Race: Allergies: CODEINE Diagnoses: R55. - Syncope and collapse Reading Physician: Judah German MD Referring Physician: Galina Hall M.D. DRIER HELPER: Esperanza Jauregui [facility] Cardiology Group: [facility] Summary: - Procedure information: - Room [...] Procedure: The study was performed in the [facility]. This was a routine study. Room 704 [...] MV A Anastacio: 0.7 m/s MV Dec [place]: 2.5 m/s2 MV E Anastacio: 0.5 m/s MV E/A Ratio: 0.7 RVSP: 27.7 mmHg Septal e': 0.1 m/s Prepared and signed by Judah German MD Signed 04-Sep-2016 14:19:48 Mariaelena Schmidt [employer]SOLE [employer]SOLE SPLITTER-DRENCHER ECHO ORDERABLE S [facility] * [...] AM CDT) Case Report Surgical Pathology Report Case: [id number] Authorizing Provider: Edy Kelly II, Collected: 09/04/2016 07:39 AM Ordering Location: [facility] Received: 09/04/2016 08:47 AM Pathologist: Yaniv Marrero MD Specimen: Bone Biopsy, T11 09/05/2016 10:40 AM CDT [facility] Final Diagnosis 1. T11 bone biopsy: -- Negative for malignancy AB/na 09/05/2016 10:40 AM CDT [facility] Gross Description Received in formalin in a container labeled Sammi Calzada, T11 bone biopsy. The container holds a sheet of Telfa with attached burgundy-brown tissue measuring 1 x 0.5 x 0.1 cm. Specimen is entirely submitted in cassette labeled A1. DYT/kf 09/05/2016 10:40 AM CDT [facility] Microscopic Description The T11 bone biopsy shows mostly blood with a small amount of fatty marrow. No bone tissue is present. No malignancy is seen. AB/na 09/05/2016 10:40 AM CDT [facility] Disclaimer All histochemical and/or immunohistochemical results are interpreted with controls that demonstrate appropriate staining reactions before reporting results. Note on use of immunocytochemistry reagents: This test was developed and its performance characteristic determined by [facility], Department of Laboratory Medicine. It has not been cleared or approved by the U.S. Food and Drug Administration (FDA). The FDA has determined that such clearance or approval is not necessary. The test is used for clinical purpose. It should not be regarded as investigational or for research. This laboratory is certified to perform high complexity testing. 09/05/2016 10:40 AM CDT [facility] Embedded Images 09/05/2016 10:40 AM CDT [facility] Pathology/Cytolo gy BONE BIOPSY SPECIMEN / Unknown 09/04/2016 7:39 AM CDT 09/04/2016 8:47 AM CDT Edy Kelly II, MD LAB - PATHO LOGY/CYTOLOGY ORDERABLES Performing Organization Address [facility]/ZIP Co de Phone Number [facility] [address] [place] [address] * PT PTT PANEL (09/03/2016 5:53 AM CDT) PT 9.7 9.5 - 11.6 sec 09/03/2016 6:20 AM CDT [facility] INR 1.0 0.9 - 1.1 09/03/2016 6:20 AM CDT [facility] PTT 25.5 21.0 - 32.0 sec 09/03/2016 6:20 AM CDT [facility] Blood BLOOD SPECIMEN / Unknown 09/03/2016 5:53 AM CDT 09/03/2016 6:01 AM CDT Narrative [facility] - 09/03/2016 6:20 AM CDT Conventional Warfarin Anticoagulant Therapy: INR Reference Range: 2.0-3.0 Intensive Warfarin Anticoagulant Therapy: INR Reference Range: 2.5-3.5 Heparin Therapeutic Range for PTT: 47.7 - 68.6 seconds. Haris Patterson MD LAB - COAGULATION OR DERABLES Performing Organization Address [facility] Co de Phone Number [facility] [address] [place] [address] * LIPASE BLOOD (09/03/2016 5:53 AM CDT) Lipase 126 73 - 393 U/L 09/03/2016 6:22 AM CDT [facility] Blood BLOOD SPECIMEN / Unknown 09/03/2016 5:53 AM CDT 09/03/2016 6:01 AM CDT Haris Patterson MD LAB - CHEMISTRY PAPA GILBERT Performing Organization Address [facility] Co de Phone Number [facility] [address] [place] [address] * AMYLASE BLOOD (09/03/2016 5:53 AM CDT) Amylase 56 15 - 115 U/L 09/03/2016 6:22 AM CDT [facility] Blood BLOOD SPECIMEN / Unknown 09/03/2016 5:53 AM CDT 09/03/2016 6:01 AM CDT Haris Patterson MD LAB - CHEMISTRY PAPA GILBERT Performing Organization Address [facility] de Phone Number [facility] [address] [place] [address] * TROPONIN I (09/02/2016 4:02 AM CDT) Only the most recent of3 resultswithin the time period is included. Pathologist [facility] Troponin I <0.015 0.000 - 0.049 ng/mL 09/02/2016 4:35 AM CDT [facility] Blood BLOOD SPECIMEN / Unknown 09/02/2016 4:02 AM CDT 09/02/2016 4:09 AM CDT Narrative [facility] - 09/02/2016 4:35 AM CDT [...] - CHEMISTRY PAPA GILBERT Performing Organization Address [facility] Co de Phone Number [facility] [address] [place] [address] * XR CHEST INSPIRATION AND EXPIRATION (09/01/2016 12:37 PM CDT) Anatomical Region Laterality Modality Chest Radiographic Jordan ging 09/01/2016 12:4 2 PM CDT Impressions 09/01/2016 12:44 PM CDT Inspiratory and expiratory views of the chest demonstrate no acute appearing cardiac or pulmonary abnormality. This examination was transcribed using the [employer] voice recognition system without human supply chain procurement manager. In an effort to expedite patient care, this report has not been adjusted for typographical, grammatical, and syntax by a trained medical diagnostic radiographer. Narrative 09/01/2016 12:44 PM CDT Chest x-ray [...] abnormality. This examination was transcribed using the [employer] voice recognition system without human supply chain procurement manager. In an effort to expedite patient care, this report has not been adjusted for typographical, grammatical, and syntax by a trained medical diagnostic radiographer. Haris Patterson MD DIAGNOSTIC IMAGING O RDERABLES * NT-PRO BNP (09/01/2016 9:42 AM CDT) NT-proBNP 54.0 <300.0 pg/mL 09/01/2016 10:06 AM CDT [facility] Blood BLOOD SPECIMEN / Unknown 09/01/2016 9:42 AM CDT 09/01/2016 9:46 AM CDT Narrative [facility] - 09/01/2016 10:06 AM CDT NT-proBNP Patient Age Acute HF Unlikely Acute HF Likely <50 years <300 pg/mL >450 pg/mL 50-75 years <300 pg/mL >900 pg/mL >75 years <300 pg/mL >1800 pg/mL Reference: ESSIE Avalos et al. [...] Mojica MD LAB - CHEMISTRY PAPA GILBERT [facility] Organization Address City/State/ZIP Co de Phone Number [facility] [address] [place] [phone] Care Teams Pig Iron Loader Relationship Specialty Start Date End Date Mahad Onofre MD [address] [place] [address] [address] [place] [address] PCP - General Internal Medicine 03/21/17
--- OUTSIDE RECORDS SUMMARY | 2024-06-05 00:49 | XMS_ITS | Clinical Summary ---
Author Organization [facility] Address [address] [place] [address] Care Team Providers Care Manager Reliability Name Role Phone Mahad Onofre MD Primary Care Provider Chriss Hay MD Unavailable [phone] Allergies Active Allergy Reactions Criticality Noted Date [...] a day 360 tablet 3 024 Active memantine (NAMENDA) 10 mg tabletIndications [...] Additional Information Patient not taking.Reported on 04/14/2024 donepeziL (ARICEPT) 10 mg tabletIndications :Dementia without behavioral disturbance (HCC) TAKE 1 TABLET BY MOUTH EVERY DAY AT NIGHT 90 tablet 1 025 Active donepeziL (ARICEPT) 10 mg tabletIndications :Dementia without behavioral disturbance (HCC) TAKE 1 TABLET BY MOUTH EVERY DAY AT NIGHT 90 tablet 1 024 2024 Discontinued Active Problems Problem Noted Date Diagnosed Date Esophagitis 10/11/2023 Acute pulmonary embolism 09/06/2023 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 Fracture of ankle 04/05/2023 Acute bronchitis 11/22/2022 Class 1 obesity 10/06/2022 Arthralgia of left knee 06/26/2022 Vitamin D deficiency 01/31/2022 Dementia without behavioral disturbance 08/16/19 Pain of left sacroiliac joint 08/03/2021 History of arthroplasty of left knee 04/07/2021 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 03/21/2021 Unspecified visual loss 03/21/2021 Unspecified osteoarthritis, unspecified site Major depressive disorder, single episode, unspe cified 03/21/2021 Arthritis of left knee 03/18/2021 Closed fracture of condyle of left femur 021 Overview (02/17/2021): Added automatically from request for surgery [id number] 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, subsequent encounter 02/17/2021 Overview (02/18/2021): Added automatically from request for surgery [id number] Osteoarthritis 01/03/2021 Diverticulitis 01/03/2021 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 [...] Department Care Team Description 04/14/2024 2:00 PM MANAGER CHILD Office Visit [facility] Neurology [address] [place] [address] Dieter Skelton MD Parkinson's disease, unspecified whether dyskinesia present, unspecified whether manifestations fluctuate (HCC) (Primary Dx); Dementia without behavioral disturbance (HCC) from Last 3 Months Immunizations Immunization Administration Dates Next Due Influenza, Trivalent, High [...] on file Legal Sex Female 3:49 AM MANAGER CHILD Gender Identity Not on file Sexual Orientation Not on file Obstetrics History Last Filed Vital Signs Vital Sign Reading Time Taken Comments Blood Pressure 90/59 04/14/2024 1:36 PM MANAGER CHILD Pulse 78 04/14/2024 1:36 PM MANAGER CHILD Temperature 37.1 C (98.7 F) 10/19/2023 7:23 PM CDT Respiratory Rate 18 04/14/2024 1:36 PM MANAGER CHILD Oxygen Saturation 95% 04/14/2024 1:36 PM MANAGER CHILD Inhaled Oxygen Concentration - - Weight 72.1 kg (159 lb) 04/14/2024 1:36 PM MANAGER CHILD Height 157.5 cm (5' 2 ) 04/14/2024 1:36 PM MANAGER CHILD Body Mass Index 29.08 04/14/2024 1:36 PM MANAGER CHILD Plan of Treatment Health Maintenance Due Date Last Done Comments Depression Screening 1940 DTaP/Tdap/Td Vaccine (1 - Tdap) 1953 Hepatitis B Screening 1960 Zoster Vaccine (1 of 2) 1992 Well Visit 65+ 08/14/2007 Osteoporosis Screening-Bone Density Scan 10/27/2022 10/27/2020 Covid-19 Vaccine (2023-2 5 season) 2023 08/17/2021, 01/12/2021, 01/12/2021, Additional history exists Influenza Vaccine (#1) 2023 2, 02/22/2021, 01/17/2020, Additional history exists Fall Risk [...] the likelihood of falling Lifestyle No Minna Dangelo, RN Note: Below are four things you [...] home safety. Medical Devices Implanted Type Area Sheet Metal Apprentice Device Identifier Shelf Expiration Date Model / Serial / Lot [employer] 5560-S-112 Triathlon 12mm 50mm Cement End Cap Knee Stem Femoral Cocr - [id number] Implanted:Qty: 1 on 03/17/2021 by Chriss Hay MD at [facility] [employer] [id number] 12/26/2025 5560-S-112 / / [id number] [employer] 6481-2-150 Gmrs Pack Crosslink Knee Component Femoral Polyethylene - [id number] Implanted:Qty: 1 on 03/17/2021 by Chriss Hay MD at [facility] Left: Knee [employer] [id number] 09/02/2025 6481-2-150 / / [id number] [employer] 6481-2-100 Monogram Modular Rotate Hinge Knee Xs-Xl Component Tibial - [id number] Implanted:Qty: 1 on 03/17/2021 by Chriss Hay MD at [facility] Left: Knee [employer] [id number] 09/06/2025 6481-2-100 / / [id number] [employer] [id number] Gmrs Bearing Modular Rotate Hinge Distal Ibt70yo M2 2 Insert - [id number] Implanted:Qty: 1 on 03/17/2021 by Chriss Hay MD at [facility] Left: Knee [employer] [id number] 12/08/2024 [id number] / / [id number] [employer] 6481-3-112 Modular Rotating Hinge 2 Medium Baseplate Tibial - [id number] Implanted:Qty: 1 on 03/17/2021 by Chriss Hay MD at [facility] Left: Knee [employer] [id number] 04/13/2025 6481-3-112 / / [id number] [employer] 6485-3-115 Gmrs 15mm 127mm Cemented Knee Straight Stem Femoral Sterile - [id number] Implanted:Qty: 1 on 03/17/2021 by Chriss Hay MD at [facility] Left: Knee [employer] [id number] 06/08/2023 6485-3-115 / / [id number] [employer] [id number] Gmrs 65mm Knee Left Small Component Femoral Cocr - [id number] Implanted:Qty: 1 on 03/17/2021 by Chriss Hay MD at [facility] Left: Knee [employer] [id number] 05/21/2025 [id number] / / [id number] [employer] 6191-1-010 Simplex P Radiopaque Full Dose Cement Bone Sterile - [id number] Implanted:Qty: 1 on 03/17/2021 by Chriss Hay MD at [facility] Left: Knee [employer] 05/02/2023 6191-1-010 / / [id number] [employer] 6191-1-010 Simplex P Radiopaque Full Dose Cement Bone Sterile - [id number] Implanted:Qty: 3 on 03/17/2021 by Chriss Hay MD at [facility] Left: Knee [employer] 05/31/2023 6191-1-010 / / [id number] [employer] [id number] Gmrs Knee Small Bushing Femoral - [id number] Implanted:Qty: 1 on 03/17/2021 by Chriss Hay MD at [facility] Left: Knee [employer] [id number] 04/06/2025 [id number] / / [id number] [employer] [id number] Gmrs Knee Small Bushing Femoral - [id number] Implanted:Qty: 1 on 03/17/2021 by Chriss Hay MD at [facility] Left: Knee [employer] [id number] 04/07/2025 [id number] / / [id number] [employer] [id number] Gmrs Knee Small Axle Femoral - [id number] Implanted:Qty: 1 on 03/17/2021 by Chriss Hay MD at [facility] Left: Knee [employer] [id number] 06/13/2023 [id number] / / [id number] Insurance MEDICARE [facility] MEDICARE [facility] MEDICARE [facility] Advance Directives For more information, please contact: [phone] * Full Code (Latest Code Status on File) Date Activated Date Inactivated Comments 03/17/2021 9:05 PM 03/21/2021 9:00 PM Care Teams Manager Reliability Relationship Specialty Start Date End Date Mahad Onofre MD [address] [facility] [address] [place] [address] PCP - General Internal Medicine 05/05/20 Chriss Hay MD [address] [place] [address] Consulting Physician Orthopedic Surgery 03/19/21
--- OUTSIDE RECORDS SUMMARY | 2024-06-05 00:49 | XMS_ITS | Referral Summary ---
Author Organization [facility] Address [facility] [place] [address] Care Team Providers Care Communications Media Professor Name Role Phone Mahad Onofre MD Primary Care Provider Chriss Hay MD Unavailable [phone] Encounters Date Type Department Care Team Description 04/14/2024 2:00 PM POOL COORDINATOR Office Visit [facility] Neurology [facility] [address] [place] [address] Dieter Skelton MD Parkinson's disease, [...] 2 (two) times a day 60 capsule 021 Active Additional Information Patient not taking.Reported [...] 024 Active glycopyrrolate (ROBINUL) 1 mg tablet Active [...] MOUTH TWICE A DAY 180 tablet 1 09/05/2 024 Active entacapone (COMTAN) 200 mg tabletIndications [...] (02/17/2021): Added automatically from request for surgery [id number] 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, subsequent encounter 02/17/2021 Overview (02/18/2021): Added automatically from request for surgery [id number] Osteoarthritis 01/03/2021 Diverticulitis 01/03/2021 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 [...] left knee Diverticulosis HLD (hyperlipidemia) Depression Immunizations Immunization Administration Dates Next Due Influenza, [...] on file Legal Sex Female 3:49 AM POOL COORDINATOR Gender Identity Not on file Sexual Orientation Not on file Last Filed Vital Signs Vital Sign Reading Time Taken Comments Blood Pressure 90/59 04/14/2024 1:36 PM POOL COORDINATOR Pulse 78 04/14/2024 1:36 PM POOL COORDINATOR Temperature 37.1 C (98.7 F) 10/19/2023 7:23 PM CDT Respiratory Rate 18 04/14/2024 1:36 PM POOL COORDINATOR Oxygen Saturation 95% 04/14/2024 1:36 PM POOL COORDINATOR Inhaled Oxygen Concentration - - Weight 72.1 kg (159 lb) 04/14/2024 1:36 PM POOL COORDINATOR Height 157.5 cm (5' 2 ) 04/14/2024 1:36 PM POOL COORDINATOR Body Mass Index 29.08 04/14/2024 1:36 PM POOL COORDINATOR Plan of Treatment Not on file Goals [...] home safety. Medical Devices Implanted Type Area Supervisor Alum Plant Device Identifier Shelf Expiration Date Model / Serial / Lot [employer] 5560-S-112 Triathlon 12mm 50mm Cement End Cap Knee Stem Femoral Cocr - [id number] Implanted:Qty: 1 on 03/17/2021 by Chriss Hay MD at [facility] [employer] [id number] 12/26/2025 5560-S-112 / / [id number] [employer] 6481-2-150 [employer] Pack Crosslink Knee Component Femoral Polyethylene - [id number] Implanted:Qty: 1 on 03/17/2021 by Chriss Hay MD at [facility] Left: Knee [employer] [id number] 09/02/2025 6481-2-150 / / [id number] [employer] 6481-2-100 Monogram Modular Rotate Hinge Knee Xs-Xl Component Tibial - [id number] Implanted:Qty: 1 on 03/17/2021 by Chriss Hay MD at [facility] Left: Knee [employer] [id number] 09/06/2025 6481-2-100 / / [id number] [employer] [id number] [employer]rs Bearing Modular Rotate Hinge Distal [id number] M2 2 Insert - [id number] Implanted:Qty: 1 on 03/17/2021 by Chriss Hay MD at [facility] Left: Knee [employer] [id number] 12/08/2024 [id number] / / [id number] [employer] 6481-3-112 Modular Rotating Hinge 2 Medium Baseplate Tibial - [id number] Implanted:Qty: 1 on 03/17/2021 by Chriss Hay MD at [facility] Left: Knee [employer] [id number] 04/13/2025 6481-3-112 / / [id number] [employer] 6485-3-115 Gmrs 15mm 127mm Cemented Knee Straight Stem Femoral Sterile - [id number] Implanted:Qty: 1 on 03/17/2021 by Chriss Hay MD at [facility] Left: Knee [employer] [id number] 06/08/2023 6485-3-115 / / [id number] [employer] [id number] Gmrs 65mm Knee Left Small Component Femoral Cocr - [id number] Implanted:Qty: 1 on 03/17/2021 by Chriss Hay MD at [facility] Left: Knee [employer] [id number] 05/21/2025 [id number] / / [id number] [employer] 6191-1-010 Simplex P Radiopaque Full Dose Cement Bone Sterile - [id number] Implanted:Qty: 1 on 03/17/2021 by Chriss Hay MD at [facility] Left: Knee [employer] 05/02/2023 6191-1-010 / / [id number] [employer] 6191-1-010 Simplex P Radiopaque Full Dose Cement Bone Sterile - [id number] Implanted:Qty: 3 on 03/17/2021 by Chriss Hay MD at [facility] Left: Knee [employer] 05/31/2023 6191-1-010 / / [id number] [employer] [id number] Gmrs Knee Small Bushing Femoral - [id number] Implanted:Qty: 1 on 03/17/2021 by Chriss Hay MD at [facility] Left: Knee [employer] [id number] 04/06/2025 [id number] / / [id number] [employer] [id number] Gmrs Knee Small Bushing Femoral - [id number] Implanted:Qty: 1 on 03/17/2021 by Chriss Hay MD at [facility] Left: Knee [employer] [id number] 04/07/2025 [id number] / / [id number] [employer] [id number] Gmrs Knee Small Axle Femoral - [id number] Implanted:Qty: 1 on 03/17/2021 by Chriss Hay MD at [facility] Left: Knee [employer] [id number] 06/13/2023 [id number] / / [id number] Insurance MEDICARE [facility] MEDICARE [facility] MEDICARE [facility] Advance Directives For more information, please contact: [phone] * Full Code (Latest Code Status on File) Date Activated Date Inactivated Comments 03/17/2021 9:05 PM 03/21/2021 9:00 PM Care Teams Communications Media Professor Relationship Specialty Start Date End Date Mahad Onofre MD [address] [facility] [address] [place] [address] PCP - General Internal Medicine 05/05/20 Chriss Hay MD [address] [address] Consulting Physician Orthopedic Surgery 03/19/21
[2024-06-05 07:07] VITALS: BP 107/70; PULSE 77; RESP 20; TEMP 36.2; O2SAT 95; BMI 28.7
--- NOTE | 2024-06-05 07:07 | WPDANESEPPF ---
Anes - Initial Pre Proc Eval Procedure: Operation Date: 06/05/24 08:00 Proposed Procedures p Esophagogastroduodenoscopy - Sandeep Duncan MD Date/Time: 06/05/24 07:07 Surgeon: Sandeep Duncan MD Pre Op Diagnosis: Esophageal obstruction, abnormal findings on imagi Patient Data Age: 83 Gender: F Height: 1.57 m Weight: 68.1 kg Allergies Allergy/AdvReac Type Severity Reaction Status Date / Time hydrocodone AdvReac Severe Hallucinati Verified 06/05/24 07:02 ng codeine AdvReac Intermediate Nausea and Verified 06/05/24 07:02 Vomiting Home Medications ?Medication ?Instructions ?Recorded ?Confirmed ?Type paroxetine HCl 20 mg tablet 20 mg PO QAM #30 tabs 10/07/19 06/05/24 Rx carbidopa 10 mg-levodopa 100 mg 1 tablet PO QID 06/28/20 06/05/24 History tablet entacapone 200 mg tablet 200 mg PO QID 03/30/22 06/05/24 History mirtazapine 15 mg tablet 15 mg PO HS 03/30/22 06/05/24 History donepezil 10 mg tablet 10 mg PO HS 11/17/22 06/05/24 History apixaban 5 mg tablet (Eliquis) 5 mg PO BID 09/19/23 06/05/24 History cholecalciferol (vitamin D3) 125 125 mcg PO DAILY 12/26/23 06/05/24 History mcg (5,000 unit) capsule multivitamin (Daily Multi-Vitamin 1 tablet PO DAILY 12/26/23 06/05/24 History tablet) glycopyrrolate 1 mg tablet 1 mg PO HS 05/23/24 06/05/24 History celecoxib 100 mg capsule 100 mg PO DAILY 05/24/24 06/05/24 History celecoxib 200 mg capsule mg 05/24/24 History docusate sodium 100 mg capsule 100 mg PO DAILY PRN constipation 05/24/24 06/05/24 History memantine 10 mg tablet mg 05/24/24 History prednisone 20 mg tablet 40 mg (2 x 20 mg) PO DAILY #10 tabs 05/24/24 Rx guaifenesin 600 mg tablet, 600 mg PO Q12H PRN cough 06/03/24 06/03/24 History extended release 12 hr (Mucinex) Patient hx anesthesia problems: none Family hx anesthesia problems: none Results Review: All pre-operative results and documents have been reviewed as part of the pre-operative evaluation. [facility] Past Medical History Medical History Deep venous thrombosis (DVT) of right peroneal vein Iliotibial band syndrome affecting left lower leg Esophageal stricture Fracture of ankle, bimalleolar, left, closed Dysphagia Parkinsons disease Coarse tremors Osteopenia Compression fracture of T11 vertebra Surgical History Surgical History History of cholecystectomy H/O: hysterectomy Status post revision of total replacement of left knee S/P ORIF (open reduction internal fixation) fracture left femur Family History Family History Father Acute myocardial infarction Mother Uterine cancer Social History Social History Smoking status: Never smoker Second hand tobacco smoke exposure: No Alcohol intake: never Substance use: never Substance use type: does not use Do You Feel Safe in your Home?: Yes Lack of Transportation: No Lack of Food: Never True Current Housing: I Have Housing Concerned About Future Housing: No Difficulty Paying Gas/Electric Bills: No Difficulty Paying for Meds: No Currently Unemployed: No Education: Don't Know Difficulty w/ Childcare or Family Care: No Living arrangements: assisted living Additional living arrangements comments: assisted living Gender identity (if verbalized by the patient): Female Spiritual care concerns: No Anes - Eval Final PreProcedure Day of Procedure 06/05/24 07:07 Patient weight: overweight Heart: regular rate and rhythm Lungs: clear to auscultation Airway: Mallampati scale class II Neurological: alert and oriented Last oral intake: >/= 8 hours ASA classification: III Emergent: no Anesthetic plan: proceed Anesthesia type and monitoring: general GIVS and standard monitoring Results Review: All pre-operative results and documents have been reviewed as part of the pre-operative evaluation. Informed Consent: The patient's anesthetic plan and its attendant risks and benefits were discussed with the patient/family/POA. Questions were solicited and answers provided to the satisfaction of the patient/family/POA.
[2024-06-05] MEDS: LACTATED RINGERS 1,000 ML 150 ML IV CONT (07:17)
--- NOTE | 2024-06-05 08:04 | PM.IMHP ---
H&P: HPI History of Present Illness Date/Time: 06/05/24 08:04 Chief Complaint: Dysphagia Narrative: this patient has been experiencing dysphagia for the past few months, unable to specifically state when. This is exclusively happening when she eats solids, not liquids and is associated with unquantified weight loss. She denies previous history of heartburn. She does not recall previous EGDs. Review of Systems Review of Systems: All systems reviewed & are unremarkable except as noted in HPI and below PMFSH Past Medical History Medical History Deep venous thrombosis (DVT) of right peroneal vein Iliotibial band syndrome affecting left lower leg Esophageal stricture Fracture of ankle, bimalleolar, left, closed Dysphagia Parkinsons disease Coarse tremors Osteopenia Compression fracture of T11 vertebra Surgical History Surgical History History of cholecystectomy H/O: hysterectomy Status post revision of total replacement of left knee S/P ORIF (open reduction internal fixation) fracture left femur Family History Family History Father Acute myocardial infarction Mother Uterine cancer Social History Social History Smoking status: Never smoker Second hand tobacco smoke exposure: No Alcohol intake: never Substance use: never Substance use type: does not use Do You Feel Safe in your Home?: Yes Lack of Transportation: No Lack of Food: Never True Current Housing: I Have Housing Concerned About Future Housing: No Difficulty Paying Gas/Electric Bills: No Difficulty Paying for Meds: No Currently Unemployed: No Education: Don't Know Difficulty w/ Childcare or Family Care: No Living arrangements: assisted living Additional living arrangements comments: assisted living Gender identity (if verbalized by the patient): Female Spiritual care concerns: No Meds Home Medications and Allergies Home Medications ?Medication ?Instructions ?Recorded ?Confirmed ?Type paroxetine HCl 20 mg tablet 20 mg PO QAM #30 tabs 10/07/19 06/05/24 Rx carbidopa 10 mg-levodopa 100 mg 1 tablet PO QID 06/28/20 06/05/24 History tablet entacapone 200 mg tablet 200 mg PO QID 03/30/22 06/05/24 History mirtazapine 15 mg tablet 15 mg PO HS 03/30/22 06/05/24 History donepezil 10 mg tablet 10 mg PO HS 11/17/22 06/05/24 History apixaban 5 mg tablet (Eliquis) 5 mg PO BID 09/19/23 06/05/24 History cholecalciferol (vitamin D3) 125 125 mcg PO DAILY 12/26/23 06/05/24 History mcg (5,000 unit) capsule multivitamin (Daily Multi-Vitamin 1 tablet PO DAILY 12/26/23 06/05/24 History tablet) glycopyrrolate 1 mg tablet 1 mg PO HS 05/23/24 06/05/24 History celecoxib 100 mg capsule 100 mg PO DAILY 05/24/24 06/05/24 History celecoxib 200 mg capsule mg 05/24/24 History docusate sodium 100 mg capsule 100 mg PO DAILY PRN constipation 05/24/24 06/05/24 History memantine 10 mg tablet 10 mg PO BID 05/24/24 06/05/24 History prednisone 20 mg tablet 40 mg (2 x 20 mg) PO DAILY #10 tabs 05/24/24 Rx guaifenesin 600 mg tablet, 600 mg PO Q12H PRN cough 06/03/24 06/03/24 History extended release 12 hr (Mucinex) Allergies Allergy/AdvReac Type Severity Reaction Status Date / Time hydrocodone AdvReac Severe Hallucinati Verified 06/05/24 07:02 ng codeine AdvReac Intermediate Nausea and Verified 06/05/24 07:02 Vomiting Vital Signs Vital Signs - 24 hr 06/05/24 07:07 Temperature 97.1 F L Pulse Rate 77 Respiratory Rate 20 Blood Pressure 107/70 Pulse Oximetry 95 Oxygen Delivery Room Air Exam Const: General: cooperative and healthy appearing Resp: Effort & Inspection: normal respiratory effort and able to speak in complete sentences Auscultation: clear to auscultation bilaterally Cardio: Rate: regular rate Rhythm: regular rhythm GI: Inspection: normal to inspection GI Palp: No No hepatosplenomegaly present Auscultation: normal bowel sounds Rectal Exam: deferred Skin: General skin exam: normal color Psych: Appearance: grossly normal Mental Status: mental status grossly normal Assessment and Plan Assessment and plan (1) Dysphagia: Qualifiers: Dysphagia type: other dysphagia Qualified Code(s): R13.19 - Other dysphagia Code(s): R13.10 - Dysphagia, unspecified Status: Acute Assessment and Plan: The patient is deemed a good candidate for the procedure. Consent signed. Will proceed.
[2024-06-05 08:27] VITALS: BP 82/46; PULSE 65; RESP 15; O2SAT 96
[2024-06-05 08:37] VITALS: BP 122/76; PULSE 73; RESP 19; O2SAT 96
[2024-06-05 08:47] VITALS: BP 144/81; PULSE 54; RESP 13; O2SAT 97
== END 2024-06-05 09:08 | disposition home or self-care (01) ==
PROVIDERS: PCP Internal Medicine; Referring Provider Nurse Practitioner Family; Visit Provider Internal Medicine Gastroenterology
PROC: 0DJ08ZZ Inspection of Upper Intestinal Tract, Via Natural or Artificial Opening Endoscopic (ICD-10-PCS; CPT 43249; principal; 2024-06-05 08:00)
DX: K22.2 Esophageal obstruction (principal); K21.00 Gastro-esophageal reflux disease with esophagitis, without bleeding; K29.51 Unspecified chronic gastritis with bleeding; K44.9 Diaphragmatic hernia without obstruction or gangrene
CPT/HCPCS: 43249; 43239; 88305; C1726; J2004; J2704; J7120

== ENCOUNTER 2024-07-05 11:11 | Outpatient (CLI) | payer MEDICARE, SELFPAY ==
--- NOTE | ~2024-07-05 | MM_ITS ---
EXAMINATION: MM screening katia BI w arnaldo HISTORY: Screening TECHNIQUE: Craniocaudal and mediolateral oblique 3-D tomosynthesis images were obtained and synthetic 2-D images were generated. CAD analysis was submitted and interpreted. COMPARISON: 09/12/2022 BREAST PARENCHYMAL COMPOSITION: Dense: The breasts are heterogeneously dense, which may obscure small masses FINDINGS: There is no evidence of suspicious mass, calcification, or architectural distortion to sugg est malignancy in either breast. There has been no suspicious interval change. IMPRESSION: 1. No mammographic evidence of malignancy. 2. Recommend routine screening mammography in one year. BI-RADS Category 1: Negative Reviewed, dictated and finalized at location A.
--- OUTSIDE RECORDS SUMMARY | 2024-07-05 11:14 | XMS_ITS ---
Author Name Win Craft Address [address] [place] [address] Phone [phone] Organization [facility] Address [address] [place] [address] Phone [phone] Care Team Providers Care Nurses Superintendent Name Role Phone Win Craft Unavailable [phone] John Sarah Unavailable Clary Comer Unavailable Mahad Onofre Unavailable Shara Gilman Unavailable [phone] Functional Status No Results Mental Status No Results Allergies and Intolerances Name Onset Date Reaction Severity codeine (Allergy) SunMar 21 22:01:00 EST 2020 Encounters Program Name Primary Diagnosis Admission Date/Time Dis charge Date/Time null SunMar 05 19:00 :00 EST 2019 [facility] SunJan 29 10:30:00 EDT 2023Feb 04 06:08:00 EST 2023 [facility] SunJun 04 19:00:00 EST 2024 [facility] SunFeb 05 19:00:00 EST 2023Mar 28 17:00:00 EST 2023 [facility] SunApr 09 19:00:00 EST 2023Jan 15 08:00:00 EDT 2023 Immunizations Name Dates Status TST-PPD intradermal SunJan 31 01:00:00 EDT 2023 Completed TST-PPD intradermal SunFeb 01:00:2023 Completed Medications Medication Directions Start Date End Date TubersoL 5 tub. unit/0.1 mL intradermal injection solution 0.1 ml VIAL (ML) Intradermal 1 Time Weekly for 2 Weeks Indication: . 1st injection on admission, then one week after. Read between 48 and 72 hours SunJan 29 15:40:00 2023Feb 04:00:00 EST 2023 TubersoL 5 tub. unit/0.1 mL intradermal injection solution Read Results VIAL (ML) Other 1 Time Weekly for 2 Weeks Indication: . Read results between 48-72 hours after 1st and 2nd (1 week apart). If positive do chest x-ray. SunJan 29 15:40:00 2023Feb 04:: EST 2023 acetaminophen 325 mg tablet 2 tablets TA BLET Oral PRN Every 6 Hours Indication: Pain SunJan 29 16:30:00 2023Feb 04:00: EST 2023 Eliquis 5 mg tablet 1 tablet TABLET Oral 2 Times Daily Indication: DVT prophylaxis SunJan 29 16:30:00 2023Feb 04:00: EST 2023 carbidopa 10 mg-levodopa 100 mg tablet 1 tablet TABLET Oral 4 Times Daily Indication: Parkinsons SunJan 29 16:30:00 2023Feb 04:00: EST 2023 cholecalciferol(vitamin D3) 125 mcg (5,000 unit) disintegrating tablet 1 tablet TABLET,DISINTEGRATING Oral 1 Time Daily Indication: Supplement SunJan 29 16:30:00 2023Feb 04:: EST 2023 docusate sodium 100 mg capsule 1 tablet CAPSULE Oral 2 Times Daily for 7 Days Indication: Constipation SunJan 29 16:30:00 2023Feb 04:00: EST 2023 donepeziL 10 mg tablet 1 tablet TABLET O ral 1 Time Daily Indication: Memory SunJan 29 16:30:00 2023Feb 04:00: EST 2023 doxycycline monohydrate 100 mg capsule 1 capsule CAPSULE Oral 2 Times Daily for 12 Days Indication: Surgical prophylaxis SunJan 29 16:30:00 2023Feb 04:00: EST 2023 entacapone 200 mg tablet 1 tablet TABLET Oral 4 Times Daily Indication: Parkinsons SunJan 29 16:30:00 2023Feb 04:00: EST 2023 lidocaine 4 % topical patch 1 patch ADHE SIVE PATCH, MEDICATED Topical 2 Times Daily Indication: Apply patch in the am and off HS SunJan 29 16:30:00 2023Feb 04:00: EST 2023 glycopyrrolate 1 mg tablet 1 tablet TABL ET Oral 1 Time Daily Indication: Secretions SunJan 29 16:30:00 2023Feb 04:00: EST 2023 HYDROcodone 5 mg-acetaminophen 325 mg tablet 1 tablet TABLET Oral PRN Every 8 Hours for 6 Days Indication: Pain SunJan 29 16:30:00 2023Feb 04:00: EST 2023 memantine 10 mg tablet 1 tablet TABLET O ral 2 Times Daily Indication: Memory SunJan 29 16:30:00 2023Feb 04:00: EST 2023 mirtazapine 15 mg tablet 1 tablet TABLET Oral 1 Time Daily Indication: Appetite stimulant SunJan 29 16:40:00 2023Feb 04:00: EST 2023 omeprazole 40 mg capsule,delayed release 1 capsule CAPSULE,DELAYED RELEASE (ENTERIC COATED) Oral 1 Time Daily Indication: GERD SunJan 29 16:40:00 2023Feb 04:00: EST 2023 calcium 500 mg (as calcium carbonate 1,250 mg) tablet 1 tablet TABLET Oral 2 Times Daily Indication: Supplement SunJan 29 16:40:00 2023Feb 04:00: EST 2023 PARoxetine 20 mg tablet 1 tablet TABLET Oral 1 Time Daily Indication: Depression SunJan 29 16:40:00 2023Feb 04:00: EST 2023 polyethylene glycoL 3350 17 gram/dose oral powder 17 gram POWDER (GRAM) Oral 1 Time Daily Indication: Constipation SunJan 29 16:40:00 2023Feb 04:00:00 EST 2023 pregabalin 50 mg capsule 1 capsule CAPSU LE Oral 2 Times Daily Indication: Nerve pain SunJan 29 16:40:00 2023Feb 04:00:00 EST 2023 diclofenac potassium 50 mg tablet 1 tablet TABLET Oral 1 Time Daily Indication: Supplement Yvrose Dec 28 16:11:00 2022Mar 29 16:12:00 2022 diclofenac potassium 50 mg tablet 1 tablet TABLET Oral 2 Times Daily Indication: Pain SunMar 29 16:00:00 2022Apr 06 01:00:00 EST 2023 acetaminophen 325 mg tablet 2 tablets TA BLET Oral 2 Times Daily Indication: Pain 3 grams/24hrs SunMar 29 15:00:00 2022Apr 06 01:00:00 EST 2023 Lidocaine Pain Relief 4 % topical patch 1 patch ADHESIVE PATCH, MEDICATED Topical 2 Times Daily Indication: Pain. On AM and off HS SunMar 19 17:00:00 2022Apr 06 01:00:00 EST 2023 TubersoL 5 tub. unit/0.1 mL intradermal injection solution 0.1 ml VIAL (ML) Intradermal 1 Time Weekly for 2 Weeks Indication: TB test 1st injection on admission, then one week after. Read between 48 and 72 hours SunMar 16 11:00:00 2022Mar 30 10:59:00 2022 TubersoL 5 tub. unit/0.1 mL intradermal injection solution Read Results VIAL (ML) Other 1 Time Weekly for 2 Weeks Indication: Tb test Read results between 48-72 hours after 1st and 2nd (1 week apart). If positive do chest x-ray. SunMar 16 11:00:00 2022Mar 30 10:59:00 2022 traMADoL 50 mg tablet 1 tablet TABLET Or al PRN Every 6 Hours Indication: Pain SunMar 15 14:00:00 2022Apr 06:00:00 EST 2023 PARoxetine 20 mg tablet 1 tablet TABLET Oral 1 Time Daily Indication: Depression SunMar 15 17:00:00 EST 2022Apr 06 01:00:00 EST 2023 carbidopa 10 mg-levodopa 100 mg tablet 1 tablet TABLET Oral 4 Times Daily Indication: Parkinsons SunMar 15 19:00:00 2022Apr 06 01:00:00 EST 2023 acetaminophen 325 mg tablet 1 tablet TAB LET Oral PRN Every 6 Hours Indication: Pain SunMar 15 14:00:00 EST 2022Apr 06 01:00:00 EST 2023 aspirin 81 mg chewable tablet 1 tablet TABLET,CHEWABLE Oral 1 Time Daily Indication: DVT proph SunMar 15 14:00:00 EST 2022Apr 06 01:00:00 EST 2023 mirtazapine 15 mg tablet 1 tablet TABLET Oral 1 Time Daily Indication: Appetite stimulant SunMar 15 14:00:00 EST 2022Apr 06 01:00:00 EST 2023 docusate sodium 100 mg capsule 1 capsule CAPSULE Oral 1 Time Daily Indication: Constipation SunMar 15 14:00:00 EST 2022Apr 06 01:00:00 EST 2023 entacapone 200 mg tablet 1 tablet TABLET Oral 4 Times Daily Indication: Parkinsons SunMar 15 19:00:00 EST 2022Apr 06 01:00:00 EST 2023 memantine 10 mg tablet 1 tablet TABLET O ral 2 Times Daily Indication: Dementia SunMar 15 17:00:00 EST 2022Apr 06 01:00:00 EST 2023 diclofenac potassium 50 mg tablet 1 tablet TABLET Oral 1 Time Daily Indication: Supplement SunMar 15 19:00:00 EST 2022Mar 29 16:12:00 EST 2022 pantoprazole 40 mg tablet,delayed release 1 tablet TABLET, DELAYED RELEASE (ENTERIC COATED) Oral 2 Times Daily Indication: GERD SunMar 15 19:00:00 EST 2022Apr 06 01:00:00 EST 2023 donepeziL 10 mg tablet 1 tablet TABLET O ral 1 Time Daily Indication: Dementia SunMar 15 14:00:00 EST 2022Apr 06 01:00:00 EST 2023 cholecalciferol (vitamin D3) 50 mcg (2,000 unit) capsule 1 capsule CAPSULE Oral 1 Time Daily Indication: Vitamin D deficiency SunMar 15 17:00:00 EST 2022Apr 06 01:00:00 EST 2023 mirtazapine 15 mg tablet 15 mg TABLET Or al 1 Time Daily SunMar 30 07:57:00 EST 2020Apr 04 01:00:00 EST 2021 traMADoL 50 mg tablet 50 mg TABLET Oral PRN Every 6 Hours PRN for pain SunMar 30 07:58:00 EST 2020Apr 04 01:00:00 EST 2021 Vitamin D2 1,250 mcg (50,000 unit) capsule 1 tab CAPSULE Oral 1 Time Weekly SunApr 05 01:00:00 EST 2021Apr 04 01:00:00 EST 2021 aspirin 81 mg chewable tablet 81 mg TABLET,CHEWABLE Oral 2 Times Daily SunMar 29 17:00:00 EST 2020Apr 04 01:00:00 EST 2021 carbidopa 10 mg-levodopa 100 mg tablet 1 tab TABLET Oral 4 Times Daily SunMar 29:00:00 EST 2020Apr 04 01:00:00 EST 2021 Centrum Silver 0.4 mg-300 mcg-250 mcg tablet 1 tablet TABLET Oral 1 Time Daily SunMar 29 17:00:00 EST 2020Apr 04 01:00:00 EST 2021 docusate sodium 100 mg capsule 100 mg CAPSULE Oral 2 Times Daily SunMar 29 17:00:00 EST 2020Apr 04 01:00:00 EST 2021 Lovenox 40 mg/0.4 mL subcutaneous syringe 40 mg SYRINGE (ML) Subcutaneous 1 Time Daily SunMar 29:00:00 EST 2020Apr 04 01:00:00 EST 2021 folic acid 1 mg tablet 1 mg TABLET Oral 1 Time Daily SunMar 29 17:00:00 EST 2020Apr 04 01:00:00 EST 2021 mirtazapine 15 mg tablet 15 mg TABLET Or al 1 Time Daily SunMar 29 17:00:00 EST 2020Mar 30 07:58:00 EST 2020 omeprazole 40 mg capsule,delayed release 40 mg CAPSULE,DELAYED RELEASE (ENTERIC COATED) Oral 1 Time Daily SunMar 29 17:00:00 EST 2020Apr 04 01:00:00 EST 2021 PARoxetine 20 mg tablet 20 mg TABLET Ora l 1 Time Daily SunMar 29 17:00:00 EST 2020Apr 04 01:00:00 EST 2021 traMADoL 50 mg tablet 50 mg TABLET Oral PRN Every 6 Hours PRN for pain SunMar 29 17:00:00 EST 2020Mar 30 07:59:00 EST 2020 acetaminophen 325 mg tablet 650 mg TABLE T Oral PRN Every 6 Hours PRN pain/fever SunMar 29:00:00 EST 2020Apr 04 01:00:00 EST 2021 lidocaine 5 % topical patch 1 applicatio n ADHESIVE PATCH, MEDICATED Topical 2 Times Daily SunMar 29 17:00:00 EST 2020Apr 04 01:00:00 EST 2021 Vitamin D2 1,250 mcg (50,000 unit) capsule 1 tab CAPSULE Oral 2 Times Daily SunMar 29 17:00:00 EST 2020Mar 30 08:13:00 EST 2020 calcium carbonate 500 mg calcium (1,250 mg) tablet 1 tab TABLET Oral 1 Time Daily SunMar 29:00:00 EST 2020Apr 04 01:00:00 EST 2021 Vitamin D2 1,250 mcg (50,000 unit) capsule 50,000 Unit CAPSULE Oral 1 Time Weekly Vitamin D deficiency SunMar 24 17:00:00 EST 2020Mar 24:44:00 EST 2020 Vitamin D2 1,250 mcg (50,000 unit) capsule 50,000 Unit CAPSULE Oral 1 Time Weekly Vitamin D deficiency SunMar 24 17:00:00 EST 2020Mar 29 17:14:00 EST 2020 calcium carbonate 500 mg calcium (1,250 mg) tablet 500mg TABLET Oral 1 Time Daily Hypocalcemia SunMar 24 17:00:00 EST 2020Mar 29 17:14:00 EST 2020 acetaminophen 325 mg tablet 650mg TABLET Oral PRN Every 6 Hours Pain SunMar 22 11:00:00 EST 2020Mar 29 17:14:00 EST 2020 lidocaine 5 % topical patch 1 patch ADHE SIVE PATCH, MEDICATED Topical 2 Times Daily Apply patch to LLE qd, remove HS r/t pain SunMar 22 11:00:00 EST 2020Mar 29 17:14:00 EST 2020 All Day Relief 220 mg tablet 1 TAB TABLE T Oral PRN Every 12 Hours DX PAIN SunMar 21:00:00 EST 2020Mar 29 17:14:00 EST 2020 aspirin 81 mg chewable tablet 1 TAB TABLET,CHEWABLE Oral 2 Times Daily DX STROKE / CLOT PREVENTION SunMar 21:00:00 EST 2020Mar 29 17:14:00 EST 2020 carbidopa 10 mg-levodopa 100 mg tablet 1 TAB TABLET Oral 4 Times Daily DX PARKINSON'S SunMar 21:00:00 EST 2020Mar 29 17:14:00 EST 2020 Centrum Silver 0.4 mg-300 mcg-250 mcg tablet 1 TAB TABLET Oral 1 Time Daily DX SUPPLEMENT SunMar 21:00:00 EST 2020Mar 29 17:14:00 EST 2020 docusate sodium 100 mg capsule 1 CAP CAPSULE Oral 2 Times Daily DX CONSTIPATION SunMar 21:00:00 EST 2020Mar 29 17:14:00 EST 2020 enoxaparin 40 mg/0.4 mL subcutaneous syringe 0.4ML SYRINGE (ML) Subcutaneous 1 Time Daily DX CLOT PREVENTION SunMar 21 21:00:00 2020Mar 29 17:14:00 EST 2020 folic acid 1 mg tablet 1 TAB TABLET Oral 1 Time Daily DX SUPPLEMENT SunMar 21:00:00 2020Mar 29 17:14:00 EST 2020 mirtazapine 15 mg tablet 1 TAB TABLET Or al Every Evening DX DEPRESSION SunMar 21 21:00:00 EST 2020Mar 29 17:14:00 EST 2020 omeprazole 40 mg capsule,delayed release 1 CAP CAPSULE,DELAYED RELEASE (ENTERIC COATED) Oral 1 Time Daily DX GERD SunMar 21 21:00:00 2020Mar 29 17:14:00 EST 2020 PARoxetine 20 mg tablet 1 TAB TABLET Ora l 1 Time Daily DX DEPRESSION SunMar 21 21:00:00 2020Mar 29 17:14:00 EST 2020 traMADoL 50 mg tablet 1 TAB TABLET Oral PRN Every 6 Hours DX PAIN SunMar 21 21:00:00 EST 2020Mar 29 17:14:00 EST 2020 TUBErsoL 5 tub. unit/0.1 mL intradermal injection solution 0.1 ml VIAL (ML) Intradermal 1 Time Weekly for 2 Weeks SunMar 22 13:00:00 EST 2020Mar 29 17:14:00 EST 2020 TUBErsoL 5 tub. 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* Code: * Start Date: SunMar 21 00:00:00 EST 2020 * End Date: * Text: * termite helper (current) use of anticoagulants* Code: * Start Date: SunMar 21 00:00:00 EST 2020 * End Date: * Text: * Major depressive disorder, single episode, unspecified* Code: * Start Date: SunMar 21 00:00:00 EST 2020 * End Date: * Text: * Generalized anxiety disorder* Code: * Start Date: SunMar 21 00:00:00 EST 2020 * End Date: * Text: * Hyperlipidemia, unspecified* Code: * Start Date: SunMar 21 00:00:00 EST 2020 * End Date: * Text: * Gastro-esophageal reflux disease without esophagitis* Code: * Start Date: SunMar 21 00:00:00 EST 2020 * End Date: * Text: * Diverticulosis of intestine, part unspecified, without perforation or abscess without bleeding* Code: * Start Date: SunMar 21 00:00:00 EST 2020 * End Date: * Text: * Diaphragmatic hernia without obstruction or gangrene* Code: * Start Date: SunMar 21 00:00:00 EST 2020 * End Date: * Text: * Rheumatoid arthritis, unspecified* Code: * Start Date: SunMar 21 00:00:00 EST 2020 * End Date: * Text: * Slow transit constipation* Code: * Start Date: SunMar 21 00:00:00 EST 2020 * End Date: * Text: * 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* Code: * Start Date: SunMar 21 00:00:00 EST 2020 * End Date: * Text: * Unspecified visual loss* Code: * Start Date: SunMar 21 00:00:00 EST 2020 * End Date: * Text: * Other voice and resonance disorders* Code: * Start Date: SunApr 05 00:00:00 EST 2021 * End Date: * Text: * Parkinson's disease without dyskinesia, without mention of fluctuations* Code: * Start Date: SunDec 31 00:00:00 EDT 2022 * End Date: * Text: * Presence of other bone and tendon implants* Code: * Start Date: SunMar 15 00:00:00 EST 2022 * End Date: * Text: * Esophageal obstruction* Code: * Start Date: SunMar 15 00:00:00 EST 2022 * End Date: * Text: * Unspecified fall, subsequent encounter* Code: * Start Date: SunMar 15 00:00:00 EST 2022 * End Date: * Text: * Other specified disorders of bone density and structure, unspecified site* Code: * Start Date: SunMar 15 00:00:00 EST 2022 * End Date: * Text: * Personal history of (healed) traumatic fracture* Code: * Start Date: SunMar 15 00:00:00 EST 2022 * End Date: * Text: * Dysphagia, unspecified* Code: * Start Date: SunMar 15 00:00:00 EST 2022 * End Date: * Text: * Dementia in other diseases classified elsewhere, unspecified severity, with mood disturbance* Code: * Start Date: SunMar 15 00:00:00 EST 2022 * End Date: * Text: * Unspecified voice and resonance disorder* Code: * Start Date: SunApr 10 00:00:00 EST 2023 * End Date: * Text: * Mechanical loosening of internal left knee prosthetic joint, subsequent encounter* Code: * Start Date: SunJan 29 00:00:00 EDT 2023 * End Date: * Text: * Personal history of other venous thrombosis and embolism* Code: * Start Date: SunJan 29 00:00:00 EDT 2023 * End Date: * Text: * Personal history of pulmonary embolism* Code: * Start Date: SunJan 29 00:00:00 EDT 2023 * End Date: * Text: * Deficiency of other specified B group vitamins* Code: * Start Date: SunJan 29 00:00:00 EDT 2023 * End Date: * Text: * Vitamin D deficiency, unspecified* Code: * Start Date: SunJan 29 00:00:00 EDT 2023 * End Date: * Text: * Acute posthemorrhagic anemia* Code: * Start Date: SunJan 29 00:00:00 EDT 2023 * End Date: * Text: * Polyneuropathy, unspecified* Code: * Start Date: SunJan 29 00:00:00 EDT 2023 * End Date: * Text: * Other nonspecific abnormal finding of lung field* Code: * Start Date: SunJan 29 00:00:00 EDT 2023 * End Date: * Text: * halfway (current) use of opiate analgesic* Code: * Start Date: SunJan 29 00:00:00 EDT 2023 * End Date: * Text: * Other fatigue* Code: * Start Date: SunFeb 06 00:00:00 EST 2023 * End Date: * Text: * Weakness* Code: * Start Date: SunFeb 06 00:00:00 EST 2023 * End Date: * Text: * Unsteadiness on feet* Code: * Start Date: SunFeb 06 00:00:00 EST 2023 * End Date: * Text: Resolved Concerns * Problem Muscle weakness (generalized)* Code: * Start Date: SunApr 05 00:00:00 EST 2021 * End Date: SunJan 31 00:00:00 EDT 2023 * Problem Other symbolic dysfunctions* Code: * Start Date: SunApr 05 00:00:00 EST 2021 * End Date: SunJan 31 00:00:00 EDT 2023 * Problem Displaced bimalleolar fracture of left lower leg, subsequent encounter for closed fracture with routine healing* Code: * Start Date: SunMar 15 00:00:00 EST 2022 * End Date: SunJan 31 00:00:00 EDT 2023 * Problem Depression, unspecified* Code: * Start Date: SunMar 15 00:00:00 EST 2022 * End Date: SunJan 31 00:00:00 EDT 2023 * Problem Parkinsonism, unspecified* Code: * Start Date: SunApr 10 00:00:00 EST 2023 * End Date: SunJan 31 00:00:00 EDT 2023 * Problem Mechanical loosening of internal right knee prosthetic joint, subsequent encounter* Code: * Start Date: SunJan 18 00:00:00 EDT 2023 * End Date: SunJan 31 00:00:00 EDT 2023 Vital Signs Vital Sign Measurement Date Body weight 166.00 [lb_av] SunFeb 04 16:55 :11 EST 2023 Systolic Blood Pressure 103.00 mm[Hg] SunFeb 04 09:02:56 EST 2023 Diastolic Blood Pressure 56.00 mm[Hg] SunFeb 04 09:02:56 EST 2023 Heart Rate 67.00 /min SunFeb 04 09:02 :56 EST 2023 Body temperature 98.00 [degF] SunFeb 04 09:0 2:56 EST 2023 Respiratory rate 18.00 /min SunFeb 04 09:0 2:56 EST 2023 Pulse Oximetry 95.00 % SunFeb 04 09:02 :56 EST 2023 Systolic Blood Pressure 115.00 mm[Hg] SunFeb 04 00:30:55 EST 2023 Diastolic Blood Pressure 69.00 mm[Hg] SunFeb 04 00:30:55 EST 4 Heart Rate 78.00 /min SunFeb 04 00:30 :55 EST 2023 Body temperature 98.20 [degF] SunFeb 04 00:3 0:55 EST 2023 Respiratory rate 18.00 /min SunFeb 04 00:3 0:55 EST 2023 Pulse Oximetry 92.00 % SunFeb 04 00:30 :55 EST 2023 Body weight 166.00 [lb_av] SunFeb 03 13:03 :33 EST 2023 Systolic Blood Pressure 109.00 mm[Hg] SunFeb 03 09:12:43 EST 2023 Diastolic Blood Pressure 57.00 mm[Hg] SunFeb 03 09:12:43 EST 2023 Heart Rate 71.00 /min SunFeb 03 09:12 :43 EST 2023 Body temperature 98.00 [degF] SunFeb 03 09:1 2:43 EST 2023 Respiratory rate 18.00 /min SunFeb 03 09:1 2:43 EST 2023 Pulse Oximetry 96.00 % SunFeb 03 09:12 :43 EST 2023 Systolic Blood Pressure 104.00 mm[Hg] SunFeb 02 23:38:13 2023 Diastolic Blood Pressure 52.00 mm[Hg] SunFeb 02 23:38:13 EST 2023 Heart Rate 72.00 /min SunFeb 02 23:38 :13 EST 2023 Body temperature 98.20 [degF] SunFeb 02 23:3 8:13 EST 2023 Respiratory rate 20.00 /min SunFeb 02 23:3 8:13 EST 2023 Pulse Oximetry 93.00 % SunFeb 02 23:38 :13 EST 2023 Body weight 166.20 [lb_av] SunFeb 02 17:38 :01 EST 2023 Systolic Blood Pressure 115.00 mm[Hg] SunFeb 02 14:08:56 EST 2023 Diastolic Blood Pressure 86.00 mm[Hg] SunFeb 02 14:08:56 EST 2023 Heart Rate 81.00 /min SunFeb 02 14:08 :56 EST 2023 Body temperature 97.30 [degF] SunFeb 02 14:0 8:56 EST 2023 Respiratory rate 18.00 /min SunFeb 02 14:0 8:56 EST 2023 Pulse Oximetry 95.00 % SunFeb 02 14:08 :56 EST 2023 Systolic Blood Pressure 135.00 mm[Hg] SunFeb 02 00:18:51 EDT 2023 Diastolic Blood Pressure 59.00 mm[Hg] SunFeb 02 00:18:51 EDT 2023 Heart Rate 74.00 /min SunFeb 02 00:18 :51 EDT 2023 Body temperature 98.00 [degF] SunFeb 02 00:1 8:51 EDT 2023 Respiratory rate 18.00 /min SunFeb 02 00:1 8:51 EDT 2023 Pulse Oximetry 94.00 % SunFeb 02 00:18 :51 EDT 2023 Systolic Blood Pressure 117.00 mm[Hg] SunFeb 01 14:16:09 EDT 2023 Diastolic Blood Pressure 61.00 mm[Hg] SunFeb 01 14:16:09 EDT 2023 Body temperature 98.70 [degF] SunFeb 01 14:1 6:09 EDT 2023 Respiratory rate 18.00 /min SunFeb 01 14:1 6:09 EDT 2023 Pulse Oximetry 95.00 % SunFeb 01 14:16 :09 EDT 2023 Body weight 166.40 [lb_av] SunFeb 01 14:16 :09 EDT 2023 Heart Rate 58.00 /min SunFeb 01 14:16 :09 EDT 4 Systolic Blood Pressure 128.00 mm[Hg] SunJan 31 23:54:56 EDT 2023 Diastolic Blood Pressure 66.00 mm[Hg] SunJan 31 23:54:56 EDT 2023 Heart Rate 66.00 /min SunJan 31 23:54 :56 EDT 2023 Body temperature 98.00 [degF] SunJan 31 23:5 4:56 EDT 2023 Respiratory rate 18.00 /min SunJan 31 23:5 4:56 EDT 2023 Pulse Oximetry 98.00 % SunJan 31 23:54 :56 EDT 2023 Body weight 164.00 [lb_av] SunJan 31 15:22 :44 EDT 2023 Systolic Blood Pressure 115.00 mm[Hg] SunJan 31 14:09:10 EDT 2023 Diastolic Blood Pressure 79.00 mm[Hg] SunJan 31 14:09:10 EDT 2023 Heart Rate 70.00 /min SunJan 31 14:09 :10 EDT 2023 Body temperature 98.20 [degF] SunJan 31 14:0 9:10 EDT 2023 Respiratory rate 18.00 /min SunJan 31 14:0 9:10 EDT 2023 Pulse Oximetry 92.00 % SunJan 31 14:09 :10 EDT 2023 Systolic Blood Pressure 141.00 mm[Hg] SunJan 31 00:32:51 EDT 2023 Diastolic Blood Pressure 71.00 mm[Hg] SunJan 31 00:32:51 EDT 2023 Heart Rate 67.00 /min SunJan 31 00:32 :51 EDT 2023 Body temperature 97.90 [degF] SunJan 31 00:3 2:51 EDT 2023 Respiratory rate 18.00 /min SunJan 31 00:3 2:51 EDT 2023 Pulse Oximetry 97.00 % SunJan 31 00:32 :51 EDT 2023 Body weight 166.00 [lb_av] [facility] Jan 30 15:41 :41 EDT 2023 Body weight 166.00 [lb_av] [facility] Jan 30 12:42 :39 EDT 2023 Systolic Blood Pressure 116.00 mm[Hg] [facility] Jan 30 10:36:01 EDT 2023 Diastolic Blood Pressure 61.00 mm[Hg] [facility] Jan 30 10:36:01 EDT 2023 Heart Rate 70.00 /min [facility] Jan 30 10:36 :01 EDT 2023 Body temperature 97.80 [degF] [facility] Jan 30 10:3 6:01 EDT 2023 Respiratory rate 20.00 /min [facility] Jan 30 10:3 6:01 EDT 2023 Pulse Oximetry 94.00 % [facility] Jan 30 10:36 :01 EDT 2023 Systolic Blood Pressure 116.00 mm[Hg] SunJan 29 22:50:08 EDT 2023 Diastolic Blood Pressure 60.00 mm[Hg] SunJan 29 22:50:08 EDT 2023 Heart Rate 68.00 /min SunJan 29 22:50 :08 EDT 2023 Body temperature 98.20 [degF] SunJan 29 22:5 0:08 EDT 2023 Respiratory rate 18.00 /min SunJan 29 22:5 0:08 EDT 2023 Pulse Oximetry 95.00 % SunJan 29 22:50 :08 EDT 2023 Systolic Blood Pressure 116.00 mm[Hg] SunJan 29 16:48:00 EDT 2023 Diastolic Blood Pressure 60.00 mm[Hg] SunJan 29 16:48:00 EDT 2023 Heart Rate 68.00 /min SunJan 29 16:48 :00 EDT 2023 Body Height 62.00 [in_i] SunJan 29 16:48 :00 EDT 2023 Body weight 168.40 [lb_av] SunJan 29 16:48 :00 EDT 2023 Body temperature 98.20 [degF] SunJan 29 16:4 8:00 EDT 2023 Respiratory rate 18.00 /min SunJan 29 16:4 8:00 EDT 2023 Pulse Oximetry 95.00 % SunJan 29 16:48 :00 EDT 2023 Reason for Referral Past Medical History Resolved Concerns * Problem Parkinson's disease* Code: * Start Date: SunMar 21 00:00:00 EST 2020 * End Date: SunDec 30 00:00:00 EDT 2022 * Problem Muscle weakness (generalized)* Code: * Start Date: SunApr 05 00:00:00 EST 2021 * End Date: SunJan 31 00:00:00 EDT 2023 * Problem Other symbolic dysfunctions* Code: * Start Date: SunApr 05 00:00:00 EST 2021 * End Date: SunJan 31 00:00:00 EDT 2023 * Problem Displaced bimalleolar fracture of left lower leg, subsequent encounter for closed fracture with routine healing* Code: * Start Date: SunMar 15 00:00:00 EST 2022 * End Date: SunJan 31 00:00:00 EDT 2023 * Problem Depression, unspecified* Code: * Start Date: SunMar 15 00:00:00 EST 2022 * End Date: SunJan 31 00:00:00 EDT 2023 * Problem Parkinsonism, unspecified* Code: * Start Date: SunApr 10 00:00:00 EST 2023 * End Date: SunJan 31 00:00:00 EDT 2023
--- OUTSIDE RECORDS SUMMARY | 2024-07-05 11:14 | XMS_ITS | Clinical Summary ---
Author Organization [facility] Address [address] [place] [address] Care Team Providers Care Private Banker Name Role Phone Mahad Onofre MD Primary Care Provider Chriss Hay MD Unavailable [phone] Allergies Active Allergy Reactions Criticality Noted Date Comments Codeine Nausea And Vomiting, Shortness of breath High 09/01/2016 Hydrocodone Hallucinations Medium 03/09/2021 Medications omeprazole (PriLOSEC) 40 mg capsule Take 1 capsule (40 mg total) by mouth daily 10/08/19 21 Active folic acid (FOLVITE) 1 mg tabletIndications: Parkinson's disease (HCC) Take 1 tablet (1,000 mcg total) by mouth daily 90 tablet 1 01/04/20 Active Additional Information Patient not taking.Reported on 08/15/2021 PARoxetine (PAXIL) 20 mg tablet Take 1 tablet (20 mg total) by mouth every morning Active docusate sodium (COLACE) 100 mg capsuleIndications :constipation Take 1 capsule (100 mg total) by mouth 2 (two) times a day 60 capsule 03/19/20 Active Additional Information Patient not taking.Reported on 04/14/2024 aspirin 81 mg chewable tabletIndications: Deep Vein Thrombosis Prevention Take 1 tablet (81 mg total) by mouth 2 (two) times a day 60 tablet 03/19/20 Active calcium carbonate (OS-ALO) 1,250 mg (500 [...] (15 mg total) by mouth every evening 07/19/19 23 Active acetaminophen (TYLENOL) 500 mg tablet Take 1 tablet (500 mg total) by mouth every 6 (six) hours as needed for pain Active naproxen sodium 220 mg capsule Take 220 mg by mouth daily as needed Active cyclobenzaprine (FLEXERIL) 7.5 mg tabletIndications: Muscle Spasm Take 1 tablet (7.5 mg total) by mouth 3 (three) times a day as needed for muscle spasms 30 tablet 3 02/03/20 23 Active Additional Information Patient not taking.Reported on 04/14/2024 amoxicillin-clavul anate (AUGMENTIN) 875-125 mg per tablet Take 1 tablet by mouth every 12 (twelve) hours Active Eliquis 5 mg tablet TAKE 1 (ONE) TABLET BY MOUTH 2 TIMES DAILY 09/07/19 24 Active glycopyrrolate (ROBINUL) 1 mg tablet 06/19/19 24 Active glycopyrrolate (ROBINUL) 1 mg tablet Take 1 tablet (1 mg total) by mouth nightly as needed 07/12/19 24 Active carbidopa-levodopa (SINEMET) 10-100 mg per tabletIndications: Parkinson's disease (HCC) Take 1 tablet by mouth 4 (four) times a day 360 tablet 3 10/11/19 24 Active memantine (NAMENDA) 10 mg tabletIndications: Parkinson's disease, unspecified whether dyskinesia present, unspecified whether manifestations fluctuate (HCC) TAKE 1 TABLET BY MOUTH TWICE A DAY 180 tablet 1 12/06/19 24 Active entacapone (COMTAN) 200 mg tabletIndications: Parkinson's disease, unspecified whether dyskinesia present, unspecified whether manifestations fluctuate (HCC) TAKE 1 TABLET BY MOUTH 4 TIMES A DAY 360 tablet 2 04/01/20 24 Active Additional Information Patient not taking.Reported on 04/14/2024 donepeziL (ARICEPT) 10 mg tabletIndications: Dementia without behavioral disturbance (HCC) TAKE 1 TABLET BY MOUTH EVERY DAY AT NIGHT 90 tablet 1 05/12/19 25 Active Active Problems Problem Noted Date Diagnosed [...] (02/17/2021): Added automatically from request for surgery [id number] 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, subsequent encounter 02/17/2021 Overview (02/18/2021): Added automatically from request for surgery [id number] Osteoarthritis 01/03/2021 Diverticulitis 01/03/2021 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 [...] Department Care Team Description 04/14/2024 2:00 PM GLOBAL PROFESSIONAL Office Visit [facility] Neurology [address] [place] [phone] Dieter Skelton MD Parkinson's disease, unspecified [...] on file Legal Sex Female 3:49 AM GLOBAL PROFESSIONAL Gender Identity Not on file Sexual Orientation Not on file Obstetrics History Last Filed Vital Signs Vital Sign Reading Time Taken Comments Blood Pressure 90/59 04/14/2024 1:36 PM GLOBAL PROFESSIONAL Pulse 78 04/14/2024 1:36 PM GLOBAL PROFESSIONAL Temperature 37.1 C (98.7 F) 10/19/2023 7:23 PM CDT Respiratory Rate 18 04/14/2024 1:36 PM GLOBAL PROFESSIONAL Oxygen Saturation 95% 04/14/2024 1:36 PM GLOBAL PROFESSIONAL Inhaled Oxygen Concentration - - Weight 72.1 kg (159 lb) 04/14/2024 1:36 PM GLOBAL PROFESSIONAL Height 157.5 cm (5' 2 ) 04/14/2024 1:36 PM GLOBAL PROFESSIONAL Body Mass Index 29.08 04/14/2024 1:36 PM GLOBAL PROFESSIONAL Plan of Treatment Health Maintenance Due Date [...] likelihood of falling Lifestyle No Minna Dangelo, HEBER Note: Below are four things you can [...] home safety. Medical Devices Implanted Type Area Licensed Reactor Operator Device Identifier Shelf Expiration Date Model / Serial / Lot [employer] 5560-S-112 Triathlon 12mm 50mm Cement End Cap Knee Stem Femoral Cocr - [id number] Implanted:Qty: 1 on 03/17/2021 by Chriss Hay MD at [facility] [employer] [id number] 12/26/2025 5560-S-112 / / [id number] [employer] 6481-2-150 Gmrs Pack Crosslink Knee Component Femoral Polyethylene - [id number] Implanted:Qty: 1 on 03/17/2021 by Chriss Hay MD at [facility] Left: Knee [employer] [id number] 09/02/2025 6481-2-150 / / [id number] [employer] 6481-2-100 Monogram Modular Rotate Hinge Knee Xs-Xl Component Tibial - [id number] Implanted:Qty: 1 on 03/17/2021 by Chriss Hay MD at [facility] Left: Knee [employer] [id number] 09/06/2025 6481-2-100 / / [id number] [employer] [id number] Gmrs Bearing Modular Rotate Hinge Distal Yho09ns M2 2 Insert - [id number] Implanted:Qty: 1 on 03/17/2021 by Chriss Hay MD at [facility] Left: Knee [employer] [id number] 12/08/2024 [id number] / / [id number] [employer] 6481-3-112 Modular Rotating Hinge 2 Medium Baseplate Tibial - [id number] Implanted:Qty: 1 on 03/17/2021 by Chriss Hay MD at [facility] Left: Knee [employer] [id number] 04/13/2025 6481-3-112 / / [id number] [employer] 6485-3-115 Gmrs 15mm 127mm Cemented Knee Straight Stem Femoral Sterile - [id number] Implanted:Qty: 1 on 03/17/2021 by Chriss Hay MD at [facility] Left: Knee [employer] [id number] 06/08/2023 6485-3-115 / / [id number] [employer] [id number] Gmrs 65mm Knee Left Small Component Femoral Cocr - [id number] Implanted:Qty: 1 on 03/17/2021 by Chriss Hay MD at [facility] Left: Knee [employer] [id number] 05/21/2025 [id number] / / [id number] [employer] 6191-1-010 Simplex P Radiopaque Full Dose Cement Bone Sterile - [id number] Implanted:Qty: 1 on 03/17/2021 by Chriss Hay MD at [facility] Left: Knee [employer] 05/02/2023 6191-1-010 / / [id number] [employer] 6191-1-010 Simplex P Radiopaque Full Dose Cement Bone Sterile - [id number] Implanted:Qty: 3 on 03/17/2021 by Chriss Hay MD at [facility] Left: Knee [employer] 05/31/2023 6191-1-010 / / [id number] [employer] [id number] Gmrs Knee Small Bushing Femoral - [id number] Implanted:Qty: 1 on 03/17/2021 by Chriss Hay MD at [facility] Left: Knee [employer] [id number] 04/06/2025 [id number] / / [id number] [employer] [id number] Gmrs Knee Small Bushing Femoral - [id number] Implanted:Qty: 1 on 03/17/2021 by Chriss Hay MD at [facility] Left: Knee [employer] [id number] 04/07/2025 [id number] / / [id number] [employer] [id number] Gmrs Knee Small Axle Femoral - [id number] Implanted:Qty: 1 on 03/17/2021 by Chriss Hay MD at [facility] Left: Knee [employer] [id number] 06/13/2023 [id number] / / [id number] Insurance MEDICARE [employer]ARE [employer] Member Subscriber Plan / Payer (Ef fective 2020-Present) Name:Sammi Calzada Relation to Subscriber:Self Name:Sammi Calzada Payer ID:[id number] Group ID:Not on file Type:[employer] Address: [facility] [id number] [place] [address] Advance Directives For more information, please contact: [phone] * Full Code (Latest Code Status on File) Date Activated Date Inactivated Comments 03/17/2021 9:05 PM 03/21/2021 9:00 PM Care Teams Private Banker Relationship Specialty Start Date End Date Mahad Onofre MD [address] [facility] [address] [place] [address] PCP - General Internal Medicine 05/05/20 Chriss Hay MD [address] [place] [address] Consulting Physician Orthopedic Surgery 03/19/21
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
--- OUTSIDE RECORDS SUMMARY | 2024-07-05 11:14 | XMS_ITS | Continuity of Care Document ---
Author Organization [facility] Address [address] [place] [address] Phone Care Team Providers Care Wound Care Physician Name Role Phone Chriss Hay Unavailable [...] Providers Copied on Encounter [facility], [address] [address], [place], [place], [id number], [place] tel:[phone] [facility] No Information [address] [place] [place] [address], [address] [address], [place], [place], [id number] , [place]. tel:[phone] Office/outpa tient visit,est, [facility], [address] [address], [place], [place], [id number], [place] tel:[phone] [facility] left knee (chief complaint) Pain in left knee [address] [place] [place] [address], [id number] , [place]. tel:[phone] Referring Provider: Chriss Nguyen, [facility] [address], [place], [address]. tel:[phone] Office/outpa tient visit,est, [facility], [address] [address], [place], [place], [id number], [place] tel:[phone] [facility] left knee (chief complaint) Pain in left kneeDisplaced condyle fracture of lower end of left femur, sequelaPresence of left artificial knee joint 2 Cole Corbin. [address] [facility], [address] [address], [place], [place], [id number] , [place]. tel:[phone] Referring Provider: Shaquille Ewing, [address] [address], [place], [address]. tel:[phone] [facility], [address] [place] [address], [id number], [place] tel:[phone] [facility] No Information 2 Satnam Carbajal er. [address] [facility], [address], [place], [place], [id number] , [place]. tel: [phone] Office/outpa tient visit,est, mod [facility], [address] [address], [place], [place], [id number], [place] tel:[phone] [facility] left knee (chief complaint) Displaced condyle fracture of lower end of left femur, sequelaPain in left kneePresence of left artificial knee joint 2 Cole Corbin. [address] [facility] [facility] [address], [place], [place], [id number] , [place]. tel: [phone] Referring Provider: Shaquille Ewing, [address] [place] [address] [address] [facility], [place], [address]. tel:[phone] [facility], [address], [id number], [place] tel:[phone] [facility] Left hip (chief complaint) Pain in left kneeDisplaced condyle fracture of lower end of left femur, sequelaPresence of left artificial knee joint 2 Cole Corbin. [address] [facility], [address] [address], [place], [place], [id number] , [place]. tel: [phone] Referring Provider: Shaquille Ewing, [address] [facility] [address] [facility], [place], [address]. tel:[phone] [facility], [address] [address], [place], [place], [id number], [place] tel:[phone] [facility] left femur (chief complaint) Displaced condyle fracture of lower end of left femur, sequelaPain in left kneePresence of left artificial knee joint 2 Cole Corbin. [address] [facility], [address] [address], [place], [place], [id number] , [place]. tel: [phone] Referring Provider: Shaquille Ewing, [address] [facility] [address] [facility], [place], [address]. tel:[phone] Office/outpa tient visit,new, [facility], [address], [place], [place], [id number], [place] tel:[phone] [facility] left femur (chief complaint) Displaced condyle fracture of lower end of left femur, initial encounter for closed fracture Satnam hurley. [address] [facility], [address], [place], [place], [id number] , [place]. tel: [phone] Referring Provider: Chriss Nguyen, [address] [facility] [address], [place], [address]. tel:[phone] Family History Family Member Type Diagnosis Age At Onset Sister Problem (finding) Cancer, unknown Sister Problem (finding) Hypertension Sister Problem (finding) Osteoarthritis Mother Problem (finding) Cancer, unknown Payers Payer name Insurance type Covered democrat ID Authoriza tion(s) [place] Part [place] MB [id number] AARP CI [id number] Social History Type Description Quantity Date Captured [...] She underwent open reduction internal fixation at [facility] with Dr. Lazo. 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 Patient is referred to me for further evaluation of reconstructive options in the setting of a nonunited geriatric distal femoral fracture.She is 5 foot 1, 162 pounds. Date of injury was 09/29/2019. She fell from a height at her home in [place]. Currently she lives in assisted living. Her pain as an 8 out of 10 it is constant. She is experiencing decreased motion limping and difficulty ambulating. Her pain is worse with standing walking climbing stairs and descending stairs pain is better with vvxi-wfm-hyxxfkf medication and prescription medication. She has used [...] discharged in stable condition. Dictation completed with [employer] software, grammatical variances in spelling errors may inadvertently occur. Related to Presence of left artificial knee joint Assessments Type Assessment Date No Information Patient Care Teams Name Effective Dates (start - stop) Status Members No Information
--- OUTSIDE RECORDS SUMMARY | 2024-07-05 11:14 | XMS_ITS | Encounter Summary ---
Author Organization [facility] Healthcare Address [address] [place] [address] Care Team Providers Care Oyster Picker Name Role Phone Mahad Onofre MD Primary Care Provider Chriss Hay MD Unavailable [phone] Encounter Details Date Type Department Care Team (Late st Contact Info) Description 11/03/2022 Telephone [facility] [address] [address], [address] [place] [address] Ethel Amaya [...] on file Legal Sex Female 3:49 AM METEOROLOGICAL TECHNICIAN Gender Identity Not on file Sexual Orientation [...] on stairs Contact your local community or [facility] for information on exercise, fall prevention [...] documented as of this encounter Care Teams Oyster Picker Relationship Specialty Start Date End Date Mahad Onofre MD [address] [facility] [address] [place] [address] PCP - General Internal Medicine 05/05/20 Chriss Hay MD [address] [facility] [address] [place] [address] Consulting Physician Orthopedic Surgery 03/19/21 documented as of this encounter
--- OUTSIDE RECORDS SUMMARY | 2024-07-05 11:14 | XMS_ITS ---
Author Name Win Craft Address [address] [place] [address] Phone [phone] Organization [email or web address] [employer] Address [address] [place] [address] Phone [phone] Care Team Providers Care Tobacco Cloth Reclaimer Name Role Phone Win Craft Unavailable [phone] John Sarah Unavailable Clary Comer Unavailable Mahad Onofre Unavailable Shara Gilman Unavailable [phone] Functional Status No Results Mental Status No Results Allergies and Intolerances Name Onset Date Reaction Severity codeine (Allergy) SunMar 21 22:01:00 EST 2020 Encounters Program Name Primary Diagnosis Admission Date/Time Dis charge Date/Time Rehabilitation [facility] SunJun 04 19:00:00 EST 2024 [facility] SunJan 29 10:30:00 EDT 2023Feb 04 06:08:00 EST 2023 null SunMar 05 19:00 :00 EST 2019 [facility] SunFeb 05 19:00:00 EST 2023Mar [...] 2020 * End Date: * Text: * cognos bi developer (current) use of aspirin* Code: * Start Date: SunMar 21 00:00:00 EST 2020 * End Date: * Text: * cognos bi developer (current) use of anticoagulants* Code: * Start [...] 2023 * End Date: * Text: * penitentiary (current) use of opiate analgesic* Code: * [...] :51 EDT 2023 Body weight 166.00 [lb_av] [facility] Jan 30 15:41 :41 EDT 2023 Body weight 166.00 [lb_av] [facility] Jan 30 12:42 :39 EDT 2023 Systolic Blood Pressure 116.00 mm[Hg] [facility] Jan 30 10:36:01 EDT 2023 Diastolic Blood Pressure 61.00 mm[Hg] [facility] Jan 30 10:36:01 EDT 2023 Heart Rate 70.00 /min [facility] Jan 30 10:36 :01 EDT 2023 Body temperature 97.80 [degF] [facility] Jan 30 10:3 6:01 EDT 2023 Respiratory rate 20.00 /min [facility] Jan 30 10:3 6:01 EDT 2023 Pulse Oximetry 94.00 % [facility] Jan 30 10:36 :01 EDT 2023 Systolic [...]
--- OUTSIDE RECORDS SUMMARY | 2024-07-05 11:14 | XMS_ITS | Clinical Summary ---
Author Organization [facility] Address [address] [place] [address] Care Team Providers Care Office Copy Selector Name Role Phone Mahad Onofre MD Primary Care Provider [phone] Allergies Active Allergy Reactions Criticality Noted Date [...] 08/15 Parkinson's disease 06/24/2020 Depressive disorder 06/29/2017 Social History Tobacco Use Types Packs/Day Years Used Date Smoking Tobacco: Never Smokeless Tobacco: Never Tobacco Cessation:Counseling Given: Not Answered Alcohol Use Standard Drinks/Week Comments Never 0 (1 standard drink = 0.6 oz pur e alcohol) [facility] Utilities Answer Date Recorded In the past 12 months has e [employer], gas, oil, or water rubberit threatened to shut off services in your [...] often do you attend chur ch or restoration services? Never 01/22/2024 Do you belong to any clubs o r organizations such as christian groups, unions, fraternal or athletic groups, or [...] and heating? Not hard at all 01/22/2024 [facility] [place] [facility] - Occupational Stress [...] the money to buy more. Never true 01/22/20 24 Within the past 12 months, t [...] any time in the past 12 m [facility], were you homeless or living in a residential (including now)? No 01/22/2024 Domestic Abuse Assessment [...] - Reported To Not on file 01/21/2024 [facility] SDOH Transportation Source Answer Da te Recorded [...] 69 01/30/2024 7:45 AM CDT Temperature 36.7 C (98 F) 01/30/2024 7:45 AM CDT Respiratory Rate 18 01/30/2024 7:45 AM CDT Oxygen Saturation 94% 01/30/2024 7:45 AM CDT Inhaled Oxygen Concentration - - Weight 76.7 kg (169 lb) 01/21/2024 4:56 PM CDT 1 69lb Height 157.5 cm (5' 2 ) 01/21/2024 4:56 PM CDT Body Mass Index 30.91 01/21/2024 4:56 PM CDT Plan of Treatment Not on file Advance Directives * Full Resuscitation (Latest Code Status on File) Date Activated Date Inactivated Comments 01/21/2024 6:05 PM 01/30/2024 5:15 PM Question Answer Comments I have discussed this order with the patient or his/her surrogate and have received informed consent. Yes Care Teams Office Copy Selector Relationship Specialty Start Date End Date Mahad Onofre MD [address] [address] PCP - General 01/22/24
--- OUTSIDE RECORDS SUMMARY | 2024-07-05 11:14 | XMS_ITS | Referral Summary ---
Author Organization [facility] Address [facility] [place] [address] Care Team Providers Care Tugboat Engineer Name Role Phone Mahad Onofre MD Primary Care Provider Chriss Hay MD Unavailable [phone] Encounters Date Type Department Care Team Description 04/14/2024 2:00 PM PROBATION COUNSELOR Office Visit [facility] Neurology [facility] [address] [place] [address] Dieter Skelton MD Parkinson's disease, [...] by mouth daily 90 tablet 1 01/04/20 21 Active Additional Information Patient not taking.Reported on 08/15/2021 PARoxetine (PAXIL) 20 mg tablet Take 1 tablet (20 mg total) by mouth every morning Active docusate sodium (COLACE) 100 mg capsuleIndications :constipation Take 1 capsule (100 mg total) by mouth 2 (two) times a day 60 capsule 03/19/20 21 Active Additional Information Patient not taking.Reported on 04/14/2024 aspirin 81 mg chewable tabletIndications: Deep Vein Thrombosis Prevention Take 1 tablet (81 mg total) by mouth 2 (two) times a day 60 tablet 03/19/20 21 Active calcium carbonate (OS-ALO) 1,250 mg (500 [...] (02/17/2021): Added automatically from request for surgery [id number] 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, subsequent encounter 02/17/2021 Overview (02/18/2021): Added automatically from request for surgery [id number] Osteoarthritis 01/03/2021 Diverticulitis 01/03/2021 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 [...] on file Legal Sex Female 3:49 AM PROBATION COUNSELOR Gender Identity Not on file Sexual Orientation Not on file Last Filed Vital Signs Vital Sign Reading Time Taken Comments Blood Pressure 90/59 04/14/2024 1:36 PM PROBATION COUNSELOR Pulse 78 04/14/2024 1:36 PM PROBATION COUNSELOR Temperature 37.1 C (98.7 F) 10/19/2023 7:23 PM CDT Respiratory Rate 18 04/14/2024 1:36 PM PROBATION COUNSELOR Oxygen Saturation 95% 04/14/2024 1:36 PM PROBATION COUNSELOR Inhaled Oxygen Concentration - - Weight 72.1 kg (159 lb) 04/14/2024 1:36 PM PROBATION COUNSELOR Height 157.5 cm (5' 2 ) 04/14/2024 1:36 PM PROBATION COUNSELOR Body Mass Index 29.08 04/14/2024 1:36 PM PROBATION COUNSELOR Plan of Treatment Not on file Goals [...] home safety. Medical Devices Implanted Type Area Sports Physical Therapist Device Identifier Shelf Expiration Date Model / Serial / Lot [employer] 5560-S-112 Triathlon 12mm 50mm Cement End Cap Knee Stem Femoral Cocr - [id number] Implanted:Qty: 1 on 03/17/2021 by Chriss Hay MD at [facility] [employer] [id number] 12/26/2025 5560-S-112 / / [id number] [employer] 6481-2-150 Gmrs Pack Crosslink Knee Component Femoral Polyethylene - [id number] Implanted:Qty: 1 on 03/17/2021 by Chriss Hay MD at [facility] Left: Knee [employer] [id number] 09/02/2025 6481-2-150 / / [id number] [employer] 6481-2-100 Monogram Modular Rotate Hinge Knee Xs-Xl Component Tibial - [id number] Implanted:Qty: 1 on 03/17/2021 by Chriss Hay MD at [facility] Left: Knee [employer] [id number] 09/06/2025 6481-2-100 / / [id number] [employer] [id number] Gmrs Bearing Modular Rotate Hinge Distal [id number] M2 2 Insert - [id number] Implanted:Qty: 1 on 03/17/2021 by Chriss Hay MD at [facility] Left: Knee [employer] [id number] 12/08/2024 [id number] / / [id number] [employer] 6481-3-112 Modular Rotating Hinge 2 Medium Baseplate Tibial - [id number] Implanted:Qty: 1 on 03/17/2021 by Chriss Hay MD at [facility] Left: Knee [employer] [id number] 04/13/2025 6481-3-112 / / [id number] [employer] 6485-3-115 Gmrs 15mm 127mm Cemented Knee Straight Stem Femoral Sterile - [id number] Implanted:Qty: 1 on 03/17/2021 by Chriss Hay MD at [facility] Left: Knee [employer] [id number] 06/08/2023 6485-3-115 / / [id number] [employer] [id number] Gmrs 65mm Knee Left Small Component Femoral Cocr - [id number] Implanted:Qty: 1 on 03/17/2021 by Chriss Hay MD at [facility] Left: Knee [employer] [id number] 05/21/2025 [id number] / / [id number] [employer] 6191-1-010 Simplex P Radiopaque Full Dose Cement Bone Sterile - [id number] Implanted:Qty: 1 on 03/17/2021 by Chriss Hay MD at [facility] Left: Knee [employer] 05/02/2023 6191-1-010 / / [id number] [employer] 6191-1-010 Simplex P Radiopaque Full Dose Cement Bone Sterile - [id number] Implanted:Qty: 3 on 03/17/2021 by Chriss Hay MD at [facility] Left: Knee [employer] 05/31/2023 6191-1-010 / / [id number] [employer] [id number] Gmrs Knee Small Bushing Femoral - [id number] Implanted:Qty: 1 on 03/17/2021 by Chriss Hay MD at [facility] Left: Knee [employer] [id number] 04/06/2025 [id number] / / [id number] [employer] [id number] Gmrs Knee Small Bushing Femoral - [id number] Implanted:Qty: 1 on 03/17/2021 by Chriss Hay MD at [facility] Left: Knee [employer] [id number] 04/07/2025 [id number] / / [id number] [employer] [id number] Gmrs Knee Small Axle Femoral - [id number] Implanted:Qty: 1 on 03/17/2021 by Chriss Hay MD at [facility] Left: Knee [employer] [id number] 06/13/2023 [id number] / / [id number] Insurance MEDICARE [facility] MEDICARE [facility] MEDICARE [facility] Advance Directives For more information, please contact: [phone] * Full Code (Latest Code Status on File) Date Activated Date Inactivated Comments 03/17/2021 9:05 PM 03/21/2021 9:00 PM Care Teams Tugboat Engineer Relationship Specialty Start Date End Date Mahad Onofre MD [address] [facility] [address] [place] [address] PCP - General Internal Medicine 05/05/20 Chriss Hay MD [address] [facility] [place] [address] [address] Consulting Physician Orthopedic Surgery 03/19/21
--- OUTSIDE RECORDS SUMMARY | 2024-07-05 11:14 | XMS_ITS | Data Portability ---
Author Organization [place] - [facility], Main Office Address [address] [place] [address] Care Team Providers Care Shellfish Manager Name Role Phone GCP [facility] FAX OTHER ROSA ONOFRE Primary Care Provider EMILIO SARAH Orthopedic Surgeon [phone] Assessment Encounter Date Assessment Date Assessment LastModified by Organization Details LastModified Time 02/03/2024 02/03/2024 f/u labs 02/06 [email or web address] Not available 02/03/2024 22:54:53 02/05/2024 02/05/2024 D/C home to [facility] apartment at [place] today with OP therapy and oversight from sisters. Not available 02/05/2024 16:01:22 Plan of Treatment Reminders Order Date Submit Date Provider Last Modified By Organization Details Last Modified Time Details Appointments None recorded. Lab None recorded. Referral None recorded. Procedures None recorded. Surgeries None recorded. Imaging None recorded. Medication Orders hydrocodone 5 mg-acetamin ophen 325 mg tablet 2023 [facility] [address] [place], [address], 10:51:39 pregabalin 50 mg capsule 2023 [facility] [address] [place], [address], 10:51:39 Patient TargetsNo targets recorded. Patient Instructions Encounter Date Encounter Id Patient Instructions Last Modified By Organization Details Last Modified Time 01/31/[id number] I spent {{ 55#}} minutes providing care [...] goals of care. Not available 01/31/2024 14:59:30 02/03/[id number] I spent {{ 50#}} minutes providing care to the patient today. More than 50% of that time was spent in discussing the expected course of the disease, discussing prognosis, coordinating care and counseling of the patient/family. [email or web address] Not available 02/07/2024 04:04:43 02/05/2024145130 I spent {{ 45#}} minutes providing care [...] prosthetic replacement [place] [address] [place], [address], [facility] 01/31/2024 14:26:26 04/02/19 21 arthro[place] [address] [address] [facility], [place], [address], [facility] 01/31/2024 14:27:50 04/02/19 20 open reduction of fracture [place] [address] [place], [address], [facility] 01/31/2024 14:28:07 Imaging Results None recorded. Procedure Notes None recorded. Medical Equipment None Reported. Allergies Allergen ID Allergen Name Allergen Category Reaction Reaction Severity Criticality Documentation Date Start Date Code Code System Note Provider Name and Address Organization Details Recorded Time 29327 codeine medicatio n Not available Not available [...] Address Organization Details Last Updated DateTime 4 34366.3 3 g 70 /min 94 % 94 % 20 /min 97.8 [degF] 30.4 kg/m2 157.48 cm 116 mm[Hg] 61 mm[Hg] [place] [address] [place], [address] , - [facility] 4 14:04:48 Date Recorded Body height Body mass index (BMI) Body weight Heart rate Oxygen saturation Oxygen saturation in Arterial blood by Pulse oximetry Respiratory rate Body temperature Systolic blood pressure Diastolic blood pressure Provider Name and Address Organization Details Last Updated DateTime 4 157.48 cm 30.4 kg/m2 06674.7 7 g 81 /min 95 % 95 % 18 /min 97.3 [degF] 115 mm[Hg] 86 mm[Hg] [place] [address] [place], [address] , [facility] 4 22:54:05 Date Recorded Body height Heart rate Body temperature Respiratory rate Oxygen saturation Oxygen saturation in Arterial blood by Pulse oximetry Body mass index (BMI) Body weight Systolic blood pressure Diastolic blood pressure Provider Name and Address Organization Details Last Updated DateTime 4 157.48 cm 67 /min 98 [degF] 18 /min 95 % 95 % 30.4 kg/m2 19785.3 3 g 103 mm[Hg] 56 mm[Hg] [place] [address] [place], [address] , [facility] 4 13:51:21 Social History Question Answer Notes LastModified by Organizat ion Details LastModified Time Tobacco Smoking Status Never Smoker [facility] null, [place] [facility] [...] available 02/06 04:01:49 Medical History Condition Response Parkinson's Disease Y Psychiatric -- Depression Y Vitamin B12 Deficiency Y Deep Vein Thrombosis (DVT) Y Dementia Y Vitamin D Deficiency Y GERD / Reflux Y Neuropathy Y Pulmonary Embolism Y Gynecological HistoryNo gynecological history recorded. Obstetrics History GPAL:G 0 P 0 0 0 0 Past Encounters Encounter ID Performer Location Encounter Start Date Encounter Closed Date Diagnosis/Indication Diagnosis SNOMED-CT Code Diagnosis ICD10 Code Diagnosis Note [id number] Clary Comer NP [address] [address] [place] [address] 01/31/2024 09:21:51 02/11/2024 15:42:55 History of total knee arthroplasty 0695549917 105 Z96.659 Underwent an elective left knee [...] Lyrica, Lidocaine patch, & PRN APAP & [place] for pain.Rufino nue PT/OT.F/U with ortho on 02/11 as scheduled. Neuropathy 527701264 G62 .9 SEE ABOVE... 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 Anemia fol lowing acute postoperative blood loss 4543336602 2181873 D62 Hgb dropped to 9.6 post-opera tively. Treating supportive ly at present.Tr end Hgbs. Parkinson's disease 4904 9000 G20.A1 Stable. Continue Sinemet, Glycopyrro late, & Entacapone .F/U with neurology as OP. Dementia 47702749 F03.90 ST to follow.Con tinue Donepezil, Memantine, Paroxetine , and Mirtazapin e. Mood is stable at present. Major depr essive disorder 926183216 F32.9 SEE ABOVE... Lung mass 714376917 R91. [address] scan at outside hospital in September 2023 as mass in right lower lobe.F/U for this is unclear -- hospital had recommende d f/u by PCP as OP. History of deep vein thrombosis 918066672 Z86.718 RLE. Presumed stable. Continue Eliquis long-term. History of pulmonary embolus 521067310 Z86.711 In September 2023. Presumed stable. Continue Eliquis long-term. Osteopenia 634923266 M85 .80 Presumed stable. Continue Ca + D and Vit D3. 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 Continue monthly injection. Vitamin D deficiency 347 61107 E55.9 Presumed stable. Continue supplement . Gastroesop hageal reflux disease without esophagitis 611913984 K21.9 Stable. Continue Omeprazole . Could consider changing to H2 lul or changing to PRN in pt with osteopenia . Advance care planning 71 9198960 Z71.89 Pt tells me she is a DNR, however she has signed her POLST form as a Full Code. Nursing to review further with patient and mPOA. Constipation 05796088 K5 9.00 Stable. Continue Colace & Miralax. [id number] Shara Oneal, DO [address] [place] [address] 02/03/2024 17:06:06 02/11/2024 15:44:07 History of total knee arthroplasty 5938489697 105 Z96.659 Underwent an elective left knee [...] Lyrica, Lidocaine patch, & PRN APAP & [place] for pain.Rufino nue PT/OT.F/U with ortho on 02/11 as scheduled. Prosthetic joint loosening 657221414 T84.033S SEE ABOVE... Anemia fol lowing acute postoperative blood loss 5445737639 8437326 D62 Hgb dropped to 9.6 post-opera tively. Treating supportive ly at present.Tr end Hgbs. Parkinson's disease 4904 9000 G20.A1 Stable. Continue Sinemet, Glycopyrro late, & Entacapone .F/U with neurology as OP. Neuropathy 743363364 G62 .9 SEE ABOVE... Dementia 87474090 F03.90 ST to follow.Con tinue Donepezil, Memantine, Paroxetine , and Mirtazapin e. Mood is stable at present. Major depr essive disorder 304904494 F32.9 SEE ABOVE... Osteopenia 275835253 M85 .80 Presumed stable. Continue Ca + D and Vit D3. Gastroesop hageal reflux disease without esophagitis 297564367 K21.9 Stable. Continue Omeprazole . Could consider changing to H2 lul or changing to PRN in pt with osteopenia . Vitamin D deficiency 347 08548 E55.9 Presumed stable. Continue supplement . Disorder o f vitamin B12 327398897 E53.8 Presumed stable. Continue monthly injection. Lung mass 446859661 R91. [address] scan at outside hospital in September 2023 as mass in right lower lobe.F/U for this is unclear -- hospital had recommende d f/u by PCP as OP. History of deep vein thrombosis 436971318 Z86.718 RLE. Presumed stable. Continue Eliquis long-term. History of pulmonary embolus 227893225 Z86.711 In September 2023. Presumed stable. Continue Eliquis long-term. Constipation 67171297 K5 9.00 Stable. Continue Colace & Miralax. Physical deconditioning 5522274457 9102 R68.89 related to advanced age, recent knee replacemen t, comorbidit iestherapi es in place, she will return to her [facility] apartment at upon d/c from SNFcontinu e eliquis for DVT prophylaxi kenya meds as abovecatha rtics in place [id number] Clary Comer NP [address] [address] 02/05/2024 09:05:38 02/07/2024 15:49:20 History of total knee arthroplasty 2446475215 105 Z96.659 Underwent an elective left knee [...] Lyrica, Lidocaine patch, & PRN APAP & [place] for pain.Rufino nue PT/OT.F/U with ortho on 02/11 as scheduled. Prosthetic joint loosening 422428783 T84.033S SEE ABOVE... Anemia fol lowing acute postoperative blood loss 7824790900 1817716 D62 Hgb dropped to 9.6 post-opera tively. Treating supportive ly at present.Tr end Hgbs. Parkinson's disease 4904 9000 G20.A1 Stable. Continue Sinemet, Glycopyrro late, & Entacapone .F/U with neurology as OP. Neuropathy 656227865 G62 .9 SEE ABOVE... Dementia 92632642 F03.90 ST has followed.C ontinue Donepezil, Memantine, Paroxetine , and Mirtazapin e. Mood is stable at present. Major depr essive disorder 987168094 F32.9 SEE ABOVE... Osteopenia 900875308 M85 .80 Presumed stable. Continue Ca + D and Vit D3. Gastroesop hageal reflux disease without esophagitis 884021523 K21.9 Stable. Continue Omeprazole . PCP could consider changing to H2 lul or changing to PRN in pt with osteopenia . Vitamin D deficiency 347 14401 E55.9 Presumed stable. Continue supplement . Disorder o f vitamin B12 585245809 E53.8 Presumed stable. Continue monthly injection. Lung mass 032246850 R91. [address] scan at outside hospital in September 2023 as mass in right lower lobe.F/U for this is unclear -- hospital had recommende d f/u by PCP as OP. History of deep vein thrombosis 973331875 Z86.718 RLE. Presumed stable. Continue Eliquis long-term. History of pulmonary embolus 311165149 Z86.711 In September 2023. Presumed stable. Continue Eliquis long-term. Constipation 76510584 K5 9.00 Stable. Continue Colace & Miralax. Health Concerns Section Related Observation LastModified by Organization Detai ls LastModified Time None Recorded Concern Status LastModified by Organization Details LastModified Time None Recorded Advance Directives Directive None Recorded Payers Encounter Date Sequence Insurance Name Policy Number Policy Benitez Covered Member ID Benitez Member ID Guarantor Name 01/31/2024 2 [facility] - OPTIONS Sammi A Rohlfing [id number] Sammi A Rohlfing 01/31/2024 1 [place] Sammi A Rohlfing [id number] Sammi A Rohlfing 02/03/2024 2 [facility] - OPTIONS Sammi A Rohlfing [id number] Sammi A Rohlfing 02/03/2024 1 [place] Sammi A Rohlfing [id number] Sammi A Rohlfing 02/05/2024 2 [facility] - OPTIONS Sammi A Rohlfing [id number] Sammi A Rohlfing 02/05/2024 1 [place] Sammi A Rohlfing [id number] Sammi A Rohlfing Notes Date Note Type [...] discharged from the hospital on 01/[address] [facility] in [place]. While there, she was noted She has been discharged to this facility as of 01/30/24 for further rehabilitation with goal to return to her ILF apartment at [place]. She is WBAT to LLE and continues [...] positive).Bette lives in an ILF apartment at [place]. Her two sisters live only a few doors away and check in on her.Pharmacy is [facility] in [place].PCP is Dr. Rosa Onofre. Clary Comer, KIM [address] [facility], [place], [address], [place] - [facility] 01/31/2024 15:00:30 [...] discharged from the hospital on 01/[address] [facility] in [place] with an uncomplicated IRF stay. She has now been discharged to this facility as of 01/30/24 for further rehabilitation with goal to return to her ILF apartment at [place]. She is WBAT to LLE and continues [...] Jerry lives in an ILF apartment at [place]. Her two sisters live only a few doors away and check in on her.Pharmacy is [facility] in [place] [address] [place], [address], [place] - [facility] 02/07/2024 04:05:04 [...] discharged from the hospital on 01/[address] [facility] in [place]. While there, she was noted She has been discharged to this facility as of 01/30/24 for further rehabilitation with goal to return to her ILF apartment at [place]. She is WBAT to LLE and continues on Doxycycline through 02/10 for surgical prophylaxis. mPOA is mally Cheney (although this should be confirmed as pt and sister aren't positive).Bette lives in an ILF apartment at [place]. Her two sisters live only a few [...] without concerns at present. Clary Comer, [address] [address] [facility], [place], [address], [place] - [facility] 02/05/2024 16:03:19 OBGyn Episode No OBEpisode recorded.
== END 2024-07-05 11:12 | disposition home or self-care (01) ==
PROVIDERS: PCP Internal Medicine; Visit Provider Internal Medicine
DX: Z12.31 Encounter for screening mammogram for malignant neoplasm of breast (principal)
CPT/HCPCS: 77063; 77067

== ENCOUNTER 2024-09-14 11:48 | Emergency (ER) | payer MEDICARE, SELFPAY ==
--- NOTE | 2024-09-14 11:50 | ED.SKABFB ---
HPI - Skin/Abscess/Foreign Bdy General Chief complaint: Skin/Abscess/Foreign Body Stated complaint: Rash Under Breast Time Seen by Provider: 09/14/24 11:50 Source: patient Mode of arrival: ambulatory Limitations: no limitations History of Present Illness HPI narrative: Bette is an 84-year-old female patient presenting to the clinic today with complaints of a rash under her left breast x1 week. She reports the rash is red, itching, and peeling. Denies any pain currently. Family member thinks she may have shingles. Related Data Home Medications ?Medication ?Instructions ?Recorded ?Confirmed ?Last Taken ?Type carbidopa 10 mg-levodopa 100 mg 1 tablet PO QID 06/28/20 09/14/24 06/05/24 History tablet entacapone 200 mg tablet 200 mg PO QID 03/30/22 09/14/24 06/05/24 History mirtazapine 15 mg tablet 15 mg PO HS 03/30/22 09/14/24 06/04/24 History donepezil 10 mg tablet 10 mg PO HS 11/17/22 09/14/24 06/04/24 History apixaban 5 mg tablet (Eliquis) 5 mg PO BID 09/19/23 09/14/24 06/01/24 History cholecalciferol (vitamin D3) 125 125 mcg PO DAILY 12/26/23 09/14/24 06/04/24 History mcg (5,000 unit) capsule multivitamin (Daily Multi-Vitamin 1 tablet PO DAILY 12/26/23 08/05/24 06/04/24 History tablet) glycopyrrolate 1 mg tablet 1 mg PO HS 05/23/24 09/14/24 06/04/24 History memantine 10 mg tablet 10 mg PO BID 05/24/24 09/14/24 06/04/24 History Allergies Allergy/AdvReac Type Severity Reaction Status Date / Time hydrocodone AdvReac Severe Hallucinati Verified 09/14/24 12:01 ng codeine AdvReac Intermediate Nausea and Verified 09/14/24 12:01 Vomiting Review of Systems Review of Systems: Pertinent positives per HPI. Patient denies any fever, chills, rash, headache, visual changes, dizziness, cough, runny nose, sore throat, shortness of breath, chest pain, palpitations, nausea, vomiting, diarrhea, constipation, abdominal pain, or any urinary issues. [facility] Past Medical History Medical History Deep venous thrombosis (DVT) of right peroneal vein Iliotibial band syndrome affecting left lower leg Esophageal stricture Fracture of ankle, bimalleolar, left, closed Dysphagia Parkinsons disease Coarse tremors Osteopenia Compression fracture of T11 vertebra Surgical History Surgical History History of cholecystectomy H/O: hysterectomy Status post revision of total replacement of left knee S/P ORIF (open reduction internal fixation) fracture left femur Family History Family History Father Acute myocardial infarction Mother Uterine cancer Social History Social History Smoking status: Never smoker Second hand tobacco smoke exposure: No Alcohol intake: never Substance use: never Substance use type: does not use Do You Feel Safe in your Home?: Yes Lack of Transportation: No Lack of Food: Never True Current Housing: I Have Housing Concerned About Future Housing: No Difficulty Paying Gas/Electric Bills: No Difficulty Paying for Meds: No Currently Unemployed: No Education: Don't Know Difficulty w/ Childcare or Family Care: No Living arrangements: assisted living Additional living arrangements comments: assisted living Gender identity (if verbalized by the patient): Female Spiritual care concerns: No Comments At the time of my signature, I reviewed and agree with the nursing past medical, surgical, social, and family history. There is no relevant family history pertinent to the patient complaint. Exam Narrative: General: Well-developed, well nourished, in no apparent distress Head: Normocephalic, atraumatic. Cardio: Regular rate and rhythm, s1 and s2 normal, no murmur appreciated. Resp: Clear to auscultation bilaterally, no rhonchi, rales, wheezing or rubs. Integumentary: [place], warm, and dry, intact without lesion, red, beefy, glistening, peeling itchy rash under the left breast Course Course Emergency Course: Portions of this record may have been created with voice recognition software. Level of Care: Express Care Visit Vital Signs Vital signs: Vital Signs Temperature 36.9 C 09/14/24 11:58 Pulse Rate 73 09/14/24 11:58 Respiratory Rate 18 09/14/24 11:58 Blood Pressure 105/67 09/14/24 11:58 Pulse Oximetry 97 09/14/24 11:58 Oxygen Delivery Room Air 09/14/24 11:58 Temperature 36.9 C 09/14/24 11:58 Pulse Rate 73 09/14/24 11:58 Respiratory Rate 18 09/14/24 11:58 Blood Pressure 105/67 09/14/24 11:58 Pulse Oximetry 97 09/14/24 11:58 Oxygen Delivery Room Air 09/14/24 11:58 Vital signs reviewed MDM - Skin/Abscess/Foreign Bdy MDM Narrative Medical decision making narrative: At the time of visit patient is resting comfortably on the exam table. Patient appears to be nontoxic. Plan: I suspect patient has a yeast skin infection under the left breast. For nystatin powder was sent to the pharmacy. Supportive measures were discussed with the patient and they voiced understanding discharge instructions and agrees to treatment plan. Return precautions reviewed Differential Diagnosis Differential diagnosis: Likely abscess of skin or subcutaneous tissue, viral exanthem, dermatophytosis, urticaria, herpes zoster, allergic reaction to drug, cellulitis, eczema, insect bites, impetigo, contact dermatitis and other (Candidal skin infection) Discharge Plan Discharge Clinical Impression: Candidal skin infection Patient Disposition: Home Condition: Stable Instructions: Antibiotic Form, Skin Yeast Infection (ED) Additional Instructions: Wash daily with soap and water and pat dry Keep area clean and dry as much as possible Apply nystatin powder twice daily as prescribed Follow-up with your primary care doctor next week if symptoms persist Patient Language: French Prescriptions: New nystatin 100,000 unit/gram powder 1 applic topical BID 14 Days Qty: 60 0RF No Action memantine 10 mg tablet 10 mg PO BID omeprazole 40 mg capsule,delayed release(DR/EC) 40 mg PO BID 60 Days Qty: 120 1RF Rx Instructions: do not take NSAIDS or Aspirin. this high dose is only temporary, the intention is to taper it down once severe esophagitis is resolved, thank you Eliquis 5 mg tablet 5 mg PO BID cholecalciferol (vitamin D3) 125 mcg (5,000 unit) capsule 125 mcg PO DAILY multivitamin [Daily Multi-Vitamin] Tablet 1 tablet PO DAILY carbidopa-levodopa 10-100 mg tablet 1 tablet PO QID entacapone 200 mg tablet 200 mg PO QID mirtazapine 15 mg tablet 15 mg PO HS glycopyrrolate 1 mg tablet 1 mg PO HS paroxetine HCl 20 mg Tablet 20 mg PO QAM Qty: 30 0RF donepezil 10 mg tablet 10 mg PO HS Follow-up/Referrals: Kingston,Mahad Vasques MD [Primary Care Provider] - Time of Disposition: 12:05 Quality NIHSS Nursing Documentation ED NIHSS nursing documentation: reviewed/agree
[2024-09-14 11:58] VITALS: BP 105/67; PULSE 73; RESP 18; TEMP 36.9; O2SAT 97
== END 2024-09-14 12:10 | disposition home or self-care (01) ==
PROVIDERS: Emergency Provider Nurse Practitioner Family; PCP Internal Medicine
DX: B37.2 Candidiasis of skin and nail (principal); G20.A1 Parkinson's disease without dyskinesia, without mention of fluctuations; M85.80 Other specified disorders of bone density and structure, unspecified site; Z86.711 Personal history of pulmonary embolism
CPT/HCPCS: 99213; G0463

== ENCOUNTER 2024-10-19 09:55 | Emergency (ER) | payer MEDICARE, SELFPAY ==
[2024-10-19 10:07] VITALS: BP 117/80; PULSE 77; RESP 16; TEMP 36.6; O2SAT 94
--- NOTE | 2024-10-19 10:17 | ED_ITS ---
HPI - Back Pain/Injury General Chief Complaint: Back Pain/Injury Stated Complaint: Back Pain Time Seen by Provider: 10/19/24 10:10 Source: patient and RN notes reviewed Mode of arrival: ambulatory Limitations: no limitations History of Present Illness HPI Narrative: Patient presents today complaining of bilateral low back pain x2 days without injury or trauma. Denies radiation of the pain, loss of bowel or bladder control, numbness or tingling. Currently rates her pain 10/10 and has taken 1 Tylenol without relief. Review of her chart reports T11 compression fracture and L3 vertebral fracture in the past, patient states these do not typically bother her on a daily basis. Patient has history Parkinson's as well and walks with a cane or walker. Denies any urinary symptoms. Related Data Home Medications ?Medication ?Instructions ?Recorded ?Confirmed ?Last Taken ?Type carbidopa 10 mg-levodopa 100 mg 1 tablet PO QID 06/28/20 10/19/24 06/05/24 History tablet entacapone 200 mg tablet 200 mg PO QID 03/30/22 10/19/24 06/05/24 History mirtazapine 15 mg tablet 15 mg PO HS 03/30/22 10/19/24 06/04/24 History donepezil 10 mg tablet 10 mg PO HS 11/17/22 10/19/24 06/04/24 History cholecalciferol (vitamin D3) 125 125 mcg PO DAILY 12/26/23 09/14/24 06/04/24 History mcg (5,000 unit) capsule multivitamin (Daily Multi-Vitamin 1 tablet PO DAILY 12/26/23 08/05/24 06/04/24 History tablet) glycopyrrolate 1 mg tablet 1 mg PO HS 05/23/24 10/19/24 06/04/24 History memantine 10 mg tablet 10 mg PO BID 05/24/24 10/19/24 06/04/24 History carbidopa 25 mg-levodopa 100 mg tablet 10/19/24 Unknown History tablet Allergies Allergy/AdvReac Type Severity Reaction Status Date / Time hydrocodone AdvReac Severe Hallucinati Verified 10/19/24 10:03 ng codeine AdvReac Intermediate Nausea and Verified 10/19/24 10:03 Vomiting PMFSH Past Medical History Medical History Deep venous thrombosis (DVT) of right peroneal vein Iliotibial band syndrome affecting left lower leg Esophageal stricture Fracture of ankle, bimalleolar, left, closed Dysphagia Parkinsons disease Coarse tremors Osteopenia Compression fracture of T11 vertebra Surgical History Surgical History History of cholecystectomy H/O: hysterectomy Status post revision of total replacement of left knee S/P ORIF (open reduction internal fixation) fracture left femur Family History Family History Father Acute myocardial infarction Mother Uterine cancer Social History Social History Smoking status: Never smoker Second hand tobacco smoke exposure: No Alcohol intake: never Substance use: never Substance use type: does not use Do You Feel Safe in your Home?: Yes Lack of Transportation: No Lack of Food: Never True Current Housing: I Have Housing Concerned About Future Housing: No Difficulty Paying Gas/Electric Bills: No Difficulty Paying for Meds: No Currently Unemployed: No Education: Don't Know Difficulty w/ Childcare or Family Care: No Living arrangements: assisted living Additional living arrangements comments: assisted living Gender identity (if verbalized by the patient): Female Spiritual care concerns: No Comments At time of signature, I have reviewed and agree with nursing past medical, surgical, social and family history unless otherwise noted. Please see nursing chart for further information. There is no relevant family history pertinent to the presenting complaint Exam Narrative: GENERAL: Well-appearing, well-nourished, and in moderate pain distress. HEAD: Normocephalic, atraumatic. EYES: EOMI. No redness or drainage. Conjunctivae normal. ENT: Mucous membranes pink and moist. NECK: Normal AROM. CHEST: No respiratory distress. Clear to auscultation. HEART: Regular rate and rhythm. No murmur appreciated. Normal peripheral pulses. ABDOMEN: Soft, nontender, nondistended, normal active bowel sounds. MUSCULOSKELETAL: Mild lower lumbar midline tenderness. Bilateral lower lumbar paraspinal muscle tenderness that extends to the bilateral SI joints. Distal sensation intact bilaterally, saddle sensation intact. Capillary refill normal. 5/5 strength in BLE. EXTREMITIES: Normal range of motion. No edema. SKIN: Warm, dry, no rash. Capillary refill normal. Normal skin turgor. NEURO: No focal deficits. Alert and oriented x3. Gait mildly tremulous with walker. PSYCH: Normal affect. No signs of depression or anxiety. Course Course Level of Care: Express Care Visit Vital Signs Vital signs: Vital Signs Temperature 97.8 F 10/19/24 10:07 Pulse Rate 77 10/19/24 10:07 Respiratory Rate 16 10/19/24 10:07 Blood Pressure 117/80 10/19/24 10:07 Pulse Oximetry 94 10/19/24 10:07 Temperature 97.8 F 10/19/24 10:07 Pulse Rate 77 10/19/24 10:07 Respiratory Rate 16 10/19/24 10:07 Blood Pressure 117/80 10/19/24 10:07 Pulse Oximetry 94 10/19/24 10:07 Reviewed MDM - Back Pain/Injury MDM Narrative Medical decision making narrative: 84-year-old female patient presents with a 2 day history of bilateral low back pain without radiation, numbness or tingling, or history of injury. Upon exam, patient has some mild midline lower lumbar tenderness that extends to the bilateral lower lumbar paraspinal muscles and the bilateral SI joints. Neurovascularly intact bilaterally. Urinalysis is negative for acute infection. Patient's back pain is likely due to muscle strain and sciatica. Will treat with short course of prednisone. Advised to use Tylenol or NSAID. Patient is no longer taking her Eliquis. Also recommend topical lidocaine patches or heating pad as well. Strict ED precautions given. Vital signs stable. Differential Diagnosis Differential diagnosis: Likely lumbar radiculopathy, sciatica, strain of lumbar region and other (Osteoarthritis, UTI) Lab Data Attestation: I reviewed the patient's lab results. Labs: Lab Results 10/19/24 Range/Units 10:25 POC Urine Color Dark POC Urine Clarity Clear POC Urine pH 6.5 POC Ur Specif Collins 1.015 POC Urine Protein Trace (Negative) POC Ur Glucose (UA) Trace (Negative) POC Urine Ketones Negative (Negative) POC Urine Blood Negative (Negative) POC Urine Nitrite Negative (Negative) POC Urine Bilirubin Negative (Negative) POC Urine Urobilinogen 0.2 POC U Leukocyte Esteras Negative (Negative) Critical Care Time Critical Care Time Critical Care Time: No Discharge Plan Discharge Clinical Impression: Acute bilateral low back pain with bilateral sciatica Patient Disposition: Home Condition: Stable Instructions: Sciatica (ED), Acute Low Back Pain (ED) Additional Instructions: Your urinalysis today is negative for infection. Please start the prednisone and take as prescribed. Start Tylenol or ibuprofen for pain, if able. Use a heating pad to help relax your muscles for only 10 minutes at a time. Monitor your skin closely. You may also try an [id number] lidocaine patch. Do not use the patch underneath a heating pad. Follow-up with your PCP in 5-7 days if symptoms are not improving. As discussed, please go to the ER immediately if symptoms worsen to include numbness or tingling in your legs or genitalia, loss of bowel or bladder control, or significant increase in your discomfort. Patient Language: Cypriot Prescriptions: New prednisone 10 mg tablet 30 mg PO DAILY 5 Days Qty: 15 0RF Discontinued Eliquis 5 mg tablet 5 mg PO BID No Action nystatin 100,000 unit/gram powder 1 applic topical BID 14 Days Qty: 60 0RF memantine 10 mg tablet 10 mg PO BID carbidopa-levodopa 25-100 mg tablet omeprazole 40 mg capsule,delayed release(DR/EC) 40 mg PO BID 60 Days Qty: 120 1RF Rx Instructions: do not take NSAIDS or Aspirin. this high dose is only temporary, the intention is to taper it down once severe esophagitis is resolved, thank you cholecalciferol (vitamin D3) 125 mcg (5,000 unit) capsule 125 mcg PO DAILY multivitamin [Daily Multi-Vitamin] Tablet 1 tablet PO DAILY carbidopa-levodopa 10-100 mg tablet 1 tablet PO QID entacapone 200 mg tablet 200 mg PO QID mirtazapine 15 mg tablet 15 mg PO HS glycopyrrolate 1 mg tablet 1 mg PO HS paroxetine HCl 20 mg Tablet 20 mg PO QAM Qty: 30 0RF donepezil 10 mg tablet 10 mg PO HS Follow-up/Referrals: Kingston,Mahad Vasques MD [Primary Care Provider] - Time of Disposition: 10:44
[2024-10-19 10:26] LABS: EDUAAPPEAR Clear; EDUABILI Negative (Negative); EDUABLOOD Negative (Negative); EDUACOLOR1 Dark; EDUAGLUCOSE Trace (Negative); EDUAKETONE Negative (Negative); EDUALEUKO Negative (Negative); EDUANITRATE Negative (Negative); EDUAPH 6.5; EDUAPROTEIN Trace (Negative); EDUASPGRAVITY 1.015; EDUAUROBILI 0.2
== END 2024-10-19 10:49 | disposition home or self-care (01) ==
PROVIDERS: Emergency Provider Nurse Practitioner; PCP Internal Medicine
DX: M54.42 Lumbago with sciatica, left side (principal); M54.41 Lumbago with sciatica, right side; G20.A1 Parkinson's disease without dyskinesia, without mention of fluctuations; M85.80 Other specified disorders of bone density and structure, unspecified site; Z86.73 Personal history of transient ischemic attack (TIA), and cerebral infarction without residual deficits
CPT/HCPCS: 81003; 99213; G0463

== ENCOUNTER 2024-10-21 14:09 | Outpatient (CLI) | payer MEDICARE, SELFPAY ==
--- NOTE | ~2024-10-21 | XR_ITS ---
EXAM/ PROCEDURE: XR lumbar spine 2-3V - 10/21/2024 14:47 CDT HISTORY: 84 years old Female with low back pain on/off for 2 years COMPARISON: None available TECHNIQUE: Three view(s) FINDINGS/ IMPRESSION: Age-indeterminate decrease in height of L2 and L3 vertebral bodies, concerning for compression deform ities. Status post T11 kyphoplasty. Cholecystectomy clips are seen. Multilevel degenerative changes are seen in the spine. Moderate stool burden. Reviewed, dictated and finalized at location A.
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
--- OUTSIDE RECORDS SUMMARY | 2024-10-21 14:18 | XMS_ITS ---
Author Name Auto Generated, Auto Generated Organization [facility] Address [address] [place] [address] Phone [phone] Care Team Providers Care Silk Crepe Machine Operator Name Role Phone Win Craft Emilydenisseskye Unavailable [phone] Micheal Mckeon Unavailable John Sarah Unavailable Clary Comer Unavailable Mahad Onofre Unavailable Shaar Gilman Unavailable Functional Status No Results Mental Status No Results Allergies and Intolerances Name Onset Date Reaction Severity codeine (Allergy) SunMar 21 22:01:00 EST 2020 Encounters Program Name Primary Diagnosis Admission Date/Time Dis charge Date/Time [facility] SunFeb 05 19:00:00 EST 2023Mar 28 17:00:00 EST 2023 [facility] SunJun 04 19:00:00 EST 2024Jul 24 19:59:00 EDT 2024 null SunMar 05 19:00 :00 EST 2019 [facility] SunAugust 07 20:00:00 EDT 2024August 13 18:00:00 EDT 2024 [facility] SunApr 09 19:00:00 EST 2023Jan 15 08:00:00 EDT 2023 [facility] SunJan 29 10:30:00 EDT 2023Feb 04 06:08:00 EST 2023 Immunizations Name Dates Status TST-PPD intradermal SunJan 31 01:00:00 EDT 2023 Completed TST-PPD intradermal SunFeb 01:00:00 ED2023 Completed Medications Medication Directions Start Date End [...] do chest x-ray. SunJan 29 15:40:00 2023Feb 04:00:00 EST 2023 acetaminophen 325 mg tablet 2 tablets TA BLET Oral PRN Every 6 Hours Indication: Pain SunJan 29 16:30:00 2023Feb 04:00:00 EST 2023 Eliquis 5 mg tablet 1 tablet TABLET Oral 2 Times Daily Indication: DVT prophylaxis SunJan 29 16:30:00 2023Feb 04:00:00 EST 2023 carbidopa 10 mg-levodopa 100 mg tablet 1 tablet TABLET Oral 4 Times Daily Indication: Parkinsons SunJan 29 16:30:00 2023Feb 04:00:00 EST 2023 cholecalciferol(vitamin D3) 125 mcg (5,000 unit) disintegrating tablet 1 tablet TABLET,DISINTEGRATING Oral 1 Time Daily Indication: Supplement SunJan 29 16:30:00 2023Feb 04:00:00 EST 2023 docusate sodium 100 mg capsule 1 tablet CAPSULE Oral 2 Times Daily for 7 Days Indication: Constipation SunJan 29 16:30:00 2023Feb 04:00:00 EST 2023 donepeziL 10 mg tablet 1 tablet TABLET O ral 1 Time Daily Indication: Memory SunJan 29 16:30:00 2023Feb 04:00:00 EST 2023 doxycycline monohydrate 100 mg capsule [...] Days Indication: Pain SunJan 29 16:30:00 2023Feb 04:: EST 2023 memantine 10 mg tablet 1 tablet TABLET O ral 2 Times Daily Indication: Memory SunJan 29 16:30:00 2023Feb 04:: EST 2023 mirtazapine 15 mg tablet 1 tablet TABLET Oral 1 Time Daily Indication: Appetite stimulant SunJan 29 16:40:00 2023Feb 04:: EST 2023 omeprazole 40 mg capsule,delayed release 1 capsule CAPSULE,DELAYED RELEASE (ENTERIC COATED) Oral 1 Time Daily Indication: GERD SunJan 29 16:40:00 2023Feb 04:00: EST 2023 calcium 500 mg (as calcium carbonate 1,250 mg) tablet 1 tablet TABLET Oral 2 Times Daily Indication: Supplement SunJan 29 16:40:00 2023Feb 04:00:00 EST 2023 PARoxetine 20 mg tablet 1 [...] Daily Indication: Nerve pain SunJan 29 16:40:00 EDT 2023Feb 04 01:00:00 EST 2023 diclofenac potassium 50 mg tablet 1 tablet TABLET Oral 1 Time Daily Indication: Supplement SunMar 29 16:11:00 2022Mar 29 16:12:00 EST 2022 diclofenac potassium 50 mg tablet 1 tablet TABLET Oral 2 Times Daily Indication: Pain SunMar 29 16:00:00 2022Apr 06 01:00:00 EST 2023 acetaminophen 325 mg tablet 2 tablets TA BLET Oral 2 Times Daily Indication: Pain 3 grams/24hrs SunMar 29 15:00:00 EST 2022Apr 06 01:00:00 EST 2023 Lidocaine Pain Relief 4 % topical patch 1 patch ADHESIVE PATCH, MEDICATED Topical 2 Times Daily Indication: Pain. On AM and off HS SunMar 19 17:00:00 EST 2022Apr 06 01:00:00 EST 2023 TubersoL 5 tub. unit/0.1 mL intradermal injection solution 0.1 ml VIAL (ML) Intradermal 1 Time Weekly for 2 Weeks Indication: TB test 1st injection on admission, then one week after. Read between 48 and 72 hours SunMar 16 11:00:00 EST 2022Mar 30 10:59:00 EST 2022 TubersoL 5 tub. unit/0.1 mL intradermal [...] 14:00:00 EST 2022Apr 06 01:00:00 EST 2023 PARoxetine 20 mg tablet 1 tablet TABLET Oral 1 Time Daily Indication: Depression SunMar 15 17:00:00 EST 2022Apr 06 01:00:00 EST 2023 carbidopa 10 mg-levodopa 100 mg tablet 1 tablet TABLET Oral 4 Times Daily Indication: Parkinsons SunMar 15 19:00:00 EST 2022Apr 06 01:00:00 EST 2023 acetaminophen 325 [...] Time Weekly SunApr 05 01:00:00 EST 2021Apr 04:00:00 EST 2021 aspirin 81 mg chewable tablet 81 mg TABLET,CHEWABLE Oral 2 Times Daily SunMar 29:00: EST 2020Apr 04 01:00:00 EST 2021 carbidopa 10 mg-levodopa 100 mg tablet 1 tab TABLET Oral 4 Times Daily SunMar 29:00:00 EST 2020Apr 04 01:00:00 EST 2021 Centrum Silver 0.4 mg-300 mcg-250 mcg tablet 1 tablet TABLET Oral 1 Time Daily SunMar 29 17:00:00 EST 2020Apr 04 01:00:00 EST 2021 docusate sodium 100 mg capsule 100 mg CAPSULE Oral 2 Times Daily SunMar 29:00:00 EST 2020Apr 04 01:00:00 EST 2021 Lovenox 40 mg/0.4 mL subcutaneous syringe 40 mg SYRINGE (ML) Subcutaneous 1 Time Daily SunMar 29 17:00:00 EST 2020Apr 04 01:00:00 EST 2021 folic acid 1 mg tablet 1 mg TABLET Oral 1 Time Daily SunMar 29:00:00 EST 2020Apr 04 01:00:00 EST 2021 mirtazapine 15 mg tablet 15 mg TABLET Or al 1 Time Daily SunMar 29 17:00:00 EST 2020Mar 30 07:58:00 EST 2020 omeprazole 40 mg capsule,delayed release 40 mg CAPSULE,DELAYED RELEASE (ENTERIC COATED) Oral 1 Time Daily SunMar 29:00:00 EST 2020Apr 04 01:00:00 EST 2021 PARoxetine 20 mg tablet 20 mg TABLET Ora l 1 Time Daily SunMar 29 17:00:00 EST 2020Apr 04 01:00:00 EST 2021 traMADoL 50 mg tablet 50 mg TABLET Oral PRN Every 6 Hours PRN for pain SunMar 29:00: EST 2020Mar 30 07:59:00 EST 2020 acetaminophen [...] tab CAPSULE Oral 2 Times Daily SunMar 29:00:00 EST 2020Mar 30 08:13:00 EST 2020 calcium carbonate 500 mg calcium (1,250 mg) tablet 1 tab TABLET Oral 1 Time Daily SunMar 29:00:00 EST 2020Apr 04 01:00:00 EST 2021 Vitamin D2 1,250 mcg (50,000 unit) capsule 50,000 Unit CAPSULE Oral 1 Time Weekly Vitamin D deficiency SunMar 24:00:00 EST 2020Mar 24:44:00 EST 2020 Vitamin D2 1,250 mcg (50,000 unit) capsule 50,000 Unit CAPSULE Oral 1 Time Weekly Vitamin D deficiency SunMar 24:00:00 EST 2020Mar 29:14:00 EST 2020 calcium carbonate 500 mg calcium (1,250 mg) tablet 500mg TABLET Oral 1 Time Daily Hypocalcemia SunMar 24:00:00 EST 2020Mar 29 17:14:00 EST 2020 acetaminophen [...] Daily DX STROKE / CLOT PREVENTION SunMar 21 21:00:00 EST 2020Mar 29 17:14:00 [...] Oral 2 Times Daily DX CONSTIPATION SunMar 21 21:00:00 EST 2020Mar 29 17:14:00 EST 2020 enoxaparin 40 mg/0.4 mL subcutaneous syringe 0.4ML SYRINGE (ML) Subcutaneous 1 Time Daily DX CLOT PREVENTION SunMar 21 21:00:00 EST 2020Mar 29 17:14:00 EST 2020 folic acid [...] Oral 1 Time Daily DX GERD SunMar 21:00:00 EST 2020Mar 29 17:14:00 EST 2020 PARoxetine 20 mg tablet 1 TAB TABLET Ora l 1 Time Daily DX DEPRESSION SunMar 21 21:00:00 EST 2020Mar 29 17:14:00 EST 2020 traMADoL 50 [...] 2020 * End Date: * Text: * jail (current) use of aspirin* Code: * Start Date: SunMar 21 00:00:00 EST 2020 * End Date: * Text: * jail (current) use of anticoagulants* Code: * Start Date: SunMar 21 00:00:00 2020 * End Date: * Text: * [...] 2020 * End Date: * Text: * Muscle weakness (generalized)* Code: * Start Date: SunApr 05 00:00:00 EST 2021 * End Date: SunJan 31 00:00:00 EDT 2023 * Text: * Other symbolic dysfunctions* Code: * Start Date: SunApr 05 00:00:00 EST 2021 * End Date: SunJan 31 00:00:00 EDT 2023 * Text: * Other voice and resonance disorders* Code: * Start Date: SunApr 05 00:00:00 EST 2021 * End Date: * Text: * Parkinson's disease without dyskinesia, without mention of fluctuations* Code: * Start Date: SunDec 31 00:00:00 EDT 2022 * End Date: * Text: * Displaced bimalleolar fracture of left lower leg, subsequent encounter for closed fracture with routine healing* Code: * Start Date: SunMar 15 00:00:00 EST 2022 * End Date: SunJan 31 00:00:00 EDT 2023 * Text: * Presence of other bone [...] 2022 * End Date: * Text: * Depression, unspecified* Code: * Start Date: SunMar 15 00:00:00 EST 2022 * End Date: SunJan 31 00:00:00 EDT 2023 * Text: * Parkinsonism, unspecified* Code: * Start Date: SunApr 10 00:00:00 EST 2023 * End Date: SunJan 31 00:00:00 EDT 2023 * Text: * Unspecified voice and resonance disorder* Code: * Start Date: SunApr 10 00:00:00 EST 2023 * End Date: * Text: * Mechanical loosening of internal right knee prosthetic joint, subsequent encounter* Code: * Start Date: SunJan 18 00:00:00 EDT 2023 * End Date: SunJan 31 00:00:00 EDT 2023 * Text: * Mechanical loosening of internal [...] 2023 * End Date: * Text: * 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* Code: * [...] 2023 * End Date: * Text: * Pain in unspecified knee* Code: * Start Date: SunAugust 08 00:00:00 EDT 2024 * End Date: * Text: Vital Signs Vital Sign Measurement Date Body weight 166.00 [lb_av] SunFeb 04 16:55 :11 EST 2023 Systolic Blood Pressure 103.00 mm[Hg] SunFeb 04 09:02:56 EST 2024 Diastolic Blood Pressure 56.00 mm[Hg] SunFeb 04 09:02:56 EST 2023 Pulse Oximetry 95.00 % SunFeb 04 09:02 :56 EST 4 Heart Rate 67.00 /min SunFeb 04 09:02 :56 EST 4 Body temperature 98.00 [degF] SunFeb 04 09:0 2:56 EST 4 Respiratory rate 18.00 /min SunFeb 04 09:0 2:56 EST 4 Systolic Blood Pressure 115.00 mm[Hg] SunFeb 04 00:30:55 EST 2023 Diastolic Blood Pressure 69.00 mm[Hg] SunFeb 04 00:30:55 EST 4 Pulse Oximetry 92.00 % SunFeb 04 00:30 :55 EST 2023 Heart Rate 78.00 /min SunFeb 04 00:30 :55 EST 2023 Body temperature 98.20 [degF] SunFeb 04 00:3 0:55 EST 2023 Respiratory rate 18.00 /min SunFeb 04 00:3 0:55 EST 2023 Body weight 166.00 [lb_av] SunFeb 03 13:03 :33 EST 2023 Systolic Blood Pressure 109.00 mm[Hg] SunFeb 03 09:12:43 EST 2023 Diastolic Blood Pressure 57.00 mm[Hg] SunFeb 03 09:12:43 EST 2023 Pulse Oximetry 96.00 % SunFeb 03 09:12 :43 EST 2023 Heart Rate 71.00 /min SunFeb 03 09:12 :43 EST 2023 Body temperature 98.00 [degF] SunFeb 03 09:1 2:43 EST 2023 Respiratory rate 18.00 /min SunFeb 03 09:1 2:43 EST 4 Systolic Blood Pressure 104.00 mm[Hg] SunFeb 02 23:38:13 EST 2023 Diastolic Blood Pressure 52.00 mm[Hg] SunFeb 02 23:38:13 EST 2023 Pulse Oximetry 93.00 % SunFeb 02 23:38 :13 EST 2023 Heart Rate 72.00 /min SunFeb 02 23:38 :13 EST 2023 Body temperature 98.20 [degF] SunFeb 02 23:3 8:13 EST 2023 Respiratory rate 20.00 /min SunFeb 02 23:3 8:13 EST 2023 Body weight 166.20 [lb_av] SunFeb 02 17:38 :01 EST 2023 Systolic Blood Pressure 115.00 mm[Hg] SunFeb 02 14:08:56 EST 2023 Diastolic Blood Pressure 86.00 mm[Hg] SunFeb 02 14:08:56 EST 2023 Pulse Oximetry 95.00 % SunFeb 02 14:08 :56 EST 2023 Heart Rate 81.00 /min SunFeb 02 14:08 :56 EST 2023 Body temperature 97.30 [degF] SunFeb 02 14:0 8:56 EST 2023 Respiratory rate 18.00 /min SunFeb 02 14:0 8:56 EST 2023 Systolic Blood Pressure 135.00 mm[Hg] SunFeb 02 00:18:51 EDT 2023 Diastolic Blood Pressure 59.00 mm[Hg] SunFeb 02 00:18:51 EDT 2023 Pulse Oximetry 94.00 % SunFeb 02 00:18 :51 EDT 2023 Heart Rate 74.00 /min SunFeb 02 00:18 :51 EDT 2023 Body temperature 98.00 [degF] SunFeb 02 00:1 8:51 EDT 2023 Respiratory rate 18.00 /min SunFeb 02 00:1 8:51 EDT 2023 Systolic Blood Pressure 117.00 mm[Hg] SunFeb 01 14:16:09 EDT 2023 Diastolic Blood Pressure 61.00 mm[Hg] SunFeb 01 14:16:09 EDT 2023 Pulse Oximetry 95.00 % SunFeb 01 14:16 :09 EDT 2023 Body temperature 98.70 [degF] SunFeb 01 14:1 6:09 EDT 2023 Respiratory rate 18.00 /min SunFeb 01 14:1 6:09 EDT 2023 Body weight 166.40 [lb_av] SunFeb 01 14:16 :09 EDT 2023 Heart Rate 58.00 /min SunFeb 01 14:16 :09 EDT 2023 Systolic Blood Pressure 128.00 mm[Hg] SunJan 31 23:54:56 EDT 2023 Diastolic Blood Pressure 66.00 mm[Hg] SunJan 31 23:54:56 EDT 2023 Pulse Oximetry 98.00 % SunJan 31 23:54 :56 EDT 2023 Heart Rate 66.00 /min SunJan 31 23:54 :56 EDT 2023 Body temperature 98.00 [degF] SunJan 31 23:5 4:56 EDT 2023 Respiratory rate 18.00 /min SunJan 31 23:5 4:56 EDT 2023 Body weight 164.00 [lb_av] SunJan 31 15:22 :44 EDT 2023 Systolic Blood Pressure 115.00 mm[Hg] SunJan 31 14:09:10 EDT 2023 Diastolic Blood Pressure 79.00 mm[Hg] SunJan 31 14:09:10 EDT 2023 Pulse Oximetry 92.00 % SunJan 31 14:09 :10 EDT 2023 Heart Rate 70.00 /min SunJan 31 14:09 :10 EDT 2023 Body temperature 98.20 [degF] SunJan 31 14:0 9:10 EDT 2023 Respiratory rate 18.00 /min SunJan 31 14:0 9:10 EDT 2023 Systolic Blood Pressure 141.00 mm[Hg] SunJan 31 00:32:51 EDT 2023 Diastolic Blood Pressure 71.00 mm[Hg] SunJan 31 00:32:51 EDT 2023 Pulse Oximetry 97.00 % SunJan 31 00:32 :51 EDT 2023 Heart Rate 67.00 /min SunJan 31 00:32 :51 EDT 2023 Body temperature 97.90 [degF] SunJan 31 00:3 2:51 EDT 2023 Respiratory rate 18.00 /min SunJan 31 00:3 2:51 EDT 2023 Body weight 166.00 [lb_av] SunJan 30 15:41 :41 EDT 2023 Body weight 166.00 [lb_av] [facility] Jan 30 12:42 :39 EDT 2023 Systolic Blood Pressure 116.00 mm[Hg] [facility] Jan 30 10:36:01 EDT 2023 Diastolic Blood Pressure 61.00 mm[Hg] [facility] Jan 30 10:36:01 EDT 2023 Pulse Oximetry 94.00 % [facility] Jan 30 10:36 :01 EDT 2023 Heart Rate 70.00 /min SunJan 30 10:36 :01 EDT 2023 Body temperature 97.80 [degF] [facility] Jan 30 10:3 6:01 EDT 2023 Respiratory rate 20.00 /min [facility] Jan 30 10:3 6:01 EDT 2023 Systolic Blood Pressure 116.00 mm[Hg] [facility] Jan 29 22:50:08 EDT 2023 Diastolic Blood Pressure 60.00 mm[Hg] SunJan 29 22:50:08 EDT 2023 Pulse Oximetry 95.00 % SunJan 29 22:50 :08 EDT 2023 Heart Rate 68.00 /min SunJan 29 22:50 :08 EDT 2023 Body temperature 98.20 [degF] SunJan 29 22:5 0:08 EDT 2023 Respiratory rate 18.00 /min SunJan 29 22:5 0:08 EDT 2023 Systolic Blood Pressure 116.00 mm[Hg] SunJan 29 16:48:00 EDT 2023 Diastolic Blood Pressure 60.00 mm[Hg] SunJan 29 16:48:00 EDT 2023 Pulse Oximetry 95.00 % SunJan 29 16:48 :00 EDT 2023 Heart Rate 68.00 /min SunJan 29 16:48 :00 EDT 2023 Body Height 62.00 [in_i] SunJan 29 16:48 :00 EDT 2023 Body weight 168.40 [lb_av] SunJan 29 16:48 :00 EDT 2023 Body temperature 98.20 [degF] SunJan 29 16:4 8:00 EDT 2023 Respiratory rate 18.00 /min SunJan 29 16:4 8:00 EDT 2023 Reason for Referral Past Medical History
--- OUTSIDE RECORDS SUMMARY | 2024-10-21 14:18 | XMS_ITS | Encounter Summary ---
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
--- OUTSIDE RECORDS SUMMARY | 2024-10-21 14:18 | XMS_ITS ---
Author Name Auto Generated, Auto Generated Organization [facility] Address [address] [place] [address] Phone [phone] Care Team Providers Care Forming Machine Adjuster Name Role Phone Win Craft Emilydenisseskye Unavailable Micheal Mckeon Unavailable John Sarah Unavailable Clary Comer Unavailable [phone] Mahad Onofre Unavailable Shara Gilman Unavailable Functional Status No Results Mental Status No Results Allergies and Intolerances Name Onset Date Reaction Severity codeine (Allergy) SunMar 21 22:01:00 EST 2020 Encounters Program Name Primary Diagnosis Admission Date/Time Dis charge Date/Time Rehabilitation Clinic SunApr 09 19:00:00 EST 2023Jan 15 08:00:00 EDT 2023 null SunMar 05 19:00 :00 EST 2019 [facility] Unit SunJan 29 10:30:00 EDT 2023Feb 04 06:08:00 EST 2023 Rehabilitation Clinic SunJun 04 19:00:00 EST 2024Jul 24 19:59:00 EDT 2024 Rehabilitation Clinic SunAugust 07 20:00:00 EDT 2024August 13 18:00:00 EDT 2024 Rehabilitation Clinic SunFeb 05 19:00:00 EST 2023Mar 28 17:00:00 EST 2023 Immunizations Name Dates Status TST-PPD [...] Daily Indication: Memory SunJan 29 16:30:00 2023Feb 04 01:00:00 EST 2023 doxycycline monohydrate 100 mg capsule [...] 2020 * End Date: * Text: * half-way (current) use of aspirin* Code: * Start Date: SunMar 21 00:00:00 EST 2020 * End Date: * Text: * half-way (current) use of anticoagulants* Code: * Start [...] 2023 * End Date: * Text: * intermediate card tender (current) use of opiate analgesic* Code: * [...] :41 EDT 2023 Body weight 166.00 [lb_av] [facility] Jan 30 12:42 :39 EDT 2023 [...] 6:01 EDT 2023 Respiratory rate 20.00 /min [facility] Jan 30 10:3 6:01 EDT 2023 Systolic Blood Pressure 116.00 mm[Hg] [facility] Jan 29 22:50:08 EDT 2023 Diastolic [...]
--- OUTSIDE RECORDS SUMMARY | 2024-10-21 14:18 | XMS_ITS | Clinical Summary ---
Author Organization [facility] Address [address] [place] [address] Care Team Providers Care Warehouse Production Worker Name Role Phone Mahad Onofre MD Primary Care Provider Chriss Hay MD Unavailable [phone] Allergies Active Allergy Reactions Criticality Noted Date [...] Active Additional Information Patient not taking.Reported on 10/06/2024 PARoxetine (PAXIL) 20 mg tablet Take 1 tablet (20 mg total) by mouth every morning Active docusate sodium (COLACE) 100 mg capsuleIndication s:constipation Take 1 capsule (100 mg total) by mouth 2 (two) times a day 60 capsule Active aspirin 81 mg chewable tabletIndications :Deep Vein Thrombosis Prevention Take 1 tablet (81 mg total) by mouth 2 (two) times a day 60 tablet 021 Active Additional Information Patient not taking.Reported on 10/06/2024 calcium carbonate (OS-ALO) 1,250 mg (500 mg [...] Active Additional Information Patient not taking.Reported on 10/06/2024 amoxicillin-clavu lanate (AUGMENTIN) 875-125 mg per tablet Take 1 tablet by mouth every 12 (twelve) hours Active Eliquis 5 mg tablet TAKE 1 (ONE) TABLET BY MOUTH 2 TIMES DAILY 024 Active glycopyrrolate (ROBINUL) 1 mg tablet 024 Active glycopyrrolate (ROBINUL) 1 mg tablet Take 1 tablet (1 mg total) by mouth nightly as needed 024 Active carbidopa-levodop a (SINEMET) 25-100 mg per tabletIndications :Parkinsonism Take 1 tablet by mouth 4 (four) times a day 120 tablet 6 025 Active memantine (NAMENDA) 10 mg tabletIndications :Parkinson's disease, unspecified whether dyskinesia present, unspecified whether manifestations fluctuate (HCC) Take 1 tablet (10 mg total) by mouth 2 (two) times a day 180 tablet 3 025 Active donepeziL (ARICEPT) 10 mg tabletIndications :Dementia without behavioral disturbance (HCC) Take 1 tablet (10 mg total) by mouth nightly 90 tablet 3 025 Active carbidopa-levodop a (SINEMET) 10-100 mg per tabletIndications :Parkinson's disease (HCC) Take 1 tablet by mouth 4 (four) times a day 360 tablet 3 024 2024 Discontinued entacapone (COMTAN) 200 mg tabletIndications :Parkinson's disease, unspecified whether dyskinesia present, unspecified whether manifestations fluctuate (HCC) TAKE 1 TABLET BY MOUTH 4 TIMES A DAY 360 tablet 2 024 2024 Discontinued donepeziL (ARICEPT) 10 mg tabletIndications :Dementia without behavioral disturbance (HCC) TAKE 1 TABLET BY MOUTH EVERY DAY AT NIGHT 90 tablet 1 025 2024 Discontinued(R eorder) memantine (NAMENDA) 10 mg tabletIndications :Parkinson's disease, unspecified whether dyskinesia present, unspecified whether manifestations fluctuate (HCC) TAKE 1 TABLET BY MOUTH TWICE A DAY 180 tablet 025 2024 Discontinued(R eorder) Active Problems Problem Noted Date Diagnosed Date [...] (02/17/2021): Added automatically from request for surgery [id number] 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, subsequent encounter 02/17/2021 Overview (02/18/2021): Added automatically from request for surgery [id number] Osteoarthritis 01/03/2021 Diverticulitis 01/03/2021 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 [...] Encounters Date Type Department Care Team Description 10/06/2024 1:30 PM CDT Office Visit [facility] Neurology [address] [place] [phone] Dieter Skelton MD Parkinson's disease without dyskinesia or fluctuating manifestations (HCC); Parkinson's disease, unspecified whether dyskinesia present, unspecified whether manifestations fluctuate (HCC); Dementia without behavioral disturbance (HCC) from Last [...] on file Legal Sex Female 3:49 AM GRIPS Gender Identity Not on file Sexual Orientation Not on file Obstetrics History Last Filed Vital Signs Vital Sign Reading Time Taken Comments Blood Pressure 120/60 10/06/2024 1:27 PM CDT Pulse 80 10/06/2024 1:27 PM CDT Temperature 37.1 C (98.7 F) 10/19/2023 7:23 PM CDT Respiratory Rate 18 10/06/2024 1:27 PM CDT Oxygen Saturation 95% 10/06/2024 1:27 PM CDT Inhaled Oxygen Concentration - - Weight 74.4 kg (164 lb) 10/06/2024 1:27 PM CDT Height 157.5 cm (5' 2) 10/06/2024 1:27 PM CDT Body Mass Index 30 10/06/2024 1:27 PM CDT Plan of Treatment Health Maintenance Due Date Last Done Comments Depression Screening 1940 Osteoporosis Screening-Bone Density Scan 1942 DTaP/Tdap/Td Vaccine (1 - Tdap) 1953 Hepatitis B Screening 1960 Zoster Vaccine (1 of 2) 1992 Well Visit 65+ 08/14/2007 Covid-19 Vaccine (8 - 2023-2 5 season) 2023 08/17/2021, 01/12/2021, 01/12/2021, Additional history exists Fall Risk Assessment 01/25/2024 01/24/2023, 01/04/2023, 09/05/2022 Influenza Vaccine (#1) 2024 , 01/17/2020, 02/21/2019, Additional history exists Pneumococcal vaccine 65+ Completed 03/12/2020, 10/31 Goals [...] home safety. Medical Devices Implanted Type Area Head Start Director Device Identifier Shelf Expiration Date Model / Serial / Lot [employer] 5560-S-112 Triathlon 12mm 50mm Cement End Cap Knee Stem Femoral Cocr - [id number] Implanted:Qty: 1 on 03/17/2021 by Chriss Hay MD at [facility] [employer] [id number] 12/26/2025 5560-S-112 / / [id number] [employer] 6481-2-150 Gmrs Pack Crosslink Knee Component Femoral Polyethylene - [id number] Implanted:Qty: 1 on 03/17/2021 by Chriss Hay MD at [facility] Left: Knee [employer] [id number] 09/02/2025 6481-2-150 / / [id number] [employer] 6481-2-100 Monogram Modular Rotate Hinge Knee Xs-Xl Component Tibial - [id number] Implanted:Qty: 1 on 03/17/2021 by Chriss Hay MD at [facility] Left: Knee [employer] [id number] 09/06/2025 6481-2-100 / / [id number] [employer] [id number] Gmrs Bearing Modular Rotate Hinge Distal [id number] M2 2 Insert - [id number] Implanted:Qty: 1 on 03/17/2021 by Chriss Hay MD at [facility] Left: Knee [employer] [id number] 12/08/2024 [id number] / / [id number] [employer] 6481-3-112 Modular Rotating Hinge 2 Medium Baseplate Tibial - [id number] Implanted:Qty: 1 on 03/17/2021 by Chriss Hay MD at [facility] Left: Knee [employer] [id number] 04/13/2025 6481-3-112 / / [id number] [employer] 6485-3-115 Gmrs 15mm 127mm Cemented Knee Straight Stem Femoral Sterile - [id number] Implanted:Qty: 1 on 03/17/2021 by Chriss Hay MD at [facility] Left: Knee [employer] [id number] 06/08/2023 6485-3-115 / / [id number] [employer] [id number] Gmrs 65mm Knee Left Small Component Femoral Cocr - [id number] Implanted:Qty: 1 on 03/17/2021 by Chriss Hay MD at [facility] Left: Knee [employer] [id number] 05/21/2025 [id number] / / [id number] [employer] 6191-1-010 Simplex P Radiopaque Full Dose Cement Bone Sterile - [id number] Implanted:Qty: 1 on 03/17/2021 by Chriss Hay MD at [facility] Left: Knee [employer] 05/02/2023 6191-1-010 / / [id number] [employer] 6191-1-010 Simplex P Radiopaque Full Dose Cement Bone Sterile - [id number] Implanted:Qty: 3 on 03/17/2021 by Chriss Hay MD at [facility] Left: Knee [employer] 05/31/2023 6191-1-010 / / [id number] [employer] [id number] Gmrs Knee Small Bushing Femoral - [id number] Implanted:Qty: 1 on 03/17/2021 by Chriss Hay MD at [facility] Left: Knee [employer] [id number] 04/06/2025 [id number] / / [id number] [employer] [id number] Gmrs Knee Small Bushing Femoral - [id number] Implanted:Qty: 1 on 03/17/2021 by Chriss Hay MD at [facility] Left: Knee [employer] [id number] 04/07/2025 [id number] / / [id number] [employer] [id number] Gmrs Knee Small Axle Femoral - [id number] Implanted:Qty: 1 on 03/17/2021 by Chriss Hay MD at [facility] Left: Knee [employer] [id number] 06/13/2023 [id number] / / [id number] Insurance MEDICARE [facility] MEDICARE [facility] MEDICARE [facility] Advance Directives For more information, please contact: [phone] * Full Code (Latest Code Status on File) Date Activated Date Inactivated Comments 03/17/2021 9:05 PM 03/21/2021 9:00 PM Care Teams Warehouse Production Worker Relationship Specialty Start Date End Date Mahad Onofre MD [address] [facility] [address] [place] [address] PCP - General Internal Medicine 05/05/20 Chriss Hay MD [address] [address] Consulting Physician Orthopedic Surgery 03/19/21
--- OUTSIDE RECORDS SUMMARY | 2024-10-21 14:19 | XMS_ITS | Data Portability ---
Author Organization [facility], Main Office Address [address] [place] [address] Care Team Providers Care Tufter Name Role Phone P [facility] FAX OTHER ROSA ONOFRE Primary Care Provider EMILIO SARAH Orthopedic Surgeon Assessment Encounter Date Assessment Date Assessment LastModified by Organization Details LastModified Time 02/03/2024 02/03/2024 f/u labs 02/06 [email or web address] Not available 02/03/2024 22:54:53 02/05/2024 02/05/2024 D/C home to [facility] apartment at [place] today with OP therapy and oversight from sisters. Not available 02/05/2024 16:01:22 Plan of Treatment Reminders Order Date Submit Date Provider Last Modified By Organization Details Last Modified Time Details Appointments None recorded. Lab None recorded. Referral None recorded. Procedures None recorded. Surgeries None recorded. Imaging None recorded. Medication Orders hydrocodone 5 mg-acetamin ophen 325 mg tablet 2023 [facility] [address] [place], [address], 10:51:39 pregabalin 50 mg capsule 2023 [facility] [address] [place], [address], 10:51:39 Patient TargetsNo targets recorded. Patient Instructions Encounter Date Encounter Id Patient Instructions Last Modified By Organization Details Last Modified Time 01/31/[id number] I spent 55 minutes providing care to the patient today. More than 50% of that time was spent in discussing the expected course of the disease, discussing prognosis, coordinating care and counseling of the patient/family. I spent 17 minutes counseling and discussing advance directives and/or end of life care planning and decisions with the patient today. I reviewed the current relevant diagnoses, treatment options, natural history, and prognosis and clarified the patient's goals of care. Not available 01/31/2024 14:59:30 02/03/[id number] I spent 50 minutes providing care to the patient today. More than 50% of that time was spent in discussing the expected course of the disease, discussing prognosis, coordinating care and counseling of the patient/family. [email or web address] Not available 02/07/2024 04:04:43 02/05/2024857508 I spent 45 minutes providing care to the patient today. [...] [place] [address] [place], [address], [facility] 01/31/2024 14:26:26 04/02/19 21 arthroplasty of knee [place] [address] [place], [address], [facility] 01/31/2024 14:27:50 04/02/19 20 open reduction of fracture [place] [address] [place], [address], [facility] 01/31/2024 14:28:07 Imaging Results None recorded. Procedure Notes None recorded. Medical Equipment None Reported. Allergies Allergen ID Allergen Name Allergen Category Reaction Reaction Severity Criticality Documentation Date Start Date Code Code System Note Provider Name and Address Organization Details Recorded Time 90513 codeine medicatio n Not available Not available Not available 01/30/2024 8560 [facility] Aimwell Fu null, [place] [facility] 4 23:45:59 Medications Name Sig Start Date Stop Date [...] Body mass index (BMI) Body height Systolic And Diastolic Provider Name and Address Organization Details Last Updated DateTime 4 05070.3 3 g 70 /min 94 % 94 % 20 /min 97.8 [degF] 30.4 kg/m2 157.48 cm 116/61 mm[Hg] [place] [address] [place], [address] [facility] 4 14:04:48 Date Recorded Body height Body mass index (BMI) Body weight Heart rate Oxygen saturation Oxygen saturation in Arterial blood by Pulse oximetry Respiratory rate Body temperature Systolic And Diastolic Provider Name and Address Organization Details Last Updated DateTime 4 157.48 cm 30.4 kg/m2 02935.7 7 g 81 /min 95 % 95 % 18 /min 97.3 [degF] 115/86 mm[Hg] [place] [address] [place], [address] [facility] 4 22:54:05 Date Recorded Body height Heart rate Body temperature Respiratory rate Oxygen saturation Oxygen saturation in Arterial blood by Pulse oximetry Body mass index (BMI) Body weight Systolic And Diastolic Provider Name and Address Organization Details Last Updated DateTime 4 157.48 cm 67 /min 98 [degF] 18 /min 95 % 95 % 30.4 kg/m2 73769.3 3 g 103/56 mm[Hg] [place] [address] [place], [address] [place] [address] Clinical [facility] 4 13:51:21 Social History Question Answer Notes LastModified by Organizat ion Details LastModified Time Tobacco Smoking Status Never Smoker Aimwell Fu [facility] 01/30/2024 23:53:12 What Is Your Code Status? Full Code Information not available 01/30/2024 What Was The Date Of Your Most Recent Tobacco Screening? 01/31/2024 Information not available 01/31/2024 What Is Your Relationship Status? Information not available 01/31/2024 Sex: Unknown Functional Status Question Answer Note LastModified by Organizat ion Details LastModified Time Do you use any illicit or recreational drugs? No Information not available 01/30/2024 What is your level of alcohol consumption? None Information not available 01/30/2024 Mental Status None recorded. Family History Relationship Description Onset Age of this Age Resolved Age Notes LastModified by Organization Details LastModified Time Father No current problems or disability [email or web address] Not available 02/06 04:01:49 Mother No current problems or disability [email or web address] Not available 02/06 04:01:49 Medical History Condition Response Vitamin D Deficiency Y Deep Vein Thrombosis (DVT) Y Parkinson's Disease Y GERD / Reflux Y Vitamin B12 Deficiency Y Neuropathy Y Psychiatric -- Depression Y Pulmonary Embolism Y Dementia Y Gynecological HistoryNo gynecological history recorded. Obstetrics History GPAL:G 0 P 0 0 0 0 Past Encounters Encounter ID Performer Location Encounter Start Date Encounter Closed Date Diagnosis/Indication Diagnosis SNOMED-CT Code Diagnosis ICD10 Code Diagnosis Note [id number] Shara Oneal, [address] [address] 01/31/2024 09:21:51 02/11/2024 15:42:55 History of total knee arthroplasty 2991979301 105 Z96.659 Underwent an elective left knee arthroplas ty due to loose hardware on 01/[address] Emilio Sarah at [facility].W BAT to LLE.Contin ue incision site care -- kannan in place.Cont inues on Doxycyclin e through 02/07 for surgical prophylaxi s.Continue s on Eliquis for DVT prophylaxi s -- takes long-term as OP.Continu e Lyrica, Lidocaine patch, & PRN APAP & [place] for pain.Rufino nue PT/OT.F/U with ortho on 02/11 as scheduled. Neuropathy 631201010 G62 .9 SEE ABOVE... 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 Anemia fol lowing acute postoperative blood loss 8508728702 8004720 D62 Hgb dropped to 9.6 post-opera tively. Treating supportive ly at present.Tr end Hgbs. Parkinson's disease 4904 9000 G20.A1 Stable. Continue Sinemet, Glycopyrro late, & Entacapone .F/U with neurology as OP. Dementia 38149128 F03.90 ST to follow.Con tinue Donepezil, Memantine, Paroxetine , and Mirtazapin e. Mood is stable at present. Major depr essive disorder 510644551 F32.9 SEE ABOVE... Lung mass 051422745 R91. [address] scan at outside hospital in September 2023 as mass in right lower lobe.F/U for this is unclear -- hospital had recommende d f/u by PCP as OP. History of deep vein thrombosis 039999174 Z86.718 RLE. Presumed stable. Continue Eliquis long-term. History of pulmonary embolus 300956645 Z86.711 In September 2023. Presumed stable. Continue Eliquis long-term. Osteopenia 287825585 M85 .80 Presumed stable. Continue Ca + D and Vit D3. 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 Continue monthly injection. Vitamin D deficiency 347 02618 E55.9 Presumed stable. Continue supplement . Gastroesop hageal reflux disease without esophagitis 498815267 K21.9 Stable. Continue Omeprazole . Could consider changing to H2 lul or changing to PRN in pt with osteopenia . Advance care planning 71 6112064 Z71.89 Pt tells me she is a DNR, however she has signed her POLST form as a Full Code. Nursing to review further with patient and mPOA. Constipation 64916641 K5 9.00 Stable. Continue Colace & Miralax. [id number] Shara Oneal DO [address] [address] [place] [address] 02/03/2024 17:06:06 02/11/2024 15:44:07 History of total knee arthroplasty 5650565893 105 Z96.659 Underwent an elective left knee arthroplas ty due to loose hardware on 01/[address] Emilio Sarah at [facility].W BAT to LLE.Contin ue incision site care -- kannan in place.Cont inues on Doxycyclin e through 02/07 for surgical prophylaxi s.Continue s on Eliquis for DVT prophylaxi s -- takes long-term as OP.Continu e Lyrica, Lidocaine patch, & PRN APAP & [place] for pain.Rufino nue PT/OT.F/U with ortho on 02/11 as scheduled. Prosthetic joint loosening 233816478 T84.033S SEE ABOVE... Anemia fol lowing acute postoperative blood loss 8507465826 6950747 D62 Hgb dropped to 9.6 post-opera tively. Treating supportive ly at present.Tr end Hgbs. Parkinson's disease 4904 9000 G20.A1 Stable. Continue Sinemet, Glycopyrro late, & Entacapone .F/U with neurology as OP. Neuropathy 346693751 G62 .9 SEE ABOVE... Dementia 72711036 F03.90 ST to follow.Con tinue Donepezil, Memantine, Paroxetine , and Mirtazapin e. Mood is stable at present. Major depr essive disorder 637409857 F32.9 SEE ABOVE... Osteopenia 702445677 M85 .80 Presumed stable. Continue Ca + D and Vit D3. Gastroesop hageal reflux disease without esophagitis 915401795 K21.9 Stable. Continue Omeprazole . Could consider changing to H2 lul or changing to PRN in pt with osteopenia . Vitamin D deficiency 347 86648 E55.9 Presumed stable. Continue supplement . Disorder o f vitamin B12 899879711 E53.8 Presumed stable. Continue monthly injection. Lung mass 033560382 R91. [address] scan at outside hospital in September 2023 as mass in right lower lobe.F/U for this is unclear -- hospital had recommende d f/u by PCP as OP. History of deep vein thrombosis 459968846 Z86.718 RLE. Presumed stable. Continue Eliquis long-term. History of pulmonary embolus 623689623 Z86.711 In September 2023. Presumed stable. Continue Eliquis long-term. Constipation 03139051 K5 9.00 Stable. Continue Colace & Miralax. Physical deconditioning 2092928147 9102 R68.89 related to advanced age, recent knee replacemen t, comorbidit iestherapi es in place, she will return to her [facility] apartment at upon d/c from SNFcontinu e eliquis for DVT prophylaxi kenya meds as abovecatha rtics in place [id number] Shara Oneal, DO [address] [address] 02/05/2024 09:05:38 02/07/2024 15:49:20 History of total knee arthroplasty 2710498953 105 Z96.659 Underwent an elective left knee arthroplas ty due to loose hardware on 01/[address] Emilio Sarah at [facility].W BAT to LLE.Contin ue incision site care -- kannan in place.Cont inues on Doxycyclin e through 02/10 for surgical prophylaxi s.Continue s on Eliquis for DVT prophylaxi s -- takes long-term as OP.Continu e Lyrica, Lidocaine patch, & PRN APAP & [place] for pain.Rufino nue PT/OT.F/U with ortho on 02/11 as scheduled. Prosthetic joint loosening 230809102 T84.033S SEE ABOVE... Anemia fol lowing acute postoperative blood loss 3967624170 7769572 D62 Hgb dropped to 9.6 post-opera tively. Treating supportive ly at present.Tr end Hgbs. Parkinson's disease 4904 9000 G20.A1 Stable. Continue Sinemet, Glycopyrro late, & Entacapone .F/U with neurology as OP. Neuropathy 893489414 G62 .9 SEE ABOVE... Dementia 24290917 F03.90 ST has followed.C ontinue Donepezil, Memantine, Paroxetine , and Mirtazapin e. Mood is stable at present. Major depr essive disorder 535309242 F32.9 SEE ABOVE... Osteopenia 587658445 M85 .80 Presumed stable. Continue Ca + D and Vit D3. Gastroesop hageal reflux disease without esophagitis 989036373 K21.9 Stable. Continue Omeprazole . PCP could consider changing to H2 lul or changing to PRN in pt with osteopenia . Vitamin D deficiency 347 71730 E55.9 Presumed stable. Continue supplement . Disorder o f vitamin B12 048513767 E53.8 Presumed stable. Continue monthly injection. Lung mass 399444050 R91. [address] scan at outside hospital in September 2023 as mass in right lower lobe.F/U for this is unclear -- hospital had recommende d f/u by PCP as OP. History of deep vein thrombosis 624090543 Z86.718 RLE. Presumed stable. Continue Eliquis long-term. History of pulmonary embolus 348680694 Z86.711 In September 2023. Presumed stable. Continue Eliquis long-term. Constipation 26837217 K5 9.00 Stable. Continue Colace & Miralax. Health Concerns Section Related Observation LastModified by Organization Detai ls LastModified Time None Recorded Concern Status LastModified by Organization Details LastModified Time None Recorded Advance Directives Directive None Recorded Payers Insurance Date Sequence Insurance Name Policy Number Policy Benitez Covered Member ID Benitez Member ID Guarantor Name 02/11/2024 2 A[employer] Sammi Herrerag [id number] Sammi Calzada 02/03/2024 1 MEDICARE-[place] (MED[place]ARE) Sammi Villafing [id number] Sammi Calzada Notes Date Note Type Note Provider Name [...] on 01/[address] Emilio Sarah at [facility] [It should be noted there are frequent places in hospital records where this is incorrectly listed as right]. Post-operative period was reportedly unremarkable beyond some post-operative anemia (Hgb 10.7, 9.6). She was discharged from the hospital on 01/20 to [facility] in [place]. While there, she was noted She has been discharged to this facility as of 01/30/24 for further rehabilitation with goal to return to her ILF apartment at [place]. She is WBAT to LLE and continues [...] positive).Bette lives in an ILF apartment at [place]. Her two sisters live only a few doors away and check in on her.[facility] [place].PCP is Dr. Rosa Onofre. Clary Comer, [address] [address] [place], [address], [place] [facility] 01/31/2024 15:00:30 [...] on 01/[address] Emilio Sarah at [facility] [It should be noted there are frequent places in hospital records where this is incorrectly listed as right]. Post-operative period was reportedly unremarkable beyond some post-operative anemia (Hgb 10.7, 9.6). She was discharged from the hospital on 01/20 to [facility] in [place] with an uncomplicated IRF stay. She has now been discharged to this facility as of 01/30/24 for further rehabilitation with goal to return to her ILF apartment at [place]. She is WBAT to LLE and continues [...] Jerry lives in an ILF apartment at [place]. Her two sisters live only a few doors away and check in on her.Pharmacy is [facility] in [place] [address] [place], [address], [place] [facility] 02/07/2024 04:05:04 [...] on 01/[address] Emilio Sarah at [facility] [It should be noted there are frequent places in hospital records where this is incorrectly listed as right]. Post-operative period was reportedly unremarkable beyond some post-operative anemia (Hgb 10.7, 9.6). She was discharged from the hospital on 01/20 to [facility] in [place]. While there, she was noted She has been discharged to this facility as of 01/30/24 for further rehabilitation with goal to return to her ILF apartment at [place]. She is WBAT to LLE and continues on Doxycycline through 02/10 for surgical prophylaxis. mPOA is mally Cheney (although this should be confirmed as pt and sister aren't positive).Bette lives in an ILF apartment at [place]. Her two sisters live only a few doors away and check in on her.PCP is Dr. Rosa Onofre. ---01/31/24Ligregorio is seated in her w/c in her [...] looking forward to discharging back to her [facility] apartment today with OP therapy and does not offer any concerns with this plan. VSS. Staff is without concerns at present. Clary Comer, [address] [address] [facility], [place], [address], [place] [facility] 02/05/2024 16:03:19 OBGyn Episode No OBEpisode recorded.
--- OUTSIDE RECORDS SUMMARY | 2024-10-21 14:19 | XMS_ITS | Referral Summary ---
Author Organization [facility] Address [facility] [place] [address] Care Team Providers Care Manager Icu Name Role Phone Mahad Onofre MD Primary Care Provider Chriss Hay MD Unavailable [phone] Encounters Date Type Department Care Team Description 10/06/2024 1:30 PM CDT Office Visit [facility] Neurology [address] 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 Medical Devices Implanted Type Area Refrigeration Houseman Device Identifier Shelf Expiration Date Model / Serial / Lot [employer] 5560-S-112 Triathlon 12mm 50mm Cement End Cap Knee Stem Femoral Cocr - [id number] Implanted:Qty: 1 on 03/17/2021 by Chriss Hay MD at [facility] [employer] [id number] 12/26/2025 5560-S-112 / / [id number] [employer] 6481-2-150 Gmrs Pack Crosslink Knee Component Femoral Polyethylene - [id number] Implanted:Qty: 1 on 03/17/2021 by Chriss Hay MD at [facility] Left: Knee [employer] [id number] 09/02/2025 6481-2-150 / / [id number] [employer] 6481-2-100 Monogram Modular Rotate Hinge Knee Xs-Xl Component Tibial - [id number] Implanted:Qty: 1 on 03/17/2021 by Chriss Hay MD at [facility] Left: Knee [employer] [id number] 09/06/2025 6481-2-100 / / [id number] [employer] [id number] Gmrs Bearing Modular Rotate Hinge Distal [id number] M2 2 Insert - [id number] Implanted:Qty: 1 on 03/17/2021 by Chriss Hay MD at [facility] Left: Knee [employer] [id number] 12/08/2024 [id number] / / [id number] [employer] 6481-3-112 Modular Rotating Hinge 2 Medium Baseplate Tibial - [id number] Implanted:Qty: 1 on 03/17/2021 by Chriss Hay MD at [facility] Left: Knee [employer] [id number] 04/13/2025 6481-3-112 / / [id number] [employer] 6485-3-115 Gmrs 15mm 127mm Cemented Knee Straight Stem Femoral Sterile - [id number] Implanted:Qty: 1 on 03/17/2021 by Chriss Hay MD at [facility] Left: Knee [employer] [id number] 06/08/2023 6485-3-115 / / [id number] [employer] [id number] Gmrs 65mm Knee Left Small Component Femoral Cocr - [id number] Implanted:Qty: 1 on 03/17/2021 by Chriss Hay MD at [facility] Left: Knee [employer] [id number] 05/21/2025 [id number] / / [id number] [employer] 6191-1-010 Simplex P Radiopaque Full Dose Cement Bone Sterile - [id number] Implanted:Qty: 1 on 03/17/2021 by Chriss Hay MD at [facility] Left: Knee [employer] 05/02/2023 6191-1-010 / / [id number] [employer] 6191-1-010 Simplex P Radiopaque Full Dose Cement Bone Sterile - [id number] Implanted:Qty: 3 on 03/17/2021 by Chriss Hay MD at [facility] Left: Knee [employer] 05/31/2023 6191-1-010 / / [id number] [employer] [id number] Gmrs Knee Small Bushing Femoral - [id number] Implanted:Qty: 1 on 03/17/2021 by Chriss Hay MD at [facility] Left: Knee [employer] [id number] 04/06/2025 [id number] / / [id number] [employer] [id number] Gmrs Knee Small Bushing Femoral - [id number] Implanted:Qty: 1 on 03/17/2021 by Chriss Hay MD at [facility] Left: Knee [employer] [id number] 04/07/2025 [id number] / / [id number] [employer] [id number] Gmrs Knee Small Axle Femoral - [id number] Implanted:Qty: 1 on 03/17/2021 by Chriss Hay MD at [facility] Left: Knee [employer] [id number] 06/13/2023 [id number] / / [id number] Insurance MEDICARE [facility] Member Subscriber Plan / Payer ( fective 2020-Present) Name:Sammi Calzada Relation to Subscriber:Self Name:Sammi Calzada Payer ID:[id number] Group ID:Not on file Type:[facility] Address: [facility] [address] [place] [address] MEDICARE [facility] Member Subscriber Plan / Payer ( fective 2020-Present) Name:Sammi Calzada Relation to Subscriber:Self Name:Sammi Calzada Payer ID:[id number] Group ID:Not on file Type:[facility] Address: [facility] [address] [place] [address] MEDICARE [facility] Advance Directives For more information, please contact: [phone] * Full Code (Latest Code Status on File) Date Activated Date Inactivated Comments 03/17/2021 9:05 PM 03/21/2021 9:00 PM Care Teams Manager Icu Relationship Specialty Start Date End Date Mahad Onofre MD [address] [facility] [address] [facility] [address] [place] [address] PCP - General Internal Medicine 05/05/20 Chrsis Hay MD [address] [facility] [address] [place] [address] Consulting Physician Orthopedic Surgery 03/19/21
== END 2024-10-21 14:10 | disposition home or self-care (01) ==
PROVIDERS: PCP Internal Medicine; Visit Provider Internal Medicine
DX: M51.369 Other intervertebral disc degeneration, lumbar region without mention of lumbar back pain or lower extremity pain (principal)
CPT/HCPCS: 72100

== ENCOUNTER 2024-10-24 17:27 | Emergency (ER) | payer MEDICARE, SELFPAY ==
--- NOTE | ~2024-10-24 | CT_ITS ---
EXAMINATION: CT thoracic lumbar wo con DATE: 10/24/2024 18:13 INDICATION: TECHNIQUE: Computed tomography (CT) of the thoracic and lumbar spine was performed without intravenous contrast. Automated exposure control and iterative reconstruction technique were employed. The dose-length pro duct was 1084.87 mGy-cm. COMPARISON: CT abdomen pelvis dated 10/21/2023 and chest dated 10/17/2023 FINDINGS: Thoracic spine: 30 degree thoracic dextroscoliosis and mild kyphosis. Chronic T11 burst fracture with 50% anterior ve rtebral body height loss and changes of prior vertebroplasty. There is 4 mm retropulsion resulting in mild central canal stenosis at this level. Remaining vertebral body heights are normal. Old healed f racture at the posterior left 9th-11th ribs near their articulations with the vertebral bodies. No ac [place] fractures identified. Multilevel moderate disc height loss at several levels in the mid thoracic spine with mild disc height loss at a few levels in the upper and lower thoracic spine. Moderate to s evere upper thoracic predominant facet osteoarthritis which contributes to mild neural from stenosis at a few levels in the mid to upper thoracic spine. Calcified right upper lobe and left lower lobe no dules along with calcified left hilar lymph nodes consistent with old granulomatous disease. There is dependent atelectasis in the bilateral upper and lower lobes. Atherosclerotic coronary artery calcif ication. No pericardial or pleural effusion. Lumbar spine: Alignment is normal. There is a relatively recent-appearing L2 burst fracture with 20% central verteb ral body height loss and 6 mm retropulsion resulting in mild central canal stenosis at this level whi ch is new since the study from one year prior. No interval change in a chronic L3 burst fracture with 40% central vertebral body height loss and 4 mm retropulsion also contribute to mild central canal s tenosis at this level. Remaining vertebral body heights are normal with no other fractures identified . There is moderate disc height loss at L4-L5. There is ballooning of the L1-L2, L2-L3 and L3-L4 disc spaces resulting from the previous noted burst fractures. T12-L1 and L5-S1 disc spaces are normal. P osition of the retropulsion there are disc bulges resulting in mild central canal stenosis at L3-L4 a nd L4-L5 and without significant central canal stenosis at L5-S1. There is multilevel moderate lower lumbar predominant facet osteoarthritis. Multilevel mild to moderate bilateral lumbar neural foramina l stenosis. There is some subtle stranding in the fat surrounding the L2 vertebral body consistent wi th recent fracture. Paravertebral soft tissues are otherwise unremarkable. Sigmoid diverticulosis wit hout adjacent inflammatory stranding to suggest diverticulitis. Moderate osteoarthritis at the bilate ral sacroiliac joints. IMPRESSION: 1. Recent-appearing, potentially acute L2 burst fracture with 20% anterior vertebral body height loss and 6 mm retropulsion resulting in mild central canal stenosis. 2. 30 degree thoracic dextroscoliosis with moderate thoracic and lumbar spondylosis. 3. Additional chronic T11 burst fracture with prior vertebroplasty and chronic L3 burst fracture with out vertebroplasty. Reviewed, dictated and finalized at location A. IMPRESSION: 1. Recent-appearing, potentially acute L2 burst fracture with 20% anterior vert ebral body height loss and 6 mm retropulsion resulting in mild central canal st enosis. 2. 30 degree thoracic dextroscoliosis with moderate thoracic and lumbar spondyl osis. 3. Additional chronic T11 burst fracture with prior vertebroplasty and chronic L3 burst fracture without vertebroplasty.
--- NOTE | ~2024-10-24 | CT_ITS ---
EXAMINATION: CT cervical spine wo con DATE: 10/24/2024 18:09 INDICATION: Acute upper back pain TECHNIQUE: Computed tomography (CT) of the cervical spine was performed without intravenous contrast. Automated exposure control and iterative reconstruction technique were employed. The dose-length pro duct was 198.65 mGy-cm. COMPARISON: None FINDINGS: Moderate osteoarthritis at the atlantoaxial articulation with some surrounding calcified pannus. Suba rticular cystlike changes are seen at the right anterior base of the odontoid process. 1-2 mm anterol isthesis C5 on C6. Vertebral body height is normal. No fracture. Moderate disc height loss with degen erative endplate changes and severe left-sided and moderate right-sided uncovertebral osteoarthritis at C6-C7. Mild disc height loss at C5-C6. Bilateral mild uncovertebral osteoarthritis at several flynn tional cervical levels. There is also multilevel mild to moderate cervical facet osteoarthritis. No c entral canal stenosis. There is mild neural from stenosis on the right at C3-C4 and C4-C5, bilaterall y at C5-C6 and C6-C7. Visualized cervical soft tissues are unremarkable. Mild biapical pleural-parenc hymal scarring. Small calcified nodules at the right apex consistent with old granulomatous disease. IMPRESSION: 1. Moderate spondylosis at C6-C7 and mild spondylosis and more cephalad cervical spine. Reviewed, dictated and finalized at location A. IMPRESSION: 1. Moderate spondylosis at C6-C7 and mild spondylosis and more cephalad cervica l spine.
--- OUTSIDE RECORDS SUMMARY | 2024-10-24 17:28 | XMS_ITS ---
Author Name Auto Generated, Auto Generated Organization [facility] Address [address] [place] [address] Phone [phone] Care Team Providers Care Brake Rider Name Role Phone Win Craft Emilydenisseskye Unavailable [phone] Micheal Mckeon Unavailable John Sarah Unavailable Clary Comer Unavailable Mahad Onofre Unavailable [phone] Shara Gilman Unavailable Functional Status No Results Mental Status No Results Allergies and Intolerances Name Onset Date Reaction Severity codeine (Allergy) SunMar 21 22:01:00 EST 2020 Encounters Program Name Primary Diagnosis Admission Date/Time Dis charge Date/Time [facility] SunAugust 07 20:00:00 EDT 2024August 13 18:00:00 EDT 2024 [facility] SunJun 04 19:00:00 EST 2024Jul 24 19:59:00 EDT 2024 [facility] SunFeb 05 19:00:00 EST 2023Mar 28 17:00:00 EST 2023 [facility] SunApr 09 19:00:00 EST 2023Jan 15 08:00:00 EDT 2023 [facility] SunJan 29 10:30:00 EDT 2023Feb 04 06:08:00 EST 2023 null SunMar 05 19:00 :00 EST 2019 Immunizations Name Dates Status TST-PPD intradermal SunJan [...] 2020 * End Date: * Text: * assisted (current) use of aspirin* Code: * Start Date: SunMar 21 00:00:00 EST 2020 * End Date: * Text: * assisted (current) use of anticoagulants* Code: * Start [...] 2023 * End Date: * Text: * beam doffer (current) use of opiate analgesic* Code: * [...] :41 EDT 2023 Body weight 166.00 [lb_av] [facility] Jan 30 12:42 :39 EDT 2023 Systolic [...] 6:01 EDT 2023 Respiratory rate 20.00 /min [facility] Jan 30 10:3 6:01 EDT 2023 Systolic Blood Pressure 116.00 mm[Hg] [facility] Jan 29 22:50:08 EDT 2023 Diastolic Blood [...]
--- OUTSIDE RECORDS SUMMARY | 2024-10-24 17:29 | XMS_ITS | Clinical Summary ---
Author Organization [facility] Address [address] [place] [address] Care Team Providers Care Etl Consultant Name Role Phone Mahad Onofre MD Primary Care Provider [phone] Allergies Active Allergy Reactions Criticality Noted Date [...] drink = 0.6 oz pur e alcohol) [facility] Utilities Answer Date Recorded In the past 12 months has e [employer], gas, oil, or water [employer] threatened to shut off services in your [...] often do you attend chur ch or mormon services? Never 01/22/2024 Do you belong to any clubs o r organizations such as sabianism groups, unions, fraternal or athletic groups, or [...] and heating? Not hard at all 01/22/2024 [facility] [place] [facility] - Occupational Stress [...] any time in the past 12 m [facility], were you homeless or living in a longterm (including now)? No 01/22/2024 Domestic Abuse Assessment [...] have received informed consent. Yes Care Teams Etl Consultant Relationship Specialty Start Date End Date Mahad Onofre MD [address] [address] PCP - General 01/22/24
--- OUTSIDE RECORDS SUMMARY | 2024-10-24 17:29 | XMS_ITS ---
Author Name Auto Generated, Auto Generated Organization [facility] Address [address] [place] [address] Phone [phone] Care Team Providers Care Blacksmith Hammer Operator Name Role Phone Win Craft Emilydenisseskye Unavailable Micheal Mckeon Unavailable John Sarah Unavailable [phone] Clary Comer Unavailable Mahad Onofre Unavailable Shara Gilman Unavailable Functional Status No Results Mental Status No Results Allergies and Intolerances Name Onset Date Reaction Severity codeine (Allergy) SunMar 21 22:01:00 EST 2020 Encounters Program Name Primary Diagnosis Admission Date/Time Dis charge Date/Time [facility] SunJan 29 10:30:00 EDT 2023Feb 04 06:08:00 EST 2023 null SunMar 05 19:00 :00 EST 2019 [facility] SunApr 09 19:00:00 EST 2023Jan 15 08:00:00 EDT 2023 [facility] SunJun 04 19:00:00 EST 2024Jul 24 19:59:00 EDT 2024 [facility] SunFeb 05 19:00:00 EST 2023Mar 28 17:00:00 EST 2023 [facility] SunAugust 07 20:00:00 EDT 2024August 13 18:00:00 EDT 2024 Immunizations Name Dates Status TST-PPD intradermal SunJan 31 01:00:00 EDT 2023 Completed TST-PPD intradermal SunFeb 01:00:00 EDT 2023 Completed Medications Medication Directions Start Date End [...] 2020 * End Date: * Text: * [facility] (current) use of aspirin* Code: * Start Date: SunMar 21 00:00:00 EST 2020 * End Date: * Text: * [facility] (current) use of anticoagulants* Code: * Start [...] 2023 * End Date: * Text: * 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
--- OUTSIDE RECORDS SUMMARY | 2024-10-24 17:29 | XMS_ITS | Referral Summary ---
Author Organization [facility] Address [address] [place] [address] Care Team Providers Care Candle Molder Machine Name Role Phone Mahad Onofre MD Primary Care Provider Chriss Hay MD Unavailable [phone] Encounters Date Type Department Care Team Description 10/06/2024 1:30 PM CDT Office Visit [facility] Neurology [address] [place] [address] Dieter Skelton MD Parkinson's disease [...] (02/17/2021): Added automatically from request for surgery [id number] 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 Medical Devices Implanted Type Area Hair Spinning Machine Operator Device Identifier Shelf Expiration Date Model / Serial / Lot [employer] 5560-S-112 Triathlon 12mm 50mm Cement End Cap Knee Stem Femoral Cocr - [id number] Implanted:Qty: 1 on 03/17/2021 by Chriss Hay MD at [facility] [employer] [id number] 12/26/2025 5560-S-112 / / [id number] [employer] 6481-2-150 [employer]mrs Pack Crosslink Knee Component Femoral Polyethylene - [id number] Implanted:Qty: 1 on 03/17/2021 by Chriss Hay MD at [facility] Left: Knee [employer] [id number] 09/02/2025 6481-2-150 / / [id number] [employer] 6481-2-100 Monogram Modular Rotate Hinge Knee Xs-Xl Component Tibial - [id number] Implanted:Qty: 1 on 03/17/2021 by Chriss Hay MD at [facility] Left: Knee [employer] [id number] 09/06/2025 6481-2-100 / / [id number] [employer] [id number] [employer]rs Bearing Modular Rotate Hinge Distal [id number] M2 2 Insert - [id number] Implanted:Qty: 1 on 03/17/2021 by Chriss Hay MD at [facility] Left: Knee [employer] [id number] 12/08/2024 [id number] / / [id number] [employer] 6481-3-112 Modular Rotating Hinge 2 Medium Baseplate Tibial - [id number] Implanted:Qty: 1 on 03/17/2021 by Chriss Hay MD at [facility] Left: Knee [employer] [id number] 04/13/2025 6481-3-112 / / [id number] [employer] 6485-3-115 Gmrs 15mm 127mm Cemented Knee Straight Stem Femoral Sterile - [id number] Implanted:Qty: 1 on 03/17/2021 by Chriss Hay MD at [facility] Left: Knee [employer] [id number] 06/08/2023 6485-3-115 / / [id number] [employer] [id number] Gmrs 65mm Knee Left Small Component Femoral Cocr - [id number] Implanted:Qty: 1 on 03/17/2021 by Chriss Hay MD at [facility] Left: Knee [employer] [id number] 05/21/2025 [id number] / / [id number] [employer] 6191-1-010 Simplex P Radiopaque Full Dose Cement Bone Sterile - [id number] Implanted:Qty: 1 on 03/17/2021 by Chriss Hay MD at [facility] Left: Knee [employer] 05/02/2023 6191-1-010 / / [id number] [employer] 6191-1-010 Simplex P Radiopaque Full Dose Cement Bone Sterile - [id number] Implanted:Qty: 3 on 03/17/2021 by Chriss Hay MD at [facility] Left: Knee [employer] 05/31/2023 6191-1-010 / / [id number] [employer] [id number] Gmrs Knee Small Bushing Femoral - [id number] Implanted:Qty: 1 on 03/17/2021 by Chriss Hay MD at [facility] Left: Knee [employer] [id number] 04/06/2025 [id number] / / [id number] [employer] [id number] Gmrs Knee Small Bushing Femoral - [id number] Implanted:Qty: 1 on 03/17/2021 by Chriss Hay MD at [facility] Left: Knee [employer] [id number] 04/07/2025 [id number] / / [id number] [employer] [id number] Gmrs Knee Small Axle Femoral - [id number] Implanted:Qty: 1 on 03/17/2021 by Chriss Hay MD at [facility] Left: Knee [employer] [id number] 06/13/2023 [id number] / / [id number] Insurance MEDICARE [facility] MEDICARE [facility] MEDICARE [facility] Advance Directives For more information, please contact: [phone] * Full Code (Latest Code Status on File) Date Activated Date Inactivated Comments 03/17/2021 9:05 PM 03/21/2021 9:00 PM Care Teams Candle Molder Machine Relationship Specialty Start Date End Date Mahad Onofre MD [address] [facility] [address] [facility] [address] [place] [address] PCP - General Internal Medicine 05/05/20 Chriss Hay MD [address] [facility] [address] [place] [address] Consulting Physician Orthopedic Surgery 03/19/21
--- OUTSIDE RECORDS SUMMARY | 2024-10-24 17:29 | XMS_ITS | Data Portability ---
Author Organization [facility], Main Office Address [address] [place] [address] Care Team Providers Care Cutter Out Name Role Phone P [facility] FAX OTHER ROSA ONOFRE Primary Care Provider [phone] EMILIO SARAH Orthopedic Surgeon Assessment Encounter Date Assessment Date Assessment LastModified by Organization Details LastModified Time 02/03/2024 02/03/2024 f/u labs 02/06 [email or web address] Not available 02/03/2024 22:54:53 02/05/2024 02/05/2024 D/C home to [facility] apartment at [place] today with OP therapy and oversight from sisters. Not available 02/05/2024 16:01:22 Plan of Treatment Reminders Order Date Submit Date Provider Last Modified By Organization Details Last Modified Time Details Appointments None recorded. Lab None recorded. Referral None recorded. Procedures None recorded. Surgeries None recorded. Imaging None recorded. Medication Orders hydrocodone 5 mg-acetamin ophen 325 mg tablet 2023 [facility] [address] [place], [address], 10:51:39 pregabalin 50 mg capsule 2023 [facility] [address] [place], [address], 10:51:39 Patient TargetsNo targets recorded. Patient Instructions Encounter Date Encounter Id Patient Instructions Last Modified By Organization Details Last Modified Time 01/31/2024985038 I spent 55 minutes providing care to [...] goals of care. Not available 01/31/2024 14:59:30 02/03/[id number] I spent 50 minutes providing care to the patient today. More than 50% of that time was spent in discussing the expected course of the disease, discussing prognosis, coordinating care and counseling of the patient/family. [email or web address] Not available 02/07/2024 04:04:43 02/05/2024874931 I spent 45 minutes providing care to [...] [place] [address] [place], [address], [facility] 01/31/2024 14:26:26 04/02/19 21 arthroplasty of knee [place] [address] [place], [address], [facility] 01/31/2024 14:27:50 04/02/19 20 open reduction of fracture [place] [address] [place], [address], [facility] 01/31/2024 14:28:07 Imaging Results None recorded. Procedure Notes None recorded. Medical Equipment None Reported. Allergies Allergen ID Allergen Name Allergen Category Reaction Reaction Severity Criticality Documentation Date Start Date Code Code System Note Provider Name and Address Organization Details Recorded Time 82748 codeine medicatio n Not available Not available Not available 01/30/2024 3050 [facility] [employer] null, [place] [facility] [...] Address Organization Details Last Updated DateTime 4 68969.3 3 g 70 /min 94 % 94 % 20 /min 97.8 [degF] 30.4 kg/m2 157.48 cm 116/61 mm[Hg] [place] [address] [place], [address] [facility] 4 14:04:48 Date Recorded Body height Body mass index (BMI) Body weight Heart rate Oxygen saturation Oxygen saturation in Arterial blood by Pulse oximetry Respiratory rate Body temperature Systolic And Diastolic Provider Name and Address Organization Details Last Updated DateTime 4 157.48 cm 30.4 kg/m2 38912.7 7 g 81 /min 95 % 95 % 18 /min 97.3 [degF] 115/86 mm[Hg] [place] [address] [place], [address] [facility] 4 22:54:05 Date Recorded Body height Heart rate Body temperature Respiratory rate Oxygen saturation Oxygen saturation in Arterial blood by Pulse oximetry Body mass index (BMI) Body weight Systolic And Diastolic Provider Name and Address Organization Details Last Updated DateTime 4 157.48 cm 67 /min 98 [degF] 18 /min 95 % 95 % 30.4 kg/m2 08266.3 3 g 103/56 mm[Hg] [place] [address] [place], [address] [place] [address] Clinical [facility] 4 13:51:21 Social History Question Answer Notes LastModified by Organizat ion Details LastModified Time Tobacco Smoking Status Never Smoker [facility] 01/30/2024 23:53:12 What Is [...] available 02/06 04:01:49 Medical History Condition Response Deep Vein Thrombosis (DVT) Y Vitamin D Deficiency Y GERD / Reflux Y Parkinson's Disease Y Vitamin B12 Deficiency Y Neuropathy Y Pulmonary Embolism Y Psychiatric -- Depression Y Dementia Y Gynecological HistoryNo gynecological history recorded. Obstetrics History GPAL:G 0 P 0 0 0 0 Past Encounters Encounter ID Performer Location Encounter Start Date Encounter Closed Date Diagnosis/Indication Diagnosis SNOMED-CT Code Diagnosis ICD10 Code Diagnosis Note [id number] Shara Oneal, [address] [address] 01/31/2024 09:21:51 02/11/2024 15:42:55 History of total knee arthroplasty 8833214844 105 Z96.659 Underwent an elective left knee arthroplas ty due to loose hardware on 01/[address] Emilio Sarah at [facility].W BAT to LLE.Contin ue incision site care -- kannan in place.Cont inues on Doxycyclin e through 02/07 for surgical prophylaxi s.Continue s on Eliquis for DVT prophylaxi s -- takes long-term as OP.Continu e Lyrica, Lidocaine patch, & PRN APAP & [place] for pain.Rufino nue PT/OT.F/U with ortho on 02/11 as scheduled. Neuropathy 432954490 G62 .9 SEE ABOVE... 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 Anemia fol lowing acute postoperative blood loss 3024718496 3405947 D62 Hgb dropped to 9.6 post-opera tively. Treating supportive ly at present.Tr end Hgbs. Parkinson's disease 4904 9000 G20.A1 Stable. Continue Sinemet, Glycopyrro late, & Entacapone .F/U with neurology as OP. Dementia 77826216 F03.90 ST to follow.Con tinue Donepezil, Memantine, Paroxetine , and Mirtazapin e. Mood is stable at present. Major depr essive disorder 410562818 F32.9 SEE ABOVE... Lung mass 314947230 R91. [address] scan at outside hospital in September 2023 as mass in right lower lobe.F/U for this is unclear -- hospital had recommende d f/u by PCP as OP. History of deep vein thrombosis 493926009 Z86.718 RLE. Presumed stable. Continue Eliquis long-term. History of pulmonary embolus 435477129 Z86.711 In September 2023. Presumed stable. Continue Eliquis long-term. Osteopenia 826915979 M85 .80 Presumed stable. Continue Ca + D and Vit D3. 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 Continue monthly injection. Vitamin D deficiency 347 33917 E55.9 Presumed stable. Continue supplement . Gastroesop hageal reflux disease without esophagitis 710911326 K21.9 Stable. Continue Omeprazole . Could consider changing to H2 lul or changing to PRN in pt with osteopenia . Advance care planning 71 6983453 Z71.89 Pt tells me she is a DNR, however she has signed her POLST form as a Full Code. Nursing to review further with patient and mPOA. Constipation 77238887 K5 9.00 Stable. Continue Colace & Miralax. [id number] Shara Oneal DO [address] [address] [place] [address] 02/03/2024 17:06:06 02/11/2024 15:44:07 History of total knee arthroplasty 8097890942 105 Z96.659 Underwent an elective left knee arthroplas ty due to loose hardware on 01/[address] Emilio Sarah at [facility].W BAT to LLE.Contin ue incision site care -- kannan in place.Cont inues on Doxycyclin e through 02/07 for surgical prophylaxi s.Continue s on Eliquis for DVT prophylaxi s -- takes long-term as OP.Continu e Lyrica, Lidocaine patch, & PRN APAP & [place] for pain.Rufino nue PT/OT.F/U with ortho on 02/11 as scheduled. Prosthetic joint loosening 334096738 T84.033S SEE ABOVE... Anemia fol lowing acute postoperative blood loss 6663546826 9672212 D62 Hgb dropped to 9.6 post-opera tively. Treating supportive ly at present.Tr end Hgbs. Parkinson's disease 4904 9000 G20.A1 Stable. Continue Sinemet, Glycopyrro late, & Entacapone .F/U with neurology as OP. Neuropathy 426648395 G62 .9 SEE ABOVE... Dementia 41361692 F03.90 ST to follow.Con tinue Donepezil, Memantine, Paroxetine , and Mirtazapin e. Mood is stable at present. Major depr essive disorder 946265587 F32.9 SEE ABOVE... Osteopenia 235849374 M85 .80 Presumed stable. Continue Ca + D and Vit D3. Gastroesop hageal reflux disease without esophagitis 838400920 K21.9 Stable. Continue Omeprazole . Could consider changing to H2 lul or changing to PRN in pt with osteopenia . Vitamin D deficiency 347 33442 E55.9 Presumed stable. Continue supplement . Disorder o f vitamin B12 281969581 E53.8 Presumed stable. Continue monthly injection. Lung mass 593680176 R91. [address] scan at outside hospital in September 2023 as mass in right lower lobe.F/U for this is unclear -- hospital had recommende d f/u by PCP as OP. History of deep vein thrombosis 519878234 Z86.718 RLE. Presumed stable. Continue Eliquis long-term. History of pulmonary embolus 448573571 Z86.711 In September 2023. Presumed stable. Continue Eliquis long-term. Constipation 49804455 K5 9.00 Stable. Continue Colace & Miralax. Physical deconditioning 3260798883 9102 R68.89 related to advanced age, recent knee replacemen t, comorbidit iestherapi es in place, she will return to her DCF apartment at upon d/c from SNFcontinu e eliquis for DVT prophylaxi kenya meds as abovecatha rtics in place [id number] Shara Oneal, DO [address] [address] 02/05/2024 09:05:38 02/07/2024 15:49:20 History of total knee arthroplasty 9078685107 105 Z96.659 Underwent an elective left knee arthroplas ty due to loose hardware on 01/[address] Emilio Sarah at [facility].W BAT to LLE.Contin ue incision site care -- kannan in place.Cont inues on Doxycyclin e through 02/10 for surgical prophylaxi s.Continue s on Eliquis for DVT prophylaxi s -- takes long-term as OP.Continu e Lyrica, Lidocaine patch, & PRN APAP & [place] for pain.Rufino nue PT/OT.F/U with ortho on 02/11 as scheduled. Prosthetic joint loosening 807907464 T84.033S SEE ABOVE... Anemia fol lowing acute postoperative blood loss 8560146370 5733814 D62 Hgb dropped to 9.6 post-opera tively. Treating supportive ly at present.Tr end Hgbs. Parkinson's disease 4904 9000 G20.A1 Stable. Continue Sinemet, Glycopyrro late, & Entacapone .F/U with neurology as OP. Neuropathy 352223667 G62 .9 SEE ABOVE... Dementia 87999961 F03.90 ST has followed.C ontinue Donepezil, Memantine, Paroxetine , and Mirtazapin e. Mood is stable at present. Major depr essive disorder 470818593 F32.9 SEE ABOVE... Osteopenia 526845713 M85 .80 Presumed stable. Continue Ca + D and Vit D3. Gastroesop hageal reflux disease without esophagitis 028586010 K21.9 Stable. Continue Omeprazole . PCP could consider changing to H2 lul or changing to PRN in pt with osteopenia . Vitamin D deficiency 347 11211 E55.9 Presumed stable. Continue supplement . Disorder o f vitamin B12 367210553 E53.8 Presumed stable. Continue monthly injection. Lung mass 820842593 R91. [address] scan at outside hospital in September 2023 as mass in right lower lobe.F/U for this is unclear -- hospital had recommende d f/u by PCP as OP. History of deep vein thrombosis 572722704 Z86.718 RLE. Presumed stable. Continue Eliquis long-term. History of pulmonary embolus 651971203 Z86.711 In September 2023. Presumed stable. Continue Eliquis long-term. Constipation 42956875 K5 9.00 Stable. Continue Colace & Miralax. Health Concerns Section Related Observation LastModified by Organization Detai ls LastModified Time None Recorded Concern Status LastModified by Organization Details LastModified Time None Recorded Advance Directives Directive None Recorded Payers Insurance Date Sequence Insurance Name Policy Number Policy Benitez Covered Member ID Benitez Member ID Guarantor Name 02/11/2024 2 A[employer] Sammi Herrerag [id number] Sammi Calzada 02/03/2024 1 MEDICARE-DC (MEDICARE) Sammi Villafing [id number] Sammi Calzada Notes Date Note Type Note [...] on 01/[address] Emilio Sarah at [facility] [It should be noted there are frequent places in hospital records where this is incorrectly listed as right]. Post-operative period was reportedly unremarkable beyond some post-operative anemia (Hgb 10.7, 9.6). She was discharged from the hospital on 01/20 to [facility] in [place]. While there, she was noted She has been discharged to this facility as of 01/30/24 for further rehabilitation with goal to return to her ILF apartment at [place]. She is WBAT to LLE and continues [...] positive).Bette lives in an ILF apartment at [place]. Her two sisters live only a few doors away and check in on her.[facility] [place].PCP is Dr. Rosa Onofre. Clary Comer, [address] [address] [place], [address], [place] [facility] 01/31/2024 15:00:30 [...] on 01/[address] Emilio Sarah at [facility] [It should be noted there are frequent places in hospital records where this is incorrectly listed as right]. Post-operative period was reportedly unremarkable beyond some post-operative anemia (Hgb 10.7, 9.6). She was discharged from the hospital on 01/20 to [facility] in [place] with an uncomplicated IRF stay. She has now been discharged to this facility as of 01/30/24 for further rehabilitation with goal to return to her ILF apartment at [place]. She is WBAT to LLE and continues [...] Jerry lives in an ILF apartment at [place]. Her two sisters live only a few doors away and check in on her.Pharmacy is [facility] in [place] [address] [place], [address], [place] [facility] 02/07/2024 04:05:04 [...] on 01/[address] Emilio Sarah at [facility] [It should be noted there are frequent places in hospital records where this is incorrectly listed as right]. Post-operative period was reportedly unremarkable beyond some post-operative anemia (Hgb 10.7, 9.6). She was discharged from the hospital on 01/20 to [facility] Acute [facility] in [place]. While there, she was noted She has been discharged to this facility as of 01/30/24 for further rehabilitation with goal to return to her ILF apartment at [place]. She is WBAT to LLE and continues on Doxycycline through 02/10 for surgical prophylaxis. mPOA is mally Cheney (although this should be confirmed as pt and sister aren't positive).Bette lives in an ILF apartment at [place]. Her two sisters live only a few [...] looking forward to discharging back to her [facility] apartment today with OP therapy and does not offer any concerns with this plan. VSS. Staff is without concerns at present. Clary Comer, [address] [address] [facility], [place], [address], [place] [facility] 02/05/2024 16:03:19 OBGyn Episode No OBEpisode recorded.
--- OUTSIDE RECORDS SUMMARY | 2024-10-24 17:29 | XMS_ITS | Clinical Summary ---
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 Medical Devices Implanted Type Area Acid Adjuster Device Identifier Shelf Expiration Date Model / Serial / Lot [employer] 5560-S-112 Triathlon 12mm 50mm Cement End Cap Knee Stem Femoral Cocr - [id number] Implanted:Qty: 1 on 03/17/2021 by Chriss Hay MD at [facility] [employer] [id number] 12/26/2025 5560-S-112 / / [id number] [employer] 6481-2-150 Gmrs Pack Crosslink Knee Component Femoral Polyethylene - [id number] Implanted:Qty: 1 on 03/17/2021 by Chriss Hay MD at [facility] Left: Knee [employer] [id number] 09/02/2025 6481-2-150 / / [id number] [employer] 6481-2-100 Monogram Modular Rotate Hinge Knee Xs-Xl Component Tibial - [id number] Implanted:Qty: 1 on 03/17/2021 by Chriss Hay MD at [facility] Left: Knee [employer] [id number] 09/06/2025 6481-2-100 / / [id number] [employer] [id number] Gmrs Bearing Modular Rotate Hinge Distal Bgd54kh M2 2 Insert - [id number] Implanted:Qty: 1 on 03/17/2021 by Chriss Hay MD at [facility] Left: Knee [employer] [id number] 12/08/2024 [id number] / / [id number] [employer] 6481-3-112 Modular Rotating Hinge 2 Medium Baseplate Tibial - [id number] Implanted:Qty: 1 on 03/17/2021 by Chriss Hay MD at [facility] Left: Knee [employer] [id number] 04/13/2025 6481-3-112 / / [id number] [employer] 6485-3-115 Gmrs 15mm 127mm Cemented Knee Straight Stem Femoral Sterile - [id number] Implanted:Qty: 1 on 03/17/2021 by Chriss Hay MD at [facility] Left: Knee [employer] [id number] 06/08/2023 6485-3-115 / / [id number] [employer] [id number] Gmrs 65mm Knee Left Small Component Femoral Cocr - [id number] Implanted:Qty: 1 on 03/17/2021 by Chriss Hay MD at [facility] Left: Knee [employer] [id number] 05/21/2025 [id number] / / [id number] [employer] 6191-1-010 Simplex P Radiopaque Full Dose Cement Bone Sterile - [id number] Implanted:Qty: 1 on 03/17/2021 by Chriss Hay MD at [facility] Left: Knee [employer] 05/02/2023 6191-1-010 / / [id number] [employer] 6191-1-010 Simplex P Radiopaque Full Dose Cement Bone Sterile - [id number] Implanted:Qty: 3 on 03/17/2021 by Chriss Hay MD at [facility] Left: Knee [employer] 05/31/2023 6191-1-010 / / [id number] [employer] [id number] Gmrs Knee Small Bushing Femoral - [id number] Implanted:Qty: 1 on 03/17/2021 by Chriss Hay MD at [facility] Left: Knee [employer] [id number] 04/06/2025 [id number] / / [id number] [employer] [id number] Gmrs Knee Small Bushing Femoral - [id number] Implanted:Qty: 1 on 03/17/2021 by Chriss Hay MD at [facility] Left: Knee [employer] [id number] 04/07/2025 [id number] / / [id number] [employer] [id number] Gmrs Knee Small Axle Femoral - [id number] Implanted:Qty: 1 on 03/17/2021 by Chriss Hay MD at [facility] Left: Knee [employer] [id number] 06/13/2023 [id number] / / [id number] Insurance MEDICARE [facility] MEDICARE [facility] MEDICARE [facility] Advance Directives For more information, please contact: [phone] * Full Code (Latest Code Status on File) Date Activated Date Inactivated Comments 03/17/2021 9:05 PM 03/21/2021 9:00 PM Care Teams Plate Corrector Relationship Specialty Start Date End Date Mahad Onofre MD [address] [facility] [address] [place] [address] PCP - General Internal Medicine 05/05/20 Chriss Hay MD [address] [address] Consulting Physician Orthopedic Surgery 03/19/21
--- OUTSIDE RECORDS SUMMARY | 2024-10-24 17:29 | XMS_ITS | Encounter Summary ---
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 [address] [place] [address] Consulting Physician Orthopedic Surgery 03/19/21 documented as of this encounter
--- OUTSIDE RECORDS SUMMARY | 2024-10-24 17:29 | XMS_ITS | Continuity of Care Document ---
Author Organization [facility] Address [address] [place] [address] Phone Care Team Providers Care Security Operations Engineer Name Role Phone Chriss Hay MD, MD [...] Date Provider Providers Copied on Encounter [facility], [address] [address], [place], [place], [id number], [place] tel:[phone] [facility] No Information 4 Satnam Carbajal er. [address] [address], [place], [place], [address] , [place]. tel:[phone] Office/outpa tient visit,[facility], [facility], [address] [address], [place], [place], [id number], [place] tel:[phone] [facility] left knee (chief complaint) Pain in left knee 2 Satnam hurley. [address] [address], [place], [place], [address] , [place]. tel:[phone] Referring Provider: Chriss Nguyen, [address] [address], [place], [address]. tel:[phone] Office/outpa tient visit,[facility], [facility], [address] [address], [place], [place], [id number], [place] [phone] [facility] left knee (chief complaint) Pain in left kneeDisplaced condyle fracture of lower end of left femur, sequelaPresence of left artificial knee joint 2 Cole Corbin. [address] [address], [place], [place], [address] , [place]. tel:[phone] Referring Provider: Shaquille Ewing, [address] [address], [place], [address]. tel:[phone] [facility], [address] [address], [place], [place], [id number], [place] tel:[phone] [facility] No Information 2 Satnam hurley. [address], [place], [place], [address] , [place]. tel:[phone] Office/outpa tient visit,est, mod [facility], [address] [address], [place], [place], [address], [place] tel:[phone] [facility] left knee (chief complaint) Displaced condyle fracture of lower end of left femur, sequelaPain in left kneePresence of left artificial knee joint 2 Cole Corbin. [address], [place], [place], [address] , [place]. tel: [phone] Referring Provider: Shaquille Ewing, [address] [place] [address] Suite [facility], [place], [address]. tel:[phone] [facility], [address] [place] [address], [place], [place], [address], [place] tel:[phone] [facility] Left hip (chief complaint) Pain in left kneeDisplaced condyle fracture of lower end of left femur, sequelaPresence of left artificial knee joint 2 Cole Corbin. [address] [facility] [address], [place], [place], [address] , [place]. tel: [phone] Referring Provider: Shaquille Ewing, [facility] [address] [facility], [place], [address]. tel:[phone] [facility], [address] [place] [address], [place], [place], [address], [place] tel:[phone] [facility] left femur (chief complaint) Displaced condyle fracture of lower end of left femur, sequelaPain in left kneePresence of left artificial knee joint 2 Cole Corbin. [address], [address] [address], [place], [place], [address] , [place]. tel: [phone] Referring Provider: Shaquille Ewing, [address] [facility] [address] [facility], [place], [address]. tel:[phone] Office/outpa tient visit,new, [facility], [address], [place], [place], [address], [place] tel:[phone] [facility] left femur (chief complaint) Displaced condyle fracture of lower end of left femur, initial encounter for closed fracture Satnam hurley. [address], [place], [place], [address] , [place]. tel: [phone] Referring Provider: Chriss Nguyen, [address], [place], [address]. tel:[phone] Family History Family Member Type Diagnosis Age At Onset Sister Problem (finding) Cancer, unknown Sister Problem (finding) Hypertension Sister Problem (finding) Osteoarthritis Mother Problem (finding) Cancer, unknown Payers Payer name Insurance type Covered republican ID Authoriza tion(s) [place] Part B MB [id number] AARP CI [id number] Social History Type Description Quantity Date Captured [...] She underwent open reduction internal fixation at [facility] with Dr. Lazo. 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 Patient is referred to me for further evaluation of reconstructive options in the setting of a nonunited geriatric distal femoral fracture.She is 5 foot 1, 162 pounds. Date of injury was 09/29/2019. She fell from a height at her home in [place]. Currently she lives in assisted living. Her pain as an 8 out of 10 it is constant. She is experiencing decreased motion limping and difficulty ambulating. Her pain is worse with standing walking climbing stairs and descending stairs pain is better with iptr-eig-vephxpf medication and prescription medication. She has used [...] seated with the leg in full extension. Sheridan were removed without difficulty or complication. The procedure was well tolerated by the patient who was discharged in stable condition. Dictation completed with [employer] software, grammatical variances in spelling errors may inadvertently occur. Related to Presence of left artificial knee joint Assessments Type Assessment Date No Information Patient Care Teams Name Effective Dates (start - stop) Status Members No Information
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
[2024-10-24 17:31] VITALS: BP 133/76; PULSE 73; RESP 16; TEMP 36.9; O2SAT 93
[2024-10-24 21:16] VITALS: BP 138/67; PULSE 63; O2SAT 94
[2024-10-24 21:37] LABS: Add Urine Microscopic? YES; Appearance Urine Cloudy (Clear); Glucose Urine UA Negative (Negative); Leukocyte Esterase Ur Negative LEU/UL (Negative); Need Manual Microscopic Reviewed; Nitrate Urine Negative (Negative); Non Pathogenic Casts 0-2; Specific Grav Ur 1.004 (1.001-1.035)
--- NOTE | 2024-10-24 21:39 | PC.NURSE ---
Pt presents to ED c/o 01/09 shooting back pain, non radiating onset 2 weeks ago. Per pt visited urgent care and was told it was sciatic pain, given meds to take at home with no improvement. Pt states she is unable to ambulate, denies any trauma. Pt placed on hospital monitor and cont. pulse oximeter.
--- OUTSIDE RECORDS SUMMARY | 2024-10-24 22:01 | XMS_ITS ---
Author Name Auto Generated, Auto Generated Organization [facility] ices Address [address] [place] [address] Phone [phone] Care Team Providers Care Adobe Block Maker Name Role Phone Rene Craftakin Macias Unavailable [phone] Micheal Mckeon Unavailable [phone] John Sarah Unavailable Clary Comer Unavailable Mahad Onofre Unavailable Shara Gilman Unavailable Functional Status Mental Status Allergies and Intolerances Encounters Immunizations Medications Problems Vital Signs Reason for Referral Past Medical History
--- OUTSIDE RECORDS SUMMARY | 2024-10-24 22:01 | XMS_ITS | Clinical Summary ---
Author Organization [facility] Address [address] [place] [address] Care Team Providers Care Systems Lead Name Role Phone Mahad Onofre MD Primary Care Provider Chriss Hay MD Unavailable [phone] Allergies Active Allergy Reactions Criticality Noted Date [...] (02/17/2021): Added automatically from request for surgery [id number] 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, subsequent encounter 02/17/2021 Overview (02/18/2021): Added automatically from request for surgery [id number] Osteoarthritis 01/03/2021 Diverticulitis 01/03/2021 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 Medical Devices Implanted Type Area Alpine Guide Device Identifier Shelf Expiration Date Model / Serial / Lot [employer] 5560-S-112 Triathlon 12mm 50mm Cement End Cap Knee Stem Femoral Cocr - [id number] Implanted:Qty: 1 on 03/17/2021 by Chriss Hay MD at [facility] [employer] [id number] 12/26/2025 5560-S-112 / / [id number] [employer] 6481-2-150 Gmrs Pack Crosslink Knee Component Femoral Polyethylene - [id number] Implanted:Qty: 1 on 03/17/2021 by Chriss Hay MD at [facility] Left: Knee [employer] [id number] 09/02/2025 6481-2-150 / / [id number] [employer] 6481-2-100 Monogram Modular Rotate Hinge Knee Xs-Xl Component Tibial - [id number] Implanted:Qty: 1 on 03/17/2021 by Chriss Hay MD at [facility] Left: Knee [employer] [id number] 09/06/2025 6481-2-100 / / [id number] [employer] [id number] Gmrs Bearing Modular Rotate Hinge Distal [id number] M2 2 Insert - [id number] Implanted:Qty: 1 on 03/17/2021 by Chriss Hay MD at [facility] Left: Knee [employer] [id number] 12/08/2024 [id number] / / [id number] [employer] 6481-3-112 Modular Rotating Hinge 2 Medium Baseplate Tibial - [id number] Implanted:Qty: 1 on 03/17/2021 by Chriss Hay MD at [facility] Left: Knee [employer] [id number] 04/13/2025 6481-3-112 / / [id number] [employer] 6485-3-115 Gmrs 15mm 127mm Cemented Knee Straight Stem Femoral Sterile - [id number] Implanted:Qty: 1 on 03/17/2021 by Chriss Hay MD at [facility] Left: Knee [employer] [id number] 06/08/2023 6485-3-115 / / [id number] [employer] [id number] Gmrs 65mm Knee Left Small Component Femoral Cocr - [id number] Implanted:Qty: 1 on 03/17/2021 by Chriss Hay MD at [facility] Left: Knee [employer] [id number] 05/21/2025 [id number] / / [id number] [employer] 6191-1-010 Simplex P Radiopaque Full Dose Cement Bone Sterile - [id number] Implanted:Qty: 1 on 03/17/2021 by Chriss Hay MD at [facility] Left: Knee [employer] 05/02/2023 6191-1-010 / / [id number] [employer] 6191-1-010 Simplex P Radiopaque Full Dose Cement Bone Sterile - [id number] Implanted:Qty: 3 on 03/17/2021 by Chriss Hay MD at [facility] Left: Knee [employer] 05/31/2023 6191-1-010 / / [id number] [employer] [id number] Gmrs Knee Small Bushing Femoral - [id number] Implanted:Qty: 1 on 03/17/2021 by Chriss Hay MD at [facility] Left: Knee [employer] [id number] 04/06/2025 [id number] / / [id number] [employer] [id number] Gmrs Knee Small Bushing Femoral - [id number] Implanted:Qty: 1 on 03/17/2021 by Chriss Hay MD at [facility] Left: Knee [employer] [id number] 04/07/2025 [id number] / / [id number] [employer] [id number] Gmrs Knee Small Axle Femoral - [id number] Implanted:Qty: 1 on 03/17/2021 by Chriss Hay MD at [facility] Left: Knee [employer] [id number] 06/13/2023 [id number] / / [id number] Insurance MEDICARE [facility] MEDICARE [facility] MEDICARE [facility] Advance Directives For more information, please contact: [phone] * Full Code (Latest Code Status on File) Date Activated Date Inactivated Comments 03/17/2021 9:05 PM 03/21/2021 9:00 PM Care Teams Systems Lead Relationship Specialty Start Date End Date Mahad Onofre MD [address] [facility] [address] [place] [address] PCP - General Internal Medicine 05/05/20 Chriss Hay MD [address] [address] Consulting Physician Orthopedic Surgery 03/19/21
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
--- OUTSIDE RECORDS SUMMARY | 2024-10-24 22:01 | XMS_ITS | Continuity of Care Document ---
Author Organization [facility] Address [address] [place] [address] Phone Care Team Providers Care Surface Hydrologist Name Role Phone Chriss Hay MD, MD [...] Date Provider Providers Copied on Encounter [facility], [address] [address], [place], [place], [id number], [place] tel:[phone] [facility] No Information 4 Satnam Carbajal er. [address] [address], [place], [place], [address] , [place]. tel:[phone] Office/outpa tient visit,[facility], [address] [address], [place], [place], [address], [place] tel:[phone] [facility] left knee (chief complaint) Pain in left knee 2 Satnam hurley. [address] [address], [place], [place], [address] , [place]. tel:[phone] Referring Provider: Chriss Nguyen, [address] [address], [place], [address]. tel:[phone] Office/outpa tient visit,[facility], [address] [address], [place], [place], [id number], [place] [phone] [facility] left knee (chief complaint) Pain in left kneeDisplaced condyle fracture of lower end of left femur, sequelaPresence of left artificial knee joint 2 Cloe Corbin. [address] [facility] [address], [place], [place], [address] , [place]. tel:[phone] Referring Provider: Shaquille Ewing, [address] [address], [place], [address]. tel:[phone] [facility], [address] [address], [place], [place], [address], [place] tel:[phone] [facility] No Information 2 Satnam hurley. [address] [facility], [place], [place], [address] , [place]. tel:[phone] Office/outpa tient visit,est, mod [facility], [address] [address], [place], [address], [place] tel:[phone] [facility] left knee (chief complaint) Displaced condyle fracture of lower end of left femur, sequelaPain in left kneePresence of left artificial knee joint 2 Cole Corbin. [address] [facility], [address], [place], [place], [address] , [place]. tel: [phone] Referring Provider: Shaquille Ewing, [address] [place] [address] Suite [facility], [place], [address]. tel:[phone] [facility], [address] [place] [address], [place], [place], [address], [place] tel:[phone] [facility] Left hip (chief complaint) Pain in left kneeDisplaced condyle fracture of lower end of left femur, sequelaPresence of left artificial knee joint 2 Cole Corbin. [address] [facility] [address], [place], [place], [address] , [place]. tel: [phone] Referring Provider: Shaquille Ewing, [facility] [facility] [address] [facility], [place], [address]. tel:[phone] [facility], [address] [place] [address], [place], [place], [address], [place] tel:[phone] [facility] left femur (chief complaint) Displaced condyle fracture of lower end of left femur, sequelaPain in left kneePresence of left artificial knee joint 2 Cole Corbin. [address] [facility] [address], [place], [place], [address] , [place]. tel: [phone] Referring Provider: Shaquille Ewing, [address] [facility] [address] [facility], [place], [address]. tel:[phone] Office/outpa tient visit,new, high [facility], [address], [place], [place], [address], [place] tel:[phone] [facility] left femur (chief complaint) Displaced condyle fracture of lower end of left femur, initial encounter for closed fracture Satnam hurley. [address] [facility], [place], [place], [address] , [place]. tel: [phone] Referring Provider: Chriss Nguyen, [address] [facility] [address], [place], [address]. tel:[phone] Family History Family Member Type Diagnosis Age At Onset Sister Problem (finding) Cancer, unknown Sister Problem (finding) Hypertension Sister Problem (finding) Osteoarthritis Mother Problem (finding) Cancer, unknown Payers Payer name Insurance type Covered green party ID Authoriza tion(s) [place] [id number] AARP CI [id number] Social History Type Description Quantity Date Captured [...] She underwent open reduction internal fixation at [facility] with Dr. Lazo. 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 Patient is referred to me for further evaluation of reconstructive options in the setting of a nonunited geriatric distal femoral fracture.She is 5 foot 1, 162 pounds. Date of injury was 09/29/2019. She fell from a height at her home in [place]. Currently she lives in assisted living. Her pain as an 8 out of 10 it is constant. She is experiencing decreased motion limping and difficulty ambulating. Her pain is worse with standing walking climbing stairs and descending stairs pain is better with iimi-ykw-mpuosmd medication and prescription medication. She has used [...] seated with the leg in full extension. [place] were removed without difficulty or complication. The procedure was well tolerated by the patient who was discharged in stable condition. Dictation completed with Pelliano software, grammatical variances in spelling errors may inadvertently occur. Related to Presence of left artificial knee joint Assessments Type Assessment Date No Information Patient Care Teams Name Effective Dates (start - stop) Status Members No Information
--- OUTSIDE RECORDS SUMMARY | 2024-10-24 22:01 | XMS_ITS | Encounter Summary ---
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 Gender Identity Not on file Sexual Orientation [...] on stairs Contact your local community or [facility] for information on exercise, fall prevention [...] documented as of this encounter Care Teams Hull And Deck Remover Relationship Specialty Start Date End Date Mahad Onofre MD [address] [facility] [address] [place] [address] PCP - General Internal Medicine 05/05/20 Chriss Hay MD [address] [facility] [address] [place] [address] Consulting Physician Orthopedic Surgery 03/19/21 documented as of this encounter
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
--- OUTSIDE RECORDS SUMMARY | 2024-10-24 22:01 | XMS_ITS | Referral Summary ---
Author Organization [facility] Address [address] [place] [address] Care Team Providers Care Director Of Guidance Name Role Phone Mahad Onofre MD Primary Care Provider Chriss Hay MD Unavailable [phone] Encounters Date Type Department Care Team Description 10/06/2024 1:30 PM CDT Office Visit [facility] Neurology [address] [place] [address] Dieter Skelton MD Parkinson's disease [...] (02/17/2021): Added automatically from request for surgery [id number] 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 Medical Devices Implanted Type Area Retread Technician Device Identifier Shelf Expiration Date Model / Serial / Lot [employer] 5560-S-112 Triathlon 12mm 50mm Cement End Cap Knee Stem Femoral Cocr - [id number] Implanted:Qty: 1 on 03/17/2021 by Chriss Hay MD at [facility] [employer] [id number] 12/26/2025 5560-S-112 / / [id number] [employer] 6481-2-150 Gmrs Pack Crosslink Knee Component Femoral Polyethylene - [id number] Implanted:Qty: 1 on 03/17/2021 by Chriss Hay MD at [facility] Left: Knee [employer] [id number] 09/02/2025 6481-2-150 / / [id number] [employer] 6481-2-100 Monogram Modular Rotate Hinge Knee Xs-Xl Component Tibial - [id number] Implanted:Qty: 1 on 03/17/2021 by Chriss Hay MD at [facility] Left: Knee [employer] [id number] 09/06/2025 6481-2-100 / / [id number] [employer] [id number] Gmrs Bearing Modular Rotate Hinge Distal [id number] M2 2 Insert - [id number] Implanted:Qty: 1 on 03/17/2021 by Chriss Hay MD at [facility] Left: Knee [employer] [id number] 12/08/2024 [id number] / / [id number] [employer] 6481-3-112 Modular Rotating Hinge 2 Medium Baseplate Tibial - [id number] Implanted:Qty: 1 on 03/17/2021 by Chriss Hay MD at [facility] Left: Knee [employer] [id number] 04/13/2025 6481-3-112 / / [id number] [employer] 6485-3-115 Gmrs 15mm 127mm Cemented Knee Straight Stem Femoral Sterile - [id number] Implanted:Qty: 1 on 03/17/2021 by Chriss Hay MD at [facility] Left: Knee [employer] [id number] 06/08/2023 6485-3-115 / / [id number] [employer] [id number] Gmrs 65mm Knee Left Small Component Femoral Cocr - [id number] Implanted:Qty: 1 on 03/17/2021 by Chriss Hay MD at [facility] Left: Knee [employer] [id number] 05/21/2025 55493084 / / [id number] [employer] 6191-1-010 Simplex P Radiopaque Full Dose Cement Bone Sterile - [id number] Implanted:Qty: 1 on 03/17/2021 by Chriss Hay MD at [facility] Left: Knee [employer] 05/02/2023 6191-1-010 / / [id number] [employer] 6191-1-010 Simplex P Radiopaque Full Dose Cement Bone Sterile - [id number] Implanted:Qty: 3 on 03/17/2021 by Chriss Hay MD at [facility] Left: Knee [employer] 05/31/2023 6191-1-010 / / [id number] [employer] [id number] Gmrs Knee Small Bushing Femoral - [id number] Implanted:Qty: 1 on 03/17/2021 by Chriss Hay MD at [facility] Left: Knee [employer] [id number] 04/06/2025 16576764 / / [id number] [employer] [id number] Gmrs Knee Small Bushing Femoral - [id number] Implanted:Qty: 1 on 03/17/2021 by Chriss Hay MD at [facility] Left: Knee [employer] [id number] 04/07/2025 [id number] / / [id number] [employer] [id number] Gmrs Knee Small Axle Femoral - [id number] Implanted:Qty: 1 on 03/17/2021 by Chriss Hay MD at [facility] Left: Knee [employer] [id number] 06/13/2023 [id number] / / [id number] Insurance MEDICARE [facility] MEDICARE [facility] MEDICARE [facility] Advance Directives For more information, please contact: [phone] * Full Code (Latest Code Status on File) Date Activated Date Inactivated Comments 03/17/2021 9:05 PM 03/21/2021 9:00 PM Care Teams Director Of Guidance Relationship Specialty Start Date End Date Mahad Onofre MD [address] [facility] [address] [facility] 23 [place] [address] PCP - General Internal Medicine 05/05/20 Chriss Hay MD [address] [facility] [address] [place] [address] Consulting Physician Orthopedic Surgery 03/19/21
--- NOTE | 2024-10-24 22:39 | PC.NURSE ---
pt found to be 84% on RA. Pt placed on 2lnc at this time.
--- NOTE | 2024-10-24 22:57 | ED.BACK ---
HPI - Back Pain/Injury General Chief Complaint: Back Pain/Injury Stated Complaint: back pain Time Seen by Provider: 10/24/24 21:25 Source: patient and other Limitations: no limitations History of Present Illness HPI Narrative: Patient with history of Parkinson's presents with report of back pain that started a week or 2 ago. She denies any injury or trauma/fall. She went to urgent care on 10/19/2024 and was prescribed prednisone and she finished this course of medication yesterday morning. Her primary care physician prescribed tramadol which she is taken but this has provided minimal relief, last dose was at 4:30 pm. Uses a walker as assist device. No bowel/bladder incontinence. No paresthesias/saddle anesthesia. No cancer. No syncope. pCP ordered an Xray which was done. Scheduled for MRI 11/06/24. Allergies listed to some opiates but has received oxy before. She reports pinpoint location of pain. Related Data Home Medications ?Medication ?Instructions ?Recorded ?Confirmed ?Last Taken ?Type carbidopa 10 mg-levodopa 100 mg 1 tablet PO QID 06/28/20 10/19/24 06/05/24 History tablet entacapone 200 mg tablet 200 mg PO QID 03/30/22 10/19/24 06/05/24 History mirtazapine 15 mg tablet 15 mg PO HS 03/30/22 10/19/24 06/04/24 History donepezil 10 mg tablet 10 mg PO HS 11/17/22 10/19/24 06/04/24 History cholecalciferol (vitamin D3) 125 125 mcg PO DAILY 12/26/23 09/14/24 06/04/24 History mcg (5,000 unit) capsule multivitamin (Daily Multi-Vitamin 1 tablet PO DAILY 12/26/23 08/05/24 06/04/24 History tablet) glycopyrrolate 1 mg tablet 1 mg PO HS 05/23/24 10/19/24 06/04/24 History memantine 10 mg tablet 10 mg PO BID 05/24/24 10/19/24 06/04/24 History carbidopa 25 mg-levodopa 100 mg tablet 10/19/24 Unknown History tablet Allergies Allergy/AdvReac Type Severity Reaction Status Date / Time hydrocodone AdvReac Severe Hallucinati Verified 10/24/24 17:35 ng codeine AdvReac Intermediate Nausea and Verified 10/24/24 17:35 Vomiting PMFSH Past Medical History Medical History Deep venous thrombosis (DVT) of right peroneal vein Iliotibial band syndrome affecting left lower leg Esophageal stricture Fracture of ankle, bimalleolar, left, closed Dysphagia Parkinsons disease Coarse tremors Osteopenia Compression fracture of T11 vertebra Surgical History Surgical History History of cholecystectomy H/O: hysterectomy Status post revision of total replacement of left knee S/P ORIF (open reduction internal fixation) fracture left femur Family History Family History Father Acute myocardial infarction Mother Uterine cancer Social History Social History Smoking status: Never smoker Second hand tobacco smoke exposure: No Alcohol intake: never Substance use: never Substance use type: does not use Do You Feel Safe in your Home?: Yes Lack of Transportation: No Lack of Food: Never True Current Housing: I Have Housing Concerned About Future Housing: No Difficulty Paying Gas/Electric Bills: No Difficulty Paying for Meds: No Currently Unemployed: No Education: Don't Know Difficulty w/ Childcare or Family Care: No Living arrangements: assisted living Additional living arrangements comments: assisted living Gender identity (if verbalized by the patient): Female Spiritual care concerns: No Exam Narrative: GENERAL: Well-appearing, well-nourished, and in no acute distress. HEAD: Normocephalic, atraumatic. EYES: Non injected, non icteric ENT: Nares clear, no rhinorrhea or epistaxis. Gross auditory acuity intact. NECK: Supple. No meningismus. CHEST: Speaking in full sentences. No respiratory distress. HEART: Regular rate and rhythm. . ABDOMEN: Soft, nondistended. No rigidity or guarding. Not peritoneal EXTREMITIES: No lower extremity edema. 5/5 strength bilateral ankle dorsiflexion/plantarflexion. Able to bend knees (flex) and have them in extension. SKIN: Warm, dry, no rash. NEURO: No focal deficits. Alert and oriented. Answering questions. Following commands. Normal speech without aphasia or dysarthria. Sensation intact to gross touch in LEs. PSYCH: Normal mood and affect. Course Vital Signs Vital signs: Vital Signs Temperature 98.4 F 10/24/24 17:31 Pulse Rate 73 10/24/24 17:31 Respiratory Rate 16 10/24/24 17:31 Blood Pressure 133/76 10/24/24 17:31 Pulse Oximetry 93 10/24/24 17:31 Oxygen Delivery Room Air 10/24/24 17:31 Temperature 98.4 F 10/24/24 17:31 Pulse Rate 78 10/25/24 01:01 Respiratory Rate 16 10/25/24 01:01 Blood Pressure 149/67 H 10/25/24 01:01 Pulse Oximetry 93 10/25/24 01:01 Oxygen Delivery Room Air 10/24/24 17:31 MDM - Back Pain/Injury MDM Narrative Medical decision making narrative: 84-year-old female presents with back pain for the past 1-2 weeks. No preceding injury/trauma/falls. Has had an x-ray performed in is scheduled for upcoming MRI. Finished course prednisone prescribed by urgent care and finished course of Tramadol prescribed by PCP, no relief. In the emergency department they are afebrile with vital signs within normal limits (initially documented as SpO2 93% followed by 94% w/o intervention). CT concerning for burst fracture as below. Urinalysis without infection. Wildlife Management Professor attempted multiple times to reach [facility]OOKS Morin, both direct cell phone and exchange. Eventually was able to discuss with him who concurs with TLSO brace, pain control, can proceed with MRI as already scheduled/ordered by PCP, and follow up outpatient. Patient prescribed both [id number] analgesics as well as opiate/narcotic pain medicine for breakthrough pain. Given strict ED return precautions. Provided written Rx for DME. Medical Records Attestation: I reviewed the patient's medical records. Medical records narrative: 10/22/24 Xray FINDINGS/ IMPRESSION: Age-indeterminate decrease in height of L2 and L3 vertebral bodies, concerning for compression deformities. Status post T11 kyphoplasty. Cholecystectomy clips are seen. Multilevel degenerative changes are seen in the spine. Moderate stool burden. Lab Data Labs: Lab Results 10/24/24 Range/Units 20:32 Urine Color Dark yellow (Yellow) Urine Appearance Cloudy H (Clear) Urine pH 7.0 (5.0-9.0) Ur Specific [place] 1.004 (1.001-1.035) Urine Protein Negative (Negative) mg/dL Urine Glucose (UA) Negative (Negative) mg/dL Urine Ketones Negative (Negative) mg/dL Ur Blood (Man) Negative (Negative) Urine Nitrate Negative (Negative) Urine Bilirubin Negative (Negative) Urine Urobilinogen 0.2 (<2.0) mg/dL Add Ur Microanalysis Reviewed Leukocyte Esterase Rfl Negative (Negative) BENSON/UL Urine RBC 0-2 (0-2) /hpf Urine WBC 0-5 (0-3) /hpf Ur Squamous Epith Cells None seen (Few) /hpf Urine Bacteria None seen /hpf Urine Casts 0-2 Imaging Data Radiologist's impression: Impressions Cervical Spine CT 10/24/24 18:38 IMPRESSION: 1. Moderate spondylosis at C6-C7 and mild spondylosis and more cephalad cervical spine. Thoracic/Lumbar Spine CT 10/24/24 19:07 IMPRESSION: 1. Recent-appearing, potentially acute L2 burst fracture with 20% anterior vertebral body height loss and 6 mm retropulsion resulting in mild central canal stenosis. 2. 30 degree thoracic dextroscoliosis with moderate thoracic and lumbar spondylosis. 3. Additional chronic T11 burst fracture with prior vertebroplasty and chronic L3 burst fracture without vertebroplasty. Discharge Plan Discharge Clinical Impression: Cervical spondylosis, Burst fracture of lumbar vertebra, Central stenosis of spinal canal, Low back pain Patient Disposition: Home Condition: Stable Instructions: Antibiotic Form, Vertebral Compression Fracture (ED), Narcotic Safety (ED), Acute Low Back Pain (ED), Back Pain (ED) Additional Instructions: Acetaminophen/Tylenol (maximum 4000 mg per day) is safe to take with NSAIDs (ibuprofen/Motrin) for pain relief. For breakthrough pain, opiate/narcotic pain medications have been ordered. A written prescription has been provided for a special TLSO brace you should wear. This can be picked up at a medical supply store, e.g. [facility] [address], [place] [address]. Return to the ER if you have increased pain in your back, you develop lower extremity weakness/numbness/paralysis, you have numbness or tingling in your private parts, or you are unable to control your ability to urinate/stool. Proceed with the upcoming MRI you have scheduled and follow up with the neurosurgeon listed below (call to schedule an appointment). Patient Language: Italian Prescriptions: New ibuprofen 600 mg tablet 600 mg PO TID PRN (Reason: pain) Qty: 30 0RF acetaminophen 500 mg capsule 1,000 mg PO Q6H PRN (Reason: pain) Qty: 30 0RF oxycodone 5 mg tablet 5 mg PO Q8H PRN (Reason: pain) Qty: 21 0RF No Action nystatin 100,000 unit/gram powder 1 applic topical BID 14 Days Qty: 60 0RF memantine 10 mg tablet 10 mg PO BID carbidopa-levodopa 25-100 mg tablet prednisone 10 mg tablet 30 mg PO DAILY 5 Days Qty: 15 0RF omeprazole 40 mg capsule,delayed release(DR/EC) 40 mg PO BID 60 Days Qty: 120 1RF Rx Instructions: do not take NSAIDS or Aspirin. this high dose is only temporary, the intention is to taper it down once severe esophagitis is resolved, thank you cholecalciferol (vitamin D3) 125 mcg (5,000 unit) capsule 125 mcg PO DAILY multivitamin [Daily Multi-Vitamin] Tablet 1 tablet PO DAILY carbidopa-levodopa 10-100 mg tablet 1 tablet PO QID entacapone 200 mg tablet 200 mg PO QID mirtazapine 15 mg tablet 15 mg PO HS glycopyrrolate 1 mg tablet 1 mg PO HS paroxetine HCl 20 mg Tablet 20 mg PO QAM Qty: 30 0RF donepezil 10 mg tablet 10 mg PO HS Follow-up/Referrals: Duy Morin MD [Physician] - Onofre,Mahad Vasques MD [Primary Care Provider] - Time of Disposition: 00:30
[2024-10-24] MEDS: oxyCODONE HCL (*CRX) 5 MG TAB IR PO (23:23)
[2024-10-24 23:46] VITALS: BP 134/67; PULSE 62; RESP 14; O2SAT 99
[2024-10-25 01:01] VITALS: BP 149/67; PULSE 78; RESP 16; O2SAT 93
== END 2024-10-25 01:01 | disposition home or self-care (01) ==
PROVIDERS: Registered Nurse; Emergency Provider Student in an Organized Health Care Education/Training Program; PCP Internal Medicine
DX: S32.021A Stable burst fracture of second lumbar vertebra, initial encounter for closed fracture (principal); M47.812 Spondylosis without myelopathy or radiculopathy, cervical region; M48.061 Spinal stenosis, lumbar region without neurogenic claudication; G20.A1 Parkinson's disease without dyskinesia, without mention of fluctuations; M85.80 Other specified disorders of bone density and structure, unspecified site; Z86.718 Personal history of other venous thrombosis and embolism; Z90.49 Acquired absence of other specified parts of digestive tract; Z90.710 Acquired absence of both cervix and uterus; Z96.652 Presence of left artificial knee joint; X58.XXXA Exposure to other specified factors, initial encounter
CPT/HCPCS: 72125; 72128; 72131; 81001; 99284; A9270

== ENCOUNTER 2024-12-04 01:44 | Day surgery (SDC) | payer MEDICARE, SELFPAY ==
[2024-11-26 09:53] VITALS: BMI 28.3
[2024-12-04 08:31] VITALS: BP 140/76; PULSE 78; RESP 18; TEMP 35.8; O2SAT 90
[2024-12-04] MEDS: LACTATED RINGERS 1,000 ML 150 ML IV CONT (08:40)
[2024-12-04] MEDS: SIMETHICONE ORAL SUSPENSION 20 MG/0.3 ML 30 ML BOTTLE 1.8 ML PO (08:46)
--- NOTE | 2024-12-04 09:19 | WPDANESEPPF ---
Anes - Initial Pre Proc Eval Procedure: Operation Date: 12/04/24 09:30 Proposed Procedures p Esophagogastroduodenoscopy - Sandeep Duncan MD Date/Time: 12/04/24 09:19 Surgeon: Sandeep Duncan MD Pre Op Diagnosis: Esophageal obstruction Patient Data Age: 84 Gender: F Height: 1.57 m Weight: 72.7 kg Last Vital Signs Temp 96.5 F L 12/04/24 08:31 Pulse 78 12/04/24 08:31 Resp 18 12/04/24 08:31 BP 140/76 12/04/24 08:31 Pulse Ox 90 12/04/24 08:31 O2 Del Method Room Air 12/04/24 08:31 Allergies Allergy/AdvReac Type Severity Reaction Status Date / Time hydrocodone AdvReac Severe Hallucinati Verified 12/04/24 08:29 ng codeine AdvReac Intermediate Nausea and Verified 12/04/24 08:29 Vomiting Home Medications ?Medication ?Instructions ?Recorded ?Confirmed ?Type paroxetine HCl 20 mg tablet 20 mg PO QAM #30 tabs 10/07/19 12/04/24 Rx carbidopa 10 mg-levodopa 100 mg 1 tablet PO QID 06/28/20 12/04/24 History tablet mirtazapine 15 mg tablet 15 mg PO HS 03/30/22 12/04/24 History donepezil 10 mg tablet 10 mg PO HS 11/17/22 12/04/24 History cholecalciferol (vitamin D3) 125 125 mcg PO DAILY 12/26/23 12/04/24 History mcg (5,000 unit) capsule multivitamin (Daily Multi-Vitamin 1 tablet PO DAILY 12/26/23 12/04/24 History tablet) glycopyrrolate 1 mg tablet 1 mg PO HS 05/23/24 12/04/24 History memantine 10 mg tablet 10 mg PO BID 05/24/24 12/04/24 History nystatin 100,000 unit/gram topical 1 applic topical BID 14 days #60 09/14/24 12/04/24 Rx powder grams carbidopa 25 mg-levodopa 100 mg 1 tablet PO DAILY 10/19/24 12/04/24 History tablet acetaminophen 500 mg capsule 1,000 mg (2 x 500 mg) PO Q6H PRN 07/26/25 08/27/25 Rx pain #30 caps ibuprofen 600 mg tablet 600 mg PO TID PRN pain #30 tabs 10/25/24 11/26/24 Rx oxycodone 5 mg tablet 5 mg PO Q8H PRN pain #21 tabs 10/25/24 11/26/24 Rx omeprazole 40 mg capsule,delayed 40 mg PO DAILY #30 caps 12/02/24 12/04/24 Rx release Patient hx anesthesia problems: none Family hx anesthesia problems: none Results Review: All pre-operative results and documents have been reviewed as part of the pre-operative evaluation. [facility] Past Medical History Medical History Deep venous thrombosis (DVT) of right peroneal vein Iliotibial band syndrome affecting left lower leg Esophageal stricture Fracture of ankle, bimalleolar, left, closed Dysphagia Parkinsons disease Coarse tremors Osteopenia Compression fracture of T11 vertebra Surgical History Surgical History History of cholecystectomy H/O: hysterectomy Status post revision of total replacement of left knee S/P ORIF (open reduction internal fixation) fracture left femur Family History Family History Father Acute myocardial infarction Mother Uterine cancer Social History Social History Smoking status: Never smoker Second hand tobacco smoke exposure: No Alcohol intake: never Substance use: never Substance use type: does not use Do You Feel Safe in your Home?: Yes Lack of Transportation: No Lack of Food: Never True Current Housing: I Have Housing Concerned About Future Housing: No Difficulty Paying Gas/Electric Bills: No Difficulty Paying for Meds: No Currently Unemployed: No Education: Don't Know Difficulty w/ Childcare or Family Care: No Living arrangements: assisted living Additional living arrangements comments: assisted living Gender identity (if verbalized by the patient): Female Spiritual care concerns: No Anes - Eval Final PreProcedure Day of Procedure 12/04/24 09:19 Patient weight: normal Heart: regular rate and rhythm Lungs: clear to auscultation Airway: Mallampati scale class II Neurological: alert and oriented Last oral intake: >/= 8 hours ASA classification: IV Emergent: no Anesthetic plan: proceed Anesthesia type and monitoring: general GIVS and standard monitoring Results Review: All pre-operative results and documents have been reviewed as part of the pre-operative evaluation. Informed Consent: The patient's anesthetic plan and its attendant risks and benefits were discussed with the patient/family/POA. Questions were solicited and answers provided to the satisfaction of the patient/family/POA.
--- NOTE | 2024-12-04 09:43 | PM.IMHP ---
H&P: HPI History of Present Illness Date/Time: 12/04/24 09:43 Chief Complaint: GERD Narrative: the patient has a longstanding history of heartburn a dysphagia, which is multifactorial: Parkinson's disease and severe erosive esophagitis. March this year, I performed an EGD showing grade D esophagitis in [place] classification. In addition, there was a distal stenosis which was dilated with a 12-15 balloon. She was prescribed omeprazole 20 mg b.i.d. and she is currently asymptomatic, not having dysphagia or heartburn. This is her 6 month follow-up EGD. Review of Systems Review of Systems: All systems reviewed & are unremarkable except as noted in HPI and below PMFSH Past Medical History Medical History Deep venous thrombosis (DVT) of right peroneal vein Iliotibial band syndrome affecting left lower leg Esophageal stricture Fracture of ankle, bimalleolar, left, closed Dysphagia Parkinsons disease Coarse tremors Osteopenia Compression fracture of T11 vertebra Surgical History Surgical History History of cholecystectomy H/O: hysterectomy Status post revision of total replacement of left knee S/P ORIF (open reduction internal fixation) fracture left femur Family History Family History Father Acute myocardial infarction Mother Uterine cancer Social History Social History Smoking status: Never smoker Second hand tobacco smoke exposure: No Alcohol intake: never Substance use: never Substance use type: does not use Do You Feel Safe in your Home?: Yes Lack of Transportation: No Lack of Food: Never True Current Housing: I Have Housing Concerned About Future Housing: No Difficulty Paying Gas/Electric Bills: No Difficulty Paying for Meds: No Currently Unemployed: No Education: Don't Know Difficulty w/ Childcare or Family Care: No Living arrangements: assisted living Additional living arrangements comments: assisted living Gender identity (if verbalized by the patient): Female Spiritual care concerns: No Meds Home Medications and Allergies Home Medications ?Medication ?Instructions ?Recorded ?Confirmed ?Type paroxetine HCl 20 mg tablet 20 mg PO QAM #30 tabs 07/07/20 09/04/25 Rx carbidopa 10 mg-levodopa 100 mg 1 tablet PO QID 06/28/20 12/04/24 History tablet mirtazapine 15 mg tablet 15 mg PO HS 03/30/22 12/04/24 History donepezil 10 mg tablet 10 mg PO HS 11/17/22 12/04/24 History cholecalciferol (vitamin D3) 125 125 mcg PO DAILY 12/26/23 12/04/24 History mcg (5,000 unit) capsule multivitamin (Daily Multi-Vitamin 1 tablet PO DAILY 12/26/23 12/04/24 History tablet) glycopyrrolate 1 mg tablet 1 mg PO HS 05/23/24 12/04/24 History memantine 10 mg tablet 10 mg PO BID 05/24/24 12/04/24 History nystatin 100,000 unit/gram topical 1 applic topical BID 14 days #60 09/14/24 12/04/24 Rx powder grams carbidopa 25 mg-levodopa 100 mg 1 tablet PO DAILY 10/19/24 12/04/24 History tablet acetaminophen 500 mg capsule 1,000 mg (2 x 500 mg) PO Q6H PRN 10/25/24 11/26/24 Rx pain #30 caps ibuprofen 600 mg tablet 600 mg PO TID PRN pain #30 tabs 10/25/24 11/26/24 Rx oxycodone 5 mg tablet 5 mg PO Q8H PRN pain #21 tabs 10/25/24 11/26/24 Rx omeprazole 40 mg capsule,delayed 40 mg PO DAILY #30 caps 12/02/24 12/04/24 Rx release Allergies Allergy/AdvReac Type Severity Reaction Status Date / Time hydrocodone AdvReac Severe Hallucinati Verified 12/04/24 08:29 ng codeine AdvReac Intermediate Nausea and Verified 12/04/24 08:29 Vomiting Vital Signs Vital Signs - 24 hr 12/04/24 08:31 Temperature 96.5 F L Pulse Rate 78 Respiratory Rate 18 Blood Pressure 140/76 Pulse Oximetry 90 Oxygen Delivery Room Air Exam Const: General: cooperative and healthy appearing Resp: Effort & Inspection: normal respiratory effort and able to speak in complete sentences Auscultation: clear to auscultation bilaterally Cardio: Rate: regular rate Rhythm: regular rhythm GI: Inspection: normal to inspection GI Palp: No No hepatosplenomegaly present Auscultation: normal bowel sounds Rectal Exam: deferred Skin: General skin exam: normal color Psych: Appearance: grossly normal Mental Status: mental status grossly normal Assessment and Plan Assessment and plan (1) Esophagitis: Code(s): K20.90 - Esophagitis, unspecified without bleeding Status: Acute Assessment and Plan: The patient is deemed a good candidate for the procedure. Consent signed. Will proceed.
[2024-12-04 10:01] VITALS: BP 138/82; PULSE 68; RESP 15; O2SAT 97
[2024-12-04 10:11] VITALS: BP 140/77; PULSE 61; RESP 14; O2SAT 93
[2024-12-04 10:21] VITALS: BP 147/77; PULSE 63; RESP 26; O2SAT 97
== END 2024-12-04 10:29 | disposition home or self-care (01) ==
PROVIDERS: PCP Internal Medicine; Referring Provider Nurse Practitioner Family; Visit Provider Internal Medicine Gastroenterology
PROC: 0DJ08ZZ Inspection of Upper Intestinal Tract, Via Natural or Artificial Opening Endoscopic (ICD-10-PCS; CPT 43235; principal; 2024-12-04 09:30)
DX: K21.00 Gastro-esophageal reflux disease with esophagitis, without bleeding (principal); K29.30 Chronic superficial gastritis without bleeding; K44.9 Diaphragmatic hernia without obstruction or gangrene
CPT/HCPCS: 43235; J2003; J2704; J7120

== ENCOUNTER 2024-12-12 11:32 | Outpatient (CLI) | payer MEDICARE, SELFPAY ==
--- NOTE | ~2024-12-12 | XR_ITS ---
XR lumbar spine 2-3V Indication: S32.029A - Unspecified fracture of second lumbar vertebra... Comparison: None Findings: Moderate loss of vertebral height throughout with remote compression fractures of L3 L2 and T10 kyphoplasty changes of T10, loss of height maximally of L2 90%. No acute fracture or subluxation. Moderate osteopenia. Moderate to severe loss of disc height throughout. Soft tissues unremarkable Impression: No acute abnormality. Reviewed, dictated and finalized at location A. Impression: No acute abnormality.
== END 2024-12-12 11:33 | disposition home or self-care (01) ==
PROVIDERS: PCP Internal Medicine; Visit Provider Nurse Practitioner Adult Health
DX: S32.029A Unspecified fracture of second lumbar vertebra, initial encounter for closed fracture (principal); X58.XXXA Exposure to other specified factors, initial encounter
CPT/HCPCS: 72100

== ENCOUNTER 2025-01-06 15:36 | Outpatient (CLI) | payer MEDICARE, SELFPAY ==
--- OUTSIDE RECORDS SUMMARY | 2024-01-29 10:01 | XMS_ITS | Continuity of Care Document ---
Author Organization [facility] Address [address] [place] [address] Phone Care Team Providers Care Water Inspector Name Role Phone Chriss Hay MD, MD Unavailable Unavaila ble Allergies, Adverse Reactions, Alerts Substance Reaction Status Criticality codeine DifficultyBreathing Active No Infor mation Medications Medication Instructions Dosage Effective Dates (start - stop) Status Comments amoxicillin 500 mg tablet take 4 tablet by oral route 2 hours prior to dental appointment - Active TRAMADOL HCL (unknown strength) Not Available - Active REMERON (unknown strength) Not Available - Active PAXIL (unknown strength) Not Available - Active ASPIRIN EC (unknown strength) Not Available - Active ALEVE (unknown strength) Not Available - Active CARBIDOPA-LEVODOPA (unknown strength) Not Available - Active FOLIC ACID (unknown strength) Not Available - Active PRILOSEC (unknown strength) Not Available - Active Procedures Procedure Date Office/outpatient visit,est, mod 2021 X-ray exam knee, 3 views Office/outpatient visit,est, mod 2021 X-ray exam knee, 3 views Office/outpatient visit,est, mod 2021 X-ray exam knee, 3 views Global/Postop followup visit X-ray exam knee, 3 views Global/Postop followup visit X-ray exam knee, 3 views X-ray Exam, Femur 2 Views Office/outpatient visit,new, high Advance Directives Directive Yes / No Effective Date File Name No Information Encounters Encounter Description Practice Location Reason(s) For Visit Diagnoses Date Provider Providers Copied on Encounter [facility], [address] [address], [place], [place], [id number], [place] tel:[phone] [facility] No Information 4 Satnam Carbajal er. [address] [address], [place], [place], [id number] , [place]. tel:[phone] Office/outpa tient visit,[facility], [facility], [address] [address], [place], [place], [id number], [place] tel:[phone] [facility] left knee (chief complaint) Pain in left knee 2 Satnam hurley. [address] [address], [place], [place], [id number] , [place]. tel:[phone] Referring Provider: Chriss Nguyen, [address] [address], [place], [address]. tel:[phone] Office/outpa tient visit,[facility], [facility], [address] [address], [place], [place], [id number], [place] [phone] [facility] left knee (chief complaint) Pain in left kneeDisplaced condyle fracture of lower end of left femur, sequelaPresence of left artificial knee joint 2 Cole Corbin. [address] [facility] [address], [place], [place], [id number] , [place]. tel:[phone] Referring Provider: Shaquille Ewing, [address] [address], [place], [address]. tel:[phone] [facility], [address] [address], [place], [place], [id number], [place] tel:[phone] [facility] No Information 2 Satnam hurley. [address] [facility], [address], [place], [place], [id number] , [place]. tel:[phone] Office/outpa tient visit,est, mod [facility], [address] [address], [place], [place], [id number], [place] tel:[phone] [facility] left knee (chief complaint) Displaced condyle fracture of lower end of left femur, sequelaPain in left kneePresence of left artificial knee joint 2 Cole Corbin. [address] [facility], [place], [place], [id number] , [place]. tel: [phone] Referring Provider: Shaquille Ewing, [address] [place] [address] [facility], [place], [address]. tel:[phone] [facility], [address] [place] [address], [place], [place], [id number], [place] tel:[phone] [facility] Left hip (chief complaint) Pain in left kneeDisplaced condyle fracture of lower end of left femur, sequelaPresence of left artificial knee joint 2 Cole Corbin. [address] [facility] [address], [place], [place], [id number] , [place]. tel: [phone] Referring Provider: Shaquille Ewing, [facility] [facility] [address] [facility], [place], [address]. tel:[phone] [facility], [address] [place] [address], [place], [place], [id number], [place] tel:[phone] [facility] left femur (chief complaint) Displaced condyle fracture of lower end of left femur, sequelaPain in left kneePresence of left artificial knee joint 2 Cole Corbin. [address] [facility] [address], [place], [place], [id number] , [place]. tel: [phone] Referring Provider: Shaquille Ewing, [address] [facility] [address] [facility], [place], [address]. tel:[phone] Office/outpa tient visit,new, high [facility], [address], [place], [place], [id number], [place] tel:[phone] [facility] left femur (chief complaint) Displaced condyle fracture of lower end of left femur, initial encounter for closed fracture Satnam hurley. [address] [facility], [place], [place], [address] , [place]. tel: [phone] Referring Provider: Chriss Nguyen, [address] [facility] [address], [place], [address]. tel:[phone] Family History Family Member Type Diagnosis Age At Onset Sister Problem (finding) Cancer, unknown Sister Problem (finding) Hypertension Sister Problem (finding) Osteoarthritis Mother Problem (finding) Cancer, unknown Payers Payer name Insurance type Covered libertarian ID Authoriza tion(s) Medicare [place] W[place] Part B MB [id number] AARP CI [id number] Social History Type Description Quantity Date Captured Comments Alcohol Use Details Unknown Caffeine Use Details Unknown Tobacco Use Status No Information Smoking Status No Information Sex Female Chief Complaint And Reason For Visit No Information Reason For Referral Reason For Referral No Information Plan Of Treatment Date Type Action Status Referral Ordered: X-ray Exam, Femur 2 Views LT femur ordered Referral Ordered: X-ray exam knee, 3 views LT knee ordered Future Order: Lab Order C Reacti ve Protein (CRP), Ordered on: Ordered Future Order: Lab Order CBC W/Di ff (CBC w/Diff), Ordered on: Ordered Future Order: Lab Order Sed Rate (Sed Rate), Ordered on: Ordered Future Order: Lab Order C Reacti ve Protein (CRP), Ordered on: Ordered Future Order: Lab Order Sed Rate (Sed Rate), Ordered on: Ordered History Of Present Illness Encounter Date Complaint History Of Prese nt Illness jennifer knee Sammi is a 9 9 year-old female who presents to the office for evaluation of left knee pain. This is a frail female presents for continued evaluation of her left knee. 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 This was removed and she was converted to a distal femoral replacing prosthesis on 03/17/2021. The patient remains frail with chronic physical deconditioning. She did have a fall and was seen by an outside orthopedic surgeon. They took x-rays there which were benign appearing. I did review these x-rays which showed stable position of her left hinged knee prosthesis. Patient was seen in our office as recently as 10/21/21 with continued complaints of pain chronic disability and failure to thrive. Labs were ordered at that time CRP and sed rate returned normal. Patient uses a cane today. She is accompanied by her friend. jennifer Chapa is a p leasant 80-year-old female who presents to the office today for ongoing evaluation of her complex left total knee arthroplasty with distal femoral replacing prosthesis, removal of deep implant cortex consisting of left distal femoral locking plate, placed for treatment of a distal femoral fracture nonunion, date of surgery 03/17/2021. Indicates that she resume physical therapy after her last office visit but has had no reduction to pain with physical therapy exercises. Denies injury, trauma, or fall since last office visit. Denies fever, chills, generalized feelings of illness or malaise. Endorses diffuse pain rated at a 6 out of 10 with a throbbing constant nature that is worsened with standing and ambulation. Her pain is managed with the use of physical therapy exercises, ice, heat, Motrin, and acetaminophen. She is concerned that she is still experiencing pain after surgical intervention and has not resumed her normal level of functioning from prior to her original fall and fracture. She is ambulating with the use of a cane at today's office visit. jennifer Chapa is a p leasant 80-year-old female who presents to the office today for ongoing postop evaluation of her complex left total knee arthroplasty with distal femoral replacing prosthesis, removal of deep implant cortex consisting of left distal femoral locking plate, placed for treatment of a distal femoral fracture nonunion, date of surgery 03/17/2021. 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 She is expressing significant concern over development of pain in her low back and SI region, and continued pain in her distal femur and knee. States concern over stiffness in the left knee. Her sister indicates that she is having concerns over the patient ambulating with the use of a cane, however patient states she has been instructed to transition to a cane in physical therapy and is stable with ambulation. Pain in the lower femur and knee is mild to moderate and aching. It is worsened with ambulation. It is managed with the use of acetaminophen. Denies injury, trauma, or fall since last office visit. Denies fever, chills, generalized feelings of illness or malaise. She is ambulating with the use of a cane at today's office visit. Left hip Sammi is a p leasant 80-year-old female who presents to the office today for ongoing postop evaluation of her complex left total knee arthroplasty with distal femoral replacing prosthesis, removal of deep implant cortex consisting of left distal femoral locking plate, placed for treatment of a distal femoral fracture nonunion, date of surgery 03/17/2021. She is still participating in physical therapy and feels that it is going okay. States displeasure with her progress, and is concerned over moderate constant pain diffusely located in the knee and distal femoral region. She is having difficulty with activities such as getting out of a car, and standing up from a sitting position as well as ascending and descending stairs. Pain is managed with tramadol, therapy exercises, ice and heat, rest, and elevation. Requesting time frame on complete resolution of pain, and return to her prefracture activities. She is ambulating with the use of a cane at today's office visit, and accompanied to the visit by a friend. left femur Sammi is a p leasant 80-year-old female who presents to the office today for initial postop evaluation of her complex left total knee arthroplasty with distal femoral replacing prosthesis, removal of deep implant cortex consisting of left distal femoral locking plate, placed for treatment of a distal femoral fracture nonunion, date of surgery 03/17/2021. Patient is compliant with the use of Lovenox injections and aspirin for DVT prophylaxis. She indicates compliance with the use of a knee immobilizer with all weightbearing and ambulation. She is just been released from rehabilitation Center, and is transitioning to home health physical therapy. Endorses diffuse left knee pain, and left thigh pain that is rated at a 3 out of 10 with a throbbing, dull, aching, constant nature. Pain increases with all activities. Pain is managed with tramadol and ice. She is ambulating with the use of a walker at today's office visit. left femur Sammi is a 9 8 year-old female who presents to the office for evaluation of left femur pain. She presents with her sister today. She is using a cane. She is limping. She sustained a left distal femoral fracture. She underwent open reduction internal fixation at [facility] with Dr. Lazo. 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 Patient is referred to me for further evaluation of reconstructive options in the setting of a nonunited geriatric distal femoral fracture.She is 5 foot 1, 162 pounds. Date of injury was 09/29/2019. She fell from a height at her home in [place]. Currently she lives in assisted living. Her pain as an 8 out of 10 it is constant. She is experiencing decreased motion limping and difficulty ambulating. Her pain is worse with standing walking climbing stairs and descending stairs pain is better with [id number] medication and prescription medication. She has used anti-inflammatories braces pain medication and plain x-ray she is a non-smoker. She does have a diagnosis of Parkinson's disease it is mild and uses carbidopa levodopa. Pain is managed with aspirin and Aleve. Functional Status Date Functional Assessmen t No Information Instructions Date Instruction Additional Infor lexi Verbal consent was o btained. Patient was seated with the leg in full extension. Floyd were removed without difficulty or complication. The procedure was well tolerated by the patient who was discharged in stable condition. Dictation completed with [employer] software, grammatical variances in spelling errors may inadvertently occur. Related to Presence of left artificial knee joint Assessments Type Assessment Date No Information Patient Care Teams Name Effective Dates (start - stop) Status Members No Information
--- NOTE | ~2025-01-06 | XR_ITS ---
XR lumbar spine 2-3V Indication: NON TRAUMA LBP/HX OF SURGERY Comparison: None Findings: Mild levoconvex scoliosis. Moderate loss of vertebral height throughout with remote compression fractures of L3 L2 and kyphoplasty changes of T11, loss of height maximally on L2 90%, no acute fracture or subluxation. Moderate to severe loss of disc height throughout Soft tissues unremarkable Impression: No acute abnormality. Reviewed, dictated and finalized at location P. Impression: No acute abnormality.
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
--- OUTSIDE RECORDS SUMMARY | 2025-01-06 16:25 | XMS_ITS | Encounter Summary ---
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
--- OUTSIDE RECORDS SUMMARY | 2025-01-06 16:25 | XMS_ITS | Encounter Summary ---
Author Organization [facility] Address [address] [place] [address] Care Team Providers Care Human Resource Intern Name Role Phone Mahad Onofre MD Primary Care Provider [phone] Encounter Details Date Type Department Care Team (Late st Contact Info) Description 01/02/2025 Orders Only [facility] - Orthopedic Surgery [address] [place] [phone] John Sarah MD [address] [facility] [address] [place] [address] History of total left knee replacement Social [...] documented as of this encounter Functional Status * Is person deaf or have serious hearing difficulty? Answer Date of Assessment Author No 09/23/2019 5:16 PM Carolina Carlson RN * Is person blind or have serious difficulty seeing? Answer Date of Assessment Author No 09/23/2019 5:16 PM KIRAT Carolina Combs RN * Does person have serious difficulty walking/climbing stairs? Answer Date of Assessment Author No 09/23/2019 5:16 PM Carolina Carlson RN * Does person have difficulty dressing/bathing? Answer Date of Assessment Author No 09/23/2019 5:16 PM CDT Carolina Combs RN * Does person have difficulty doing errands alone? Answer Date of Assessment Author No 09/23/2019 5:16 PM KIRAT Carolina Combs RN documented as of this encounter Mental Status * Does person have difficulty concentrating/remembering/making decisions? Answer Entry Date Author No 09/23/2019 5:16 PM CDT Carolina Combs RN documented in this encounter Plan of Treatment Upcoming Encounters Date Type Department Care Team (Late st Contact Info) Description 01/28/2025 1:15 PM CDT Office Visit [facility] - Orthopedic Surgery [address] [place] [address] John Sarah MD [address] [facility] [address] [place] [address] Scheduled Orders Name Type Priority Associated Diagnoses Orde r Schedule XR Knee Left 4Vw or More Imaging Routine History of total left knee replacement 1 Occurrences starting 01/02/2025 until 01/02/2026 documented as of this encounter Goals Goal Patient Goal Type Associated Problems Recent Progress Patient-Stated? Author PAIN General No change(2020 1:54 PM CDT) No Tony Cherry RN Note: Expected end date: ongoing Patient's pain/discomfort is manageable. Interventions: Autogenerated Goal Care Plan Autogenerated Problem No Claudio Pastrana RN documented as of this encounter Visit Diagnoses Diagnosis History of total left knee replacement- Primary documented in this encounter Additional Health Concerns Active Problems Noted Date Diagnosed Date Autogenerated Problem 11/13/2024 documented as of this encounter Care Teams Human Resource Intern Relationship Specialty Start Date End Date Mahad Onofre MD [address] [place] [phone] PCP - General Internal Medicine 03/21/17 documented as of this encounter
--- OUTSIDE RECORDS SUMMARY | 2025-01-06 16:25 | XMS_ITS | Clinical Summary ---
Author Organization [facility] Address [address] [place] [address] Care Team Providers Care Commissions Manager Name Role Phone Mahad Onofre MD Primary Care Provider [phone] Allergies Active Allergy Reactions Criticality Noted Date [...] drink = 0.6 oz pur e alcohol) [facility] Utilities Answer Date Recorded In the past 12 months has e [employer], gas, oil, or water [employer] threatened to shut off services in your [...] often do you attend chur ch or yazidism services? Never 01/22/2024 Do you belong to any clubs o r organizations such as scientologist groups, unions, fraternal or athletic groups, or [...] and heating? Not hard at all 01/22/2024 [facility] [place] of Occupat ional Health - Occupational Stress [...] any time in the past 12 m [facility], were you homeless or living in [...] 01/21/2024 4:56 PM CDT Plan of Treatment Health Maintenance Due Date Last Done Comments Annual Visit Topic 08/14/1941 DTaP/Tdap/Td Vaccines (1 - Tdap) 1961 Pneumococcal Vaccine: 65+ Ye ars (1 of 2 - PCV) 1992 HIB Vaccines Aged Out No longer eligi ble based on patient's age to complete this topic HPV Vaccines Aged Out No longer eligi ble based on patient's age to complete this topic Hepatitis A Vaccines Aged Out No long er eligible based on patient's age to complete this topic Hepatitis B Vaccines Aged Out No long er eligible based on patient's age to complete this topic IPV Vaccines Aged Out No longer eligi ble based on patient's age to complete this topic Meningococcal Vaccine Aged Out No kev tobi eligible based on patient's age to complete this topic Advance Directives * Full Resuscitation (Latest Code Status on File) Date Activated Date Inactivated Comments 01/21/2024 6:05 PM 01/30/2024 5:15 PM Question Answer Comments I have discussed this order with the patient or his/her surrogate and have received informed consent. Yes Care Teams Commissions Manager Relationship Specialty Start Date End Date Mahad Onofre MD [address] [phone] PCP - General 01/22/24
--- OUTSIDE RECORDS SUMMARY | 2025-01-06 16:26 | XMS_ITS | Clinical Summary ---
Author Organization [facility] [place] [facility] Address [address] [place] [address] Care Team Providers Care Warehouse Inventory Clerk Name Role Phone Mahad Onofre MD Primary Care Provider Chriss Hay MD Unavailable [phone] Allergies Active Allergy Reactions Criticality Noted Date [...] a day 60 capsule 03/19/20 21 Active aspirin 81 mg chewable tabletIndications: Deep Vein Thrombosis Prevention Take 1 tablet (81 mg total) by mouth 2 (two) times a day 60 tablet 03/19/20 21 Active Additional Information Patient not [...] Additional Information Patient not taking.Reported on 10/06/2024 amoxicillin-clavul anate (AUGMENTIN) 875-125 mg per tablet Take 1 tablet by mouth every 12 (twelve) hours Active Eliquis 5 mg tablet TAKE 1 (ONE) TABLET BY MOUTH 2 TIMES DAILY 09/07/19 24 Active glycopyrrolate (ROBINUL) 1 mg tablet 06/19/19 24 Active glycopyrrolate (ROBINUL) 1 mg tablet Take 1 tablet (1 mg total) by mouth nightly as needed 07/12/19 24 Active carbidopa-levodopa (SINEMET) 25-100 mg per tabletIndications: Parkinsonism Take 1 tablet by mouth 4 (four) times a day 120 tablet 6 10/07/19 25 Active memantine (NAMENDA) 10 mg tabletIndications: Parkinson's disease, unspecified whether dyskinesia present, unspecified whether manifestations fluctuate (HCC) Take 1 tablet (10 mg total) by mouth 2 (two) times a day 180 tablet 3 10/07/19 25 Active donepeziL (ARICEPT) 10 mg tabletIndications: Dementia without behavioral disturbance (HCC) Take 1 tablet (10 mg total) by mouth nightly 90 tablet 3 10/07/19 25 Active Active Problems Problem Noted Date [...] (02/17/2021): Added automatically from request for surgery [id number] 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, subsequent encounter 02/17/2021 Overview (02/18/2021): Added automatically from request for surgery [id number] Osteoarthritis 01/03/2021 Diverticulitis 01/03/2021 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 [...] Office Visit [facility] Neurology [address] [place] [phone] Dieter Skelton MD Parkinson's disease without [...] on file 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 Medical Devices Implanted Type Area Perfume Compounder Device Identifier Shelf Expiration Date Model / Serial / Lot [employer] 5560-S-112 Triathlon 12mm 50mm Cement End Cap Knee Stem Femoral Cocr - [id number] Implanted:Qty: 1 on 03/17/2021 by Chriss Hay MD at [facility] [employer] [id number] 12/26/2025 5560-S-112 / / [id number] [employer] 6481-2-150 Gmrs Pack Crosslink Knee Component Femoral Polyethylene - [id number] Implanted:Qty: 1 on 03/17/2021 by Chriss Hay MD at [facility] Left: Knee [employer] [id number] 09/02/2025 6481-2-150 / / [id number] [employer] 6481-2-100 Monogram Modular Rotate Hinge Knee Xs-Xl Component Tibial - [id number] Implanted:Qty: 1 on 03/17/2021 by Chriss Hay MD at [facility] Left: Knee [employer] [id number] 09/06/2025 6481-2-100 / / [id number] [employer] [id number] Gmrs Bearing Modular Rotate Hinge Distal Ahl36rd M2 2 Insert - [id number] Implanted:Qty: 1 on 03/17/2021 by Chriss Hay MD at [facility] Left: Knee [employer] [id number] 12/08/2024 [id number] / / [id number] [employer] 6481-3-112 Modular Rotating Hinge 2 Medium Baseplate Tibial - [id number] Implanted:Qty: 1 on 03/17/2021 by Chriss Hay MD at [facility] Left: Knee [employer] [id number] 04/13/2025 6481-3-112 / / [id number] [employer] 6485-3-115 Gmrs 15mm 127mm Cemented Knee Straight Stem Femoral Sterile - [id number] Implanted:Qty: 1 on 03/17/2021 by Chriss Hay MD at [facility] Left: Knee [employer] [id number] 06/08/2023 6485-3-115 / / [id number] [employer] [id number] Gmrs 65mm Knee Left Small Component Femoral Cocr - [id number] Implanted:Qty: 1 on 03/17/2021 by Chriss Hay MD at [facility] Left: Knee [employer] [id number] 05/21/2025 [id number] / / [id number] [employer] 6191-1-010 Simplex P Radiopaque Full Dose Cement Bone Sterile - [id number] Implanted:Qty: 1 on 03/17/2021 by Chriss Hay MD at [facility] Left: Knee [employer] 05/02/2023 6191-1-010 / / [id number] [employer] 6191-1-010 Simplex P Radiopaque Full Dose Cement Bone Sterile - [id number] Implanted:Qty: 3 on 03/17/2021 by Chriss Hay MD at [facility] Left: Knee [employer] 05/31/2023 6191-1-010 / / [id number] [employer] [id number] Gmrs Knee Small Bushing Femoral - [id number] Implanted:Qty: 1 on 03/17/2021 by Chriss Hay MD at [facility] Left: Knee [employer] [id number] 04/06/2025 [id number] / / [id number] [employer] [id number] Gmrs Knee Small Bushing Femoral - [id number] Implanted:Qty: 1 on 03/17/2021 by Chriss Hay MD at [facility] Left: Knee [employer] [id number] 04/07/2025 [id number] / / [id number] [employer] [id number] Gmrs Knee Small Axle Femoral - [id number] Implanted:Qty: 1 on 03/17/2021 by Chriss Hay MD at [facility] Left: Knee [employer] [id number] 06/13/2023 [id number] / / [id number] Insurance MEDICARE [facility] Address: [address] [address] [facility] MEDICARE [facility] MEDICARE AARP Advance Directives For more information, please contact: [phone] * Full Code (Latest Code Status on File) Date Activated Date Inactivated Comments 03/17/2021 9:05 PM 03/21/2021 9:00 PM Care Teams Warehouse Inventory Clerk Relationship Specialty Start Date End Date Mahad Onofre MD [address] [facility] [address] [place] [address] PCP - General Internal Medicine 05/05/20 Chriss Hay MD 1050 [facility] [address] [place] [address] Consulting Physician Orthopedic Surgery 03/19/21
== END 2025-01-06 15:37 | disposition home or self-care (01) ==
PROVIDERS: PCP Internal Medicine; Visit Provider Nurse Practitioner Adult Health
DX: S32.029A Unspecified fracture of second lumbar vertebra, initial encounter for closed fracture (principal); X58.XXXA Exposure to other specified factors, initial encounter
CPT/HCPCS: 72100